=== PATIENT | female | born 1955 | race Caucasian/White ===

== ENCOUNTER → 2019-09-16 13:51 | Outpatient (BNVA) | payer MEDICARE, MEDICAID, SELFPAY | PROVIDERS: Family Provider Family Medicine; PCP Family Medicine; Visit Provider Specialist | DX: G35 Multiple sclerosis (principal); Z97.8 Presence of other specified devices | CPT/HCPCS: 62370; 99213; J0475 ==

== ENCOUNTER 2019-11-09 16:59 | Outpatient (CLI) | payer MEDICARE, MEDICAID, SELFPAY ==
[2019-11-09 17:18] LABS: Urine Color Yellow (Yellow)
[2019-11-09 17:19] LABS: Add Urine Microscopic? YES; Bilirubin Urine Neg (NEGATIVE); Blood Urine 3+ (Negative); Glucose Urine UA Norm (Normal); Ketones Urine Negative (Negative); Leukocyte Esterase Urine 2+ (Negative); Nitrate Urine Positive (Negative); Protein Urine 1+ (Negative); Specific Gravity, Urine 1.015 (1.005-1.030); Urobilinogen Urine Norm (Negative); pH Urine 5 (5-7)
[2019-11-09 18:16] LABS: WBC Urine TOO NUMEROUS TO CNT /hpf (0-5)
[2019-11-09 18:17] LABS: Add Urine Culture? Yes; Bacteria Urine 2+; Mucus Urine TRACE; Squamous Epithelial Cell Urine 0-4 (0-5)
== END 2019-11-09 17:00 | disposition home or self-care (01) ==
LOC: LAB 17:01
PROVIDERS: PCP Family Medicine; Visit Provider Internal Medicine
DX: E11.9 Type 2 diabetes mellitus without complications (principal)
CPT/HCPCS: 81001; 87086

== ENCOUNTER 2019-11-12 08:40 | Outpatient (CLI) | payer MEDICARE, MEDICAID, SELFPAY ==
--- NOTE | 2019-11-12 09:00 | CT_ITS ---
WS: [id number] CT LUMBAR SPINE, noncontrast. HISTORY: Baclofen pump needs replaced. TECHNIQUE: Contiguous 2.5 mm axial imaging are performed. Sagittal and coronal reformats are submitte d and reviewed. All CT scans at [facility] use at least one of these dose optimization te chniques: automated exposure control; mA and/or kV adjustment per patient size (includes targeted exa ms where dose is matched to clinical indication); or iterative reconstruction. IV contrast: None DLP: 2738.1 mGy.cm COMPARISON: 02/03/2018 Severe LEFT convex curvature of the lumbar spine. Asymmetric disc space narrowing along the RIGHT con vex curvature with large osteophytes. Bones are diffusely osteopenic. Severe degenerative disc diseas e and osteophytosis throughout the lumbar spine. Most significant degenerative disc disease is at L4- 5. Large circumferential osteophytes. No acute fractures are seen. Baclofen pump catheter enters the lumbar canal at L2-3 level. Tip of the catheter extends above the T 11 area and is not included on this examination. L1-2: Annular disc bulging. Mild central and foraminal stenosis. L2-3: Osteophytic ridging with annular disc bulging. Mild central and subarticular recess stenosis. L3-4: Diffuse annular disc bulging with osteophytic ridging and facet arthropathy. Mild central and s ubarticular recess stenosis. L4-5: Diffuse annular disc bulging with marked facet and ligamentum flavum arthritis. Severe central and subarticular recess stenosis. L5-S1: Small osteophytes encroach into the LEFT subarticular recess. Mild bilateral foraminal stenosi s predominantly due to osteophyte disease. Extensive atherosclerosis within the aorta with no aneurysm. CT/CT lumbar spine wo con* [id number] IMPRESSION: 1. Marked LEFT convex curvature the lumbar spine with osteopenia and advanced degenerative changes in the lumbar spine. 2. Severe central and subarticular recess stenosis at L4-5 with only minimal c hange since 02/03/2018. 3. Mild central and subarticular recess stenosis at L2-3 and L3-4. 4. Mild bilateral foraminal stenosis at L5-S1 and L1-2.
== END 2019-11-12 08:41 | disposition home or self-care (01) ==
LOC: RAD 08:45
PROVIDERS: PCP Family Medicine; Visit Provider Licensed Practical Nurse
DX: Z97.8 Presence of other specified devices (principal); M48.061 Spinal stenosis, lumbar region without neurogenic claudication
CPT/HCPCS: 72131

== ENCOUNTER 2020-02-17 23:45 | Inpatient (IN) | payer MEDICARE, MEDICAID, SELFPAY ==
--- NOTE | 2020-02-17 23:51 | XRR_ITS ---
PROCEDURE INFORMATION: Exam: XR Chest, 1 View Exam date and time: 02/18/2020 12:29 AM Age: 65 years old Clinical indication: Patient HX: C/O fever, confusion, redness left leg TECHNIQUE: Imaging protocol: XR of the chest Views: 1 view. COMPARISON: CR Chest 1 [place] [id number] 02/10/2019 11:24 PM FINDINGS: Lungs: Unremarkable. No consolidation. Pleural space: Unremarkable. No pleural effusion. No pneumothorax. Heart/Mediastinum: Unremarkable. No cardiomegaly. Bones/joints: Unremarkable. XR/XR chest 1V portable [id number] IMPRESSION: No acute findings. Air-filled stomach
--- NOTE | 2020-02-17 23:52 | ECG_ITS ---
[facility] Test Date: 2020-02-18 Pat Name: Jared Garcia Department: Room: Gender: Female Bods Developer: : 1955 Requested By: Jay Ferreira Order Number: [id number] Travis MD: Yajaira Luis M.D. Measurements Intervals [place] Rate: 121 P: 55 AR: 169 QRS: 29 QRSD: 87 T: 41 QT: 322 QTc: 459 Interpretive Statements SINUS TACHYCARDIA LOW QRS VOLTAGE [QRS DEFLECTION < 0.5/1.0 mV IN LIMB/CHEST LEADS] POSSIBLE INFERIOR MYOCARDIAL INFARCTION , PROBABLY OLD [30 ms Q WAVE IN II/aVF] ANTEROSEPTAL MYOCARDIAL INFARCTION , PROBABLY OLD [40+ ms Q WAVE IN V1-V4] Compared to ECG 02/11/2019 04:20:35 Myocardial infarct finding now present Sinus rhythm no longer present Electronically Signed On 02-18-2020 18:50:05 CDT by Yajaira Luis M.D. [id number] f
[2020-02-17 23:56] VITALS: BP 107/56; PULSE 126; RESP 24; TEMP 38.3; O2SAT 92; BMI 70.4
[2020-02-18] VITALS (16 sets, daily range): BP systolic 90–156; BP diastolic 52–82; PULSE 65–119; RESP 16–26; TEMP 37–38.2; O2SAT 94–99
--- NOTE | 2020-02-18 00:19 | W.ED.AMS ---
HPI - Altered Mental Status General: Chief Complaint: Altered Mental Status Stated Complaint: SEPSIS Time Seen by Provider: 02/17/20 23:48 Source: EMS Mode of arrival: EMS Limitations: altered mental status History of Present Illness: HPI narrative: 65-year-old female who is here from the intermediate[facility] group home found her to be febrile tonight with a temperature of 102 does have a temperature of 101 here. Patient has been confused. She is able to tell me her name that is it at this time. Does have redness to her left leg that is quite warm to touch. She denies headache. She denies any neck pain. She has had no known cough. Patient's blood pressure per ems was normal Review of Systems General: Reports: ROS unobtainable due to mental status Const: Reports: fever(s) [facility] ED PFSH: Medical History (Updated 02/18/20 @ 03:45 by Jay Ferreira MD) Anemia Chronic back pain Chronic constipation Depression End of battery life of intrathecal infusion pump GERD (gastroesophageal reflux disease) Hyperlipidemia Hypertension Hypothyroidism Incontinence Multiple sclerosis Obstructive sleep apnea Surgical History Presence of intrathecal baclofen pump 05/19/2013 Dr. Abner Flanagan: Replacement of [employer] subcutaneous programmable pump with connection to intrathecal catheter for administration of intrathecal baclofen therapy. Family History Other CAD (coronary artery disease) Cancer Diabetes Denies family history of Hypertension Stroke Social History Smoking and tobacco status: never smoked Alcohol intake: never Lives independently: No Housing: Detention History of recent travel: No Physical Exam Const: COMMON NORMALS: negative for patient oriented x3 EXAM LIMITATIONS: altered mental status GENERAL APPEARANCE: ill appearing ORIENTATION/CONSCIOUSNESS: Yes oriented to person; not oriented to place and not oriented to time HENMT: COMMON NORMALS: normocephalic and atraumatic HEAD & SCALP: normocephalic and atraumatic Eye: COMMON NORMALS: Equal, round and reactive pupils present and EOMs intact bilaterally PUPIL: Yes Equal, round and reactive pupils present Neck/C-Spine: COMMON NORMALS: full ROM and supple Chest: COMMONS NORMALS: normal inspection of the chest and normal palpation of entire chest wall Resp: COMMON NORMALS: normal respiratory effort, No retractions, No use of accessory muscles and clear to auscultation bilaterally AUSCULTATION: clear to auscultation bilaterally Cardio: COMMON NORMALS: regular rate, regular rhythm and No murmurs present (Cardio) RATE: regular rate RHYTHM: regular rhythm GI: COMMON NORMALS: Normal to inspection, nondistended, normoactive bowel sounds present, Soft to palpation, non-tender and no masses PALPATION: Yes Soft to palpation Extremity: COMMON NORMALS: full ROM NARRATIVE EXTREMITY EXAM: Erythema and warmth to the left leg Neuro: COMMON NORMALS: moves all extremities and no focal motor deficits; negative for patient oriented x3 SENSORIUM/ORIENTATION: Yes oriented to person, No oriented to place and No oriented to time Psych: COMMON NORMALS: negative for mental status grossly normal Skin: COMMON NORMALS: no rashes or lesions noted and no wounds GENERAL SKIN EXAM: no rashes or lesions noted Course Vital Signs: Vital signs: Vital Signs Temperature 100.3 F H 02/18/20 02:59 Pulse Rate 65 02/18/20 02:57 Respiratory Rate 24 H 02/18/20 02:00 Blood Pressure 106/55 02/18/20 02:57 Pulse Oximetry 95 02/18/20 02:59 MDM - Altered Mental Status MDM Narrative: Medical decision making narrative: Patient presents with fever along with sepsis. Patient is able to mental status likely due to her fever and infection. Patient has UTI along with cellulitis to her left leg. Patient started on IV antibiotics I spoke to Dr. Higginbotham who is seen patient in the ER and will admit. Patient's blood pressures here have been stable. Lab Data: Labs: Lab Results 02/18/20 02/18/20 02/18/20 Range/Units 00:32 00:32 00:32 WBC 11.4 H (4.0-10.0) 10^3/ uL RBC 4.07 L (4.1-5.3) 10^6/u L Hgb 11.1 L (11.5-15.3) g/dL Hct 36.3 L (37.0-47.0) % MCV 89.2 (81-99) fL MCH 27.3 L (28.0-34.0) pg MCHC 30.6 (30.0-36.0) g/dL RDW 15.7 H (12.1-15.1) % Plt Count 279 (130-400) 10^3/c mm MPV 10.0 (7.4-10.4) fL Neut % (Auto) 88.8 % Lymph % (Auto) 7.3 % Preston % (Auto) 3.3 % Eos % (Auto) 0.0 % Baso % (Auto) 0.2 % Neut # (Auto) 10.10 H (1.8-7.7) 10^3/u L Lymph # (Auto) 0.8 (0.8-4.8) 10^3/u L Preston # (Auto) 0.4 (0.2-0.9) 10^3/u L Eos # (Auto) 0.0 (0.0-0.8) 10^3/u L Baso # (Auto) 0.0 (0.0-0.1) 10^3/u L Nucleated RBC % (a uto) 0 % Nucleated RBCs # 0.0 /100WBC PT 15.10 H (12.1-14.9) SECO NDS INR 1.15 (0.8-1.2) Sodium 131 L (136-145) mmol/L Potassium 5.1 (3.5-5.1) mmol/L Chloride 95 L (98-107) mmol/L Carbon Dioxide 19 L (22-29) mmol/L Anion Gap 22.1 H (5-19) BUN 30 H (8-23) mg/dL Creatinine 1.1 H (0.5-0.9) mg/dL GFR Calculation 50.2 L (90-130) mL/min Glucose 359 H (65-115) mg/dL Calculated Osmolal ity 284 L (285-295) mOsm/k g Lactate (0.5-2.2) mmol/L Calcium 8.5 (8.5-10.5) mg/dL Total Bilirubin 0.5 (0.15-1.2) mg/dL AST 38 H (0-32) U/L ALT 20 (0-33) U/L Alkaline Phosphata se 67 (35-105) IU/L C-Reactive Protein 194.4 H (0.0-4.9) mg/L NT-Pro-B Natriuret Pep 533 H (0-125) pg/mL Total Protein 7.9 (6.6-8.7) g/dL Albumin 3.2 L (3.5-5.2) g/dL Globulin 4.7 H (1.3-4.6) g/dL TSH 2.87 (0.27-4.20) uIU/ mL Urine Color (Yellow) Urine Appearance (CLEAR) Urine pH (5-7) Ur Specific Gravit y (1.005-1.030) Urine Protein (Negative) Urine Glucose (UA) (Normal) Urine Ketones (Negative) Urine Blood (Negative) Urine Nitrate (Negative) Urine Bilirubin (NEGATIVE) Urine Urobilinogen (Negative) mg/dL Ur Leukocyte Susan ase (Negative) Urine RBC (0-2) /hpf Urine WBC (0-5) /hpf Ur Squamous Epith Cells (0-5) Amorphous Sediment Urine Bacteria (NONE) SARS-CoV-2 Ag (Rap id) (Negative) 02/18/20 02/18/20 02/18/20 Range/Units 00:32 01:06 01:53 WBC (4.0-10.0) 10^3/ uL RBC (4.1-5.3) 10^6/u L Hgb (11.5-15.3) g/dL Hct (37.0-47.0) % MCV (81-99) fL MCH (28.0-34.0) pg MCHC (30.0-36.0) g/dL RDW (12.1-15.1) % Plt Count (130-400) 10^3/c mm MPV (7.4-10.4) fL Neut % (Auto) % Lymph % (Auto) % Preston % (Auto) % Eos % (Auto) % Baso % (Auto) % Neut # (Auto) (1.8-7.7) 10^3/u L Lymph # (Auto) (0.8-4.8) 10^3/u L Preston # (Auto) (0.2-0.9) 10^3/u L Eos # (Auto) (0.0-0.8) 10^3/u L Baso # (Auto) (0.0-0.1) 10^3/u L Nucleated RBC % (a uto) % Nucleated RBCs # /100WBC PT (12.1-14.9) SECO NDS INR (0.8-1.2) Sodium (136-145) mmol/L Potassium (3.5-5.1) mmol/L Chloride (98-107) mmol/L Carbon Dioxide (22-29) mmol/L Anion Gap (5-19) BUN (8-23) mg/dL Creatinine (0.5-0.9) mg/dL GFR Calculation (90-130) mL/min Glucose (65-115) mg/dL Calculated Osmolal ity (285-295) mOsm/k g Lactate 3.6 H (0.5-2.2) mmol/L Calcium (8.5-10.5) mg/dL Total Bilirubin (0.15-1.2) mg/dL AST (0-32) U/L ALT (0-33) U/L Alkaline Phosphata se (35-105) IU/L C-Reactive Protein (0.0-4.9) mg/L NT-Pro-B Natriuret Pep (0-125) pg/mL Total Protein (6.6-8.7) g/dL Albumin (3.5-5.2) g/dL Globulin (1.3-4.6) g/dL TSH (0.27-4.20) uIU/ mL Urine Color Yellow (Yellow) Urine Appearance Cloudy (CLEAR) Urine pH 5 (5-7) Ur Specific Gravit y 1.020 (1.005-1.030) Urine Protein 2+ H (Negative) Urine Glucose (UA) Norm (Normal) Urine Ketones Negative (Negative) Urine Blood 3+ H (Negative) Urine Nitrate Negative (Negative) Urine Bilirubin Neg (NEGATIVE) Urine Urobilinogen 1 H (Negative) mg/dL Ur Leukocyte Susan ase 2+ H (Negative) Urine RBC 0-4 H (0-2) /hpf Urine WBC 80-100 H (0-5) /hpf Ur Squamous Epith Cells 0-4 H (0-5) Amorphous Sediment Not Reportable Urine Bacteria 2+ H (NONE) SARS-CoV-2 Ag (Rap id) Negative (Negative) Imaging Data^: CXR: Attestation: I personally reviewed and interpreted this imaging study as follows: My impression: no acute abnormality EKG Data^: EKG 1: Attestation: I personally reviewed and interpreted this EKG as follows: EKG interpretation date: 02/18/20 EKG interpretation time: 00:06 Interpretation: sinus tach hr [address] or t wave abnormalities qrs 87 qtc 394 Critical Care Time Critical Care Time: Critical Care Time: Yes Total Critical Care Time: 35 Attestation: This case had a high probability of a clinically significant, sudden, or life threatening deterioration of this patient's condition which required my full and direct attention, intervention and personal management. Discharge Plan Discharge Patient Disposition: Admitted As Inpatient Clinical Impression: Altered mental status Qualifiers: Altered mental status type: unspecified Qualified Code(s): R41.82 - Altered mental status, unspecified Sepsis Qualifiers: Sepsis type: sepsis due to unspecified organism Sepsis acute organ dysfunction status: without acute organ dysfunction Qualified Code(s): A41.9 - Sepsis, unspecified organism UTI (urinary tract infection) Qualifiers: Urinary tract infection type: acute cystitis Hematuria presence: without hematuria Qualified Code(s): N30.00 - Acute cystitis without hematuria Cellulitis Qualifiers: Site of cellulitis: extremity Site of cellulitis of extremity: lower extremity Laterality: left Qualified Code(s): L03.116 - Cellulitis of left lower limb Condition: Stable Referrals: Russ Rosa Jr, MD [Primary Care Provider] - Coding Level of Care Code ED Track Watchman for Chg Fwd Exam Comprehensive
[2020-02-18] MEDS: piperacillin-tazobactam 3.375 GM in sodium chloride 0.9% (plus) 50 ML IV ×3 (00:39→17:23)
[2020-02-18] MEDS: acetaminophen 325 mg Tablet 650 MG PO ×2 (00:41→08:36)
[2020-02-18] MEDS: sodium chloride 0.9% 1,000 ML 999 ML IV ×2 (01:04→01:21)
[2020-02-18] MEDS: vancomycin 1,000 MG in sodium chloride 0.9% 250 ML 250 MG IV (01:11)
--- NOTE | 2020-02-18 01:16 | PC.NURSE ---
Used EMS fluids for 1 liter bolus.
[2020-02-18 01:21] LABS: Basophils % 0.2 %; Hematocrit 36.3 % (37.0-47.0); Hemoglobin 11.1 g/dL (11.5-15.3); Lymphocytes # 0.8 10^3/uL (0.8-4.8); Lymphocytes % 7.3 %; Mean Corpuscular HGB Conc 30.6 g/dL (30.0-36.0); Mean Corpuscular Hemoglobin 27.3 pg (28.0-34.0); Mean Corpuscular Volume 89.2 fL (81-99); Monocytes # 0.4 10^3/uL (0.2-0.9); Monocytes % 3.3 %; Neutrophils % 88.8 %; Nucleated Red Blood Cells % 0 %; Platelet Count 279 10^3/cmm (130-400); Red Blood Count 4.07 10^6/uL (4.1-5.3); Red Cell Distribution Width 15.7 % (12.1-15.1); White Blood Count 11.4 10^3/uL (4.0-10.0)
[2020-02-18 01:28] LABS: Lactate (Lactic Acid level) 3.6 mmol/L (0.5-2.2)
[2020-02-18 01:33] LABS: INR 1.15 (0.8-1.2)
[2020-02-18 01:35] LABS: Alanine Aminotransferase 20 U/L (0-33); Albumin Level 3.2 g/dL (3.5-5.2); Alkaline Phosphatase 67 IU/L (35-105); Anion Gap 22.1 (5-19); Aspartate Amino Transferase 38 U/L (0-32); Blood Urea Nitrogen 30 mg/dL (8-23); C Reactive Protein 194.4 mg/L (0.0-4.9); Calcium 8.5 mg/dL (8.5-10.5); Carbon Dioxide 19 mmol/L (22-29); Chloride 95 mmol/L (98-107); Globulin 4.7 g/dL (1.3-4.6); Glomerular Filtration Rate 50.2 mL/min (90-130); Glucose 359 mg/dL (65-115); NT Pro B Type Natriuretic Pept 533 pg/mL (0-125); Osmolality Calculated 284 mOsm/kg (285-295); Potassium 5.1 mmol/L (3.5-5.1); Sodium 131 mmol/L (136-145); Thyroid Stimulating Hormone 2.87 uIU/mL (0.27-4.20); Total Bilirubin 0.5 mg/dL (0.15-1.2); Total Protein 7.9 g/dL (6.6-8.7)
[2020-02-18 01:38] LABS: Add Urine Microscopic? YES; Bacteria Urine 2+; Bilirubin Urine Neg (NEGATIVE); Blood Urine 3+ (Negative); Glucose Urine UA Norm (Normal); Ketones Urine Negative (Negative); Leukocyte Esterase Urine 2+ (Negative); Nitrate Urine Negative (Negative); Protein Urine 2+ (Negative); RBC Urine 0-4 /hpf (0-2); Squamous Epithelial Cell Urine 0-4 (0-5); Urine Appearance Cloudy (CLEAR); Urine Color Yellow (Yellow); Urobilinogen Urine 1 mg/dL (Negative); WBC Urine 80-100 /hpf (0-5); pH Urine 5 (5-7)
[2020-02-18 01:39] LABS: Add Urine Culture? No
[2020-02-18 02:32] LABS: SARS Covid-2 Antigen Negative (Negative)
--- NOTE | 2020-02-18 02:47 | USCV_ITS ---
Jared Garcia Age: 65 Gender: F : 1955 Exam Date: 02/18/2020 03:29 Ordering Phys: Jay Ferreira MD Technologist: Dinh Lema [place] [facility] [place]: LT LEG SWELLING AND REDNESS HISTORY: Lower extremity edema. Erythema. PROCEDURES: Venous duplex imaging was performed in only the left lower extremity. The following venous structures were evaluated: common femoral vein, profunda vein, proximal portion of the greater saphenous vein, superficial femoral vein, and the popliteal vein. FINDINGS: Normal 2-D Doppler and augmentation and compressibility throughout the lower extremity venous structures. Additional imaging through the proximal calf veins also reveals no thrombus. Limited evaluation of the greater saphenous vein is patent with no thrombus. CONCLUSIONS No DVT left lower extremity. Dr. Rhianna Solomon DO (Electronically Signed) Final Date: 18 February 2020 08:37 S
--- NOTE | 2020-02-18 03:04 | PC.NURSE ---
hospitalist in room
--- NOTE | 2020-02-18 03:09 | P.HP_ITS ---
Providers/Chief Complaint Primary Care Provider: Russ Rsoa Jr, MD Chief Complaint: SEPSIS History of Present Illness Jared Garcia is a 65 year old female that presents from [facility] with history of fever, decreased responsiveness. Patient is confused currently and cannot give an adequate history although she can answer a few simple questions. Nursing reports she is just been ill today. She has not had an indwelling cath for at least the last several months. She noted she was lethargic today with fever and diminished oxygen saturations. They were worried she was septic so she was sent to the ER. Patient denies any discomfort currently. While in the emergency department, she was found to have an erythematous left lower extremity and concern of UTI. A catheter was placed in the ER. She specifically denies any chest pain. Review of Systems General: Reports: 10 or more systems reviewed and unremarkable except in HPI and below (Patient unable to participate enough to give review of systems seco ndary to encephalopathy.) Medications/Allergies Home Medications Medication Instructions Recorded Confirmed Last Taken Type acetaminophen 325 mg capsule 325 mg PO QID PRN 09/16/19 11/25/19 Unknown History aripiprazole 2 mg tablet 2 mg PO DAILY 09/16/19 11/25/19 Unknown History bisacodyl 10 mg rectal suppository 10 mg OK DAILY PRN 09/16/19 11/25/19 Unknown History citalopram 40 mg tablet 20 mg PO DAILY 09/16/19 11/25/19 Unknown History clopidogrel 75 mg tablet 75 mg PO DAILY 09/16/19 11/25/19 Unknown History cyclobenzaprine 10 mg tablet 10 mg PO TID PRN 09/16/19 11/25/19 Unknown History docusate sodium 100 mg capsule 100 mg PO DAILY 09/16/19 11/25/19 Unknown History furosemide 40 mg tablet 40 mg PO DAILY 09/16/19 11/25/19 Unknown History hydrocodone 5 mg-acetaminophen 325 1 tab PO BID PRN 09/16/19 11/25/19 Unknown History mg tablet interferon beta-1b 0.3 mg See Rx Instructions SUBCUT .COMPLEX 09/16/19 11/25/19 Unknown History subcutaneous kit levothyroxine 175 mcg capsule 175 mcg PO DAILY 09/16/19 11/25/19 Unknown History lisinopril 5 mg tablet 5 mg PO DAILY 09/16/19 11/25/19 Unknown History loratadine 10 mg tablet 10 mg PO DAILY 09/16/19 11/25/19 Unknown History lorazepam 0.5 mg tablet 0.25 mg PO BID PRN tab 09/16/19 11/25/19 Unknown History magnesium hydroxide 400 mg/5 mL 5 ml PO DAILY PRN 09/16/19 11/25/19 Unknown History oral suspension menthol 4 % topical gel 1 applic TOPICAL BID PRN ml 09/16/19 11/25/19 Unknown History nystatin 100,000 unit/gram topical 1 applic TOPICAL BID PRN 09/16/19 11/25/19 Unknown History cream ondansetron HCl 4 mg tablet 4 mg PO Q8H PRN 09/16/19 11/25/19 Unknown History pantoprazole 40 mg tablet,delayed 40 mg PO DAILY 09/16/19 11/25/19 Unknown History release quetiapine 25 mg tablet 25 mg PO DAILY 09/16/19 11/25/19 Unknown History saliva stimulant comb. no.3 1 applic MUCOUS MEM Q2H PRN 09/16/19 11/25/19 Unknown History simvastatin 5 mg tablet 5 mg PO DAILY 09/16/19 11/25/19 Unknown History sodium phosphates 19 gram-7 118 ml OK DAILY PRN 09/16/19 11/25/19 Unknown History gram/118 mL enema Allergies Allergy/AdvReac Type Severity Reaction Status Date / Time aspirin AdvReac unknown Verified 11/25/19 15:23 PFSH Acute PFSH: Medical History (Updated 02/18/20 @ 03:19 by Antoine Higginbotham MD) Anemia Chronic back pain Chronic constipation Depression End of battery life of intrathecal infusion pump GERD (gastroesophageal reflux disease) Hyperlipidemia Hypertension Hypothyroidism Incontinence Multiple sclerosis Obstructive sleep apnea Surgical History Presence of intrathecal baclofen pump 05/19/2013 Dr. Abner Flanagan: Replacement of [employer] subcutaneous programmable pump with connection to intrathecal catheter for administration of intratheca l baclofen therapy. Family History Other CAD (coronary artery disease) Cancer Diabetes Denies family history of Hypertension Stroke Social History Smoking and tobacco status: never smoked Alcohol intake: never Lives independently: No Housing: [facility] History of recent travel: No Vitals/I&O/Wt Last Vital Signs Temp 100.3 F H 02/18/20 02:59 Pulse 65 02/18/20 02:57 Resp 24 H 02/18/20 02:00 BP 106/55 02/18/20 02:57 Pulse Ox 95 02/18/20 02:59 02/17/20 02/17/20 02/18/20 14:59 22:59 06:59 Intake Total 2300 / 2300 Balance 2300 / 2300 Weight last 48 hrs Weight 204.117 kg Physical Exam Narrative: EXAM NARRATIVE: General exam is a confused white female, in no apparent distress HEENT: Pupils equally round. Oropharynx dry Neck is supple, obese. No obvious mass Cardiovascular regular rate and rhythm, no murmur Lungs clear no wheezing or crackles Abdomen is soft obese nontender positive bowel sounds demonstrates Flores Extremities no cyanosis clubbing. Bilateral edema left greater than right, around 1+. Erythema noted on the left lower extremity, most prominent foot and calf area. Cap refill brisk Skin see findings above Neuro: Paresis secondary to MS unchanged from my previous exams at the nursing facility. Note that she is a nonambulator, Niharika lift Urinary Catheter Management^: Flores: Cath Placed During This Visit: yes Reason for Continuing Indwelling Catheter: Assist Healing of Perineal & Sacral Wounds- Incontinent Patients Urinary Catheter Date of Insertion: 02/18/20 Urinary Catheter Time of Insertion: 01:08 Data : 02/18/20 00:32 02/18/20 00:32 Micro: Microbiology 02/18/20 00:35 Blood Culture - Preliminary Blood SPECIMEN COLLECTED 02/18/20 00:32 Blood Culture - Preliminary Blood SPECIMEN COLLECTED Other data: Rapid COVID negative. Urinalysis with 80-100 whites, 0-4 reds TSH normal CRP significantly elevated AST 38, rest of LFTs normal Chest x-ray left hemidiaphragm elevation, no infiltrate by my read EKG demonstrates sinus tachycardia, normal axis, poor R wave progression A&P Assessment and plan (1) Sepsis: IV vancomycin, Zosyn Hydration Status: Acute (2) UTI (urinary tract infection): IV antibiotics as above Status: Acute (3) Cellulitis: Appears to have cellulitis left lower extremity. Check venous duplex to make sure this does not represent DVT Status: Acute (4) Hyperglycemia: Check hemoglobin A1c Sliding scale insulin Urine ketones negative Anion gap likely elevated secondary to sepsis Status: Acute (5) Acute kidney injury: Hydration Recheck BMP daily Hold lisinopril, renal toxic medications Status: Acute Additional A&P Information Acute metabolic encephalopathy close follow-up with mental function. She recognized me, and appears to be improving. I do not believe she requires a CT head currently. No evidence on clinical exam or history to suggest meningitis. Hold sedating medications. MS Chronic incontinence secondary to neurogenic bladde GERD. Continue home medicines Chronic constipation Chronic back pain with history of intrathecal pain pump. No evidence currently of infection of this device Hypertension. Hold meds currently secondary to lower blood pressures Obstructive sleep apnea, continue CPAP Hypothyroidism, continue meds Hyperlipidemia Multiple other medical problems as outlined in her past medical history Allow natural per nursing facility paperwork Lovenox for DVT prophylaxis Reviewed med list. Unsure why she is on Plavix chronically at this time Attestations Medical Necessity Statement*: Will need greater than 2 midnight stay secondary to sepsis requiring IV antibiotics Time Spent in Patient Care: Greater than 35 minutes Coding Level of Care Code Acute Home Service Advisor for Chg Fwd Diagnoses Sepsis A41.9 UTI (urinary tract infection) N39.0 Cellulitis L03.90 Hyperglycemia R73.9 Acute kidney injury N17.9
--- NOTE | 2020-02-18 04:19 | PC.NURSE ---
Patient has circular skin breakdown on posterior upper part of left leg approximately 3inches around.
[2020-02-18] MEDS: sodium chloride 0.9% 1,000 ML 100 ML IV ×3 (05:10→20:19)
[2020-02-18] MEDS: enoxaparin 40 mg/0.4 mL Syringe SUBCUT (05:10)
[2020-02-18 06:19] LABS: Estmated Average Glucose 240
[2020-02-18 07:00] LABS: Glucose Point of Care 424 mg/dL (70-110)
[2020-02-18] MEDS: levothyroxine 150 mcg Tablet PO (08:36)
[2020-02-18] MEDS: atorvastatin 40 mg Tablet 20 MG PO (08:37)
[2020-02-18] MEDS: docusate sodium 100 mg Capsule PO (08:37)
[2020-02-18] MEDS: levothyroxine 25 mcg Tablet PO (08:38)
[2020-02-18] MEDS: clopidogrel 75 mg Tablet PO (08:38)
[2020-02-18] MEDS: citalopram 20 mg Tablet PO (08:38)
[2020-02-18] MEDS: pantoprazole DR 40 mg Tablet PO (08:38)
[2020-02-18 11:06] LABS: Glucose Point of Care 361 mg/dL (70-110)
--- NOTE | 2020-02-18 16:35 | P.PN_ITS ---
Subjective Subjective: Interval history: Patient sleeping at time of exam today. She was somewhat lethargic but would wake up to answer questions, she would answer questions and fall back asleep. She denied any pain at time of exam, no chest pain or shortness of breath, denied any abdominal pain. Discussing with patient about wound care and she stated that she follows with the wound care clinic but then quickly drifted back to sleep. Vitals/I&O/Wt Last Vital Signs Temp 99.5 F 02/18/20 12:00 Pulse 96 02/18/20 12:00 Resp 16 02/18/20 12:00 BP 156/82 02/18/20 12:00 Pulse Ox 94 02/18/20 12:00 02/18/20 02/18/20 02/18/20 06:59 14:59 22:59 Intake Total 2300 / 2300 Balance 2300 / 2300 Weight last 48 hrs Weight 204.117 kg Physical Exam Const: OTHER: Oriented to person and place, lethargic and sleepy HENMT: COMMON NORMALS: normocephalic and atraumatic HEAD & SCALP: normocephalic and atraumatic Eye: COMMON NORMALS: Equal, round and reactive pupils present PUPIL: Yes Equal, round and reactive pupils present Neck/C-Spine: COMMON NORMALS: supple GENERAL: Yes normal visual inspection Resp: COMMON NORMALS: normal respiratory effort and clear to auscultation bilaterally EFFORT & INSPECTION: Yes able to speak in complete sentences AUSCULTATION: clear to auscultation bilaterally, no rhonchi and no wheezes Cardio: COMMON NORMALS: regular rate, regular rhythm and No murmurs present (Cardio) RATE: regular rate RHYTHM: regular rhythm GI: OTHER: Morbidly obese, no appreciable masses, normal bowel sounds, no appreciable tenderness to palpation Extremity: NARRATIVE EXTREMITY EXAM: Chronic edema in the lower extremities bilaterally with left lower extremity erythema Neuro: OTHER: Patient is lethargic, will answer questions appropriately when she is able to stay awake long enough, however quickly drifts back to sleep. Psych: OTHER: Lethargic, sleepy Skin: NARRATIVE SKIN EXAM: Patient has erythema in the left lower extremity. Has flaking on the anterior frederick on the right. Patient has sacral and perineal wounds with sloughing of skin and erythema and skin breakdown Urinary Catheter Management^: Flores: Cath Placed During This Visit: yes Reason for Continuing Indwelling Catheter: Other Urinary Catheter Date of Insertion: 02/18/20 Urinary Catheter Time of Insertion: 01:08 Data : 02/18/20 00:32 02/18/20 00:32 Micro: Microbiology 02/18/20 00:35 Blood Culture - Preliminary Blood SPECIMEN COLLECTED 02/18/20 00:32 Blood Culture - Preliminary Blood SPECIMEN COLLECTED A&P Assessment and plan (1) Sepsis: Secondary to acute cystitis and lower extremity cellulitis Continue on broad-spectrum antibiotics with vancomycin and Zosyn Status: Acute Qualifiers: Sepsis acute organ dysfunction status: without acute organ dysfunction Sepsis type: sepsis due to unspecified organism Qualified Code(s): A41.9 - Sepsis, unspecified organism (2) UTI (urinary tract infection): With chronic indwelling Flores catheter Continue on broad-spectrum antibiotics until further culture and sensitivities return Status: Acute Qualifiers: Hematuria presence: without hematuria Urinary tract infection type: acute cystitis Qualified Code(s): N30.00 - Acute cystitis without hematuria (3) Cellulitis: Venous duplex of the left lower extremity is negative for DVT Continue on broad-spectrum antibiotics due to left lower extremity cellulitis Status: Acute Qualifiers: Laterality: left Site of cellulitis: extremity Site of cellulitis of extremity: lower extremity Qualified Code(s): L03.116 - Cellulitis of left lo wer limb (4) Hyperglycemia: Hemoglobin A1c of 10 Start on Lantus 10 units daily Continue on sliding scale insulin Continue close monitoring of blood glucose Status: Acute (5) Acute kidney injury: Continue with IV fluids Recheck BMP in the morning Hold lisinopril, renal toxic medications Status: Acute Additional A&P Information Acute metabolic encephalopathy close follow-up with mental function.: Patient answers questions appropriately but just lethargic and sleepy, secondary to sepsis from cystitis. Continue with close monitoring of neurologic status. Multiple sclerosis Chronic incontinence secondary to neurogenic bladder: Continue with Flores catheter placement GERD. Continue PPI Chronic constipation Chronic back pain with history of intrathecal pain pump. No evidence currently of infection of this device Hypertension: Holding antihypertensives at this time due to soft blood pressures on admission, blood pressures continue to improve Obstructive sleep apnea, continue CPAP Hypothyroidism, continue home levothyroxine 175 mcg daily Hyperlipidemia CODE STATUS: Allow natural per nursing facility paperwork Lovenox for DVT prophylaxis Attestations Medical Necessity Statement*: Patient requires continued hospitalization due to acute encephalopathy secondary to sepsis with acute cystitis Coding Level of Care Code Acute Manager Of Internal Audit for Chg Fwd Diagnoses Sepsis A41.9 Sepsis acute organ dysfunction status: without acute organ dysfunction Sepsis type: sepsis due to unspecified organism UTI (urinary tract infection) N30.00 Hematuria presence: without hematuria Urinary tract infection type: acute cystitis Cellulitis L03.116 Laterality: left Site of cellulitis: extremity Site of cellulitis of extremity: lower extremity Hyperglycemia R73.9 Acute kidney injury N17.9
[2020-02-18 17:00] LABS: Glucose Point of Care 253 mg/dL (70-110)
[2020-02-18] MEDS: nystatin cream 30 gm 1 APPLIC TOPICAL (17:28)
[2020-02-18] MEDS: gabapentin 300 mg Capsule PO (21:02)
[2020-02-18] MEDS: insulin glargine 100 units/1 mL 10 UNIT SUBCUT (21:03)
[2020-02-18 21:06] LABS: Glucose Point of Care 195 mg/dL (70-110)
[2020-02-19] VITALS (7 sets, daily range): BP systolic 108–136; BP diastolic 55–73; PULSE 73–114; RESP 16–22; TEMP 37–38.9; O2SAT 91–97
[2020-02-19] MEDS: piperacillin-tazobactam 3.375 GM in sodium chloride 0.9% (plus) 50 ML IV ×3 (01:37→18:13)
[2020-02-19] MEDS: enoxaparin 40 mg/0.4 mL Syringe SUBCUT (05:40)
[2020-02-19] MEDS: acetaminophen 325 mg Tablet 650 MG PO (06:00)
--- NOTE | 2020-02-19 06:03 | PC.NURSE ---
SHIFT SUMMARY Confused but pleasant. Does not like to be repositioned. Has large amt of red/purple discoloring to sacrum/buttocks. Open areas of shearing abrasions/excoriation present. Had couple of BM's at beginning of shift. Fever to 102 this am and was given po Tylenol. Had positive preliminary blood cultures called to floor during this shift and was reported to Dr. Rouse on IV Vanc and Zosyn for antibiotic coverage. IV fluids infusing without difficulty. Good urine output from Flores
[2020-02-19 06:52] LABS: Glucose Point of Care 164 mg/dL (70-110)
[2020-02-19 08:53] LABS: Basophils % 0.3 %; Eosinophils # 0.1 10^3/uL (0.0-0.8); Hematocrit 30.3 % (37.0-47.0); Lymphocytes # 1.2 10^3/uL (0.8-4.8); Lymphocytes % 9.9 %; Mean Corpuscular HGB Conc 29.7 g/dL (30.0-36.0); Mean Corpuscular Hemoglobin 26.6 pg (28.0-34.0); Mean Corpuscular Volume 89.6 fL (81-99); Mean Platelet Volume 10.1 fL (7.4-10.4); Monocytes # 0.7 10^3/uL (0.2-0.9); Monocytes % 6.1 %; Neutrophils # 9.69 10^3/uL (1.8-7.7); Neutrophils % 82.4 %; Nucleated Red Blood Cells % 0 %; Platelet Count 235 10^3/cmm (130-400); Red Blood Count 3.38 10^6/uL (4.1-5.3); Red Cell Distribution Width 15.9 % (12.1-15.1); White Blood Count 11.8 10^3/uL (4.0-10.0)
[2020-02-19 09:02] LABS: Alanine Aminotransferase 21 U/L (0-33); Albumin Level 2.5 g/dL (3.5-5.2); Alkaline Phosphatase 69 IU/L (35-105); Anion Gap 13.4 (5-19); Aspartate Amino Transferase 57 U/L (0-32); Blood Urea Nitrogen 24 mg/dL (8-23); Carbon Dioxide 22 mmol/L (22-29); Chloride 102 mmol/L (98-107); Globulin 4.2 g/dL (1.3-4.6); Glomerular Filtration Rate 50.2 mL/min (90-130); Glucose 199 mg/dL (65-115); Osmolality Calculated 278 mOsm/kg (285-295); Potassium 4.4 mmol/L (3.5-5.1); Sodium 133 mmol/L (136-145); Total Bilirubin 0.3 mg/dL (0.15-1.2); Total Protein 6.7 g/dL (6.6-8.7)
[2020-02-19] MEDS: sodium chloride 0.9% 1,000 ML 50 ML IV (09:31)
[2020-02-19] MEDS: citalopram 20 mg Tablet PO (09:32)
[2020-02-19] MEDS: levothyroxine 150 mcg Tablet PO (09:32)
[2020-02-19] MEDS: gabapentin 300 mg Capsule PO ×3 (09:32→22:28)
[2020-02-19] MEDS: pantoprazole DR 40 mg Tablet PO (09:32)
[2020-02-19] MEDS: clopidogrel 75 mg Tablet PO (09:32)
[2020-02-19] MEDS: levothyroxine 25 mcg Tablet PO (09:33)
[2020-02-19] MEDS: atorvastatin 40 mg Tablet 20 MG PO (09:33)
[2020-02-19] MEDS: docusate sodium 100 mg Capsule PO (09:33)
[2020-02-19] MEDS: nystatin cream 30 gm 1 APPLIC TOPICAL ×2 (09:35→18:14)
--- NOTE | 2020-02-19 10:13 | P.PN_ITS ---
Subjective Subjective: Interval history: Patient awake in bed at time of exam. Much more alert today. She did not recall our discussion yesterday. She denies any chest pain, no abdominal pain. Reports that she is feeling thirsty this morning. Patient reports that she is typically Niharika lift dependent at the [facility], does not ambulate, reports that sometimes they will get her up to the chair with the Niharika lift Vitals/I&O/Wt Last Vital Signs Temp 99.4 F 02/19/20 07:33 Pulse 111 H 02/19/20 07:33 Resp 20 H 02/19/20 07:33 BP 108/55 02/19/20 07:33 Pulse Ox 91 02/19/20 07:33 02/18/20 02/19/20 02/19/20 22:59 06:59 14:59 Intake Total 1581.667 / 2131.667 1716.667 / 3848.334 300 / 300 Output Total 900 / 900 Balance 1581.667 / 2131.667 816.667 / 2948.334 300 / 300 Weight last 48 hrs Weight 204.117 kg Physical Exam Const: OTHER: Oriented to person and place, much more alert today HENMT: COMMON NORMALS: normocephalic and atraumatic HEAD & SCALP: normocephalic and atraumatic Eye: COMMON NORMALS: Equal, round and reactive pupils present PUPIL: Yes Equal, round and reactive pupils present Neck/C-Spine: COMMON NORMALS: supple GENERAL: Yes normal visual inspection Resp: COMMON NORMALS: normal respiratory effort and clear to auscultation bilaterally EFFORT & INSPECTION: Yes able to speak in complete sentences AUSCULTATION: clear to auscultation bilaterally, no rhonchi and no wheezes Cardio: COMMON NORMALS: regular rate, regular rhythm and No murmurs present (Cardio) RATE: regular rate RHYTHM: regular rhythm GI: OTHER: Morbidly obese, no appreciable masses, normal bowel sounds, no appreciable tenderness to palpation Extremity: NARRATIVE EXTREMITY EXAM: Chronic edema in the lower extremities bilaterally with left lower extremity erythema Neuro: OTHER: Alert and oriented to person place and time, not as lethargic today and answers questions appropriately. Psych: OTHER: Calm, cooperative Skin: NARRATIVE SKIN EXAM: Patient has erythema in the left lower extremity. Has flaking on the anterior frederick on the right. Patient has sacral and perineal wounds with sloughing of skin and erythema and skin breakdown Urinary Catheter Management^: Flores: Cath Placed During This Visit: yes Reason for Continuing Indwelling Catheter: Chronic Indwelling Urinary Catheter on Admission Urinary Catheter Date of Insertion: 02/18/20 Urinary Catheter Time of Insertion: 01:08 Data : 02/19/20 08:32 02/19/20 08:32 Micro: Microbiology 02/18/20 01:06 Urine Culture - Preliminary Urine Catheterized Gram Negative Rods 02/18/20 00:32 Blood Culture - Preliminary Blood Gram positive cocci 02/18/20 22:10 Blood Culture - Preliminary Blood SPECIMEN COLLECTED 02/18/20 22:05 Blood Culture - Preliminary Blood SPECIMEN COLLECTED 02/18/20 00:35 Blood Culture - Preliminary Blood Gram positive cocci A&P Assessment and plan (1) Sepsis: Secondary to acute cystitis and lower extremity cellulitis Continue on broad-spectrum antibiotics with vancomycin and Zosyn Status: Acute Qualifiers: Sepsis acute organ dysfunction status: without acute organ dysfunction Sepsis type: sepsis due to unspecified organism Qualified Code(s): A41.9 - Sepsis, unspecified organism (2) UTI (urinary tract infection): With chronic indwelling Flores catheter, ordered Flores catheter change Continue on broad-spectrum antibiotics until further culture and sensitivities return Status: Acute Qualifiers: Hematuria presence: without hematuria Urinary tract infection type: a cute cystitis Qualified Code(s): N30.00 - Acute cystitis without hematuria (3) Cellulitis: Venous duplex of the left lower extremity is negative for DVT Continue on broad-spectrum antibiotics due to left lower extremity cellulitis Status: Acute Qualifiers: Laterality: left Site of cellulitis: extremity Site of cellulitis of extremity: lower extremity Qualified Code(s): L03.116 - Cellulitis of left lower limb (4) Hyperglycemia: Hemoglobin A1c of 10 Started Lantus at 10 units daily, will increase to 15 Continue on sliding scale insulin Continue close monitoring of blood glucose Status: Acute (5) Acute kidney injury: Discontinue IV fluids Recheck BMP in the morning Hold lisinopril, renal toxic medications Status: Acute Additional A&P Information Bacteremia: Gram-positive cocci in 2 out of 4 blood cultures, urine culture showing gram-negative rods. We will continue on broad-spectrum antibiotic coverage until further culture and sensitivities return. Echocardiogram ordered for further evaluation Acute metabolic encephalopathy close follow-up with mental function.: Much improved today, more alert and cooperative, participating in conversation Multiple sclerosis Chronic incontinence secondary to neurogenic bladder: Continue with Flores catheter placement GERD. Continue PPI Chronic constipation Chronic back pain with history of intrathecal pain pump. No evidence currently of infection of this device Hypertension: Holding antihypertensives at this time due to soft blood pressures on admission, blood pressures continue to improve Obstructive sleep apnea, continue CPAP Hypothyroidism, continue home levothyroxine 175 mcg daily Hyperlipidemia CODE STATUS: Allow natural per nursing facility paperwork Lovenox for DVT prophylaxis Diet: Carbohydrate consistent Attestations Medical Necessity Statement*: Patient requires further hospitalization due to bacteremia, sepsis secondary to cystitis and cellulitis Coding Level of Care Code Acute Hemodialysis Charge Nurse for Chg Fwd Diagnoses Sepsis A41.9 Sepsis acute organ dysfunction status: without acute organ dysfunction Sepsis type: sepsis due to unspecified organism UTI (urinary tract infection) N30.00 Hematuria presence: without hematuria Urinary tract infection type: acute cystitis Cellulitis L03.116 Laterality: left Site of cellulitis: extremity Site of cellulitis of extremity: lower extremity Hyperglycemia R73.9 Acute kidney injury N17.9
[2020-02-19 11:01] LABS: Glucose Point of Care 182 mg/dL (70-110)
[2020-02-19] MEDS: linezolid premix 600 MG/300 ML PREMIX 300 MG IV (16:34)
[2020-02-19] MEDS: diphenhydrAMINE 50 mg Capsule PO (16:34)
[2020-02-19 16:59] LABS: Glucose Point of Care 125 mg/dL (70-110)
[2020-02-19 20:33] LABS: Glucose Point of Care 164 mg/dL (70-110)
[2020-02-19] MEDS: insulin glargine 100 units/1 mL 15 UNIT SUBCUT (22:27)
[2020-02-20] VITALS (8 sets, daily range): BP systolic 93–148; BP diastolic 52–90; PULSE 85–99; RESP 18–22; TEMP 37.7–38.9; O2SAT 93–98
[2020-02-20] MEDS: piperacillin-tazobactam 3.375 GM in sodium chloride 0.9% (plus) 50 ML IV ×2 (01:10→08:51)
[2020-02-20] MEDS: enoxaparin 40 mg/0.4 mL Syringe SUBCUT (04:45)
[2020-02-20] MEDS: linezolid premix 600 MG/300 ML PREMIX 300 MG IV ×2 (04:45→18:21)
[2020-02-20 06:21] LABS: Basophils % 0.3 %; Eosinophils # 0.1 10^3/uL (0.0-0.8); Eosinophils % 0.5 %; Hematocrit 32.5 % (37.0-47.0); Hemoglobin 9.3 g/dL (11.5-15.3); Lymphocytes # 1.1 10^3/uL (0.8-4.8); Mean Corpuscular HGB Conc 28.6 g/dL (30.0-36.0); Mean Corpuscular Hemoglobin 26.6 pg (28.0-34.0); Mean Corpuscular Volume 93.1 fL (81-99); Mean Platelet Volume 10.3 fL (7.4-10.4); Monocytes # 0.8 10^3/uL (0.2-0.9); Monocytes % 5.3 %; Neutrophils # 13.15 10^3/uL (1.8-7.7); Neutrophils % 86.2 %; Nucleated Red Blood Cells % 0 %; Platelet Count 275 10^3/cmm (130-400); Red Blood Count 3.49 10^6/uL (4.1-5.3); Red Cell Distribution Width 16.3 % (12.1-15.1); White Blood Count 15.3 10^3/uL (4.0-10.0)
[2020-02-20 06:39] LABS: Alanine Aminotransferase 30 U/L (0-33); Albumin Level 2.6 g/dL (3.5-5.2); Alkaline Phosphatase 70 IU/L (35-105); Anion Gap 16.5 (5-19); Aspartate Amino Transferase 65 U/L (0-32); Blood Urea Nitrogen 27 mg/dL (8-23); Calcium 7.7 mg/dL (8.5-10.5); Carbon Dioxide 20 mmol/L (22-29); Chloride 98 mmol/L (98-107); Globulin 4.5 g/dL (1.3-4.6); Glomerular Filtration Rate 45.4 mL/min (90-130); Glucose 227 mg/dL (65-115); Osmolality Calculated 274 mOsm/kg (285-295); Potassium 4.5 mmol/L (3.5-5.1); Sodium 130 mmol/L (136-145); Total Bilirubin 0.6 mg/dL (0.15-1.2); Total Protein 7.1 g/dL (6.6-8.7)
[2020-02-20 07:53] LABS: Glucose Point of Care 181 mg/dL (70-110)
[2020-02-20] MEDS: polyethylene glycol 3350 Pkt 17 gm PO (08:47)
[2020-02-20] MEDS: clopidogrel 75 mg Tablet PO (08:48)
[2020-02-20] MEDS: levothyroxine 25 mcg Tablet PO (08:48)
[2020-02-20] MEDS: docusate sodium 100 mg Capsule PO (08:48)
[2020-02-20] MEDS: pantoprazole DR 40 mg Tablet PO (08:48)
[2020-02-20] MEDS: levothyroxine 150 mcg Tablet PO (08:48)
[2020-02-20] MEDS: gabapentin 300 mg Capsule PO ×3 (08:48→23:15)
[2020-02-20] MEDS: atorvastatin 40 mg Tablet 20 MG PO (08:49)
[2020-02-20] MEDS: nystatin cream 30 gm 1 APPLIC TOPICAL ×2 (08:52→18:37)
--- NOTE | 2020-02-20 09:54 | CT_ITS ---
WS: [id number] CT ABDOMEN AND PELVIS NONCONTRAST HISTORY: fever, bacteremia TECHNIQUE: Imaging performed through the abdomen and pelvis. Coronal and sagittal reformats are submi tted. All CT scans at [facility] use at least one of these dose optimization techniques: automated exposure control; mA and/or kV adjustment per patient size (includes targeted exams where d ose is matched to clinical indication); or iterative reconstruction. DLP: 2300.41 mGy.cm COMPARISON: 09/01/2015 Lower thorax: Lung bases are clear. Heart size is normal. Liver: Moderate hepatomegaly with diffuse hepatic steatosis. No mass identified. Gallbladder: Gallbladder is isodense to the liver which is probably due to the fatty infiltration of the liver. No adjacent inflammation. Pancreas: Normal size and attenuation. Normal pancreatic duct. No pancreatitis or mass. Spleen: Normal. Adrenal glands: Normal. No mass. Right kidney: Normal size kidney with no mass or hydronephrosis. Left kidney: No obstruction. Normal size kidney. Aorta: Moderate atherosclerosis aorta with no aneurysm. No free air is identified. There are small shoddy mesenteric and retroperitoneal lymph nodes. No enla rged lymph nodes. GI tract: No obstruction. The appendix is normal. No significant diverticular disease. Abdominal wall: Soft tissue stranding and a few foci of air from subcutaneous injections. Pelvis: Flores catheter is now present in the urinary bladder. Bladder is nondistended. No free fluid or adenopathy in the pelvis. There are a few small inguinal lymph nodes which are similar to the prio r study. There is severe fatty loss and muscle replacement along the spine and pelvis. Ovoid cyst in the LEFT adnexa measures 6.6 x 3.5 cm and is probably ovarian related. Osseous structures: Bilateral femoral head osteonecrosis. Osteopenia. Moderate LEFT convex curvature the lumbar spine. Dorsal column stimulator lead wires noted over the lumbar region. CT/CT abdomen pelvis wo con [id number] IMPRESSION: 1. No acute abdominal or pelvic abnormalities. 2. No renal obstruction. 3. Moderate hepatomegaly and hepatic steatosis. 4. No inflammatory changes associated with the gallbladder or colon. 5. LEFT ovarian cyst, 6.6 x 3.5 cm. For further evaluation. Nonurgent pelvic u ltrasound could be performed if clinically thought necessary.
[2020-02-20 11:44] LABS: Glucose Point of Care 210 mg/dL (70-110)
--- NOTE | 2020-02-20 13:18 | USCV_ITS ---
Jared Garcia Age: 65 Gender: F : 1955 Exam Date: 02/20/2020 14:16 Ordering Phys: Rossana Xavier DO Technologist: Dinh Lema [place] [facility] [place]: LT LEG EXTREAME SWELLING Risk Factors: None Previous Vascular Surgery: None RIGHT LEFT BP: 150.0 / 78.00 BP: / 0 Waveform Velocity (cm/s) Velocity (cm/s) Waveform Iliac Prox 241.5 Monophasic Iliac Mid 246.6 Monophasic Iliac Distal 173.[address] INSPECTOR 165.8 Monophasic SFA Prox 150.1 Monophasic SFA Mid 164.2 Monophasic SFA Dist 109.5 Monophasic POP 90.7 Monophasic BEAN VINER 154.8 Monophasic DPA 53.2 Monophasic MERCY 1.0 FINDINGS Monophasic waveforms of the left lower extremity Elevated velocity in the iliac arteries Normal resting MERCY on the left CONCLUSIONS 1. Normal resting MERCY with abnormal arterial Doppler waveforms may suggest hemodynamically significant stenosis at the aortoiliac levels. Consider CTA/peripheral angiogram, to better evaluate the aortoiliac artery No similar previous studies are available for combine Dr Sohail Key MD [facility] (Electronically Signed) Final Date: 22 February 2020 18:31 S
--- NOTE | 2020-02-20 13:20 | USCV_ITS ---
Jared Garcia Age: 65 Gender: F : 1955 Exam Date: 02/20/2020 13:38 Ordering Phys: Rossana Xavier DO Technologist: Dinh Lema [place] [facility] [place]: BACTEREMIA BP: 148 / 86 HR: 141 Rhythm: Sinus Technical Quality: Poor because of body habitus MEASUREMENTS (Male / Female) Normal Values 2D ECHO LV Ejection Fraction MOD 2C 52.2 % LV Ejection Fraction 2C AL 52.2 % DOPPLER AV Peak Velocity 145.0 cm/s LVOT Peak Velocity 116.0 cm/s MV Area PHT 5.0 cm squared MV E' Velocity 63.0 cm/s TR Peak Velocity 137.0 cm/s TR Peak Gradient 7.6 mmHg TV Peak E Velocity 111.0 cm/s FINDINGS Left Ventricle Normal left ventricular size and systolic function with no diagnostic regional wall motion abnormalities. Left ventricular ejection fraction is estimated at 60 %. Right Ventricle Right ventricle not well visualized. Normal right ventricular size and systolic function. Right Atrium Right atrium not well visualized. Normal right atrial size. Left Atrium Left atrium not well visualized. Normal left atrial size. Mitral Valve Structurally normal mitral valve. Aortic Valve Aortic valve not well visualized. No aortic valve stenosis. Tricuspid Valve Tricuspid valve not well visualized. Pulmonic Valve Pulmonic valve not well visualized. Pericardium No pericardial effusion. Aorta Normal size aortic root. CONCLUSIONS 1. This is a technically difficult study. Ultrasound enhancing agent (Optison) was used. 2. Normal left ventricular size and systolic function with no diagnostic regional wall motion abnormalities. Left ventricular ejection fraction is estimated at 60 %. 3. Normal right ventricular size and systolic function. 4. Valves were not assessed well. Recommend NITZA if clinically indicated. Risa Perez MD (Electronically Signed) Final Date: 20 February 2020 19:43 S
--- NOTE | 2020-02-20 14:03 | PM.PN ---
Subjective Subjective: Interval history: Patient awake in bed at time of exam this morning. RN at bedside. Patient denies any chest pain or shortness of breath, denied any abdominal pain. Patient continues to have redness and swelling in the left lower extremity, she denied any leg pain Vitals/I&O/Wt Last Vital Signs Temp 101.0 F H 02/20/20 12:00 Pulse 92 02/20/20 12:00 Resp 18 02/20/20 12:00 BP 148/77 02/20/20 12:00 Pulse Ox 98 02/20/20 12:00 02/19/20 02/20/20 02/20/20 22:59 06:59 14:59 Intake Total 350 / 1200 1350 / 2550 Output Total 400 / 600 Balance 350 / 1000 950 / 1950 Physical Exam Const: OTHER: Oriented to person and place HENMT: COMMON NORMALS: normocephalic and atraumatic HEAD & SCALP: normocephalic and atraumatic Eye: COMMON NORMALS: Equal, round and reactive pupils present PUPIL: Yes Equal, round and reactive pupils present Neck/C-Spine: COMMON NORMALS: supple GENERAL: Yes normal visual inspection Resp: COMMON NORMALS: normal respiratory effort and clear to auscultation bilaterally EFFORT & INSPECTION: Yes able to speak in complete sentences AUSCULTATION: clear to auscultation bilaterally, no rhonchi and no wheezes Cardio: COMMON NORMALS: regular rate, regular rhythm and No murmurs present (Cardio) RATE: regular rate RHYTHM: regular rhythm GI: OTHER: Morbidly obese, no appreciable masses, normal bowel sounds, no appreciable tenderness to palpation, does have erythema to the umbilicus across her pannus Extremity: NARRATIVE EXTREMITY EXAM: Increasing left lower extremity edema and erythema Neuro: OTHER: Alert and oriented to person and place, remains more alert than on admission Psych: OTHER: Calm, cooperative Skin: NARRATIVE SKIN EXAM: Patient has erythema in the left lower extremity. Has flaking on the anterior frederick on the right with blisters forming on the left knee. Patient has sacral and perineal wounds with sloughing of skin and erythema and skin breakdown Urinary Catheter Management^: Flores: Cath Placed During This Visit: yes Reason for Continuing Indwelling Catheter: Assist Healing of Perineal & Sacral Wounds- Incontinent Patients Urinary Catheter Date of Insertion: 02/18/20 Urinary Catheter Time of Insertion: 01:08 Data : 02/20/20 05:48 02/20/20 05:48 Micro: Microbiology 02/18/20 01:06 Urine Culture - Final Urine Catheterized Escherichia coli 02/18/20 22:10 Blood Culture - Preliminary Blood NEGATIVE TO DATE 02/18/20 22:05 Blood Culture - Preliminary Blood NEGATIVE TO DATE 02/18/20 00:35 Blood Culture - Preliminary Blood Gram positive cocci 02/18/20 00:32 Blood Culture - Preliminary Blood Gram positive cocci A&P Assessment and plan (1) Sepsis: Patient has been on broad-spectrum antibiotics Secondary to acute cystitis and cellulitis Due to continued fevers with broad-spectrum antibiotics ordered CT scan of the abdomen and pelvis today We will order further imaging as indicated Patient is currently on Linezolid, Zosyn was de-escalated to Rocephin due to urine culture showing E. coli Status: Acute Qualifiers: Sepsis acute organ dysfunction status: without acute organ dysfunction Sepsis type: sepsis due to unspecified organism Qualified Code(s): A41.9 - Sepsis, unspecified organism (2) UTI (urinary tract infection): With chronic indwelling Flores catheter, Flores catheter changed during that admission Secondary to E. coli, discontinue Zosyn and start Rocephin Status: Acute Qualifiers: Hematuria presence: without hematuria Urinary tract infection type: acute cystitis Qualified Code(s): N30.00 - Acute cystitis without hematuria (3) Cellulitis: Venous duplex of the left lower extremity is negative for DVT Will obtain arterial studies of the left lower extremity Continue on Linezolid Lymphedema wraps ordered Status: Acute Qualifiers: Laterality: left Site of cellulitis: extremity Site of cellulitis of extremity: lower extremity Qualified Code(s): L03.116 - Cellulitis of left lower limb (4) Hyperglycemia: Hemoglobin A1c of 10 Started Lantus at 20 units daily Continue on sliding scale insulin Continue close monitoring of blood glucose Status: Acute (5) Acute kidney injury: IV fluids discontinued Patient appears to be fluid overloaded today, will give IV Lasix every 24 hours and continue to monitor strict intake and output as well as daily weights Continue to hold nephrotoxic agents Status: Acute Additional A&P Information Bacteremia: Gram-positive cocci in 2 out of 4 blood cultures, urine culture showing gram-negative rods. We will continue on broad-spectrum antibiotic coverage until further culture and sensitivities return. Echocardiogram ordered for further evaluation Hyponatremia: Patient appears to be fluid overloaded, IV Lasix ordered we will continue to monitor response to diuresis Anemia: No evidence of any acute blood loss, further iron studies ordered and pending Acute metabolic encephalopathy close follow-up with mental function.: Continues to improve, participating in conversation. Restart Abilify 2 mg daily Multiple sclerosis: Niharika lift dependent Chronic incontinence secondary to neurogenic bladder: Continue with Flores catheter placement GERD. Continue PPI Chronic constipation Chronic back pain with history of intrathecal pain pump. No evidence currently of infection of this device Hypertension: Holding antihypertensives at this time due to soft blood pressures on admission, blood pressures continue to improve Obstructive sleep apnea, continue CPAP Hypothyroidism, continue home levothyroxine 175 mcg daily Hyperlipidemia CODE STATUS: Allow natural Lovenox for DVT prophylaxis Diet: Carbohydrate consistent Attestations Medical Necessity Statement*: Patient requires hospitalization due to bacteremia, hyponatremia, acute kidney injury, cellulitis and cystitis Coding Level of Care Code Acute Transaction Advisory Services Manager for [facility] Diagnoses Sepsis A41.9 Sepsis acute organ dysfunction status: without acute organ dysfunction Sepsis type: sepsis due to unspecified organism UTI (urinary tract infection) N30.00 Hematuria presence: without hematuria Urinary tract infection type: acute cystitis Cellulitis L03.116 Laterality: left Site of cellulitis: extremity Site of cellulitis of extremity: lower extremity Hyperglycemia R73.9 Acute kidney injury N17.9
--- NOTE | 2020-02-20 14:05 | XR_ITS ---
WS: [id number] Left knee, 2 views, 02/20/2020 Clinical Data: erythema, swelling Comparison: None. Findings: No fractures or dislocations are seen. Medial and lateral joint spaces are narrow. The patella is int act. There is soft tissue swelling about the knee. There is periarticular demineralization. There are calcifications in the proximal tibia which could be secondary to fat embolus, liver disease and many other conditions. XR/XR knee LT 1-2V [id number] Impression: 1. Soft tissue swelling and periarticular demineralization. 2. Proximal tibial calcifications in the medullary bone which may be secondary to a variety of chronic conditions. 3. Joint space narrowing of the medial and lateral compartments.
[2020-02-20] MEDS: perflutren protein-a microsphr 0.22 mg/mL SDV 3 mL IV (14:41)
[2020-02-20] MEDS: FUROsemide 10 mg/mL SDV 4mL 40 MG IVP (14:45)
[2020-02-20] MEDS: cefTRIAXone 1,000 MG in sodium chloride 0.9% (plus) 50 ML 100 MG IV (14:46)
[2020-02-20 14:49] LABS: Iron 16 ug/dL (37-145); Percent Saturation 11.3 % (20-50); Total Iron Binding Capacity 141 mcg/dl; Unsaturated Iron Binding 125 ug/dL (112-347)
[2020-02-20 17:24] LABS: Glucose Point of Care 166 mg/dL (70-110)
[2020-02-20] MEDS: acetaminophen 325 mg Tablet 650 MG PO (18:19)
[2020-02-20 22:52] LABS: Glucose Point of Care 162 mg/dL (70-110)
[2020-02-20] MEDS: insulin glargine 100 units/1 mL 20 UNIT SUBCUT (23:15)
[2020-02-21] VITALS (8 sets, daily range): BP systolic 103–161; BP diastolic 59–84; PULSE 75–94; RESP 16–22; TEMP 36.4–37.9; O2SAT 91–99
[2020-02-21] MEDS: enoxaparin 40 mg/0.4 mL Syringe SUBCUT (05:14)
[2020-02-21 05:57] LABS: Alanine Aminotransferase 27 U/L (0-33); Albumin Level 2.8 g/dL (3.5-5.2); Alkaline Phosphatase 89 IU/L (35-105); Ammonia 22 umol/L (11-51); Anion Gap 16.2 (5-19); Aspartate Amino Transferase 46 U/L (0-32); Blood Urea Nitrogen 32 mg/dL (8-23); Calcium 8.1 mg/dL (8.5-10.5); Carbon Dioxide 20 mmol/L (22-29); Chloride 100 mmol/L (98-107); Globulin 4.7 g/dL (1.3-4.6); Glomerular Filtration Rate 35.1 mL/min (90-130); Glucose 139 mg/dL (65-115); Osmolality Calculated 273 mOsm/kg (285-295); Potassium 4.2 mmol/L (3.5-5.1); Sodium 132 mmol/L (136-145); Total Bilirubin 0.7 mg/dL (0.15-1.2); Total Protein 7.5 g/dL (6.6-8.7)
[2020-02-21 06:03] LABS: Basophils # 0.1 10^3/uL (0.0-0.1); Basophils % 0.3 %; Eosinophils # 0.1 10^3/uL (0.0-0.8); Eosinophils % 0.2 %; Hematocrit 30.7 % (37.0-47.0); Hemoglobin 9.3 g/dL (11.5-15.3); Lymphocytes # 1.3 10^3/uL (0.8-4.8); Lymphocytes % 5.1 %; Mean Corpuscular HGB Conc 30.3 g/dL (30.0-36.0); Mean Corpuscular Hemoglobin 26.6 pg (28.0-34.0); Mean Platelet Volume 9.8 fL (7.4-10.4); Monocytes # 1.4 10^3/uL (0.2-0.9); Monocytes % 5.3 %; Neutrophils # 22.53 10^3/uL (1.8-7.7); Neutrophils % 88.1 %; Nucleated Red Blood Cells % 0 %; Platelet Count 370 10^3/cmm (130-400); Red Blood Count 3.49 10^6/uL (4.1-5.3); Red Cell Distribution Width 16.2 % (12.1-15.1); White Blood Count 25.6 10^3/uL (4.0-10.0)
[2020-02-21] MEDS: linezolid premix 600 MG/300 ML PREMIX 300 MG IV (06:22)
[2020-02-21 07:18] LABS: Glucose Point of Care 123 mg/dL (70-110)
[2020-02-21] MEDS: gabapentin 300 mg Capsule PO ×3 (08:13→22:01)
[2020-02-21] MEDS: atorvastatin 40 mg Tablet 20 MG PO (08:13)
[2020-02-21] MEDS: levothyroxine 150 mcg Tablet PO (08:13)
[2020-02-21] MEDS: clopidogrel 75 mg Tablet PO (08:13)
[2020-02-21] MEDS: pantoprazole DR 40 mg Tablet PO (08:13)
[2020-02-21] MEDS: ARIPiprazole 2 mg Tablet PO (08:13)
[2020-02-21] MEDS: levothyroxine 25 mcg Tablet PO (08:13)
[2020-02-21] MEDS: nystatin cream 30 gm 1 APPLIC TOPICAL ×2 (08:18→17:57)
--- NOTE | 2020-02-21 09:09 | CTR_ITS ---
PROCEDURE INFORMATION: Exam: CT Pelvis Without Contrast; Skeletal Exam date and time: 02/21/2020 1:55 PM Age: 65 years old Clinical indication: Pelvic pain; Patient HX: Gluteal sores; Additional info: R/O collection in gluteal region TECHNIQUE: Imaging protocol: Computed tomography images of the pelvis without contrast. Exam focused on the skeletal structures. Radiation optimization: All CT scans at this facility use at least one of these dose optimization techniques: automated exposure control; mA and/or kV adjustment per patient size (includes targeted exams where dose is matched to clinical indication); or iterative reconstruction. COMPARISON: CT abdomen pelvis wo con [id number] 02/20/2020 10:55 AM RADIATION DOSE METRICS: Total DLP (mGy-cm): 990.09 FINDINGS: Tubes, catheters and devices: A balloon bladder catheter is present. Bladder: The bladder is decompressed. Reproductive: Uterus and right ovary are unremarkable. There is an unchanged 6.7 by 4.7 cm left adnexal cystic lesion that may be an incidental left ovarian cyst or left ovarian cystic mass. Lymph nodes: Multiple subcentimeter lymph nodes are noted in the groin bilaterally. Bones/joints: Osteopenia and moderate to severe degenerative changes are noted in the spine and pelvis. 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 There is ankylosis of the pubic symphysis. No acute fracture or bony destruction of osteomyelitis. Soft tissues: There is induration of the subcutaneous fat of the lower abdominal wall and adjacent to the pelvis bilaterally left slightly greater than right. This may reflect anasarca type changes, cellulitis or contusion. No fluid collection or abscess. CT/CT pelvis con [id number] IMPRESSION: 1. There is induration of the subcutaneous fat of the lower abdominal wall and adjacent to the pelvis bilaterally left slightly greater than right. This may reflect anasarca type changes, cellulitis or contusion. No fluid collection or abscess. 2. There is a 6.7 by 4.7 cm left adnexal cystic lesion that may be an incidental left ovarian cyst or left ovarian cystic mass. This measurement is unchanged compared to the prior CT scan. Non urgent pelvic ultrasound could be performed if clinically necessary. 3. No acute bony abnormality. Radiation Dose CTDIVOL = (mGy): DLP = 990.09 (mGy-cm)
--- NOTE | 2020-02-21 09:09 | CTR_ITS ---
PROCEDURE INFORMATION: Exam: CT Chest Without Contrast Exam date and time: 02/21/2020 1:55 PM Age: 65 years old Clinical indication: Patient HX: Fever - ? pneumonia; Additional info: R/O pna TECHNIQUE: Imaging protocol: Computed tomography of the chest without contrast. Radiation optimization: All CT scans at this facility use at least one of these dose optimization techniques: automated exposure control; mA and/or kV adjustment per patient size (includes targeted exams where dose is matched to clinical indication); or iterative reconstruction. COMPARISON: CR XR chest 1V portable [id number] 02/17/2020 11:53 PM RADIATION DOSE METRICS: Total DLP (mGy-cm): 903.1 FINDINGS: Lungs: There is mild ground-glass opacity in the lungs compatible with motion artifact, edema or mild pneumonitis. These opacities are greatest in the perihilar upper lobes and are symmetric. There is no dense lobar consolidation. Pleural space: Unremarkable. No pneumothorax. No pleural effusion. Heart: The heart is enlarged. Mediastinal space: A small hiatal hernia is present. Aorta: Unremarkable. No aortic aneurysm. Lymph nodes: Unremarkable. No enlarged lymph nodes. Liver: There is a diffuse decrease in hepatic parenchymal density, consistent with fatty infiltration. Bones/joints: Unremarkable. No acute fracture. Soft tissues: Unremarkable. Other findings: The exam is limited by motion artifact. CT/CT chest [facility] [id number] IMPRESSION: There is mild ground-glass opacity in the lungs compatible with motion artifact, edema or mild pneumonitis. The predominant upper lobe and perihilar location of these opacities could suggest possible early airspace pulmonary edema. No lobar consolidation. Radiation Dose CTDIVOL = (mGy): DLP = 903.1 (mGy-cm)
--- NOTE | 2020-02-21 09:09 | CTR_ITS ---
PROCEDURE INFORMATION: Exam: CT Left Lower Extremity Without Contrast; Lower Leg Exam date and time: 02/21/2020 1:55 PM Age: 65 years old Clinical indication: Swelling, leg or foot; Patient HX: Lle swelling and redness; Additional info: Cellulitis, R/O collection, bony involvement TECHNIQUE: Imaging protocol: CT of the Left lower extremity without contrast was performed. Exam focused on the lower leg. Radiation optimization: All CT scans at this facility use at least one of these dose optimization techniques: automated exposure control; mA and/or kV adjustment per patient size (includes targeted exams where dose is matched to clinical indication); or iterative reconstruction. COMPARISON: CR XR knee LT 1-2V [id number] 02/20/2020 2:43 PM RADIATION DOSE METRICS: Total DLP (mGy-cm): 988.98 FINDINGS: Bones/joints: There is a small knee joint effusion. Multiple bone infarcts are identified in the proximal and distal tibia, distal femur, calcaneus, talus and distal fibula. There are moderate degenerative changes in the knee. No bony destruction or osteomyelitis. No acute fracture. Soft tissues: There is edema and thickening of the skin with edema of the subcutaneous fat of the leg compatible with cellulitis, lymphedema or venous stasis. No intramuscular fluid collection. There is no gas in the soft tissues or muscles. CT/CT lower leg LT wo con* [id number] IMPRESSION: 1. No bony destruction or osteomyelitis. 2. Diffuse edema of the skin and subcutaneous fat compatible with cellulitis, lymphedema or venous stasis. No fluid collection or abscess. Radiation Dose CTDIVOL = (mGy): DLP = 988.98 (mGy-cm)
--- NOTE | 2020-02-21 09:09 | CTR_ITS ---
PROCEDURE INFORMATION: Exam: CT Lumbar Spine Without Contrast Exam date and time: 02/21/2020 1:55 PM Age: 65 years old Clinical indication: Low back pain; Prior surgery; Surgery date: 6+ months; Surgery type: Pain pump; Patient HX: Chronic lbp; Additional info: R/O discitis TECHNIQUE: Imaging protocol: Computed tomography images of the lumbar spine without contrast. Radiation optimization: All CT scans at this facility use at least one of these dose optimization techniques: automated exposure control; mA and/or kV adjustment per patient size (includes targeted exams where dose is matched to clinical indication); or iterative reconstruction. COMPARISON: CT lumbar spine wo con* [id number] 11/12/2019 9:16 AM RADIATION DOSE METRICS: Total DLP (mGy-cm): 2191.59 FINDINGS: Tubes, catheters and devices: Neurostimulator/pain pump wire is noted. Vertebrae: There is diffuse osteopenia. There is unchanged levoscoliosis. There is no acute fracture or subluxation. No new bony destruction, discitis or osteomyelitis is identified compared to the old exam. Discs/Spinal canal/Neural foramina: There is unchanged moderate narrowing of the spinal canal and foramina due to bony proliferative changes at L3-L4 and L5-S1. There is severe circumferential stenosis of the spinal canal at L4-L5 due to marked bony proliferative changes. Soft tissues: No paraspinal soft tissue fluid collection or edema. CT/CT lumbar spine wo con* [id number] IMPRESSION: Unchanged exam with osteopenia, scoliosis and severe degenerative changes. No new bony destruction, discitis or osteomyelitis. Unchanged narrowing of the central canal and foramina. Radiation Dose CTDIVOL = (mGy): DLP = 2191.59 (mGy-cm)
--- NOTE | 2020-02-21 09:14 | PM.PN ---
Subjective Subjective: Interval history: No acute events overnight. Patient is lying comfortably in bed. Patient is complaining of pain in her left shoulder. Denies of any nausea, vomiting, headache, dizziness, palpitations. Nurses at the bedside. Patient has extensive cellulitis on the left leg going all the way from her to to upper thigh also involving bilateral pannus. Patient has extensive decubitus ulcer without any opening or blisters. Labs and vitals noted. T-max last 24 hours and 102 Fahrenheit Vitals/I&O/Wt Last Vital Signs Temp 99.9 F H 02/21/20 08:00 Pulse 88 02/21/20 08:00 Resp 20 H 02/21/20 08:00 BP 125/70 02/21/20 08:00 Pulse Ox 97 02/21/20 08:00 02/20/20 02/21/20 02/21/20 22:59 06:59 14:59 Intake Total 350 / 470 300 / 300 Output Total 300 / 300 Balance 350 / 470 -300 / 170 300 / 300 Physical Exam Const: OTHER: Oriented to person and place HENMT: COMMON NORMALS: normocephalic and atraumatic HEAD & SCALP: normocephalic and atraumatic Eye: COMMON NORMALS: Equal, round and reactive pupils present PUPIL: Yes Equal, round and reactive pupils present Neck/C-Spine: COMMON NORMALS: supple GENERAL: Yes normal visual inspection Resp: COMMON NORMALS: normal respiratory effort and clear to auscultation bilaterally EFFORT & INSPECTION: Yes able to speak in complete sentences AUSCULTATION: clear to auscultation bilaterally, no rhonchi and no wheezes Cardio: COMMON NORMALS: regular rate, regular rhythm and No murmurs present (Cardio) RATE: regular rate RHYTHM: regular rhythm GI: OTHER: Morbidly obese, no appreciable masses, normal bowel sounds, no appreciable tenderness to palpation, does have erythema to the umbilicus across her pannus Extremity: NARRATIVE EXTREMITY EXAM: Increasing left lower extremity edema and erythema Neuro: OTHER: Alert and oriented to person and place, remains more alert than on admission Psych: OTHER: Calm, cooperative Skin: NARRATIVE SKIN EXAM: Patient has erythema in the left lower extremity. Has flaking on the anterior frederick on the right with blisters forming on the left knee. Patient has sacral and perineal wounds with sloughing of skin and erythema and skin breakdown Urinary Catheter Management^: Flores: Cath Placed During This Visit: yes Reason for Continuing Indwelling Catheter: Assist healing open wound Urinary Catheter Date of Insertion: 02/18/20 Urinary Catheter Time of Insertion: 01:08 Data : 02/21/20 05:23 02/21/20 05:23 Micro: Microbiology 02/18/20 00:35 Blood Culture - Preliminary Blood Streptococcus Group C 02/18/20 00:32 Blood Culture - Preliminary Blood Streptococcus Group C 02/18/20 01:06 Urine Culture - Final Urine Catheterized Escherichia coli A&P Assessment and plan (1) Bacterial infection due to Streptococcus: Status: Acute (2) Sepsis: Status: Acute Qualifiers: Sepsis acute organ dysfunction status: without acute organ dysfunction Sepsis type: sepsis due to unspecified organism Qualified Code(s): A41.9 - Sepsis, unspecified organism (3) UTI (urinary tract infection): Status: Acute Qualifiers: Hematuria presence: without hematuria Urinary tract infection type: acute cystitis Qualified Code(s): N30.00 - Acute cystitis without hematuria (4) Cellulitis: Status: Acute Qualifiers: Laterality: left Site of cellulitis: extremity Site of cellulitis of extremity: lower extremity Qualified Code(s): L03.116 - Cellulitis of left lower limb (5) Acute kidney injury: Status: Acute (6) Presence of intrathecal baclofen pump: Status: Chronic (7) Depression: Status: Acute (8) Hypothyroidism: Status: Acute (9) Multiple sclerosis: Status: Chronic (10) Diabetes mellitus: Status: Acute Additional A&P Information Sepsis: Most likely because of cellulitis. Blood cultures from day of admission growing Streptococcus. Urine cultures growing E. coli. Patient was de-escalate antibiotics to ceftriaxone redness alert yesterday and patient has had high-grade fever and white count is trending up today. Repeat blood cultures, lactate. We will have to do further imaging to rule out any collection. Most likely in sacral area versus necrotizing fasciitis of the left lower leg. CT abdomen pelvis done yesterday appreciated. No obstructive uropathy. Echocardiogram results appreciated. COVID-19 negative in early in the admission. We will get CT pelvis to rule out any collection. CT chest to rule out any infiltrate given the way patient is positioned during eating cannot rule out any aspiration as well though patient is saturating well on room air. We will also get CT left lower extremity to rule out any collection. We will consult surgery. Check C. difficile. Check tick panel though unlikely as patient is coming from an assisted living.. Hydrofera Blue dressing for the decubitus ulcer. Frequent repositioning. Lymphedema wraps. If white count and fever continue we will have to consult ID for further recommendations. Keep mean artery pressure was 65 mmHg. Acute kidney injury: Creatinine worsened today. Patient received IV Lasix yesterday and IV fluids were stopped. Baseline creatinine 1.1. 1.5 today. No IV diuresis for now. Start patient on gentle IV hydration with normal saline at 75 cc/h. Hyponatremia: 132 today. Will continue to monitor. HTN: Goal BP less than 140/90 mmhg. For now continue with holding antihypertensive treatment. Continue to monitor blood pressures. Anemia: Iron panel appreciated. Hb stable. Start on oral iron supplementation. Acute metabolic encephalopathy close follow-up with mental function.: Continues to improve, participating in conversation. Restart Abilify 2 mg daily, celexa 20 mg po. Multiple sclerosis: Niharika lift dependent. Chronic incontinence secondary to neurogenic bladder: Continue with Flores catheter placement GERD. Continue PPI Chronic constipation Chronic back pain with history of intrathecal pain pump. No evidence currently of infection of this device Obstructive sleep apnea, continue CPAP Hypothyroidism, continue home levothyroxine 175 mcg daily Hyperlipidemia CODE STATUS: Allow natural Lovenox for DVT prophylaxis Diet: Carbohydrate consistent Attestations Medical Necessity Statement*: Sepsis, strep bacteremia, cellulitis Time Spent in Patient Care: Greater than 35 minutes (>than 50% of time spent in counselling and/or direct pt care on unit). 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
--- NOTE | 2020-02-21 10:01 | PC.NURSE ---
Pt in bed this morning. Alert and oriented to person and place. Dr assessed patient and discussed changing her dressing to her coccyx to hydrafera blue and tegaderm. Patient repositioned with pillows placed and given call light. Will continue to monitor.
[2020-02-21] MEDS: piperacillin-tazobactam 3.375 GM in sodium chloride 0.9% (plus) 50 ML IV ×2 (10:21→17:58)
[2020-02-21] MEDS: sodium chloride 0.9% 1,000 ML 75 ML IV (10:22)
[2020-02-21 11:13] LABS: Glucose Point of Care 141 mg/dL (70-110)
--- NOTE | 2020-02-21 11:14 | DCPLANNER ---
Pg 2 of IM updated and reviewed with pt. No questions however agrees that she isn't being d/c'd today so wouldn't need it right now. Copy provided.
--- NOTE | 2020-02-21 14:28 | PM.CONSULT ---
Providers/Reason For Consult Consulting Physican/Specialty*: Nikos Paula MD Reason for Consult*: Sacral decubitus ulcer Attending Physician: Nikos Paula MD Primary Care Provider: Russ Rosa Jr, MD History of Present Illness History of Present Illness Jared Garcia is a 65 year old female, morbidly obese with a BMI of 70 with multiple sclerosis who is bedbound and was recently admitted to the hospital with fevers and unresponsiveness. Patient was being treated for sepsis with broad-spectrum IV antibiotics as the working diagnosis was cystitis and cellulitis. Patient also has a sacral decubitus ulcer. No significant purulent drainage from the decubitus ulcer. Patient has a lymphedema wrap on the left lower extremity with a significant cellulitis with multiple areas of skin breakdown that I could not see today due to the wrap. Review of Systems General: Reports: 10 or more systems reviewed and unremarkable except in HPI and below Meds/Allergies Home Medications and Allergies Home Medications Medication Instructions Recorded Confirmed Last Taken Type acetaminophen 325 mg capsule 650 mg PO Q4H PRN 09/16/19 02/18/20 Unknown History aripiprazole 2 mg tablet 2 mg PO DAILY 09/16/19 02/18/20 Unknown History bisacodyl 10 mg rectal suppository 10 mg VT DAILY PRN 09/16/19 02/18/20 Unknown History citalopram 40 mg tablet 20 mg PO BEDTIME 09/16/19 02/18/20 Unknown History clopidogrel 75 mg tablet 75 mg PO DAILY 09/16/19 02/18/20 Unknown History cyclobenzaprine 10 mg tablet 10 mg PO BID 09/16/19 02/18/20 Unknown History docusate sodium 100 mg capsule 100 mg PO DAILY PRN 09/16/19 02/18/20 Unknown History furosemide 40 mg tablet 40 mg PO DAILY 09/16/19 02/18/20 Unknown History hydrocodone 5 mg-acetaminophen 325 1 tab PO BID 09/16/19 02/18/20 Unknown History mg tablet levothyroxine 175 mcg capsule 175 mcg PO DAILY 09/16/19 02/18/20 Unknown History lisinopril 5 mg tablet 5 mg PO DAILY 09/16/19 02/18/20 Unknown History loratadine 10 mg tablet 10 mg PO DAILY 09/16/19 02/18/20 Unknown History lorazepam 0.5 mg tablet 0.25 mg PO BID tab 09/16/19 02/18/20 Unknown History menthol 4 % topical gel 1 applic TOPICAL BID PRN ml 09/16/19 02/18/20 Unknown History nystatin 100,000 unit/gram topical 1 applic TOPICAL BID 09/16/19 02/18/20 Unknown History cream ondansetron HCl 4 mg tablet 4 mg PO Q6H PRN 09/16/19 02/18/20 Unknown History pantoprazole 40 mg tablet,delayed 40 mg PO DAILY 09/16/19 02/18/20 Unknown History release quetiapine 25 mg tablet 25 mg PO BEDTIME 09/16/19 02/18/20 Unknown History simvastatin 5 mg tablet 5 mg PO BEDTIME 09/16/19 02/18/20 Unknown History sodium phosphates 19 gram-7 118 ml VT DAILY PRN 09/16/19 02/18/20 Unknown History gram/118 mL enema cyclobenzaprine 10 mg PO TID PRN 02/18/20 02/18/20 Unknown History gabapentin 300 mg PO TID 02/18/20 02/18/20 Unknown History magnesium hydroxide [Milk of 30 ml PO DAILY PRN 02/18/20 02/18/20 Unknown History Magnesia] peg [id number] [Dry 1 drp OPHTHALMIC (EYE) BID 02/18/20 02/18/20 Unknown History Eye Relief] polyethylene glycol 3350 17 g PO EVERY OTHER DAY 02/18/20 02/18/20 Unknown History saliva stimulant comb. no.3 1 applic MUCOUS MEMBRANE PRN PRN 02/18/20 02/18/20 Unknown History [Biotene Moisturizing Mouth] zinc oxide 1 applic TOPICAL QID PRN 02/18/20 02/18/20 Unknown History Allergies Allergy/AdvReac Type Severity Reaction Status Date / Time aspirin AdvReac unknown Verified 11/25/19 15:23 Current Medications Current Medications Generic Name Dose Route Start Last Admin Trade Name Freq PRN Reason Stop Dose Admin Acetaminophen 650 mg 02/18/20 04:50 02/20/20 18:19 Tylenol PO 650 mg Q6H PRN Administration Mild/Mod Pain Or Temp >/= 101 Aripiprazole 2 mg 02/21/20 09:00 02/21/20 08:13 Abilify PO 2 mg DAILY CECE Administration Atorvastatin Calcium 20 mg 02/18/20 09:00 02/21/20 08:13 Lipitor PO 20 mg DAILY CECE Administration Citalopram Hydrobromide 20 mg 02/18/20 09:00 02/19/20 09:32 Celexa PO 20 mg DAILY CECE Administration Clopidogrel Bisulfate 75 mg 02/18/20 09:00 02/21/20 08:13 Plavix PO 75 mg DAILY CECE Administration Enoxaparin Sodium 40 mg 02/18/20 05:30 02/21/20 05:14 Lovenox SUBCUT 40 mg Q24H CECE Administration Gabapentin 300 mg 02/18/20 21:00 02/21/20 14:01 Neurontin PO 300 mg TID CECE Administration Piperacillin Sod/Tazobactam 50 mls @ 12.5 mls/hr 02/21/20 10:00 02/21/20 10:21 Sod 3.375 gm/ Sodium Chloride IV 12.5 mls/hr Q8H CECE Administration Protocol Sodium Chloride 1,000 mls @ 75 mls/hr 02/21/20 09:15 02/21/20 10:22 Sodium Chloride 0.9% IV 75 mls/hr .[id number] CECE Administration Insulin Aspart 0 unit 02/18/20 08:00 02/21/20 13:15 Novolog SUBCUT Not Given WM&BEDTIME CECE Protocol Insulin Glargine 20 unit 02/20/20 21:00 02/20/20 23:15 Lantus SUBCUT 20 unit BEDTIME CECE Administration Levothyroxine Sodium 150 mcg 02/19/20 09:00 02/21/20 08:13 Synthroid PO 150 mcg DAILY CECE Administration Levothyroxine Sodium 25 mcg 02/19/20 09:00 02/21/20 08:13 Synthroid PO 25 mcg DAILY CECE Administration Nystatin 1 applic 02/18/20 18:00 02/21/20 08:18 Nystatin Cream TOPICAL 1 applic BID CECE Administration Pantoprazole Sodium 40 mg 02/18/20 09:00 02/21/20 08:13 Protonix PO 40 mg DAILY CECE Administration Polyethylene Glycol 17 gm 02/20/20 09:00 02/20/20 08:47 Miralax PO 17 gm EVERY OTHER DAY CECE Administration PFSH Acute PFSH: Medical History Anemia Chronic back pain Chronic constipation Depression End of battery life of intrathecal infusion pump GERD (gastroesophageal reflux disease) Hyperlipidemia Hypertension Hypothyroidism Incontinence Multiple sclerosis Obstructive sleep apnea Surgical History Presence of intrathecal baclofen pump 05/19/2013 Dr. Abner Flanagan: Replacement of [employer] subcutaneous programmable pump with connection to intrathecal catheter for administration of intrathecal baclofen therapy. Family History Other CAD (coronary artery disease) Cancer Diabetes Denies family history of Hypertension Stroke Social History Smoking and tobacco status: never smoked Alcohol intake: never Lives independently: No Housing: [facility] History of recent travel: No Vitals/I&O/Wt Last Vital Signs Temp 99.1 F 02/21/20 12:00 Pulse 91 02/21/20 12:00 Resp 20 H 02/21/20 12:00 BP 118/76 02/21/20 12:00 Pulse Ox 91 02/21/20 12:00 02/20/20 02/21/20 02/21/20 22:59 06:59 14:59 Intake Total 350 / 470 520 / 520 Output Total 300 / 300 Balance 350 / 170 -300 / 170 520 / 520 Physical Exam Narrative: EXAM NARRATIVE: HEENT: Normocephalic Eye: Sclera /conjunctiva normal Respiratory and chest: Bilateral clear breath sounds on auscultation Cardiovascular: Normal S1 and S2 heart sounds Abdomen: Soft to palpation Neurological: Oriented to place person and time Skin: Intact, lymphedema wrap left lower extremity, could not examine the wounds on that leg. Over the sacrum there 3 or 4 small islands of skin breakdown, no significant cellulitis or purulent drainage noted Urinary Catheter Management^: Flores: Cath Placed During This Visit: yes Reason for Continuing Indwelling Catheter: Assist healing open wound Urinary Catheter Date of Insertion: 02/18/20 Urinary Catheter Time of Insertion: 01:08 Data Micro: Micro: Microbiology 02/18/20 00:35 Blood Culture - Pr eliminary Blood Streptococcus G roup C 02/18/20 00:32 Blood Culture - Pr eliminary Blood Streptococcus G roup C A&P Assessment and plan (1) Sepsis: Patient has had increasing white count for the last few days and today is up to 25.6. Patient had a CT abdomen pelvis which did not show any acute pathology. The left lower extremity is a potential source and would recommend obtaining a CT to rule out any underlying collection. Cultures have shown gram-positive cocci 2 out of 4 cultures and urine had shown gram-negative rods. Status: Acute Qualifiers: Sepsis acute organ dysfunction status: without acute organ dysfunction Sepsis type: sepsis due to unspecified organism Qualified Code(s): A41.9 - Sepsis, unspecified organism (2) Sacral decubitus ulcer: Continue with Hydrofera Blue application to the wound and apply zinc oxide to the surrounding skin. Discontinue nystatin. Instructions provided to the bedside nurse Status: Acute Coding Level of Care Code Acute [place] [employer] Digger for [facility] F[facility] Diagnoses Sepsis A41.9 Sepsis acute organ dysfunction status: without acute organ dysfunction Sepsis type: sepsis due to unspecified organism Sacral decubitus ulcer L89.159
--- NOTE | 2020-02-21 14:40 | PC.CHAP ---
Pastoral Care Encounter/Spiritual Assessment Type of Contact [] Declined industrial renderer visit [] Patient/Family/Request visit [] Outpatient visit [] Follow-up visit [] Physician referral [] Code/Alert [] Routine visit [] Staff referral [] Actively dying [xx] Patient sleeping [] Family support [] [] Out of room [] Palliative care [] [] Receiving care in room [] Pre-surgical visit [] Trauma [] Long length of stay [] ICU visit [] Other: Relational/Emotional Strength [] Patient feels connected with others/family/visitors/staff [] Distress [] Loneliness/isolation [] Abandonment Spirituality of Patient [] Person of Neli [] Attends Zoroastrianism of their Neli [] Believes in Prayer [] Reads Bible or Caodaism materials [] There are Spiritual issues to be addressed Health Therapist Interventions [] Prayer [] Active listening [] Non-anxious presence [] Spiritual/emotional support [] Crisis/trauma care [] Spiritual counseling [] Bereavement support [] Provided bereavement packet [] Provided Bible/devotional materials [] Provided toy/stuffed animal, coloring book to patient or family member [] Provided Communion [] Anointing/[place] [] Salvation [] Completed spiritual assessment [] Other: Impact on Illness or Injury [] Angry [] Fearful [] Anxious [] Often cries [] Exhaustion [] Unable to work [] Unable to attend mandaen [] Unable to walk/stand [] Unable to read [] Unable to drive [] Unable to eat/drink [] Unable to sleep [] Unable to be with family [] Patient intubated [] Other: Summary Time spent with patient
[2020-02-21 17:07] LABS: Glucose Point of Care 125 mg/dL (70-110)
[2020-02-21 21:39] LABS: Glucose Point of Care 144 mg/dL (70-110)
[2020-02-21] MEDS: insulin glargine 100 units/1 mL 20 UNIT SUBCUT (22:01)
[2020-02-22] VITALS (7 sets, daily range): BP systolic 106–130; BP diastolic 65–76; PULSE 75–86; RESP 16–20; TEMP 36.8–37; O2SAT 93–96
[2020-02-22] MEDS: sodium chloride 0.9% 1,000 ML 75 ML IV ×2 (01:19→14:11)
[2020-02-22] MEDS: piperacillin-tazobactam 3.375 GM in sodium chloride 0.9% (plus) 50 ML IV ×3 (01:21→17:22)
[2020-02-22 06:16] LABS: Basophils # 0.1 10^3/uL (0.0-0.1); Basophils % 0.3 %; Eosinophils # 0.3 10^3/uL (0.0-0.8); Eosinophils % 1.3 %; Hematocrit 27.6 % (37.0-47.0); Hemoglobin 8.2 g/dL (11.5-15.3); Lymphocytes # 1.3 10^3/uL (0.8-4.8); Lymphocytes % 6.9 %; Mean Corpuscular HGB Conc 29.7 g/dL (30.0-36.0); Mean Corpuscular Volume 90.8 fL (81-99); Mean Platelet Volume 10.2 fL (7.4-10.4); Monocytes # 1.2 10^3/uL (0.2-0.9); Monocytes % 6.1 %; Neutrophils # 15.84 10^3/uL (1.8-7.7); Neutrophils % 83.3 %; Nucleated Red Blood Cells % 0 %; Platelet Count 356 10^3/cmm (130-400); Red Blood Count 3.04 10^6/uL (4.1-5.3); Red Cell Distribution Width 16.2 % (12.1-15.1)
[2020-02-22] MEDS: enoxaparin 40 mg/0.4 mL Syringe SUBCUT (06:27)
[2020-02-22 06:46] LABS: Alanine Aminotransferase 23 U/L (0-33); Albumin Level 2.4 g/dL (3.5-5.2); Alkaline Phosphatase 99 IU/L (35-105); Anion Gap 14.8 (5-19); Aspartate Amino Transferase 61 U/L (0-32); Blood Urea Nitrogen 31 mg/dL (8-23); Calcium 8.4 mg/dL (8.5-10.5); Carbon Dioxide 23 mmol/L (22-29); Chloride 102 mmol/L (98-107); Globulin 4.4 g/dL (1.3-4.6); Glomerular Filtration Rate 30.4 mL/min (90-130); Glucose 94 mg/dL (65-115); Osmolality Calculated 279 mOsm/kg (285-295); Potassium 3.8 mmol/L (3.5-5.1); Sodium 136 mmol/L (136-145); Total Bilirubin 0.5 mg/dL (0.15-1.2); Total Protein 6.8 g/dL (6.6-8.7)
[2020-02-22 07:18] LABS: Glucose Point of Care 100 mg/dL (70-110)
[2020-02-22] MEDS: levothyroxine 25 mcg Tablet PO (09:06)
[2020-02-22] MEDS: clopidogrel 75 mg Tablet PO (09:06)
[2020-02-22] MEDS: levothyroxine 150 mcg Tablet PO (09:07)
[2020-02-22] MEDS: gabapentin 300 mg Capsule PO ×2 (09:07→14:11)
[2020-02-22] MEDS: pantoprazole DR 40 mg Tablet PO (09:08)
[2020-02-22] MEDS: ferrous gluconate 324 mg Tablet PO ×2 (09:08→17:22)
[2020-02-22] MEDS: atorvastatin 40 mg Tablet 20 MG PO (09:08)
[2020-02-22] MEDS: ARIPiprazole 2 mg Tablet PO (09:08)
[2020-02-22] MEDS: citalopram 20 mg Tablet PO (09:09)
[2020-02-22] MEDS: nystatin cream 30 gm 1 APPLIC TOPICAL ×2 (10:38→17:22)
[2020-02-22 10:57] LABS: Glucose Point of Care 96 mg/dL (70-110)
--- NOTE | 2020-02-22 11:18 | PC.CHAP ---
Pastoral Care Encounter/Spiritual Assessment Type of Contact [] Declined thread singer visit [] Patient/Family/Request visit [] Outpatient visit [] Follow-up visit [] Physician referral [] Code/Alert [] Routine visit [] Staff referral [] Actively dying [xx] Patient sleeping [] Family support [] [] Out of room [] Palliative care [] [] Receiving care in room [] Pre-surgical visit [] Trauma [] Long length of stay [] ICU visit [] Other: Relational/Emotional Strength [] Patient feels connected with others/family/visitors/staff [] Distress [] Loneliness/isolation [] Abandonment Spirituality of Patient [] Person of Neli [] Attends Evangelical of their Neli [] Believes in Prayer [] Reads Bible or Gnosticist materials [] There are Spiritual issues to be addressed Online Community Manager Interventions [] Prayer [] Active listening [] Non-anxious presence [] Spiritual/emotional support [] Crisis/trauma care [] Spiritual counseling [] Bereavement support [] Provided bereavement packet [] Provided Bible/devotional materials [] Provided toy/stuffed animal, coloring book to patient or family member [] Provided Communion [] Anointing/[place] [] Salvation [] Completed spiritual assessment [] Other: Impact on Illness or Injury [] Angry [] Fearful [] Anxious [] Often cries [] Exhaustion [] Unable to work [] Unable to attend advent [] Unable to walk/stand [] Unable to read [] Unable to drive [] Unable to eat/drink [] Unable to sleep [] Unable to be with family [] Patient intubated [] Other: Summary Time spent with patient
--- NOTE | 2020-02-22 12:03 | P.PN_ITS ---
Subjective Subjective: Interval history: No acute events overnight. Patient is lying comfortably in bed. Patient is complaining of pain in her left shoulder. Denies of any nausea, vomiting, headache, dizziness, palpitations. Nurses at the bedside. Patient has extensive cellulitis on the left leg going all the way from her to to upper thigh also involving bilateral pannus. Patient has extensive decubitus ulcer without any opening or blisters. Labs and vitals noted. T-max last 24 hours and 102 Fahrenheit Vitals/I&O/Wt Last Vital Signs Temp 98.2 F 02/22/20 07:18 Pulse 77 02/22/20 08:26 Resp 16 02/22/20 07:18 BP 112/76 02/22/20 07:18 Pulse Ox 96 02/22/20 08:26 02/21/20 02/22/20 02/22/20 22:59 06:59 14:59 Intake Total 50 / 620 1050 / 1670 240 / 240 Output Total 475 / 475 150 / 625 Balance -425 / 145 900 / 1045 240 / 240 Physical Exam Const: OTHER: Oriented to person and place HENMT: COMMON NORMALS: normocephalic and atraumatic HEAD & SCALP: normocephalic and atraumatic Eye: COMMON NORMALS: Equal, round and reactive pupils present PUPIL: Yes Equal, round and reactive pupils present Neck/C-Spine: COMMON NORMALS: supple GENERAL: Yes normal visual inspection Resp: COMMON NORMALS: normal respiratory effort and clear to auscultation bilaterally EFFORT & INSPECTION: Yes able to speak in complete sentences AUSCULTATION: clear to auscultation bilaterally, no rhonchi and no wheezes Cardio: COMMON NORMALS: regular rate, regular rhythm and No murmurs present (Cardio) RATE: regular rate RHYTHM: regular rhythm GI: OTHER: Morbidly obese, no appreciable masses, normal bowel sounds, no appreciable tenderness to palpation, does have erythema to the umbilicus across her pannus Extremity: NARRATIVE EXTREMITY EXAM: Increasing left lower extremity edema and erythema Neuro: OTHER: Alert and oriented to person and place, remains more alert than on admission Psych: OTHER: Calm, cooperative Skin: NARRATIVE SKIN EXAM: Patient has erythema in the left lower extremity. Has flaking on the anterior frederick on the right with blisters forming on the left knee. Patient has sacral and perineal wounds with sloughing of skin and erythema and skin breakdown Urinary Catheter Management^: Flores: Cath Placed During This Visit: yes Reason for Continuing Indwelling Catheter: Assist healing open wound Urinary Catheter Date of Insertion: 02/18/20 Urinary Catheter Time of Insertion: 01:08 Data : 02/22/20 05:33 02/22/20 05:33 Micro: Microbiology 02/21/20 16:05 Blood Culture - Preliminary Blood SPECIMEN COLLECTED 02/18/20 00:35 Blood Culture - Preliminary Blood Streptococcus Group C 02/18/20 00:32 Blood Culture - Preliminary Blood Streptococcus Group C 02/21/20 15:02 Blood Culture - Preliminary Blood SPECIMEN COLLECTED A&P Assessment and plan (1) Diabetes mellitus: Status: Acute (2) Sepsis: Status: Acute Qualifiers: Sepsis acute organ dysfunction status: without acute organ dysfunction Sepsis type: sepsis due to unspecified organism Qualified Code(s): A41.9 - Sepsis, unspecified organism (3) UTI (urinary tract infection): Status: Acute Qualifiers: Hematuria presence: without hematuria Urinary tract infection type: acute cystitis Qualified Code(s): N30.00 - Acute cystitis without hematuria (4) Cellulitis: Status: Acute Qualifiers: Laterality: left Site of cellulitis: extremity Site of cellulitis of extremity: lower extremity Qualified Code(s): L03.116 - Cellulitis of left lower limb (5) Acute kidney injury: Status: Acute (6) Presence of intrathecal baclofen pump: Status: Chronic (7) Depression: Status: Acute (8) Hypothyroidism: Status: Acute (9) Multiple sclerosis: Status: Chronic Additional A&P Information Sepsis: Most likely because of cellulitis. Blood cultures from day of admission growing Streptococcus. Urine cultures growing E. coli. Patient was de-escalate antibiotics to ceftriaxone February 19 and patient has had high-grade fever and white count is trending up today. CT abdomen pelvis done yesterday appreciated. No obstructive uropathy. Echocardiogram results appreciated. COVID-19 negative in early in the admission. CT results appreciated. Negative for any infiltrate in chest, any collection in the decub and in his leg. Negative for necrotizing fasciitis. Vital trending down but mildly. Patient continues to spike fever as high as 100.5 Fahrenheit last night. Wound care as per surgery. Check C. difficile. Check tick panel though unlikely as patient is coming from an assisted living. Hydrofera Blue dressing for the decubitus ulcer. Frequent repositioning. Lymphedema wraps. ID has been consulted. Appreciate recommendations. Continue with Zosyn. Patient was started on February 20. We will start patient on vancomycin as patient continues to spike fever. Patient's fever spikes are better. MRSA swab. Keep mean artery pressure was 65 mmHg. Acute kidney injury: Creatinine worsened today. Patient received IV Lasix yesterday and IV fluids were stopped. Baseline creatinine 1.1. No IV diuresis for now. Continue gentle hydration since at least 4 hours. Continue to monitor daily. Hyponatremia: 132 today. Will continue to monitor. HTN: Goal BP less than 140/90 mmhg. For now continue with holding antihypertensive treatment. Continue to monitor blood pressures. Anemia: Iron panel appreciated. Hemoglobin lower today. Most likely because of dilution as patient is on fluids last 24 hours. No active source of bleeding. Start on oral iron supplementation. Acute metabolic encephalopathy close follow-up with mental function.: Continues to improve, participating in conversation. Restart Abilify 2 mg daily, celexa 20 mg po. Multiple sclerosis: Niharika lift dependent. Chronic incontinence secondary to neurogenic bladder: Continue with Flores catheter placement GERD. Continue PPI Chronic constipation Chronic back pain with history of intrathecal pain pump. No evidence currently of infection of this device Obstructive sleep apnea, continue CPAP Hypothyroidism, continue home levothyroxine 175 mcg daily Hyperlipidemia CODE STATUS: Allow natural Lovenox for DVT prophylaxis Diet: Carbohydrate consistent Attestations Medical Necessity Statement*: Sepsis, cellulitis Time Spent in Patient Care: Greater than 35 minutes (>than 50% of time spent in counselling and/or direct pt care on unit) . Coding Level of Care Code Acute Penology Professor for [facility] Fwd Exam Detailed Diagnoses Diabetes mellitus E11.9 Sepsis A41.9 Sepsis acute organ dysfunction status: without acute organ dysfunction Sepsis type: sepsis due to unspecified organism UTI (urinary tract infection) N30.00 Hematuria presence: without hematuria Urinary tract infection type: acute cystitis Cellulitis L03.116 Laterality: left Site of cellulitis: extremity Site of cellulitis of extremity: lower extremity Acute kidney injury N17.9 Presence of intrathecal baclofen pump Z97.8 Depression F32.9 Hypothyroidism E03.9 Multiple sclerosis G35
[2020-02-22 12:22] LABS: NT Pro B Type Natriuretic Pept 1859 pg/mL (0-125)
[2020-02-22 14:07] LABS: Potassium, Radom Urine 26 mmol/L; Urine Random Sodium 31 mmol/L
[2020-02-22 15:11] LABS: Urine Random Chloride < 10 mmol/L
--- NOTE | 2020-02-22 15:43 | P.CONIM_ITS ---
Providers/Reason For Consult Consulting Physican/Specialty*: Mehnaz Yen MD/Infectious Disease Reason for Consult*: cellulitis Attending Physician: Nikos Paula MD Primary Care Provider: Russ Rosa Jr, MD History of Present Illness History of Present Illness Jared Garcia is a 65 year old female , [place] resident that presnted from [facility] on 02/17 with c/o fever and AMS. PMH notable for chronic back pain with intrathecal pain pump, hLD, HTN, hypothryoridism, MS, urinary incontinence, MARLEE. She was admitted on February 17 after being noted to be quite lethargic, febrile and hypoxia at the [facility] and sent over to the ER. Here her left lower extremity was noted to be grossly edematous warm and tender consistent with cellulitis. Cellulitic changes also extended onto her abdomen and groin. She was initially trialed started on treatment with Zosyn and vancomycin and then narrowed down to ceftriaxone and vancomycin. White blood cell count upon admission was noted to be 11.4, trending up to maximum of 25.6 on 02 20 and now trending down again to 19. Patient continued to be febrile until yesterday with T-max of 100.2. Abdomen pelvis CT including repeat pelvis CT on 02 20 showed induration of subcutaneous fat of the lower abdominal wall. No fluid collection or abscesses were identified. No subcutaneous gas was seen. Lower extremity CT showed diffuse edema of skin and subcutaneous tissue compatible with cellulitis and/or lymphedema. No fluid collections were identified. Venous Doppler negative for any DVT. Normal resting ABIs noted bilaterally. Blood culture from 02 17 showed Streptococcus group C, penicillin susceptible. It is hard to get a history from the patient, however she denies any history of trauma. There is some superficial skin breaks over the dorsum of her left foot. Candidiasis is also noted in the bilateral groin folds and under the abdominal pannus. C. difficile panel was negative on 02/20. Blood culture is clear as of night of 02/18/2020(12 hours after the first culture approximately). Urine cx with E.coli. Review of Systems General: Reports: 10 or more systems reviewed and unremarkable except in HPI and below Const: Denies: fever(s), chills or body aches Eyes: Denies: change in vision, blurry vision or photophobia ENMT: Reports: hoarseness; Denies: throat pain, enlarged tonsils, odynophagia or nasal congestion Card: Denies: chest pain, palpitations, irregular heart rhythm, edema, swelling of feet/ankles, lightheadedness, pre-syncope, dyspnea on exertion or orthopnea Resp: Denies: dyspnea, productive cough, non-productive cough, wheezing, stridor, pain on inspiration, change in phlegm color, hemoptysis or chest congestion GI: Denies: abdominal pain, nausea, vomiting, hematemesis, coffee ground emesis, dysphagia, heartburn, diarrhea, constipation, GI cramping, change in stool character, hematochezia or melena : Denies: flank pain, difficulty voiding, dysuria, urinary frequency, urin annetta urgency, urinary hesitancy or hematuria Musc: Denies: neck pain, back pain, extremity pain, joint swelling, joint warmth or deformity Neuro: Denies: headache(s), numbness in extremities, weakness in extremities, sensory changes, difficulty walking, frequent falls, dizziness, vertigo, b ehavioral changes, Slurred speech present or seizure-like activity Psych: Denies: anxiety, depression, suicidal ideation or homicidal ideation Endo: Denies: polyuria, polydipsia, tired all the time, cold intolerance or hot flashes Nikhil/Lymph: Denies: easy bruising or easy bleeding Meds/Allergies Home Medications and Allergies Home Medications Medication Instructions Recorded Confirmed Last Taken Type acetaminophen 325 mg capsule 650 mg PO Q4H PRN 09/16/19 02/18/20 Unknown History aripiprazole 2 mg tablet 2 mg PO DAILY 09/16/19 02/18/20 Unknown History bisacodyl 10 mg rectal suppository 10 mg [place] DAILY PRN 09/16/19 02/18/20 Unknown History citalopram 40 mg tablet 20 mg PO BEDTIME 09/16/19 02/18/20 Unknown History clopidogrel 75 mg tablet 75 mg PO DAILY 09/16/19 02/18/20 Unknown History cyclobenzaprine 10 mg tablet 10 mg PO BID 09/16/19 02/18/20 Unknown History docusate sodium 100 mg capsule 100 mg PO DAILY PRN 09/16/19 02/18/20 Unknown History furosemide 40 mg tablet 40 mg PO DAILY 09/16/19 02/18/20 Unknown History hydrocodone 5 mg-acetaminophen 325 1 tab PO BID 09/16/19 02/18/20 Unknown History mg tablet levothyroxine 175 mcg capsule 175 mcg PO DAILY 09/16/19 02/18/20 Unknown History lisinopril 5 mg tablet 5 mg PO DAILY 09/16/19 02/18/20 Unknown History loratadine 10 mg tablet 10 mg PO DAILY 09/16/19 02/18/20 Unknown History lorazepam 0.5 mg tablet 0.25 mg PO BID tab 09/16/19 02/18/20 Unknown History menthol 4 % topical gel 1 applic TOPICAL BID PRN ml 09/16/19 02/18/20 Unknown History nystatin 100,000 unit/gram topical 1 applic TOPICAL BID 09/16/19 02/18/20 Unknown History cream ondansetron HCl 4 mg tablet 4 mg PO Q6H PRN 09/16/19 02/18/20 Unknown History pantoprazole 40 mg tablet,delayed 40 mg PO DAILY 09/16/19 02/18/20 Unknown History release quetiapine 25 mg tablet 25 mg PO BEDTIME 09/16/19 02/18/20 Unknown History simvastatin 5 mg tablet 5 mg PO BEDTIME 09/16/19 02/18/20 Unknown History sodium phosphates 19 gram-7 118 ml [place] DAILY PRN 09/16/19 02/18/20 Unknown History gram/118 mL enema Biotene Moisturizing Mouth 1 applic MUCOUS MEMBRANE PRN PRN 02/18/20 02/18/20 Unknown History Dry Eye Relief 1 drp OPHTHALMIC (EYE) BID 02/18/20 02/18/20 Unknown History Milk of Magnesia 30 ml PO DAILY PRN 02/18/20 02/18/20 Unknown History cyclobenzaprine 10 mg PO TID PRN 02/18/20 02/18/20 Unknown History gabapentin 300 mg PO TID 02/18/20 02/18/20 Unknown History polyethylene glycol 3350 17 g PO EVERY OTHER DAY 02/18/20 02/18/20 Unknown H istory zinc oxide 1 applic TOPICAL QID PRN 02/18/20 02/18/20 Unknown History ceftriaxone 1 gm IVP DAILY 11 Days #11 each 02/24/20 Unknown Rx ferrous gluconate 324 mg PO BIDWM 30 Days #60 tab 02/24/20 Unknown Rx insulin aspart U-100 [Novolog See Rx Instructions .ROUTE 02/24/20 Unknown Rx U-100 Insulin aspart] .COMPLEX #10 ml insulin glargine [Lantus U-100 10 unit SUBCUT BEDTIME 30 Days #10 02/24/20 Unknown Rx Insulin] ml Allergies Allergy/AdvReac Type Severity Reaction Status Date / Time aspirin AdvReac unknown Verified 11/25/19 15:23 Current Medications Current Medications Generic Name Dose Route Start Last Admin Trade Name Freq PRN Reason Stop Dose Admin Acetaminophen 650 mg 02/18/20 04:50 02/20/20 18:19 Tylenol PO 650 mg Q6H PRN Administration Mild/Mod Pain Or Temp >/= 101 Aripiprazole 2 mg 02/21/20 09:00 02/22/20 09:08 Abilify PO 2 mg DAILY CECE Administration Atorvastatin Calcium 20 mg 02/18/20 09:00 02/22/20 09:08 Lipitor PO 20 mg DAILY CECE Administration Citalopram Hydrobromide 20 mg 02/18/20 09:00 02/22/20 09:09 Celexa PO 20 mg DAILY CECE Administration Clopidogrel Bisulfate 75 mg 02/18/20 09:00 02/22/20 09:06 Plavix PO 75 mg DAILY CECE Administration Enoxaparin Sodium 40 mg 02/18/20 05:30 02/22/20 06:27 Lovenox SUBCUT 40 mg Q24H CECE Administration Ferrous Gluconate 324 mg 02/22/20 08:00 02/22/20 09:08 Ferrous Gluconate PO 324 mg BIDWM CECE Administration Gabapentin 300 mg 02/18/20 21:00 02/22/20 14:11 Neurontin PO 300 mg TID CECE Administration Piperacillin Sod/Tazobactam 50 mls @ 12.5 mls/hr 02/21/20 10:00 02/22/20 13:13 Sod 3.375 gm/ Sodium Chloride IV Infused Q8H CECE Infusion Protocol Sodium Chloride 1,000 mls @ 75 mls/hr 02/21/20 09:15 02/22/20 14:11 Sodium Chloride 0.9% IV 75 mls/hr .[id number] CECE Administration Insulin Aspart 0 unit 02/18/20 08:00 02/22/20 14:11 Novolog SUBCUT Not Given WM&BEDTIME CECE Protocol Insulin Glargine 20 unit 02/20/20 21:00 02/21/20 22:01 Lantus SUBCUT 20 unit BEDTIME CECE Administration Levothyroxine Sodium 150 mcg 02/19/20 09:00 02/22/20 09:07 Synthroid PO 150 mcg DAILY CECE Administration Levothyroxine Sodium 25 mcg 02/19/20 09:00 02/22/20 09:06 Synthroid PO 25 mcg DAILY CECE Administration Nystatin 1 applic 02/18/20 18:00 02/22/20 10:38 Nystatin Cream TOPICAL 1 applic BID CECE Administration Pantoprazole Sodium 40 mg 02/18/20 09:00 02/22/20 09:08 Protonix PO 40 mg DAILY CECE Administration Polyethylene Glycol 17 gm 02/20/20 09:00 02/22/20 10:37 Miralax PO Not Given EVERY OTHER DAY CECE PFSH Acute PFSH: Medical History Anemia Chronic back pain Chronic constipation Depression End of battery life of intrathecal infusion pump GERD (gastroesophageal reflux disease) Hyperlipidemia Hypertension Hypothyroidism Incontinence Multiple sclerosis Obstructive sleep apnea Sacral decubitus ulcer Surgical History Presence of intrathecal baclofen pump 05/19/2013 Dr. Abner Flanagan: Replacement of Compiere subcutaneous programmable pump with connection to intrathecal catheter for administration of intrathecal baclofen therapy. Family History Other CAD (coronary artery disease) Cancer Diabetes Denies family history of Hypertension Stroke Social History Smoking and tobacco status: never smoked Alcohol intake: never Lives independently: No Housing: [place] History of recent travel: No Vitals/I&O/Wt Last Vital Signs Temp 98.4 F 02/22/20 15:03 Pulse 76 02/22/20 15:03 Resp 16 02/22/20 15:03 BP 130/73 02/22/20 15:03 Pulse Ox 95 02/22/20 15:03 02/22/20 02/22/20 02/22/20 06:59 14:59 22:59 Intake Total 1050 / 1670 1375 / 1375 Output Total 150 / 625 Balance 900 / 1045 1375 / 1375 Physical Exam Narrative: EXAM NARRATIVE: GEN: Awake, alert, needs reorientation to have a conversation CVS: S1S2 N RS: CTA B/L Abd: Soft, nt/nd , bs+ GRINDING 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 INSPECTOR: no focal neuro deficits EXT: extensive LLE cellulitis extending from foot to level of thigs on the left side with extension onto the abdominal wall and mons Urinary Catheter Management^: Flores: Cath Placed During This Visit: yes Reason for Continuing Indwelling Catheter: Assist healing open wound Urinary Catheter Date of Insertion: 02/18/20 Urinary Catheter Time of Insertion: 01:08 Data Micro: Micro: Microbiology 02/21/20 15:02 Blood Culture - Pr eliminary Blood NEGATIVE TO CHON E 02/21/20 16:05 Blood Culture - Pr eliminary Blood SPECIMEN COLLEC THAO 02/18/20 00:35 Blood Culture - Pr eliminary Blood Streptococcus G roup C 02/18/20 00:32 Blood Culture - Pr eliminary Blood Streptococcus G roup C A&P Assessment and plan (1) Septicemia: Status: Acute (2) Cellulitis: Status: Acute Qualifiers: Laterality: left Site of cellulitis: extremity Site of cellulitis of extremity: lower extremity Qualified Code(s): L03.116 - Cellulitis of left lower limb (3) Sepsis: Status: Acute Qualifiers: Sepsis acute organ dysfunction status: without acute organ dysfunction Sepsis type: sepsis due to unspecified organism Qualified Code(s): A41.9 - Sepsis, unspecified organism (4) UTI (urinary tract infection): Status: Acute Qualifiers: Hematuria presence: without hematuria Urinary tract infection type: acute cystitis Qualified Code(s): N30.00 - Acute cystitis without hematuria (5) Multiple sclerosis: Status: Chronic Additional A&P Information 65F with PMH and medical comorbidities as outlined above currently admitted with LLE cellulitis extending on to abdominal wall and eveidence of streptococcal septcemia # Streptococcal grp C positive blood cx/septicemia from skin source Overall per chart reveiw patient appears to be clinically improving. WBC count is trending down , fever curve appears to be improving and patient is hemodynamically stable C diff panel is negative Blood cx from 9 early am positive for grp C streptococcus, cleared soon after initiation of abx. Last negative cx on 02/17 at 10:10pm. For now continue Zosyn, can discontinue vancomycin and continue to monitor for clinical improvement Patient has chronic LE swelling which puts her at a higher risk of recurrent cellulitis with minimal injuries. NOted significant intertrigo for which she is on nystatin topically. Skin breakdown from this condition may have served as portal of entry for this organism. 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
[2020-02-22 16:46] LABS: Glucose Point of Care 122 mg/dL (70-110)
[2020-02-22] MEDS: HYDROcodone-acetaminophen 5-325 mg Tablet 1 TAB PO (17:25)
[2020-02-22 20:31] LABS: Glucose Point of Care 125 mg/dL (70-110)
[2020-02-22] MEDS: insulin glargine 100 units/1 mL 20 UNIT SUBCUT (21:24)
[2020-02-23] VITALS: BP 111/74; PULSE 89; RESP 20; TEMP 37; O2SAT 93
[2020-02-23] MEDS: piperacillin-tazobactam 3.375 GM in sodium chloride 0.9% (plus) 50 ML IV ×3 (02:27→21:47)
[2020-02-23] MEDS: sodium chloride 0.9% 1,000 ML 75 ML IV (03:54)
[2020-02-23 04:00] VITALS: BP 120/65; PULSE 72; RESP 19; TEMP 36.6; O2SAT 99
[2020-02-23] MEDS: enoxaparin 40 mg/0.4 mL Syringe SUBCUT (05:07)
[2020-02-23 06:41] LABS: Glucose Point of Care 88 mg/dL (70-110)
[2020-02-23 07:22] VITALS: BP 122/62; PULSE 74; RESP 19; TEMP 36.6; O2SAT 97
[2020-02-23] MEDS: levothyroxine 25 mcg Tablet PO (08:20)
[2020-02-23] MEDS: gabapentin 300 mg Capsule PO ×3 (08:20→21:48)
[2020-02-23] MEDS: ARIPiprazole 2 mg Tablet PO (08:20)
[2020-02-23] MEDS: ferrous gluconate 324 mg Tablet PO ×2 (08:20→17:50)
[2020-02-23] MEDS: atorvastatin 40 mg Tablet 20 MG PO (08:20)
[2020-02-23] MEDS: levothyroxine 150 mcg Tablet PO (08:20)
[2020-02-23] MEDS: pantoprazole DR 40 mg Tablet PO (08:20)
[2020-02-23] MEDS: clopidogrel 75 mg Tablet PO (08:21)
[2020-02-23] MEDS: citalopram 20 mg Tablet PO (08:21)
--- NOTE | 2020-02-23 09:26 | DCPLANNER ---
Pg 2 of IM updated and reviewed with pt, no questions, copy provided.
--- NOTE | 2020-02-23 09:31 | P.PN_ITS ---
Subjective Subjective: Interval history: Patient is awake and alert, no nausea or vomiting Vitals/I&O/Wt Last Vital Signs Temp 97.9 F 02/23/20 07:22 Pulse 74 02/23/20 07:22 Resp 19 H 02/23/20 07:22 BP 122/62 02/23/20 07:22 Pulse Ox 97 02/23/20 07:22 02/22/20 02/23/20 02/23/20 22:59 06:59 14:59 Intake Total 170 / 2545 1000 / 2545 Output Total 350 / 750 400 / 750 Balance -180 / 1795 600 / 1795 Physical Exam Narrative: EXAM NARRATIVE: Left le x 2 centimeter wound of the left heel, no surrounding erythema or necrotic tissue noted. Lymphedema/cellulitis on the left lower extremity significantly improved with lymphedema wrap Sacral wound: Dressings dry and intact Urinary Catheter Management^: Flores: Cath Placed During This Visit: yes Reason for Continuing Indwelling Catheter: Assist healing open wound Urinary Catheter Date of Insertion: 02/18/20 Urinary Catheter Time of Insertion: 01:08 Data : 02/22/20 05:33 02/22/20 05:33 Micro: Microbiology 02/21/20 16:05 Blood Culture - Preliminary Blood NEGATIVE TO DATE 02/21/20 15:02 Blood Culture - Preliminary Blood NEGATIVE TO DATE A&P Assessment and plan (1) Sepsis: 65-year-old female with sepsis, leukocytosis trending down, labs were drawn today, white count is [address] lower extremity was negative for any underlying fluid collection/osteomyel itis Continue with Hydrofera Blue and lymphedema wrap Status: Acute Qualifiers: Sepsis acute organ dysfunction status: without acute organ dysfunction Sepsis type: sepsis due to unspecified organism Qualified Code(s): A41.9 - Sepsis, unspecified organism (2) Sacral decubitus ulcer: Continue with Hydrofera Blue application to the wound and apply zinc oxide to the surrounding skin. 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
[2020-02-23] MEDS: nystatin cream 30 gm 1 APPLIC TOPICAL ×2 (10:09→17:54)
[2020-02-23 11:16] LABS: Glucose Point of Care 110 mg/dL (70-110)
[2020-02-23 11:16] LABS: Basophils % 0.3 %; Eosinophils # 0.3 10^3/uL (0.0-0.8); Eosinophils % 2.7 %; Hematocrit 28.5 % (37.0-47.0); Hemoglobin 8.3 g/dL (11.5-15.3); Lymphocytes # 1.1 10^3/uL (0.8-4.8); Lymphocytes % 9.6 %; Mean Corpuscular HGB Conc 29.1 g/dL (30.0-36.0); Mean Corpuscular Hemoglobin 26.6 pg (28.0-34.0); Mean Corpuscular Volume 91.3 fL (81-99); Mean Platelet Volume 9.6 fL (7.4-10.4); Monocytes # 0.6 10^3/uL (0.2-0.9); Monocytes % 5.3 %; Nucleated Red Blood Cells % 0 %; Platelet Count 399 10^3/cmm (130-400); Red Blood Count 3.12 10^6/uL (4.1-5.3); Red Cell Distribution Width 16.3 % (12.1-15.1); White Blood Count 11.4 10^3/uL (4.0-10.0)
[2020-02-23 11:17] VITALS: BP 128/73; PULSE 69; RESP 16; TEMP 36.6; O2SAT 98
[2020-02-23 11:44] LABS: Slide Review Slide Review Perform
[2020-02-23 11:46] LABS: Alanine Aminotransferase 32 U/L (0-33); Albumin Level 2.5 g/dL (3.5-5.2); Alkaline Phosphatase 91 IU/L (35-105); Anion Gap 13.8 (5-19); Aspartate Amino Transferase 68 U/L (0-32); Blood Urea Nitrogen 29 mg/dL (8-23); Calcium 7.8 mg/dL (8.5-10.5); Carbon Dioxide 23 mmol/L (22-29); Chloride 106 mmol/L (98-107); Globulin 3.5 g/dL (1.3-4.6); Glucose 110 mg/dL (65-115); Osmolality Calculated 286 mOsm/kg (285-295); Potassium 3.8 mmol/L (3.5-5.1); Sodium 139 mmol/L (136-145); Total Bilirubin 0.4 mg/dL (0.15-1.2)
[2020-02-23] MEDS: FUROsemide 10 mg/mL SDV 4mL 40 MG IVP (12:16)
--- NOTE | 2020-02-23 13:56 | PM.PN ---
Subjective Subjective: Interval history: Patient was examined this morning, her only complaint is that she has left leg pain, area of erythema has significantly improved, afebrile overnight, mentation is about at her baseline according to nursing staff, white blood cell count has trended down to 11.4, no fevers, no chills, no nausea, no vomiting, no chest pain, no shortness of breath Vitals/I&O/Wt Last Vital Signs Temp 97.8 F 02/23/20 11:17 Pulse 69 02/23/20 11:17 Resp 16 02/23/20 11:17 BP 128/73 02/23/20 11:17 Pulse Ox 98 02/23/20 11:17 02/22/20 02/23/20 02/23/20 22:59 06:59 14:59 Intake Total 420 / 1795 1050 / 2845 Output Total 350 / 350 400 / 750 Balance 70 / 1445 650 / 2095 Physical Exam Const: COMMON NORMALS: no acute distress and alert GENERAL APPEARANCE: cooperative ORIENTATION/CONSCIOUSNESS: Yes oriented to person and Yes oriented to place; not oriented to time HENMT: COMMON NORMALS: normocephalic HEAD & SCALP: normocephalic Neck/C-Spine: COMMON NORMALS: no JVD Resp: COMMON NORMALS: normal respiratory effort, No retractions, No use of accessory muscles and clear to auscultation bilaterally AUSCULTATION: clear to auscultation bilaterally Cardio: COMMON NORMALS: no JVD, regular rate, regular rhythm, S1 normal heart sound present and S2 normal heart sound present RATE: regular rate RHYTHM: regular rhythm HEART SOUNDS: S1 normal heart sound present and S2 normal heart sound present GI: COMMON NORMALS: Normal to inspection, nondistended, normoactive bowel sounds present, Soft to palpation, non-tender, No hepatosplenomegaly present, no masses and no bruits PALPATION: Yes Soft to palpation and Yes No hepatosplenomegaly present Extremity: NARRATIVE EXTREMITY EXAM: 1+ pitting edema Left lower extremity cellulitis area of erythema has significantly improved, receded beyond marked region Neuro: SENSORIUM/ORIENTATION: Yes alert, Yes oriented to person, Yes oriented to place and No oriented to time Psych: COMMON NORMALS: mental status grossly normal Urinary Catheter Management^: Flores: Cath Placed During This Visit: yes Reason for Continuing Indwelling Catheter: Assist healing open wound Urinary Catheter Date of Insertion: 02/18/20 Urinary Catheter Time of Insertion: 01:08 Data : 02/23/20 11:07 02/23/20 11:07 Micro: Microbiology 02/21/20 09:25 Stool Lactoferrin - Final Stool Enteric Pathogens (PCR) - Final C.difficile Toxin B Gene (PCR) - Final Occult Blood (FIT) - Final 02/18/20 00:35 Blood Culture - Final Blood Streptococcus Group C 02/18/20 00:32 Blood Culture - Final Blood Streptococcus Group C 02/21/20 16:05 Blood Culture - Preliminary Blood NEGATIVE TO DATE 02/21/20 15:02 Blood Culture - Preliminary Blood NEGATIVE TO DATE A&P Assessment and plan (1) Diabetes mellitus: Status: Acute (2) Sepsis: Patient has been on broad-spectrum antibiotics Secondary to acute cystitis and cellulitis Currently on broad-spectrum antibiotics vancomycin and Zosyn Status: Acute Qualifiers: Sepsis acute organ dysfunction status: without acute organ dysfunction Sepsis type: sepsis due to unspecified organism Qualified Code(s): A41.9 - Sepsis, unspecified organism (3) UTI (urinary tract infection): With chronic indwelling Flores catheter, Flores catheter changed during that admission Secondary to E. coli, currently on Zosyn Status: Acute Qualifiers: Hematuria presence: without hematuria Urinary tract infection type: acute cystitis Qualified Code(s): N30.00 - Acute cystitis without hematuria (4) Cellulitis: Venous duplex of the left lower extremity is negative for DVT Will obtain arterial studies of the left lower extremity Continue on Linezolid Lymphedema wraps ordered Status: Acute Qualifiers: Laterality: left Site of cellulitis: extremity Site of cellulitis of extremity: lower extremity Qualified Code(s): L03.116 - Cellulitis of left lower limb (5) Acute kidney injury: IV fluids discontinued Still a bit fluid overloaded today, give 40 mg of IV Lasix today strict intake and output as well as daily weights Continue to hold nephrotoxic agents Status: Acute (6) Presence of intrathecal baclofen pump: Status: Chronic (7) Depression: Status: Acute (8) Hypothyroidism: Status: Acute (9) Multiple sclerosis: Status: Chronic Additional A&P Information Sepsis: Multifactorial secondary to cellulitis and UTI. Blood cultures from day of admission growing Streptococcus. Urine cultures growing E. coli. Currently patient is on broad-spectrum antibiotics vancomycin, Zosyn Area of cellulitis has significantly improved and receded Remains afebrile, normotensive, white blood cell count trending down to 11.4 Repeat blood cultures -[address] abdomen pelvis done yesterday appreciated. No obstructive uropathy. Echocardiogram results pending COVID-19 negative in early in the admission. CT results Negative for any infiltrate in chest, any collection in the decub and in his leg. Negative for necrotizing fasciitis. Check C. difficile within normal limits, stool studies negative Hydrofera Blue dressing for the decubitus ulcer. Frequent repositioning. Lymphedema wraps. ID has been consulted. Appreciate recommendations. Currently on vancomycin and Zosyn. Patient was started on February 20. Keep mean artery pressure was 65 mmHg. Acute kidney injury: Creatinine 1.4 Baseline creatinine 1.1. Received 40 mg Lasix IV today due to fluid overload Continue gentle hydration since at least 4 hours. Continue to monitor daily. Hyponatremia: 139 today. Will continue to monitor. HTN: Goal BP less than 140/90 mmhg. For now continue with holding antihypertensive treatment. Continue to monitor blood pressures. Anemia: Iron panel appreciated. Hemoglobin lower today. Most likely because of dilution as patient is on fluids last 24 hours. No active source of bleeding. Start on oral iron supplementation. Acute metabolic encephalopathy close follow-up with mental function.: Continues to improve, participating in conversation. Restart Abilify 2 mg daily, celexa 20 mg po. Multiple sclerosis: Niharika lift dependent. Chronic incontinence secondary to neurogenic bladder: Continue with Flores catheter placement GERD. Continue PPI Chronic constipation Chronic back pain with history of intrathecal pain pump. No evidence currently of infection of this device Obstructive sleep apnea, continue CPAP Hypothyroidism, continue home levothyroxine 175 mcg daily Hyperlipidemia CODE STATUS: Allow natural Lovenox for DVT prophylaxis Diet: Carbohydrate consistent Attestations Medical Necessity Statement*: Patient requires hospitalization due to sepsis secondary to UTI and cellulitis Coding Level of Care Code Acute Manager Php for [facility] Fwd Exam Detailed Diagnoses Diabetes mellitus E11.9 Sepsis A41.9 Sepsis acute organ dysfunction status: without acute organ dysfunction Sepsis type: sepsis due to unspecified organism UTI (urinary tract infection) N30.00 Hematuria presence: without hematuria Urinary tract infection type: acute cystitis Cellulitis L03.116 Laterality: left Site of cellulitis: extremity Site of cellulitis of extremity: lower extremity Acute kidney injury N17.9 Presence of intrathecal baclofen pump Z97.8 Depression F32.9 Hypothyroidism E03.9 Multiple sclerosis G35
[2020-02-23 15:18] VITALS: BP 143/87; PULSE 78; RESP 16; TEMP 36.4; O2SAT 96
[2020-02-23 17:19] LABS: Glucose Point of Care 108 mg/dL (70-110)
[2020-02-23 19:45] VITALS: BP 132/70; PULSE 85; RESP 19; TEMP 36.9; O2SAT 95
[2020-02-23 21:18] LABS: Glucose Point of Care 120 mg/dL (70-110)
[2020-02-23] MEDS: insulin glargine 100 units/1 mL 20 UNIT SUBCUT (21:47)
[2020-02-24] VITALS (7 sets, daily range): BP systolic 130–160; BP diastolic 77–81; PULSE 59–81; RESP 18–19; TEMP 36.4–36.8; O2SAT 94–98
[2020-02-24 00:41] LABS: Glucose Point of Care 108 mg/dL (70-110)
[2020-02-24 02:35] LABS: Glucose Point of Care 100 mg/dL (70-110)
[2020-02-24 05:08] LABS: Basophils % 0.3 %; Eosinophils # 0.4 10^3/uL (0.0-0.8); Eosinophils % 3.8 %; Hematocrit 28.7 % (37.0-47.0); Hemoglobin 8.3 g/dL (11.5-15.3); Lymphocytes # 1.1 10^3/uL (0.8-4.8); Lymphocytes % 11.2 %; Mean Corpuscular HGB Conc 28.9 g/dL (30.0-36.0); Mean Corpuscular Hemoglobin 26.3 pg (28.0-34.0); Mean Corpuscular Volume 90.8 fL (81-99); Mean Platelet Volume 9.4 fL (7.4-10.4); Monocytes # 0.7 10^3/uL (0.2-0.9); Monocytes % 6.8 %; Neutrophils # 7.45 10^3/uL (1.8-7.7); Neutrophils % 73.6 %; Nucleated Red Blood Cells % 0 %; Platelet Count 455 10^3/cmm (130-400); Red Blood Count 3.16 10^6/uL (4.1-5.3); Red Cell Distribution Width 16.4 % (12.1-15.1); White Blood Count 10.1 10^3/uL (4.0-10.0)
[2020-02-24] MEDS: enoxaparin 40 mg/0.4 mL Syringe SUBCUT (05:10)
[2020-02-24] MEDS: piperacillin-tazobactam 3.375 GM in sodium chloride 0.9% (plus) 50 ML IV ×2 (05:10→12:46)
[2020-02-24 05:27] LABS: Alanine Aminotransferase 28 U/L (0-33); Albumin Level 2.5 g/dL (3.5-5.2); Alkaline Phosphatase 102 IU/L (35-105); Anion Gap 13.4 (5-19); Aspartate Amino Transferase 70 U/L (0-32); Blood Urea Nitrogen 22 mg/dL (8-23); Calcium 8.5 mg/dL (8.5-10.5); Carbon Dioxide 23 mmol/L (22-29); Chloride 106 mmol/L (98-107); Globulin 4.3 g/dL (1.3-4.6); Glucose 86 mg/dL (65-115); Magnesium 2.2 mg/dL (1.7-2.3); Osmolality Calculated 284 mOsm/kg (285-295); Potassium 3.4 mmol/L (3.5-5.1); Sodium 139 mmol/L (136-145); Total Bilirubin 0.4 mg/dL (0.15-1.2); Total Protein 6.8 g/dL (6.6-8.7)
[2020-02-24 06:36] LABS: Glucose Point of Care 79 mg/dL (70-110)
[2020-02-24] MEDS: pantoprazole DR 40 mg Tablet PO (08:32)
[2020-02-24] MEDS: clopidogrel 75 mg Tablet PO (08:32)
[2020-02-24] MEDS: atorvastatin 40 mg Tablet 20 MG PO (08:32)
[2020-02-24] MEDS: levothyroxine 150 mcg Tablet PO (08:32)
[2020-02-24] MEDS: gabapentin 300 mg Capsule PO ×2 (08:32→14:22)
[2020-02-24] MEDS: ARIPiprazole 2 mg Tablet PO (08:32)
[2020-02-24] MEDS: citalopram 20 mg Tablet PO (08:32)
[2020-02-24] MEDS: ferrous gluconate 324 mg Tablet PO (08:32)
[2020-02-24] MEDS: levothyroxine 25 mcg Tablet PO (08:32)
[2020-02-24] MEDS: polyethylene glycol 3350 Pkt 17 gm PO (08:32)
[2020-02-24] MEDS: nystatin cream 30 gm 1 APPLIC TOPICAL (08:33)
--- NOTE | 2020-02-24 08:42 | PC.PT ---
pt had been seen for compression wrapping to the LLE due to cellulitis, today she is no longer draining from the posterior aspect of the leg, nursing is keeping her leg elevated well. Today tubigrip was placed on the leg, she should do well with the tubigrip, nursing to contact PT if there are any changes, but at this point will discharge
[2020-02-24 09:41] LABS: Vancomycin Trough 21.4 ug/mL (10-15)
[2020-02-24 09:47] LABS: Ferritin 322 ng/mL (15-150)
[2020-02-24] MEDS: FUROsemide 10 mg/mL SDV 4mL 40 MG IVP (10:45)
[2020-02-24] MEDS: potassium chloride ER 10 mEq Tablet 40 MEQ PO (10:45)
--- NOTE | 2020-02-24 10:51 | XR_ITS ---
WS: [id number] CHEST XRAY TECHNIQUE: Portable chest. CLINICAL INFORMATION: PICC line verification. COMPARISON: None. FINDINGS: Right PICC line with tip in the distal SVC/RA Heart: Normal cardiac silhouette. Lungs: Lungs are clear. No consolidation or pleural effusion. Bones: Normal visualized bony structures. XR/XR chest 1V portable [id number] IMPRESSION: Right PICC line tip in the distal SVC/RA. No pneumothorax.
--- NOTE | 2020-02-24 10:51 | P.DS_ITS ---
Discharge Providers Date of Admission: 02/18/20 03:33 Date of Discharge: February 24, 2020 Attending Provider at Admission: Antoine Higginbotham MD Attending Provider at Discharge: Kolton Goldman MD Primary Care Provider: Russ Rosa Jr, MD Diagnoses at Discharge Discharge Diagnosis (1) Diabetes mellitus: Status: Acute (2) Sepsis: Status: Acute Qualifiers: Sepsis acute organ dysfunction status: without acute organ dysfunction Sepsis type: sepsis due to unspecified organism Qualified Code(s): A41.9 - Sepsis, unspecified organism (3) UTI (urinary tract infection): Status: Acute Qualifiers: Hematuria presence: without hematuria Urinary tract infection type: acute cystitis Qualified Code(s): N30.00 - Acute cystitis without hematuria (4) Cellulitis: Status: Acute Qualifiers: Laterality: left Site of cellulitis: extremity Site of cellulitis of extremity: lower extremity Qualified Code(s): L03.116 - Cellulitis of left lower limb (5) Acute kidney injury: Status: Acute (6) Presence of intrathecal baclofen pump: Status: Chronic Problem details: 05/19/2013 Dr. Abner Flanagan: Replacement of [employer] subcutaneous programmable pump with connection to intrathecal catheter for administration of intrathecal baclofen therapy. (7) Depression: Status: Acute (8) Hypothyroidism: Status: Acute (9) Multiple sclerosis: Status: Chronic Reason for Visit Reason for Visit: SEPSIS Hospital Course Discharge Summary: This is a 65-year-old female who is a resident of [facility], with a past medical history of chronic anemia, chronic back pain, history of intrathecal infusion pump, GERD, hyperlipidemia, hypertension, hypothyroidism, multiple sclerosis, who is bedbound, chronic Flores, Niharika lift dependent who presents to [facility] for fever, and decreased responsiveness Patient was admitted to [facility] for fevers, decreased responsiveness secondary to acute encephalopathy and sepsis secondary to left lower extremity cellulitis and UTI. Patient was placed on broad-spectrum antibiotics, patient's mentation slowly improved, CT of the abdomen and pelvis did not show any obstructive uropathy, CT of the left lower extremity did not show any evidence of underlying abscess or necrotizing fasciitis, stool studies were negative for C. difficile, COVID testing was unremarkable, CT of the chest was unremarkable for a focal pneumonia. Patient's blood cultures were positive for Streptococcus group C, urine cultures positive for E. coli, patient's antibiotic therapy was de-escalated, infectious disease was consulted. Thus likely patient had bacteremia, Streptococcus group C from cellulitis, and E. coli UTI. Patient clinically improved, area of cellulitis of left lower extremity significantly improved, her mentation improved back to baseline, she will be discharged on 11 remaining days of Rocephin, PICC line will also be placed, and should be removed after. Repeat blood cultures so far have been unremarkable. On admission patient was also found to have acute kidney injury, improved with IV hydration. Patient has a chronic indwelling Flores catheter, it should be exchanged based on care home protocol Patient also was found to have a sacral decubitus ulcer, requires repositioning, close monitoring by care home Patient has acute on chronic anemia, baseline hemoglobin between 9-10, her hemoglobin got as low as 8.3 during her admission, no overt signs of bleeding, no bloody or black stools, stool studies were negative for blood, her iron panel seems more like anemia of chronic disease. But nonetheless she was started on iron supplementation, and I will have her follow-up with general surgery for consideration of EGD and colonoscopy. Of note patient is on Plavix, which was started on her admission in January 2019 for TIA and carotid artery stenosis 16- 49%. Given patient's anemia, I will hold Plavix until she sees general surgery and hematology. Physical Exam Const: COMMON NORMALS: no acute distress and patient oriented x3 HENMT: COMMON NORMALS: normocephalic HEAD & SCALP: normocephalic Neck/C-Spine: COMMON NORMALS: no JVD Resp: COMMON NORMALS: normal respiratory effort, No retractions, No use of accessory muscles and clear to auscultation bilaterally AUSCULTATION: clear to auscultation bilaterally Cardio: COMMON NORMALS: no JVD, regular rate, regular rhythm, S1 normal heart sound present and S2 normal heart sound present RATE: regular rate RHYTHM: regular rhythm HEART SOUNDS: S1 normal heart sound present and S2 normal heart sound present GI: COMMON NORMALS: Normal to inspection, nondistended, normoactive bowel sounds present, Soft to palpation, non-tender, No hepatosplenomegaly present, no masses and no bruits PALPATION: Yes Soft to palpation and Yes No hepatosplenomegaly present Extremity: COMMON NORMALS: capillary refill normal, no clubbing, cyanosis or edema, no calf tenderness and no pedal edema Neuro: COMMON NORMALS: patient oriented x3 Psych: COMMON NORMALS: mental status grossly normal Skin: NARRATIVE SKIN EXAM: Area of cellulitis, left lower extremity, has significantly improved, receding beyond marked regions, Urinary Catheter Management^: Flores: Cath Placed During This Visit: yes Reason for Continuing Indwelling Catheter: Assist healing open wound Urinary Catheter Date of Insertion: 02/18/20 Urinary Catheter Time of Insertion: 01:08 Discharge Data Data Completed and Pending: Completed Studies During Hospitalization Category Date Time Status CT abdomen pelvis wo con [id number] Rout ine Cat Scan 02/20/20 09:[address] chest wo con 7 1250 Routine Cat Scan 02/21/20 09:[address] lower leg LT w o con* [id number] Routi ne Cat Scan 02/21/20 09:[address] lumbar spine w o con* [id number] Routi ne Cat Scan 02/21/20 09:[address] pelvis wo con [id number] Routine Cat Scan 02/21/20 09:09 Completed XR chest 1V ugo ble [id number] Urgent Exams 02/17/20 23:51 Completed XR knee LT 1-2V 7 3560 Routine Exams 02/20/20 14:05 [place] [id number] Rout ine Ultrasound 02/20/20 13:18 Completed CV echo lmt wo/w contras [id number] Rout ine Ultrasound 02/20/20 13:20 [place] [id number] Urgent Ultrasound 02/18/20 02:47 Completed US/CV paperwork R outine Ultrasound 02/20/20 Completed Pending at discharge Category Date Time Status Blood Culture Sta t Lab 02/21/20 16:05 Results Complete Blood Co unt w/Auto AM LABS Lab 02/25/20 04:00 Ordered Complete Blood Co unt w/Auto AM LABS Lab 02/26/20 04:00 Ordered Comprehensive Met abolic Panel AM LA BS Lab 02/25/20 04:00 Ordered Comprehensive Met abolic Panel AM LA BS Lab 02/26/20 04:00 Ordered Magnesium AM LABS Lab 02/25/20 04:00 Ordered Magnesium AM LABS Lab 02/26/20 04:00 Ordered Phosphorus AM LAB S Lab 02/25/20 04:00 Ordered Phosphorus AM LAB S Lab 02/26/20 04:00 Ordered Tick Panel Stat Lab 02/21/20 05:37 Received Labs from last 24 hours 02/24/20 02/24/20 02/24/20 09:00 06:33 04:45 WBC RBC Hgb Hct MCV MCH MCHC RDW Plt Count MPV Neut % (Auto) Lymph % (Auto) [place] % (Auto) Eos % (Auto) Baso % (Auto) Neut # (Auto) Lymph # (Auto) [place] # (Auto) Eos # (Auto) Baso # (Auto) Nucleated RBC % (a uto) Nucleated RBCs # Sodium Potassium Chloride Carbon Dioxide Anion Gap BUN Creatinine GFR Calculation Glucose POC Glucose 79 Calculated Osmolal ity Calcium Phosphorus Magnesium Ferritin 322 H Total Bilirubin AST ALT Alkaline Phosphata se Total Protein Albumin Globulin Vancomycin Trough 21.4 H 02/24/20 02/24/20 02/24/20 04:45 04:45 02:32 WBC 10.1 H RBC 3.16 L Hgb 8.3 L Hct 28.7 L MCV 90.8 MCH 26.3 L MCHC 28.9 L RDW 16.4 H Plt Count 455 H MPV 9.4 Neut % (Auto) 73.6 Lymph % (Auto) 11.2 [place] % (Auto) 6.8 Eos % (Auto) 3.8 Baso % (Auto) 0.3 Neut # (Auto) 7.45 Lymph # (Auto) 1.1 [place] # (Auto) 0.7 Eos # (Auto) 0.4 Baso # (Auto) 0.0 Nucleated RBC % (a uto) 0 Nucleated RBCs # 0.0 Sodium 139 Potassium 3.4 L Chloride 106 Carbon Dioxide 23 Anion Gap 13.4 BUN 22 Creatinine 1.4 H GFR Calculation 38.0 L Glucose 86 POC Glucose 100 Calculated Osmolal ity 284 L Calcium 8.5 Phosphorus 3.0 Magnesium 2.2 Ferritin Total Bilirubin 0.4 AST 70 H ALT 28 Alkaline Phosphata se 102 Total Protein 6.8 Albumin 2.5 L Globulin 4.3 Vancomycin Trough 02/24/20 02/23/20 02/23/20 00:34 21:15 16:46 WBC RBC Hgb Hct MCV MCH MCHC RDW Plt Count MPV Neut % (Auto) Lymph % (Auto) [place] % (Auto) Eos % (Auto) Baso % (Auto) Neut # (Auto) Lymph # (Auto) [place] # (Auto) Eos # (Auto) Baso # (Auto) Nucleated RBC % (a uto) Nucleated RBCs # Sodium Potassium Chloride Carbon Dioxide Anion Gap BUN Creatinine GFR Calculation Glucose POC Glucose 108 120 108 Calculated Osmolal ity Calcium Phosphorus Magnesium Ferritin Total Bilirubin AST ALT Alkaline Phosphata se Total Protein Albumin Globulin Vancomycin Trough 02/23/20 02/23/20 02/23/20 11:07 11:07 10:49 WBC 11.4 H RBC 3.12 L Hgb 8.3 L Hct 28.5 L MCV 91.3 MCH 26.6 L MCHC 29.1 L RDW 16.3 H Plt Count 399 MPV 9.6 Neut % (Auto) 77.0 Lymph % (Auto) 9.6 [place] % (Auto) 5.3 Eos % (Auto) 2.7 Baso % (Auto) 0.3 Neut # (Auto) 8.80 H Lymph # (Auto) 1.1 [place] # (Auto) 0.6 Eos # (Auto) 0.3 Baso # (Auto) 0.0 Nucleated RBC % (a uto) 0 Nucleated RBCs # 0.0 Sodium 139 Potassium 3.8 Chloride 106 Carbon Dioxide 23 Anion Gap 13.8 BUN 29 H Creatinine 1.4 H GFR Calculation 38.0 L Glucose 110 POC Glucose 110 Calculated Osmolal ity 286 Calcium 7.8 L Phosphorus Magnesium Ferritin Total Bilirubin 0.4 AST 68 H ALT 32 Alkaline Phosphata se 91 Total Protein 6.0 L Albumin 2.5 L Globulin 3.5 Vancomycin Trough Vitals: Last Vital Signs Temp 98.1 F 02/24/20 08:00 Pulse 81 02/24/20 08:00 Resp 18 02/24/20 08:00 BP 160/79 02/24/20 08:00 Pulse Ox 98 02/24/20 08:00 Discharge Plan Discharge Patient Disposition: Xfer SNF Condition: Stable Prescriptions: New Lantus U-100 Insulin 100 unit/mL Solution 10 unit SUBCUT BEDTIME 30 Days Qty: 10 RF: 0 ferrous gluconate 324 mg (37.5 mg iron) Tablet 324 mg PO BIDWM 30 Days Qty: 60 RF: 0 ceftriaxone 1 gram recon soln 1 gm IVP DAILY 11 Days Qty: 11 RF: 0 insulin aspart U-100 [Novolog U-100 Insulin aspart] 100 unit/mL Solution See Rx Instructions .ROUTE .COMPLEX Qty: 10 RF: 0 Continued aripiprazole [Abilify] 2 mg tablet 2 mg PO DAILY RF: 0 furosemide [Lasix] 40 mg tablet 40 mg PO DAILY RF: 0 acetaminophen 325 mg capsule 650 mg PO Q4H PRN (Reason: Pain, Mild) RF: 0 simvastatin 5 mg tablet 5 mg PO BEDTIME RF: 0 citalopram [Celexa] 40 mg tablet 20 mg PO BEDTIME RF: 0 quetiapine [Seroquel] 25 mg tablet 25 mg PO BEDTIME RF: 0 ondansetron HCl [Zofran] 4 mg tablet 4 mg PO Q6H PRN (Reason: Nausea And Vomiting) RF: 0 lisinopril 5 mg tablet 5 mg PO DAILY RF: 0 levothyroxine 175 mcg capsule 175 mcg PO DAILY RF: 0 docusate sodium [Colace] 100 mg capsule 100 mg PO DAILY PRN (Reason: Constipation) RF: 0 clopidogrel 75 mg tablet 75 mg PO DAILY RF: 0 cyclobenzaprine 10 mg tablet 10 mg PO BID RF: 0 pantoprazole [Protonix] 40 mg tablet,delayed release (DR/EC) 40 mg PO DAILY RF: 0 loratadine [Claritin] 10 mg tablet 10 mg PO DAILY RF: 0 lorazepam 0.5 mg tablet 0.25 mg PO BID RF: 0 bisacodyl [Dulcolax (bisacodyl)] 10 mg suppository 10 mg MO DAILY PRN (Reason: Constipation) RF: 0 Biofreeze (menthol) 4 % gel 1 applic TOPICAL BID PRN (Reason: Analgesia) RF: 0 nystatin 100,000 unit/gram cream 1 applic TOPICAL BID RF: 0 Fleet Enema 19-7 gram/118 mL enema 118 ml MO DAILY PRN (Reason: Constipation) RF: 0 hydrocodone-acetaminophen [Geismar] 5-325 mg tablet 1 tab PO BID RF: 0 cyclobenzaprine 10 mg Tablet 10 mg PO TID PRN (Reason: Muscle Spasm) RF: 0 polyethylene glycol 3350 17 gram Powder In Packet 17 g PO EVERY OTHER DAY RF: 0 Dry Eye Relief 1-0.2-0.2 % Drops 1 drp OPHTHALMIC (EYE) BID RF: 0 gabapentin 300 mg Capsule 300 mg PO TID RF: 0 Biotene Moisturizing Mouth [place],Non-Aerosol 1 applic MUCOUS MEMBRANE PRN PRN (Reason: Dry Mouth) RF: 0 Milk of Magnesia 400 mg/5 mL Suspension 30 ml PO DAILY PRN (Reason: Constipation) RF: 0 zinc oxide Ointment 1 applic TOPICAL QID PRN (Reason: Rash) RF: 0 Other Ambulatory Orders: Complete Blood Count w/Auto (Routine) Timeframe: 1 Week Location: Determined by Patient Ordered By: Kolton Goldman Complete Blood Count w/Auto (Routine) Timeframe: 3 Days Location: Determined by Patient Ordered By: Kolton Goldman Comprehensive Metabolic Panel (Routine) Timeframe: 1 Week Facility: [facility] - Location: Lab - Main Lab Ordered By: Kolton Goldman Referrals: Stephen Nicholson MD [Hospitalist] - 1 month (anemia ) Russ Rosa Jr, MD [Primary Care Provider] - Discharge Diet: Regular Discharge Activity: Resume usual activity Activity Restrictions/Additional Instructions: -Ceftriaxone 1 g every 24 hours for 11 remaining days -Repeat CBC and CMP in 3 days, then 1 week -For anemia, follow-up with Dr. 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
[2020-02-24 11:21] LABS: Glucose Point of Care 107 mg/dL (70-110)
[2020-02-24] MEDS: HYDROcodone-acetaminophen 5-325 mg Tablet 1 TAB PO (11:41)
--- NOTE | 2020-02-24 12:48 | PC.NURSE ---
THIS NURSE ATTEMPTED PICC INSERTION. ARTERIAL LINE ACCESSED. PICC LINE REMOVED, PRESSURE APPLIED. NO SIGNS OF HEMATOMA. BLEEDING CONTROLLED. PRESSURE DRESSING APPLIED. PATIENT REFUSING ANOTHER ATTEMPT TO OBTAIN ACCESS/ PRIMARY NURSE AWARE. SHE WILL NOTIFY PHYSICIAN.
[2020-02-24 12:57] LABS: Lyme AB Screen <0.90 index
--- NOTE | 2020-02-24 16:36 | PC.NURSE ---
Report called to Reina at [facility].
[2020-02-24 17:08] LABS: Glucose Point of Care 143 mg/dL (70-110)
--- NOTE | 2020-02-24 22:52 | PM.PN ---
Subjective Subjective: Interval history: cellulitis clinically improving, appears less erythematous and tense today,significantly improved warmth and erythema, margins receding. Patient is afebrile and hemodynamically stable, leukocytosis resolved. 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 Abdominal wall cellulitis resolved. Urinary Catheter Management^: Flores: Cath Placed During This Visit: yes Reason for Continuing Indwelling Catheter: Assist healing open wound Urinary Catheter Date of Insertion: 02/18/20 Urinary Catheter Time of Insertion: 01:08 Data : 02/24/20 04:45 02/24/20 04:45 Micro: Microbiology 02/21/20 09:25 Stool Lactoferrin - Final Stool Enteric Pathogens (PCR) - Final Parasite Antigen Panel - Final C.difficile Toxin B Gene (PCR) - Final Occult Blood (FIT) - Final 02/18/20 22:10 Blood Culture - Final Blood NO GROWTH AFTER 5 DAYS 02/18/20 22:05 Blood Culture - Final Blood NO GROWTH AFTER 5 DAYS A&P Assessment and plan (1) Septicemia: Status: Acute (2) Cellulitis: Status: Acute Qualifiers: Laterality: left Site of cellulitis: extremity Site of cellulitis of extremity: lower extremity Qualified Code(s): L03.116 - Cellulitis of left lower limb (3) Sepsis: Status: Acute Qualifiers: Sepsis acute organ dysfunction status: without acute organ dysfunction Sepsis type: sepsis due to unspecified organism Qualified Code(s): A41.9 - Sepsis, unspecified organism (4) UTI (urinary tract infection): Status: Acute Qualifiers: Hematuria presence: without hematuria Urinary tract infection type: acute cystitis Qualified Code(s): N30.00 - Acute cystitis without hematuria (5) Multiple sclerosis: Status: Chronic Additional A&P Information # Streptococcal grp C positive blood cx/septicemia from skin source Cellulitis significantly improving today, less warm, erythematous and tender compared to last exam. Abdominal wall cellulitis nearly resolved. LEukocytosis now normalized. Fever resolved, patient is hemodynamically stable Blood cx from 02/17 early am positive for grp C streptococcus, cleared soon after initiation of abx. Last negative cx on 02/17 at 10:10pm. Can switch patient to iv ceftriaxone 1g iv q24h at time of discharge to complete a TOTAL 2 week course from clearance of bacteremia. Prefer iv to oral route given poor po absorption of B lactams orally. Patient has chronic LE swelling which puts her at a higher risk of recurrent cellulitis with minimal injuries. NOted significant intertrigo for which she is on nystatin topically. Change nystatin to clotrimazole and assess for improvement. Skin breakdown from this condition may have served as portal of entry for this organism. 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
[2020-02-26 15:57] LABS: E. Chaffeensis AB IGG <1:64; E. Chaffeensis AB IGM <1:20
[2020-02-27 16:27] LABS: RMSF IGG DETECTED; RMSF IGM NOT DETECTED
== END 2020-02-24 17:50 | disposition skilled nursing facility (03) | DRG 871 ==
LOC: ER 02-18 03:45 → MEDSURG 02-18 04:18
PROVIDERS: Emergency Medicine; Family Medicine; Student in an Organized Health Care Education/Training Program; Admitting Provider Internal Medicine; PCP Family Medicine; Visit Provider Family Medicine
DX: A41.9 Sepsis, unspecified organism (principal); G93.41 Metabolic encephalopathy; N30.00 Acute cystitis without hematuria; L03.116 Cellulitis of left lower limb; N17.9 Acute kidney failure, unspecified; Z68.45 Body mass index [BMI] 70 or greater, adult; E87.1 Hypo-osmolality and hyponatremia; D64.9 Anemia, unspecified; G89.29 Other chronic pain; M54.9 Dorsalgia, unspecified; K59.09 Other constipation; F32.9 Major depressive disorder, single episode, unspecified; K21.9 Gastro-esophageal reflux disease without esophagitis; E78.5 Hyperlipidemia, unspecified; I10 Essential (primary) hypertension; E03.9 Hypothyroidism, unspecified; G35 Multiple sclerosis; G47.33 Obstructive sleep apnea (adult) (pediatric); E11.9 Type 2 diabetes mellitus without complications; N31.9 Neuromuscular dysfunction of bladder, unspecified; N39.498 Other specified urinary incontinence; Z86.73 Personal history of transient ischemic attack (TIA), and cerebral infarction without residual deficits; B37.2 Candidiasis of skin and nail; L89.159 Pressure ulcer of sacral region, unspecified stage; E66.01 Morbid (severe) obesity due to excess calories; B96.20 Unspecified Escherichia coli [E. coli] as the cause of diseases classified elsewhere; B95.5 Unspecified streptococcus as the cause of diseases classified elsewhere; M25.512 Pain in left shoulder; Z66 Do not resuscitate; Z97.8 Presence of other specified devices
CPT/HCPCS: 12345; 29581; 36415; 36416; 36569; 51702; 71045; 71250; 72131; 72192; 73560; 73700; 74176; 80053; 80202; 81001; 82140; 82274; 82436; 82728; 82962; 83036; 83540; 83550; 83605; 83630; 83735; 83880; 84100; 84133; 84300; 84443; 85025; 85610; 86140; 86618; 86666; 86757; 87040; 87077; 87086; 87186; 87205; 87426; 87493; 87506; 87641; 93005; 93926; 93971; 94660; 96372; 96375; 97140; 97161; 99284; C8924; J0696; J1650; J1815 ×2; J1940; J2020; J2543; J3370; J7030; J7040; J7050; Q0163; Q9956

== ENCOUNTER 2020-03-12 16:08 | Inpatient (IN) | payer MEDICARE, MEDICAID, SELFPAY ==
[2020-03-12] VITALS (11 sets, daily range): BP systolic 92–150; BP diastolic 52–69; PULSE 75–107; RESP 18–28; TEMP 37–37.6; O2SAT 93–100; BMI 57.7
--- NOTE | 2020-03-12 16:21 | PC.NURSE ---
EKG done at 1620 and shown to ER doctor
--- NOTE | 2020-03-12 16:39 | XRR_ITS ---
PROCEDURE INFORMATION: Exam: XR Chest, 1 View Exam date and time: 03/12/2020 4:58 PM Age: 65 years old Clinical indication: Patient HX: PT unable to give history, possible sepsis TECHNIQUE: Imaging protocol: XR of the chest Views: 1 view. Other technique: The patient is rotated to the right. COMPARISON: CR XR chest 1V portable [id number] 02/24/2020 12:37 PM FINDINGS: Tubes, catheters and devices: Right upper extremity PICC with the tip at the right atrium. Findings are stable. Lungs: No focal consolidation. No pulmonary edema. Pleural space: No pleural effusion. No pneumothorax. Heart/Mediastinum: Stable mild enlargement of the cardiac silhouette. Mediastinum is unremarkable for technique. Bones/joints: Unremarkable for age. XR/XR chest 1V portable [id number] IMPRESSION: 1. No acute cardiopulmonary process. 2. Right upper extremity PICC with the tip at the right atrium. Findings are stable. 3. Incidental/nonacute findings are listed in the report.
[2020-03-12 17:13] LABS: Basophils # 0.1 10^3/uL (0.0-0.1); Basophils % 0.6 %; Eosinophils # 0.4 10^3/uL (0.0-0.8); Eosinophils % 3.7 %; Hematocrit 32.8 % (37.0-47.0); Hemoglobin 9.6 g/dL (11.5-15.3); Lymphocytes # 1.8 10^3/uL (0.8-4.8); Lymphocytes % 18.5 %; Mean Corpuscular HGB Conc 29.3 g/dL (30.0-36.0); Mean Corpuscular Hemoglobin 26.7 pg (28.0-34.0); Mean Corpuscular Volume 91.4 fL (81-99); Mean Platelet Volume 9.5 fL (7.4-10.4); Monocytes # 0.8 10^3/uL (0.2-0.9); Neutrophils # 6.55 10^3/uL (1.8-7.7); Nucleated Red Blood Cells % 0 %; Platelet Count 361 10^3/cmm (130-400); Red Blood Count 3.59 10^6/uL (4.1-5.3); Red Cell Distribution Width 17.9 % (12.1-15.1); White Blood Count 9.5 10^3/uL (4.0-10.0)
[2020-03-12 17:33] LABS: Lactate (Lactic Acid level) 1.2 mmol/L (0.5-2.2)
[2020-03-12 17:35] LABS: Add Urine Microscopic? YES; Bilirubin Urine Neg (Negative); Blood Urine 2+ (Negative); Glucose Urine UA Norm (Normal); Ketones Urine Negative (Negative); Leukocyte Esterase Urine 2+ (Negative); Nitrate Urine Positive (Negative); Protein Urine Neg (Negative); Urine Appearance Cloudy (CLEAR); Urine Color Yellow (Yellow); Urobilinogen Urine Norm (Negative); pH Urine 6 (5-7)
[2020-03-12 17:43] LABS: Procalcitonin 0.14 ng/mL (0-0.5)
[2020-03-12 17:54] LABS: Alanine Aminotransferase 14 U/L (0-33); Albumin Level 2.8 g/dL (3.5-5.2); Alkaline Phosphatase 68 IU/L (35-105); Anion Gap 13.6 (5-19); Aspartate Amino Transferase 28 U/L (0-32); Blood Urea Nitrogen 14 mg/dL (8-23); Calcium 8.8 mg/dL (8.5-10.5); Carbon Dioxide 26 mmol/L (22-29); Chloride 99 mmol/L (98-107); Globulin 4.7 g/dL (1.3-4.6); Glomerular Filtration Rate 50.2 mL/min (90-130); Glucose 125 mg/dL (65-115); Osmolality Calculated 280 mOsm/kg (285-295); Potassium 4.6 mmol/L (3.5-5.1); Sodium 134 mmol/L (136-145); Total Bilirubin 0.4 mg/dL (0.15-1.2); Total Protein 7.5 g/dL (6.6-8.7)
[2020-03-12 17:58] LABS: Add Urine Culture? Yes; Bacteria Urine 4+ /hpf; RBC Urine 15-25 /hpf (0-2); Squamous Epithelial Cell Urine 0-4 /hpf (0-5); WBC Urine TOO NUMEROUS TO CNT /hpf (0-5)
--- NOTE | 2020-03-12 18:17 | PC.NURSE ---
COVID swab collected at this time and taken to lab. Pt taling to staff but remains confused.
[2020-03-12] MEDS: cefTRIAXone 1,000 MG in sodium chloride 0.9% (plus) 50 ML 100 MG IV (18:39)
[2020-03-12 18:41] LABS: SARS Covid-2 Antigen Negative (Negative)
--- NOTE | 2020-03-12 19:42 | PM.HP ---
Providers/Chief Complaint Primary Care Provider: Russ Rosa Jr, MD Chief Complaint: POSSIBLE SEPSIS History of Present Illness Jared Garcia is a 65 year old female carries history of multiple sclerosis, intrathecal baclofen pump, sacral decubitus ulcer, chronic indwelling catheter, senior care resident, who was recently discharged from the hospital after management of left leg cellulitis(blood culture grew Streptococcus group C, E. coli UTI was discharged on 11 days of ceftriaxone, PICC line was placed), Plavix was discontinued secondary to hemoglobin 8.3, she was taking Plavix for TIA(02/03 carotid artery stenosis 16 to 50%) came in today for worsening lethargy and fatigue. Patient is verbally redirectable able to answer simple questions, she is oriented to herself, I called [facility] senior care who is endorsing that she had a fever of 101, she was tachycardic heart rate 109 and was lethargic. Flores catheter was placed on last admission, before that she was not requiring catheterization, she is bedbound. At baseline she is able to carry out a decent conversation, normally she has a jolly mood, sometimes struggle with her words. Patient is denying chest pain, shortness of breath but endorsing burning on voiding urine, she is able to tell me her name, not able to tell me her date of and name of the hospital, diagnostics in the ER revealed normal hemodynamics, abnormal UA, she has stage I to stage II decubitus ulcer extending from sacral area to mid of her thighs with skin maceration No active signs of sepsis, normal hemoglobin, creatinine at baseline, COVID antigen negative She has been given ceftriaxone and normal saline in the ER Review of Systems Const: Reports: fever(s), body aches and fatigue Eyes: Denies: change in vision ENMT: Denies: throat pain Card: Reports: swelling of feet/ankles; Denies: chest pain Resp: Denies: dyspnea GI: Denies: abdominal pain : Reports: dysuria and urinary frequency; Denies: flank pain Musc: Reports: neck pain (Chronic neck pain) Skin/Breast: Reports: skin pain, skin tenderness, changing lesions, lesions, jaundice and striae Neuro: Reports: weakness in extremities; Denies: headache(s) Psych: Reports: difficulty concentrating Endo: Denies: polyuria Nikhil/Lymph: Denies: easy bruising All/Imm: Denies: urticaria Medications/Allergies Home Medications Medication Instructions Recorded Confirmed Last Taken Type acetaminophen 325 mg capsule 650 mg PO Q4H PRN 09/16/19 03/12/20 02/17/20 History aripiprazole 2 mg tablet 2 mg PO DAILY 09/16/19 03/12/20 03/12/20 History bisacodyl 10 mg rectal suppository 10 mg MA DAILY PRN 09/16/19 03/12/20 Unknown History citalopram 40 mg tablet 20 mg PO BEDTIME 09/16/19 03/12/20 03/11/20 History clopidogrel 75 mg tablet 75 mg PO DAILY 09/16/19 03/12/20 03/04/20 History cyclobenzaprine 10 mg tablet 10 mg PO BID 09/16/19 03/12/20 03/12/20 History docusate sodium 100 mg capsule 100 mg PO DAILY PRN 09/16/19 03/12/20 Unknown History furosemide 40 mg tablet 40 mg PO DAILY 09/16/19 03/12/20 03/12/20 History levothyroxine 175 mcg capsule 175 mcg PO DAILY 09/16/19 03/12/20 03/12/20 History lisinopril 5 mg tablet 5 mg PO DAILY 09/16/19 03/12/20 03/12/20 History loratadine 10 mg tablet 10 mg PO DAILY 09/16/19 03/12/20 03/12/20 History lorazepam 0.5 mg tablet 0.25 mg PO BID tab 09/16/19 03/12/20 03/12/20 History ondansetron HCl 4 mg tablet 4 mg PO Q6H PRN 09/16/19 03/12/20 Unknown History pantoprazole 40 mg tablet,delayed 40 mg PO DAILY 09/16/19 03/12/20 03/12/20 History release quetiapine 25 mg tablet 25 mg PO BEDTIME 09/16/19 03/12/20 03/11/20 History simvastatin 5 mg tablet 5 mg PO BEDTIME 09/16/19 03/12/20 03/11/20 History Biotene Moisturizing Mouth 1 applic MUCOUS MEMBRANE PRN PRN 02/18/20 03/12/20 02/29/20 History Dry Eye Relief 1 drp OPHTHALMIC (EYE) BID 02/18/20 03/12/2020 History gabapentin 300 mg PO TID 02/18/20 03/12/20 03/12/20 History magnesium hydroxide [Milk of 30 ml PO DAILY PRN 02/18/20 03/12/20 Unknown History Magnesia] polyethylene glycol 3350 [Miralax] 17 g PO EVERY OTHER DAY 02/18/20 03/12/20 03/11/20 History ferrous gluconate 324 mg PO BIDWM 30 Days #60 tab 02/24/20 03/12/20 03/12/20 Rx insulin aspart U-100 [Novolog See Rx Instructions .ROUTE 02/24/20 03/12/20 Unknown Rx U-100 Insulin aspart] .COMPLEX #10 ml insulin glargine [Lantus U-100 10 unit SUBCUT BEDTIME 30 Days #10 02/24/20 03/12/20 03/11/20 Rx Insulin] ml Allergies Allergy/AdvReac Type Severity Reaction Status Date / Time aspirin AdvReac unknown Verified 11/25/19 15:23 PFSH Acute PFSH: Medical History Anemia Chronic back pain Chronic constipation Depression End of battery life of intrathecal infusion pump GERD (gastroesophageal reflux disease) Hyperlipidemia Hypertension Hypothyroidism Incontinence Multiple sclerosis Obstructive sleep apnea Sacral decubitus ulcer Surgical History Presence of intrathecal baclofen pump 05/19/2013 Dr. Abner Flanagan: Replacement of [employer] subcutaneous programmable pump with connection to intrathecal catheter for administration of intrathecal baclofen therapy. Family History Other CAD (coronary artery disease) Cancer Diabetes Denies family history of Hypertension Stroke Social History Smoking and tobacco status: never smoked Alcohol intake: never Lives independently: No Housing: [facility] History of recent travel: No Vitals/I&O/Wt Last Vital Signs Temp 99.6 F 03/12/20 16:10 Pulse 98 03/12/20 19:08 Resp 18 03/12/20 19:08 BP 111/60 03/12/20 19:08 Pulse Ox 93 03/12/20 16:10 Weight last 48 hrs Weight 172.365 kg Physical Exam Narrative: EXAM NARRATIVE: Morbidly obese female She is verbally redirectable, able to answer simple questions She is oriented to herself I do not appreciate any facial asymmetry She has edema of her left arm, weakness as compared to right arm strength 3/5 No gangrene or ulcer Extremely dry skin of lower extremities, nonpurulent cellulitis, venous stasis dermatitis, lymphedema Stage II decubitus ulcer extending from sacral area to mid upper thighs with skin maceration Anasarca appearance, distended abdomen, bowel sounds present, soft, Hard to appreciate her heart sounds Bilateral breath sounds without adventitious rhonchi or crackles PICC line in right arm Strength of lower extremities 1/5, heel pressure ulcers, sloughing of skin, dry scales, no active purulent drainage Data : 03/12/20 16:53 03/12/20 16:53 A&P Assessment and plan (1) Sacral decubitus ulcer: Status: Acute (2) Diabetes mellitus: Status: Acute (3) Hypothyroidism: Status: Acute (4) Cellulitis: Status: Acute Qualifiers: Laterality: left Site of cellulitis: extremity Site of cellulitis of extremity: lower extremity Qualified Code(s): L03.116 - Cellulitis of left lower limb (5) Multiple sclerosis: Status: Chronic (6) UTI (urinary tract infection): Status: Acute Additional A&P Information Recurrent UTI I would change her Flores catheter and get another UA However patient is endorsing dysuria No active signs of sepsis, she is afebrile, normal leukocyte count, previous blood culture grew group C Streptococcus, urine culture positive for E. coli, pansensitive, her septicemia improved after antibiotics, repeat blood cultures were negative Abnormal UA reviewed Creatinine at baseline She has recently finished ceftriaxone regimen, she still has right arm PICC line No active encephalopathy Sacral decubitus ulcer Mild purulent area around buttocks, extensive skin maceration extending from sacral area to mid thighs I do believe she is at risk of worsening of her decubitus ulcer, she needs extensive nursing care and possibly diverting colostomy in the future if needed For mild purulent drainage around buttocks area I would use vancomycin and Zosyn Hypothyroidism: I would continue levothyroxine 175 mcg, recent TSH 2.8 Venous stasis dermatitis/lymphedema of lower extremities No active purulent drainage, Hyperemia of lower extremities seems to be resolving Previously arterial Doppler did not reveal any arterial insufficiency, normal resting [facility] No active signs of gangrene or ulcer Has pressure heel ulcer, need extensive offloading and nursing care Diabetes: Consistent carb diet along with moderate sliding scale DNR/DNI as per records from the facility Heparin DVT prophylaxis Consistent carbohydrate diet Attestations Medical Necessity Statement*: Considering chronic comorbid conditions and active UTI I am anticipating she might be discharged in less than 48 hours, antibiotics IV started because of mild purulence noticed around buttocks area, no active sepsis or encephalopathy Time Spent in Patient Care: (>than 50% of time spent in counselling and/or direct pt care on unit). 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
--- NOTE | 2020-03-12 22:23 | W.ED.FEVER ---
HPI - Fever General: Chief Complaint: Fever Stated Complaint: POSSIBLE SEPSIS Time Seen by Provider: 03/12/20 16:20 Source: patient Mode of arrival: EMS Limitations: altered mental status History of Present Illness: HPI Narrative: The patient is a 65 year old female who is a resident at an assisted living facility and was recently admitted for sepsis secondary to cellulitis and just completed a course of antibiotics. Earlier today the staff noticed that she was lethargic and altered and this did not improve so she was sent to be evaluated. The patient is unable to give a history due to her mental status MD elicited complaint: fever and malaise Onset (ago): hour(s) Context: recent antibiotic use Exacerbating factors: nothing Relieving factors: nothing Associated symptoms: Reports confusion Review of Systems General: Reports: ROS unobtainable due to mental status Neuro: Reports: confusion [facility] ED PFSH: Medical History (Reviewed 03/12/20 @ 22:34 by Jennifer Blanca MD, [facility] [place]) Anemia Chronic back pain Chronic constipation Depression End of battery life of intrathecal infusion pump GERD (gastroesophageal reflux disease) Hyperlipidemia Hypertension Hypertension Hypothyroidism Incontinence Multiple sclerosis Obstructive sleep apnea Sacral decubitus ulcer Surgical History (Reviewed 03/12/20 @ 22:34 by Jennifer Blanca MD, [facility] [place]) Presence of intrathecal baclofen pump 05/19/2013 Dr. Abner Flanagan: Replacement of [employer] subcutaneous programmable pump with connection to intrathecal catheter for administration of intrathecal baclofen therapy. Family History (Reviewed 03/12/20 @ 22:34 by Jennifer Blanca MD, [facility] [place]) Other CAD (coronary artery disease) Cancer Diabetes Denies family history of Hypertension Stroke Social History (Reviewed 03/12/20 @ 22:35 by Jennifer Blanca MD, [facility] [place]) Smoking and tobacco status: never smoked Alcohol intake: never Lives independently: No Housing: [facility] History of recent travel: No Physical Exam Const: COMMON NORMALS: no acute distress, average body habitus, no limitations, healthy appearing and well nourished HENMT: COMMON NORMALS: normocephalic, atraumatic and moist oral mucous membranes HEAD & SCALP: normocephalic and atraumatic Eye: COMMON NORMALS: Equal, round and reactive pupils present, EOMs intact bilaterally, conjunctivae normal and no scleral icterus CONJUNCTIVA: Yes conjunctivae normal PUPIL: Yes Equal, round and reactive pupils present Neck/C-Spine: COMMON NORMALS: no meningeal signs and no JVD Resp: COMMON NORMALS: normal respiratory effort, No retractions, No use of accessory muscles, clear to auscultation bilaterally and percussion normal AUSCULTATION: clear to auscultation bilaterally PERCUSSION: percussion normal Cardio: COMMON NORMALS: no JVD, regular rate, regular rhythm, S1 normal heart sound present, S2 normal heart sound present, No gallops present (Cardio), No clicks present (Cardio), No murmurs present (Cardio), No rub (Cardio) and Peripheral pulses 2+ throughout RATE: regular rate RHYTHM: regular rhythm HEART SOUNDS: S1 normal heart sound present and S2 normal heart sound present PERIPHERAL PULSES: Peripheral pulses 2+ throughout GI: COMMON NORMALS: Normal to inspection, nondistended, normoactive bowel sounds present, Soft to palpation, non-tender, No hepatosplenomegaly present, no masses and no bruits PALPATION: Yes Soft to palpation and Yes No hepatosplenomegaly present Extremity: COMMON NORMALS: normal to inspection, full ROM, capillary refill normal, no calf tenderness and no pedal edema Neuro: SENSORIUM/ORIENTATION: Yes Orientation impaired MENINGEAL SIGNS: Yes no meningeal signs Skin: COMMON NORMALS: no rashes or lesions noted, no wounds, turgor normal, no jaundice, no petechiae and no mottling GENERAL SKIN EXAM: no rashes or lesions noted and turgor normal Course ED course: Patient was altered during her ED stay. Evaluation was consistent with UTI causing metabolic encephalopathy. She is not septic, but she will benefit from hospital admission and further evaluation Consultations: Consultation #1: Dr. Almaraz, hospitalist. He kindly accepted the patient to his service. Time: 19:20 Vital Signs: Vital signs: Vital Signs Temperature 99.6 F 03/12/20 16:10 Pulse Rate 91 03/12/20 22:15 Respiratory Rate 18 03/12/20 22:15 Blood Pressure 150/61 03/12/20 22:15 Pulse Oximetry 98 03/12/20 22:15 MDM - Fever MDM Narrative: Medical decision making narrative: 65 year old female with metabolic encephalopathy secondary to a UTI. She is admitted for further evaluation and management. Medical Records: Attestation: I reviewed the patient's medical records. Lab Data: Attestation: I reviewed the patient's lab results. Labs: Lab Results 03/12/20 03/12/20 03/12/20 Range/Units 16:53 16:53 16:53 WBC 9.5 (4.0-10.0) 10^3/ uL RBC 3.59 L (4.1-5.3) 10^6/u L Hgb 9.6 L (11.5-15.3) g/dL Hct 32.8 L (37.0-47.0) % MCV 91.4 (81-99) fL MCH 26.7 L (28.0-34.0) pg MCHC 29.3 L (30.0-36.0) g/dL RDW 17.9 H (12.1-15.1) % Plt Count 361 (130-400) 10^3/c mm MPV 9.5 (7.4-10.4) fL Neut % (Auto) 69.0 % Lymph % (Auto) 18.5 % Armstrong % (Auto) 8.0 % Eos % (Auto) 3.7 % Baso % (Auto) 0.6 % Neut # (Auto) 6.55 (1.8-7.7) 10^3/u L Lymph # (Auto) 1.8 (0.8-4.8) 10^3/u L Armstrong # (Auto) 0.8 (0.2-0.9) 10^3/u L Eos # (Auto) 0.4 (0.0-0.8) 10^3/u L Baso # (Auto) 0.1 (0.0-0.1) 10^3/u L Nucleated RBC % (a uto) 0 % Nucleated RBCs # 0.0 /100WBC Sodium 134 L (136-145) mmol/L Potassium 4.6 (3.5-5.1) mmol/L Chloride 99 (98-107) mmol/L Carbon Dioxide 26 (22-29) mmol/L Anion Gap 13.6 (5-19) BUN 14 (8-23) mg/dL Creatinine 1.1 H (0.5-0.9) mg/dL GFR Calculation 50.2 L (90-130) mL/min Glucose 125 H (65-115) mg/dL Calculated Osmolal ity 280 L (285-295) mOsm/k g Lactate 1.2 (0.5-2.2) mmol/L Calcium 8.8 (8.5-10.5) mg/dL Total Bilirubin 0.4 (0.15-1.2) mg/dL AST 28 (0-32) U/L ALT 14 (0-33) U/L Alkaline Phosphata se 68 (35-105) IU/L Total Protein 7.5 (6.6-8.7) g/dL Albumin 2.8 L (3.5-5.2) g/dL Globulin 4.7 H (1.3-4.6) g/dL Procalcitonin 0.14 (0-0.5) ng/mL Urine Color (Yellow) Urine Appearance (CLEAR) Urine pH (5-7) Ur Specific Gravit y (1.005-1.030) Urine Protein (Negative) Urine Glucose (UA) (Normal) Urine Ketones (Negative) Urine Blood (Negative) Urine Nitrate (Negative) Urine Bilirubin (Negative) Urine Urobilinogen (Negative) mg/dL Ur Leukocyte Susan ase (Negative) Urine RBC (0-2) /hpf Urine WBC (0-5) /hpf Ur Squamous Epith Cells (0-5) /hpf Amorphous Sediment Urine Bacteria (NONE) /hpf Urine Yeast /hpf SARS-CoV-2 Ag (Rap id) (Negative) 03/12/20 03/12/20 Range/Units 17:05 18:13 WBC (4.0-10.0) 10^3/ uL RBC (4.1-5.3) 10^6/u L Hgb (11.5-15.3) g/dL Hct (37.0-47.0) % MCV (81-99) fL MCH (28.0-34.0) pg MCHC (30.0-36.0) g/dL RDW (12.1-15.1) % Plt Count (130-400) 10^3/c mm MPV (7.4-10.4) fL Neut % (Auto) % Lymph % (Auto) % Armstrong % (Auto) % Eos % (Auto) % Baso % (Auto) % Neut # (Auto) (1.8-7.7) 10^3/u L Lymph # (Auto) (0.8-4.8) 10^3/u L Armstrong # (Auto) (0.2-0.9) 10^3/u L Eos # (Auto) (0.0-0.8) 10^3/u L Baso # (Auto) (0.0-0.1) 10^3/u L Nucleated RBC % (a uto) % Nucleated RBCs # /100WBC Sodium (136-145) mmol/L Potassium (3.5-5.1) mmol/L Chloride (98-107) mmol/L Carbon Dioxide (22-29) mmol/L Anion Gap (5-19) BUN (8-23) mg/dL Creatinine (0.5-0.9) mg/dL GFR Calculation (90-130) mL/min Glucose (65-115) mg/dL Calculated Osmolal ity (285-295) mOsm/k g Lactate (0.5-2.2) mmol/L Calcium (8.5-10.5) mg/dL Total Bilirubin (0.15-1.2) mg/dL AST (0-32) U/L ALT (0-33) U/L Alkaline Phosphata se (35-105) IU/L Total Protein (6.6-8.7) g/dL Albumin (3.5-5.2) g/dL Globulin (1.3-4.6) g/dL Procalcitonin (0-0.5) ng/mL Urine Color Yellow (Yellow) Urine Appearance Cloudy (CLEAR) Urine pH 6 (5-7) Ur Specific Gravit y 1.010 (1.005-1.030) Urine Protein Neg (Negative) Urine Glucose (UA) Norm (Normal) Urine Ketones Negative (Negative) Urine Blood 2+ H (Negative) Urine Nitrate Positive H (Negative) Urine Bilirubin Neg (Negative) Urine Urobilinogen Norm (Negative) mg/dL Ur Leukocyte Susan ase 2+ H (Negative) Urine RBC 15-25 H (0-2) /hpf Urine WBC Too numerous to c nt H (0-5) /hpf Ur Squamous Epith Cells 0-4 H (0-5) /hpf Amorphous Sediment Not Reportable Urine Bacteria 4+ H (NONE) /hpf Urine Yeast 3+ H /hpf SARS-CoV-2 Ag (Rap id) Negative (Negative) Imaging Data^: CXR: Radiologist's impression: [address] [address] XRay Report Signed Patient: Jared Garcia #: [id number] : 7Acct#:[id number] Age/Sex: 65 / FADM Date: 03/12/20 Loc: ERRoom/Bed: Attending Dr: Ordering Provider/Ordering MD: Jennifer Blanca MD, [facility] [place] Date of Service: 03/12/20 Procedure(s): XR chest 1V portable [id number] Accession Number(s): [id number] Report Number: [id number] PROCEDURE INFORMATION: Exam: XR Chest, 1 View Exam date and time: 03/12/2020 4:58 PM Age: 65 years old Clinical indication: Patient HX: PT unable to give history, possible sepsis TECHNIQUE: Imaging protocol: XR of the chest Views: 1 view. Other technique: The patient is rotated to the right. COMPARISON: CR XR chest 1V portable [id number] 02/24/2020 12:37 PM FINDINGS: Tubes, catheters and devices: Right upper extremity PICC with the tip at the right atrium. Findings are stable. Lungs: No focal consolidation. No pulmonary edema. Pleural space: No pleural effusion. No pneumothorax. Heart/Mediastinum: Stable mild enlargement of the cardiac silhouette. Mediastinum is unremarkable for technique. Bones/joints: Unremarkable for age. XR/XR chest 1V portable [id number] IMPRESSION: 1. No acute cardiopulmonary process. 2. Right upper extremity PICC with the tip at the right atrium. Findings are stable. 3. Incidental/nonacute findings are listed in the report. Dictated By:Mirta Williamson MD Signed By:Mirta Williamson MDSigned Date/Time:03/12/201714 DD/ 13 EKG Data^: EKG 1: Attestation: I personally reviewed and interpreted this EKG as follows: EKG interpretation date: 03/12/20 EKG interpretation time: 16:13 Prior EKG tracings: available for review Interpretation: sinus rhythm with second degree heart block heart rate 95 beats per minute no stemi Discharge Plan Discharge Patient Disposition: Admitted As Inpatient Admit Provider: Yajaira Almaraz Clinical Impression: Acute metabolic encephalopathy, Acute UTI Condition: Stable Coding Level of Care Code ED 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
--- NOTE | 2020-03-12 23:54 | PC.PHAR ---
Pharmacokinetic dosing service Date: 03/12/20 Time: 2354 Objective: Patient: Jared Garcia Floor: 262-1 Age: 65 yo Serum creatinine: 1.1 mg/dL Height: 68.0 Inches Weight (kg): 172.365 Diagnosis: Relevant medical/social history: Cultures and sensitivities: Other labs: Assessment: IBW (kg): 63.90 Dosing wt(kg): 107.3 Estimated Creatinine clearance (ml/min): 52.8 CRCL method: Cockcroft and Gault using ibw(default). Drug selected: Vancomycin Loading dose (mg): 0 Vd (liters): 96.6 (factor used: 0.9 L/kg) Tab (hr-1): 0.048 Half life (hrs): 14.44 Recommended dose: 2500 mg Interval: 24 hrs Infusion time (hrs): 1.5 Predicted peak (mcg/mL): 36.5 Predicted trough (mcg/mL): 12.40 Adjusted body weight was selected for vancomycin dosing. To switch back, select the total body weight option above. Renal function is stable [ ] /unstable [ ] Recommendations: Give Vancomycin 2500 mg q 24 hrs with an expected Cpeak of 36.5 mcg/ml and an expected Ctrough of 12.40 mcg/ml Renal dosing of other antibiotics (review renal dosing of other medications and list guidelines here): Thank you for the consult, will continue to follow. Signature: Anamaria Mahoney [facility]
[2020-03-13] VITALS (7 sets, daily range): BP systolic 112–154; BP diastolic 68–83; PULSE 63–96; RESP 16–19; TEMP 36.4–37; O2SAT 94–98
[2020-03-13] MEDS: piperacillin-tazobactam 3.375 GM in sodium chloride 0.9% (plus) 50 ML IV ×3 (01:06→16:45)
[2020-03-13] MEDS: gabapentin 300 mg Capsule PO ×4 (01:07→21:14)
[2020-03-13] MEDS: insulin glargine 100 units/1 mL 10 UNIT SUBCUT ×2 (01:08→21:14)
[2020-03-13] MEDS: quetiapine 25 mg Tablet PO ×2 (01:08→21:14)
[2020-03-13] MEDS: heparin 5,000 unit/mL INJ 1 mL 5000 UNIT SUBCUT ×3 (01:09→16:44)
[2020-03-13] MEDS: sodium chloride 0.9% 1,000 ML 75 ML IV ×2 (01:09→16:47)
[2020-03-13 01:51] LABS: Glucose Point of Care 139 mg/dL (70-110)
[2020-03-13 05:19] LABS: Basophils % 0.5 %; Eosinophils # 0.4 10^3/uL (0.0-0.8); Eosinophils % 7.1 %; Hematocrit 30.9 % (37.0-47.0); Lymphocytes # 1.2 10^3/uL (0.8-4.8); Lymphocytes % 21.4 %; Mean Corpuscular HGB Conc 29.1 g/dL (30.0-36.0); Mean Corpuscular Hemoglobin 27.2 pg (28.0-34.0); Mean Corpuscular Volume 93.4 fL (81-99); Mean Platelet Volume 9.6 fL (7.4-10.4); Monocytes # 0.6 10^3/uL (0.2-0.9); Monocytes % 9.6 %; Neutrophils # 3.51 10^3/uL (1.8-7.7); Neutrophils % 61.1 %; Nucleated Red Blood Cells % 0 %; Platelet Count 213 10^3/cmm (130-400); Red Blood Count 3.31 10^6/uL (4.1-5.3); Red Cell Distribution Width 18.3 % (12.1-15.1); White Blood Count 5.8 10^3/uL (4.0-10.0)
[2020-03-13 07:07] LABS: Anion Gap 15.1 (5-19); Blood Urea Nitrogen 18 mg/dL (8-23); Calcium 8.9 mg/dL (8.5-10.5); Carbon Dioxide 26 mmol/L (22-29); Chloride 101 mmol/L (98-107); Glomerular Filtration Rate 41.4 mL/min (90-130); Glucose 140 mg/dL (65-115); Osmolality Calculated 290 mOsm/kg (285-295); Potassium 4.1 mmol/L (3.5-5.1); Sodium 138 mmol/L (136-145)
[2020-03-13 07:17] LABS: Glucose Point of Care 134 mg/dL (70-110)
[2020-03-13] MEDS: pantoprazole DR 40 mg Tablet PO (08:33)
[2020-03-13] MEDS: cyclobenzaprine 10 mg Tablet PO ×2 (08:33→17:51)
[2020-03-13] MEDS: levothyroxine 25 mcg Tablet PO (08:33)
[2020-03-13] MEDS: levothyroxine 150 mcg Tablet PO (08:33)
[2020-03-13] MEDS: ARIPiprazole 2 mg Tablet PO (08:33)
--- NOTE | 2020-03-13 09:15 | P.PN_ITS ---
Subjective Subjective: Interval history: Lethargy appears to be better. During my visit she appears alert, although it takes her a while to come up with answers. He does not remember the year. He takes her bath, but she is in the hospital. She denies any pain. She is able to confirm that she has chronic weakness on the left side and chronic tremor due to MS. By the end of the visit she asks for the TV remote. Vitals/I&O/Wt Last Vital Signs Temp 97.9 F 03/13/20 07:55 Pulse 92 03/13/20 07:55 Resp 17 03/13/20 07:55 BP 154/80 03/13/20 07:55 Pulse Ox 98 03/13/20 07:55 03/12/20 03/13/20 03/13/20 22:59 06:59 14:59 Intake Total 150 / 150 Output Total 475 / 475 Balance -325 / -325 Weight last 48 hrs Weight 172.365 kg Physical Exam Const: COMMON NORMALS: no acute distress; negative for patient oriented x3 NUTRITIONAL APPEARANCE: obese morbidly obese ORIENTATION/CONSCIOUSNESS: Yes awake HENMT: COMMON NORMALS: oropharynx normal Neck/C-Spine: COMMON NORMALS: no JVD Resp: COMMON NORMALS: normal respiratory effort and clear to auscultation bilaterally AUSCULTATION: clear to auscultation bilaterally Cardio: COMMON NORMALS: no JVD, regular rhythm, S1 normal heart sound present, S2 normal heart sound present and No murmurs present (Cardio) RHYTHM: regular rhythm HEART SOUNDS: S1 normal heart sound present and S2 normal heart sound present GI: COMMON NORMALS: Normal to inspection, nondistended, normoactive bowel sounds present, Soft to palpation and non-tender PALPATION: Yes Soft to pal pation OTHER: large : OTHER: Flores catheter. Extremity: COMMON NORMALS: no joint enlargement OTHER: Bilateral chronic venous stasis dermatitis. Nonpitting edema. Neuro: COMMON NORMALS: negative for patient oriented x3 OTHER: Chronic weakness of left upper extremity. Chronic tremor, especially with intention which she attributes to MS. She is somewhat difficult time to participate with neurological examination due to some residual confusion. Does not appear to have any facial droop. Does not appear to have sensory asymmetry or neglect. Visual gould full to confrontation. FNF with some difficulty and able to perform only on the right side due to chronic left side weakness. Data : 03/13/20 05:03 03/13/20 06:23 Micro: Microbiology 03/12/20 16:53 Blood Culture - Preliminary Blood SPECIMEN COLLECTED 03/12/20 16:53 Blood Culture - Preliminary Blood SPECIMEN COLLECTED A&P Assessment and plan (1) Acute encephalopathy: Appears to be due to infection with urinary tract infection, cellulitis. This appears to be better, she is awake, appears more alert. Conversant and interactive. Sluggish in her responses. Not oriented x3. Appears to be improving. Continue treatment of underlying infections. Status: Acute (2) UTI (urinary tract infection): I see there was ordered to replace Flores catheter. We will try to confirm that this was done. Follow-up urine culture. Continue Zosyn. No active signs of sepsis. Previous blood culture grew group C Streptococcus, urine culture positive for E. coli, pansensitive, her septicemia improved after antibiotics, repeat blood cultures were negative. Status: Acute (3) Cellulitis: Continue Zosyn, vancomycin. Maintain Flores catheter in place for now. Frequent repositioning. Status: Acute Qualifiers: Laterality: left Site of cellulitis: extremity Site of cellulitis of extremity: lower extremity Qualified Code(s): L03.116 - Cellulitis of left lower limb (4) Sacral decubitus ulcer: Continue antibiotics. Maintain Flores catheter in place for now. Frequent repositioning. Mild purulent area around buttocks, extensive skin maceration extending from sacral area to mid thighs She is at risk of worsening of her decubitus ulcer, she needs extensive nursing care and possibly diverting colostomy in the future if needed For mild purulent drainage around buttocks Status: Acute (5) Diabetes mellitus: Continue diet, sliding scale insulin Status: Acute (6) Hypothyroidism: Continue levothyroxine. Status: Acute (7) Multiple sclerosis: Status: Chronic Additional A&P Information Recent streptococcal bacteremia: Follow blood culture drawn this admission. PICC line has been maintained in place, not sure why. Remove, send tip for culture. Baclofen pump Venous stasis dermatitis/lymphedema of lower extremities No active purulent drainage, Hyperemia of lower extremities seems to be resolving Previously arterial Doppler did not reveal any arterial insufficiency, normal resting MER[facility] No active signs of gangrene or ulcer Has pressure heel ulcer, need extensive offloading and nursing care Attestations Medical Necessity Statement*: Continue admission for assessment of management of UTI, cellulitis, with acute encephalopathy. Coding Level of Care Code Acute Dealership General Manager for [facility] Fwd Diagnoses Acute encephalopathy G93.40 UTI (urinary tract infection) N39.0 Cellulitis L03.116 Laterality: left Site of cellulitis: extremity Site of cellulitis of extremity: lower extremity Sacral decubitus ulcer L89.159 Diabetes mellitus E11.9 Hypothyroidism E03.9 Multiple sclerosis G35
[2020-03-13 10:55] LABS: Glucose Point of Care 134 mg/dL (70-110)
--- NOTE | 2020-03-13 13:49 | PC.CHAP ---
Pastoral Care Encounter/Spiritual Assessment Type of Contact [] Declined abrasive coating machine operator visit [] Patient/Family/Request visit [] Outpatient visit [] Follow-up visit [] Physician referral [] Code/Alert [x] Routine visit [] Staff referral [] Actively dying [] Patient sleeping [] Family support [] [] Out of room [] Palliative care [] [] Receiving care in room [] Pre-surgical visit [] Trauma [] Long length of stay [] ICU visit [] Other: Relational/Emotional Strength [] Patient feels connected with others/family/visitors/staff [] Distress [] Loneliness/isolation [] Abandonment Spirituality of Patient [] Person of Neli [] Attends Nondenominational of their Neli [] Believes in Prayer [] Reads Bible or Presybeterian materials [] There are Spiritual issues to be addressed Fur Joiner Interventions [x] Prayer [] Active listening [] Non-anxious presence [] Spiritual/emotional support [] Crisis/trauma care [] Spiritual counseling [] Bereavement support [] Provided bereavement packet [] Provided Bible/devotional materials [] Provided toy/stuffed animal, coloring book to patient or family member [] Provided Communion [] Anointing/[place] [] Salvation [] Completed spiritual assessment [] Other: Impact on Illness or Injury [] Angry [] Fearful [] Anxious [] Often cries [] Exhaustion [] Unable to work [] Unable to attend voodoo [] Unable to walk/stand [] Unable to read [] Unable to drive [] Unable to eat/drink [] Unable to sleep [] Unable to be with family [] Patient intubated [] Other: Summary Time spent with patient
[2020-03-13 16:50] LABS: Glucose Point of Care 113 mg/dL (70-110)
--- NOTE | 2020-03-13 17:30 | PC.NURSE ---
Patient's Flores Catheter changed at this time. 500mls of old urine dumped out of old Flores catheter. Urine sample sent from new Flores Catheter.
[2020-03-13 18:14] LABS: Urine Appearance SL Hazy (CLEAR); Urine Color Yellow (Yellow); pH Urine 7 (5-7)
[2020-03-13 18:15] LABS: Add Urine Microscopic? YES; Bilirubin Urine Neg (Negative); Blood Urine 3+ (Negative); Glucose Urine UA Norm (Normal); Ketones Urine Negative (Negative); Leukocyte Esterase Urine 1+ (Negative); Nitrate Urine Negative (Negative); Protein Urine 1+ (Negative); Urobilinogen Urine Norm (Negative)
[2020-03-13 18:17] LABS: Bacteria Urine 3+ /hpf; Mucus Urine 1+ /hpf; RBC Urine 50-80 /hpf (0-2); Squamous Epithelial Cell Urine 0-4 /hpf (0-5)
[2020-03-13 18:18] LABS: Add Urine Culture? Yes; Hyaline Casts Urine 0-4 /lpf; Other Sediment, Urine BUD YEAST W/HYPHAE
[2020-03-13 21:07] LABS: Glucose Point of Care 145 mg/dL (70-110)
[2020-03-13] MEDS: citalopram 20 mg Tablet PO (21:14)
[2020-03-14] MEDS: heparin 5,000 unit/mL INJ 1 mL 5000 UNIT SUBCUT ×4 (00:11→21:55)
[2020-03-14] MEDS: piperacillin-tazobactam 3.375 GM in sodium chloride 0.9% (plus) 50 ML IV ×3 (02:53→17:24)
[2020-03-14 04:00] VITALS: BP 131/78; PULSE 89; RESP 18; TEMP 36.8; O2SAT 93
[2020-03-14 05:31] LABS: Basophils # 0.1 10^3/uL (0.0-0.1); Basophils % 0.8 %; Eosinophils # 1.3 10^3/uL (0.0-0.8); Eosinophils % 20.2 %; Hematocrit 33.2 % (37.0-47.0); Hemoglobin 9.1 g/dL (11.5-15.3); Lymphocytes # 1.3 10^3/uL (0.8-4.8); Lymphocytes % 20.1 %; Mean Corpuscular HGB Conc 27.4 g/dL (30.0-36.0); Mean Corpuscular Hemoglobin 26.8 pg (28.0-34.0); Mean Corpuscular Volume 97.9 fL (81-99); Mean Platelet Volume 9.5 fL (7.4-10.4); Monocytes # 0.6 10^3/uL (0.2-0.9); Monocytes % 8.7 %; Neutrophils # 3.24 10^3/uL (1.8-7.7); Neutrophils % 49.6 %; Nucleated Red Blood Cells % 0 %; Platelet Count 304 10^3/cmm (130-400); Red Blood Count 3.39 10^6/uL (4.1-5.3); Red Cell Distribution Width 18.1 % (12.1-15.1); White Blood Count 6.5 10^3/uL (4.0-10.0)
[2020-03-14 05:53] LABS: Alanine Aminotransferase 15 U/L (0-33); Albumin Level 2.9 g/dL (3.5-5.2); Alkaline Phosphatase 64 IU/L (35-105); Anion Gap 14.1 (5-19); Aspartate Amino Transferase 28 U/L (0-32); Blood Urea Nitrogen 15 mg/dL (8-23); Calcium 8.7 mg/dL (8.5-10.5); Carbon Dioxide 24 mmol/L (22-29); Chloride 104 mmol/L (98-107); Globulin 4.5 g/dL (1.3-4.6); Glomerular Filtration Rate 50.2 mL/min (90-130); Glucose 117 mg/dL (65-115); Osmolality Calculated 288 mOsm/kg (285-295); Potassium 4.1 mmol/L (3.5-5.1); Sodium 138 mmol/L (136-145); Total Bilirubin 0.3 mg/dL (0.15-1.2); Total Protein 7.4 g/dL (6.6-8.7)
[2020-03-14 06:59] VITALS: BP 135/79; PULSE 73; RESP 16; TEMP 36.6; O2SAT 97
[2020-03-14 06:59] LABS: Glucose Point of Care 112 mg/dL (70-110)
--- NOTE | 2020-03-14 08:37 | CTR_ITS ---
PROCEDURE INFORMATION: Exam: CT Abdomen And Pelvis Without Contrast Exam date and time: 03/14/2020 8:52 AM Age: 65 years old Clinical indication: Abnormal findings; Abnormal lab test; Other: Ua; Prior surgery; Surgery date: 6+ months; Surgery type: Pain pump; Patient HX: Hematuria TECHNIQUE: Imaging protocol: Computed tomography of the abdomen and pelvis without contrast. Radiation optimization: All CT scans at this facility use at least one of these dose optimization techniques: automated exposure control; mA and/or kV adjustment per patient size (includes targeted exams where dose is matched to clinical indication); or iterative reconstruction. COMPARISON: CT pelvis wo con [id number] 02/21/2020 3:27 PM RADIATION DOSE METRICS: Total DLP (mGy-cm): 2010.8 FINDINGS: Liver: Normal. No mass. Gallbladder and bile ducts: Normal. No calcified stones. No ductal dilation. Pancreas: Normal. No ductal dilation. Spleen: Normal. No splenomegaly. Adrenals: Normal. No mass. Kidneys and ureters: Normal. No hydronephrosis. Stomach and bowel: Colonic diverticula are present although there are no CT findings to suggest diverticulitis. No bowel obstruction or wall thickening. Appendix: The appendix is visualized and appears normal. Intraperitoneal space: Unremarkable. No free air. No significant fluid collection. Vasculature: Unremarkable. No abdominal aortic aneurysm. Lymph nodes: Unremarkable. No enlarged lymph nodes. Urinary bladder: There is a Flores catheter in a decompressed bladder. Reproductive: There is a 5.9 x 4.2 cm left ovarian cyst. Bones/joints: Unremarkable. No acute fracture. Soft tissues: Unremarkable. CT/CT kidney stone [id number] IMPRESSION: There are no acute concerning abnormalities. Radiation Dose CTDIVOL = (mGy): DLP = 2010.8 (mGy-cm)
[2020-03-14] MEDS: levothyroxine 150 mcg Tablet PO (09:43)
[2020-03-14] MEDS: gabapentin 300 mg Capsule PO ×3 (09:43→21:54)
[2020-03-14] MEDS: levothyroxine 25 mcg Tablet PO (09:43)
[2020-03-14] MEDS: polyethylene glycol 3350 Pkt 17 gm PO (09:43)
[2020-03-14] MEDS: ARIPiprazole 2 mg Tablet PO (09:43)
[2020-03-14] MEDS: cyclobenzaprine 10 mg Tablet PO ×2 (09:43→17:24)
[2020-03-14] MEDS: pantoprazole DR 40 mg Tablet PO (09:43)
--- NOTE | 2020-03-14 10:17 | PM.PN ---
Subjective Subjective: Interval history: She says she is feeling better. She says she is feeling like her usual self. Appears to perhaps be still mildly confused. Takes her little bit of time to try to remember where she is and what year it is. She does state her full name today with ease. Yesterday she cannot tell me her last name. She is otherwise in good spirits today. Denies any pain discomfort. Vitals/I&O/Wt Last Vital Signs Temp 97.8 F 03/14/20 06:59 Pulse 73 03/14/20 06:59 Resp 16 03/14/20 06:59 BP 135/79 03/14/20 06:59 Pulse Ox 97 03/14/20 06:59 03/13/20 03/14/20 03/14/20 22:59 06:59 14:59 Intake Total 370 / 1540 50 / 1590 100 / 100 Output Total 500 / 500 300 / 800 Balance -130 / 1040 -250 / 790 100 / 100 Weight last 48 hrs Weight 172.365 kg Physical Exam Const: COMMON NORMALS: no acute distress and patient oriented x3 NUTRITIONAL APPEARANCE: obese morbidly obese ORIENTATION/CONSCIOUSNESS: Yes awake HENMT: COMMON NORMALS: oropharynx normal Neck/C-Spine: COMMON NORMALS: no JVD Resp: COMMON NORMALS: normal respiratory effort and clear to auscultation bilaterally AUSCULTATION: clear to auscultation bilaterally Cardio: COMMON NORMALS: no JVD, regular rhythm, S1 normal heart sound present, S2 normal heart sound present and No murmurs present (Cardio) RHYTHM: regular rhythm HEART SOUNDS: S1 normal heart sound present and S2 normal heart sound present GI: COMMON NORMALS: Normal to inspection, nondistended, normoactive bowel sounds present, Soft to palpation and non-tender PALPATION: Yes Soft to palpation OTHER: large : OTHER: Flores catheter. Extremity: COMMON NORMALS: no joint enlargement OTHER: Bilateral chronic venous stasis dermatitis. Nonpitting edema. Neuro: COMMON NORMALS: patient oriented x3 OTHER: Chronic weakness of left upper extremity. Chronic tremor, especially with intention which she attributes to MS. She is somewhat difficult time to participate with neurological examination due to some residual confusion. Does not appear to have any facial droop. Does not appear to have sensory asymmetry or neglect. Visual gould full to confrontation. FNF with some difficulty and able to perform only on the right side due to chronic left side weakness. Skin: NARRATIVE SKIN EXAM: Large area of erythema over the buttocks and proximal thighs, and into the groin with areas of maceration. Areas of edema, minimal superficial sloughing. Redness appears to be less in intensity today. Data : 03/14/20 05:12 03/14/20 05:12 Micro: Microbiology 03/12/20 17:05 Urine Culture - Preliminary Urine,Clean Catch Gram Negative Rods 03/12/20 16:53 Blood Culture - Preliminary Blood NEGATIVE TO DATE 03/12/20 16:53 Blood Culture - Preliminary Blood NEGATIVE TO DATE A&P Assessment and plan (1) Acute encephalopathy: This appears to be improving. Mentation is still a bit sluggish, but she is able to tell me she is in [facility], and takes a while to remember, but does tell the year is 2019. Today she is able to tell me her full name. Appears to be due to infection with urinary tract infection, cellulitis. This appears to be better, she is awake, appears more alert. Conversant and interactive. Sluggish in her responses. Not oriented x3. Appears to be improving. Continue treatment of underlying infections. Status: Acute (2) UTI (urinary tract infection): Gram-negative rods. Flores catheter was replaced yesterday, UA repeated, with noted microscopic hematuria. We will additionally assess with CT abdomen pelvis renal stone protocol. Follow-up urine culture. Continue Zosyn for complicated urinary tract infection with acute encephalopathy. No active signs of sepsis. Previous blood culture grew group C Streptococcus, urine culture positive for E. coli, pansensitive, her septicemia improved after antibiotics, repeat blood cultures were negative. Status: Acute (3) Cellulitis: Continue Zosyn, vancomycin. Maintain Flores catheter in place for now. Large area of cellulitis over sacrum, buttocks and proximal thighs going into the groin as well bilaterally. Keep dry. Dry dressing. Moisture barrier. Frequent repositioning. Status: Acute Qualifiers: Laterality: left Site of cellulitis: extremity Site of cellulitis of extremity: lower extremity Qualified Code(s): L03.116 - Cellulitis of left lower limb (4) Sacral decubitus ulcer: Continue antibiotics. Maintain Flores catheter in place for now. Frequent repositioning. Mild purulent area around buttocks, extensive skin maceration extending from sacral area to mid thighs She is at risk of worsening of her decubitus ulcer, she needs extensive nursing care and possibly diverting colostomy in the future if needed For mild purulent drainage around buttocks Status: Acute (5) Diabetes mellitus: Continue diet, sliding scale insulin Status: Acute (6) Hypothyroidism: Continue levothyroxine. Status: Acute (7) Multiple sclerosis: Status: Chronic Additional A&P Information Recent streptococcal bacteremia: PICC line has been maintained in place at presentation, not sure why. Removed, sent tip for culture. Follow blood culture and PICC tip culture. Baclofen pump Venous stasis dermatitis/lymphedema of lower extremities No active purulent drainage, Hyperemia of lower extremities seems to be resolving Previously arterial Doppler did not reveal any arterial insufficiency, normal resting [facility] No active signs of gangrene or ulcer Has pressure heel ulcer, need extensive offloading and nursing care Attestations Medical Necessity Statement*: Continue assessment of management of complicated urinary tract infection with acute encephalopathy, cellulitis of sacrum, buttocks and proximal thighs. Coding Level of Care Code Acute Floor Runner for [facility] Fwd Diagnoses Acute encephalopathy G93.40 UTI (urinary tract infection) N39.0 Cellulitis L03.116 Laterality: left Site of cellulitis: extremity Site of cellulitis of extremity: lower extremity Sacral decubitus ulcer L89.159 Diabetes mellitus E11.9 Hypothyroidism E03.9 Multiple sclerosis G35
[2020-03-14 10:37] LABS: Glucose Point of Care 110 mg/dL (70-110)
[2020-03-14 11:04] VITALS: BP 136/88; PULSE 88; RESP 17; TEMP 36.6; O2SAT 95
[2020-03-14] MEDS: sodium chloride 0.9% 1,000 ML 75 ML IV (15:27)
[2020-03-14 15:41] VITALS: BP 138/64; PULSE 68; RESP 22; TEMP 36.7; O2SAT 95
[2020-03-14 17:19] LABS: Glucose Point of Care 102 mg/dL (70-110)
--- NOTE | 2020-03-14 18:46 | CTR_ITS ---
PROCEDURE INFORMATION: Exam: CT Head Without Contrast Exam date and time: 03/14/2020 8:46 PM Age: 65 years old Clinical indication: Altered mental status/memory loss; Confusion or disorientation; Patient HX: New onset AMS TECHNIQUE: Imaging protocol: Computed tomography of the head without contrast. Radiation optimization: All CT scans at this facility use at least one of these dose optimization techniques: automated exposure control; mA and/or kV adjustment per patient size (includes targeted exams where dose is matched to clinical indication); or iterative reconstruction. COMPARISON: CT head wo con* [id number] 02/11/2019 4:24 PM RADIATION DOSE METRICS: Total DLP (mGy-cm): 899.93 FINDINGS: Brain: Moderate white matter disease and volume loss are identified. There is no acute infarct or edema. No hemorrhage. Cerebral ventricles: No ventriculomegaly. Bones/joints: Unremarkable. No acute fracture. Paranasal sinuses: Visualized sinuses are unremarkable. No fluid levels. Mastoid air cells: Visualized mastoid air cells are well aerated. Soft tissues: Unremarkable. CT/CT head wo con* [id number] IMPRESSION: There are no acute concerning abnormalities. Radiation Dose CTDIVOL = (mGy): DLP = 899.93 (mGy-cm)
[2020-03-14 20:00] VITALS: BP 131/77; PULSE 95; RESP 17; TEMP 36.8; O2SAT 96
[2020-03-14 20:36] LABS: Glucose Point of Care 109 mg/dL (70-110)
[2020-03-14] MEDS: citalopram 20 mg Tablet PO (21:54)
[2020-03-14] MEDS: quetiapine 25 mg Tablet PO (21:55)
[2020-03-15] VITALS: BP 133/82; PULSE 91; RESP 18; TEMP 36.8; O2SAT 93
[2020-03-15 00:16] LABS: Vancomycin Trough 32.6 ug/mL (10-15)
[2020-03-15] MEDS: piperacillin-tazobactam 3.375 GM in sodium chloride 0.9% (plus) 50 ML IV ×3 (02:24→18:03)
[2020-03-15] MEDS: sodium chloride 0.9% 1,000 ML 75 ML IV (02:25)
[2020-03-15 04:00] VITALS: BP 136/84; PULSE 62; RESP 18; TEMP 36.7; O2SAT 93
[2020-03-15 06:11] LABS: Glucose Point of Care 92 mg/dL (70-110)
[2020-03-15] MEDS: heparin 5,000 unit/mL INJ 1 mL 5000 UNIT SUBCUT ×3 (06:17→21:54)
[2020-03-15 07:21] LABS: Basophils % 0.6 %; Eosinophils # 1.5 10^3/uL (0.0-0.8); Eosinophils % 22.3 %; Hematocrit 33.9 % (37.0-47.0); Hemoglobin 9.7 g/dL (11.5-15.3); Lymphocytes # 1.3 10^3/uL (0.8-4.8); Lymphocytes % 20.2 %; Mean Corpuscular HGB Conc 28.6 g/dL (30.0-36.0); Mean Corpuscular Volume 94.4 fL (81-99); Mean Platelet Volume 10.1 fL (7.4-10.4); Monocytes # 0.5 10^3/uL (0.2-0.9); Monocytes % 8.2 %; Neutrophils # 3.17 10^3/uL (1.8-7.7); Neutrophils % 48.4 %; Nucleated Red Blood Cells % 0 %; Platelet Count 272 10^3/cmm (130-400); Red Blood Count 3.59 10^6/uL (4.1-5.3); Red Cell Distribution Width 18.3 % (12.1-15.1); White Blood Count 6.6 10^3/uL (4.0-10.0)
[2020-03-15 07:22] LABS: Alanine Aminotransferase 14 U/L (0-33); Albumin Level 2.8 g/dL (3.5-5.2); Alkaline Phosphatase 58 IU/L (35-105); Aspartate Amino Transferase 27 U/L (0-32); Blood Urea Nitrogen 12 mg/dL (8-23); Carbon Dioxide 22 mmol/L (22-29); Chloride 108 mmol/L (98-107); Globulin 3.7 g/dL (1.3-4.6); Glucose 95 mg/dL (65-115); Osmolality Calculated 292 mOsm/kg (285-295); Sodium 141 mmol/L (136-145); Total Bilirubin 0.2 mg/dL (0.15-1.2); Total Protein 6.5 g/dL (6.6-8.7)
[2020-03-15 07:25] LABS: Anion Gap 14.8 (5-19); Potassium 3.8 mmol/L (3.5-5.1)
[2020-03-15 08:00] VITALS: BP 151/75; PULSE 85; RESP 18; TEMP 36.6; O2SAT 99
[2020-03-15] MEDS: levothyroxine 25 mcg Tablet PO (09:00)
[2020-03-15] MEDS: cyclobenzaprine 10 mg Tablet PO ×2 (09:00→18:06)
[2020-03-15] MEDS: gabapentin 300 mg Capsule PO ×3 (09:00→21:44)
[2020-03-15] MEDS: pantoprazole DR 40 mg Tablet PO (09:00)
[2020-03-15] MEDS: ARIPiprazole 2 mg Tablet PO (09:00)
[2020-03-15] MEDS: levothyroxine 150 mcg Tablet PO (09:00)
--- NOTE | 2020-03-15 10:31 | PC.CHAP ---
Pastoral Care Encounter/Spiritual Assessment Type of Contact [] Declined control chemist visit [] Patient/Family/Request visit [] Outpatient visit [] Follow-up visit [] Physician referral [] Code/Alert [x] Routine visit [] Staff referral [] Actively dying [] Patient sleeping [] Family support [] [] Out of room [] Palliative care [] [] Receiving care in room [] Pre-surgical visit [] Trauma [] Long length of stay [] ICU visit [] Other: Relational/Emotional Strength [] Patient feels connected with others/family/visitors/staff [x] Distress [] Loneliness/isolation [] Abandonment Spirituality of Patient [] Person of Neli [] Attends Oriental Orthodox of their Neli [x] Believes in Prayer [] Reads Bible or Tenriism materials [x] There are Spiritual issues to be addressed Plumber'S Helper Interventions [x] Prayer [x] Active listening [x] Non-anxious presence [x] Spiritual/emotional support [] Crisis/trauma care [x] Spiritual counseling [] Bereavement support [] Provided bereavement packet [] Provided Bible/devotional materials [] Provided toy/stuffed animal, coloring book to patient or family member [] Provided Communion [] Anointing/[place] [] Salvation [x] Completed spiritual assessment [] Other: Impact on Illness or Injury [] Angry [x] Fearful [x] Anxious [x] Often cries [] Exhaustion [] Unable to work [] Unable to attend faith [] Unable to walk/stand [] Unable to read [] Unable to drive [] Unable to eat/drink [] Unable to sleep [x] Unable to be with family [] Patient intubated [] Other: Summary Patient was very emotional at the time of the control chemist visit. When asked if she would like prayer she stated that she was afraid. She stated that she lives alone and that causes her fear. She asked for prayer for gettiing by and started to weep again. Plumber'S Helper visited with her for a few minutes to comfort her and then prayed with her. Patient visited by Plumber'S Helper Jorge Choi. Time spent with patient 12 minutes.
[2020-03-15 10:44] LABS: Glucose Point of Care 109 mg/dL (70-110)
--- NOTE | 2020-03-15 10:51 | PM.PN ---
Subjective Subjective: Interval history: No acute events overnight. Hospital course appreciated. Examination patient lying comfortably in bed. She recognizes me from last admission. She seems to be back to her baseline. Denies of any nausea, vomiting, headache. 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 Has had a comfortable night. Vitals/I&O/Wt Last Vital Signs Temp 97.9 F 03/15/20 08:00 Pulse 85 03/15/20 08:00 Resp 18 03/15/20 08:00 BP 151/75 03/15/20 08:00 Pulse Ox 99 03/15/20 08:00 03/14/20 03/15/20 03/15/20 22:59 06:59 14:59 Intake Total 150 / 420 872.5 / 1292.5 Output Total 500 / 500 200 / 700 Balance -350 / -80 672.5 / 592.5 Physical Exam Const: COMMON NORMALS: no acute distress and patient oriented x3 NUTRITIONAL APPEARANCE: obese morbidly obese ORIENTATION/CONSCIOUSNESS: Yes awake HENMT: COMMON NORMALS: oropharynx normal Neck/C-Spine: COMMON NORMALS: no JVD Resp: COMMON NORMALS: normal respiratory effort and clear to auscultation bilaterally AUSCULTATION: clear to auscultation bilaterally Cardio: COMMON NORMALS: no JVD, regular rhythm, S1 normal heart sound present, S2 normal heart sound present and No murmurs present (Cardio) RHYTHM: regular rhythm HEART SOUNDS: S1 normal heart sound present and S2 normal heart sound present GI: COMMON NORMALS: Normal to inspection, nondistended, normoactive bowel sounds present, Soft to palpation and non-tender PALPATION: Yes Soft to palpation OTHER: large : OTHER: Flores catheter. Extremity: COMMON NORMALS: no joint enlargement OTHER: Bilateral chronic venous stasis dermatitis. Nonpitting edema. Neuro: COMMON NORMALS: patient oriented x3 OTHER: Chronic weakness of left upper extremity. Chronic tremor, especially with intention which she attributes to MS. She is somewhat difficult time to participate with neurological examination due to some residual confusion. Does not appear to have any facial droop. Does not appear to have sensory asymmetry or neglect. Visual gould full to confrontation. FNF with some difficulty and able to perform only on the right side due to chronic left side weakness. Skin: NARRATIVE SKIN EXAM: Large area of erythema over the buttocks and proximal thighs, and into the groin with areas of maceration. Areas of edema, minimal superficial sloughing. Redness appears to be less in intensity today. Data : 03/15/20 06:17 03/15/20 06:17 Micro: Microbiology 03/12/20 17:05 Urine Culture - Preliminary Urine,Clean Catch Gram Negative Rods 03/13/20 17:58 Urine Culture - Preliminary Urine Catheterized A&P Assessment and plan (1) Acute encephalopathy: Most likely secondary to UTI and cellulitis. Back to baseline now. Status: Acute (2) UTI (urinary tract infection): Gram-negative rods. Flores catheter was replaced during the admission. CT abdomen results appreciated. Negative for any obstructive pathology., Continue Zosyn for now. No active signs of sepsis. Previous blood culture grew group C Streptococcus, urine culture positive for E. coli, pansensitive, her septicemia improved after antibiotics, repeat blood cultures were negative. Status: Acute (3) Cellulitis: Continue Zosyn. MRSA negative stop vancomycin. Continue Flores catheter for now. Large area of cellulitis over sacrum, buttocks and proximal thighs going into the groin as well bilaterally. Keep dry. Dry dressing. Moisture barrier. Frequent repositioning. Status: Acute Qualifiers: Laterality: left Site of cellulitis: extremity Site of cellulitis of extremity: lower extremity Qualified Code(s): L03.116 - Cellulitis of left lower limb (4) Sacral decubitus ulcer: Continue antibiotics. Maintain Flores catheter in place for now. Frequent repositioning. Mild purulent area around buttocks, extensive skin maceration extending from sacral area to mid thighs She is at risk of worsening of her decubitus ulcer, she needs extensive nursing care and possibly diverting colostomy in the future if needed For mild purulent drainage around buttocks Status: Acute (5) Diabetes mellitus: Continue diet, sliding scale insulin. For now patient does not require any pre-meal insulin since admission. Continue with glargine 10 units at bedtime. Status: Acute (6) Hypothyroidism: Continue levothyroxine. Status: Acute (7) Multiple sclerosis: Status: Chronic Additional A&P Information Recent streptococcal bacteremia: PICC line has been maintained in place at presentation, not sure why. Removed, sent tip for culture. Follow blood culture and PICC tip culture. Baclofen pump Venous stasis dermatitis/lymphedema of lower extremities No active purulent drainage, Hyperemia of lower extremities seems to be resolving Previously arterial Doppler did not reveal any arterial insufficiency, normal resting [facility] No active signs of gangrene or ulcer Has pressure heel ulcer, need extensive offloading and nursing care Allow natural . Heparin for DVT prophylaxis Discharge planning: Most likely discharge tomorrow after following up urine culture for 24 more hours. [facility] 2 more weeks along with Flores catheter with advised to follow-up with wound care as an outpatient. Attestations Medical Necessity Statement*: Metabolic encephalopathy, UTI, sacral decubitus ulcer, cellulitis Time Spent in Patient Care: Greater than 35 minutes (>than 50% of time spent in counselling and/or direct pt care on unit). Coding Level of Care Code Acute Fx Artist for [facility] Fw Diagnoses Acute encephalopathy G93.40 UTI (urinary tract infection) N39.0 Cellulitis L03.116 Laterality: left Site of cellulitis: extremity Site of cellulitis of extremity: lower extremity Sacral decubitus ulcer L89.159 Diabetes mellitus E11.9 Hypothyroidism E03.9 Multiple sclerosis G35
[2020-03-15 12:00] VITALS: BP 130/60; PULSE 80; RESP 22; TEMP 36.6; O2SAT 99
[2020-03-15 15:24] VITALS: BP 128/64; PULSE 64; RESP 18; TEMP 36.7; O2SAT 93
[2020-03-15 16:45] LABS: Glucose Point of Care 101 mg/dL (70-110)
[2020-03-15] MEDS: nystatin 100,000 unit/mL UDC 5 mL 100000 UNIT PO ×2 (18:06→21:44)
[2020-03-15] MEDS: nystatin cream 30 gm 1 APPLIC TOPICAL (18:09)
[2020-03-15 20:00] VITALS: BP 146/82; PULSE 87; RESP 18; TEMP 36.8; O2SAT 95
[2020-03-15 21:28] LABS: Glucose Point of Care 91 mg/dL (70-110)
[2020-03-15] MEDS: citalopram 20 mg Tablet PO (21:44)
[2020-03-15] MEDS: quetiapine 25 mg Tablet PO (21:44)
[2020-03-15] MEDS: atorvastatin 40 mg Tablet 20 MG PO (21:44)
[2020-03-15] MEDS: acetaminophen 325 mg Tablet 650 MG PO (21:49)
--- NOTE | 2020-03-15 22:03 | PC.NURSE ---
Held evening dose of lantus due to blood sugar of 91.
[2020-03-16 01:55] LABS: Glucose Point of Care 102 mg/dL (70-110)
[2020-03-16] MEDS: piperacillin-tazobactam 3.375 GM in sodium chloride 0.9% (plus) 50 ML IV (01:56)
[2020-03-16 03:14] LABS: Glucose Point of Care 96 mg/dL (70-110)
[2020-03-16 03:20] VITALS: BP 148/62; PULSE 74; RESP 20; TEMP 36.5; O2SAT 96
[2020-03-16] MEDS: heparin 5,000 unit/mL INJ 1 mL 5000 UNIT SUBCUT (05:53)
[2020-03-16 06:03] LABS: Basophils # 0.1 10^3/uL (0.0-0.1); Basophils % 0.9 %; Eosinophils # 1.2 10^3/uL (0.0-0.8); Eosinophils % 22.5 %; Hematocrit 30.2 % (37.0-47.0); Hemoglobin 8.3 g/dL (11.5-15.3); Lymphocytes # 1.4 10^3/uL (0.8-4.8); Lymphocytes % 25.6 %; Mean Corpuscular HGB Conc 27.5 g/dL (30.0-36.0); Mean Corpuscular Volume 98.4 fL (81-99); Mean Platelet Volume 9.5 fL (7.4-10.4); Monocytes # 0.5 10^3/uL (0.2-0.9); Monocytes % 8.8 %; Neutrophils # 2.28 10^3/uL (1.8-7.7); Nucleated Red Blood Cells % 0 %; Platelet Count 321 10^3/cmm (130-400); Red Blood Count 3.07 10^6/uL (4.1-5.3); Red Cell Distribution Width 18.4 % (12.1-15.1); White Blood Count 5.4 10^3/uL (4.0-10.0)
[2020-03-16 06:31] LABS: Alanine Aminotransferase 15 U/L (0-33); Albumin Level 2.7 g/dL (3.5-5.2); Alkaline Phosphatase 60 IU/L (35-105); Blood Urea Nitrogen 11 mg/dL (8-23); Calcium 8.8 mg/dL (8.5-10.5); Carbon Dioxide 23 mmol/L (22-29); Chloride 105 mmol/L (98-107); Globulin 4.4 g/dL (1.3-4.6); Glucose 97 mg/dL (65-115); Osmolality Calculated 285 mOsm/kg (285-295); Sodium 138 mmol/L (136-145); Total Bilirubin 0.3 mg/dL (0.15-1.2); Total Protein 7.1 g/dL (6.6-8.7)
[2020-03-16 06:33] LABS: Anion Gap 13.9 (5-19); Aspartate Amino Transferase 30 U/L (0-32); Potassium 3.9 mmol/L (3.5-5.1)
[2020-03-16 06:39] LABS: Glucose Point of Care 95 mg/dL (70-110)
[2020-03-16 07:28] VITALS: BP 138/78; PULSE 87; RESP 16; TEMP 37.1; O2SAT 96
[2020-03-16] MEDS: FUROsemide 40 mg Tablet PO (08:56)
[2020-03-16] MEDS: levothyroxine 25 mcg Tablet PO (08:56)
[2020-03-16] MEDS: pantoprazole DR 40 mg Tablet PO (08:56)
[2020-03-16] MEDS: levothyroxine 150 mcg Tablet PO (08:56)
[2020-03-16] MEDS: cyclobenzaprine 10 mg Tablet PO (08:56)
[2020-03-16] MEDS: nystatin 100,000 unit/mL UDC 5 mL 100000 UNIT PO (08:56)
[2020-03-16] MEDS: gabapentin 300 mg Capsule PO (08:56)
--- NOTE | 2020-03-16 08:56 | P.DS_ITS ---
Discharge Providers Date of Admission: 03/13/20 14:35 Date of Discharge: March 16, 2020 Attending Provider at Admission: Yajaira Almaraz MD Attending Provider at Discharge: Nikos Paula MD Primary Care Provider: Russ Rosa Jr, MD Diagnoses at Discharge Discharge Diagnosis (1) Acute encephalopathy: Status: Acute (2) UTI (urinary tract infection): Status: Acute (3) Cellulitis: Status: Acute Qualifiers: Laterality: left Site of cellulitis: extremity Site of cellulitis of extremity: lower extremity Qualified Code(s): L03.116 - Cellulitis of left lower limb (4) Sacral decubitus ulcer: Status: Acute (5) Diabetes mellitus: Status: Acute (6) Hypothyroidism: Status: Acute (7) Multiple sclerosis: Status: Chronic Reason for Visit Reason for Visit: POSSIBLE SEPSIS Hospital Course Discharge Summary: Jared Garcia is a 65 year old female carries history of multiple sclerosis, intrathecal baclofen pump, sacral decubitus ulcer, chronic indwelling catheter, retirement resident, who was recently discharged from the hospital after management of left leg cellulitis(blood culture grew Streptococcus group C, E. coli UTI was discharged on 11 days of ceftriaxone, PICC line was placed), Plavix was discontinued secondary to hemoglobin 8.3, she was taking Plavix for TIA(02/03 carotid artery stenosis 16 to 50%) came in today for worsening lethargy and fatigue. Patient is verbally redirectable able to answer simple questions, she is oriented to herself, [facility] is [facility]ing that she had a fever of 101, she was tachycardic heart rate 109 and was lethargic. Flores catheter was placed on last admission, before that she was not requiring catheterization, she is bedbound. At baseline she is able to carry out a decent conversation, normally she has a jolly mood, sometimes struggle with her words. On admission she had no active signs of sepsis, had normal hemoglobin creatinine was at baseline COVID antigen was done which was negative. Patient was admitted to the hospital for possible acute metabolic encephalopathy. At time of admission because of acute metabolic encephalopathy was thought to be secondary to cellulitis and she was started on broad-spectrum antibiotics. I nfectious work-up was done, urine catheter was changed, PICC line was removed. Her blood cultures remain negative. Repeat urine culture from new catheter of taken has remained negative. During hospitalization patient was found to have borderline blood glucose levels on home antidiabetic regimen. It is quite possible that patient symptoms are because of low blood sugars. Her antidiabetic medications have been adjusted. Patient also has a large area of cellulitis bilaterally on her lower limbs along with sacrum and buttocks and proximal thigh as well as groin which unfortunately because of her bedbound status and baseline multiple sclerosis is difficult to take care of and she is at a high risk of recurrent worsening of the cellulitis/decubitus ulcer. Because patient has had multiple UTIs Flores catheter has been discontinued and she is to take levofloxacin for 5 more days to finish the course of antibiotics. She is advised to follow-up with infectious disease as an outpatient for possible chronic suppression for her cellulitis and decubitus ulcer. She is been discharged in hemodynamically stable condition with advised to follow-up with her primary care provider and ID clinic in next 1 week. Physical Exam Const: COMMON NORMALS: no acute distress and patient oriented x3 NUTRITIONAL APPEARANCE: obese morbidly obese ORIENTATION/CONSCIOUSNESS: Yes awake HENMT: COMMON NORMALS: oropharynx normal Neck/C-Spine: COMMON NORMALS: no JVD Resp: COMMON NORMALS: normal respiratory effort and clear to auscultation bilaterally AUSCULTATION: clear to auscultation bilaterally Cardio: COMMON NORMALS: no JVD, regular rhythm, S1 normal heart sound present, S2 normal heart sound present and No murmurs present (Cardio) RHYTHM: regular rhythm HEART SOUNDS: S1 normal heart sound present and S2 normal heart sound present GI: COMMON NORMALS: Normal to inspection, nondistended, normoactive bowel sounds present, Soft to palpation and non-tender PALPATION: Yes Soft to palpation OTHER: large : OTHER: Flores catheter. Extremity: COMMON NORMALS: no joint enlargement OTHER: Bilateral chronic venous stasis dermatitis. Nonpitting edema. Neuro: COMMON NORMALS: patient oriented x3 OTHER: Chronic weakness of left upper extremity. Chronic tremor, especially with intention which she attributes to MS. She is somewhat difficult time to participate with neurological examination due to some residual confusion. Does not appear to have any facial droop. Does not appear to have sensory asymmetry or neglect. Visual gould full to confrontation. FNF with some difficulty and able to perform only on the right side due to chronic left side weakness. Skin: NARRATIVE SKIN EXAM: Large area of erythema over the buttocks and proximal thighs, and into the groin with areas of maceration. Areas of edema, minimal superficial sloughing. Redness appears to be less in intensity today. Discharge Data Data Completed and Pending: Completed Studies During Hospitalization Category Date Time Status CT head wo con* 7 0450 Routine Cat Scan 03/14/20 18:[address] kidney stone 7 4176 Routine Cat Scan 03/14/20 08:37 Completed XR chest 1V ugo ble 20372 Urgent Exams 03/12/20 16:39 Completed Pending at discharge Category Date Time Status Blood Culture Sta t Lab 03/12/20 16:53 Results Catheter Tip Cult ure Routine Lab 03/13/20 13:10 Results Urine Culture Sta t Lab 03/12/20 17:05 Results Urine Culture Sta t Lab 03/13/20 17:58 Results Labs from last 24 hours 03/16/20 03/16/20 03/16/20 06:29 05:50 05:50 WBC 5.4 RBC 3.07 L Hgb 8.3 L Hct 30.2 L MCV 98.4 MCH 27.0 L MCHC 27.5 L RDW 18.4 H Plt Count 321 MPV 9.5 Neut % (Auto) 42.0 Lymph % (Auto) 25.6 [place] % (Auto) 8.8 Eos % (Auto) 22.5 Baso % (Auto) 0.9 Neut # (Auto) 2.28 Lymph # (Auto) 1.4 [place] # (Auto) 0.5 Eos # (Auto) 1.2 H Baso # (Auto) 0.1 Nucleated RBC % (a uto) 0 Nucleated RBCs # 0.0 Sodium 138 Potassium 3.9 Chloride 105 Carbon Dioxide 23 Anion Gap 13.9 BUN 11 Creatinine 1.0 H GFR Calculation 56.0 L Glucose 97 POC Glucose 95 Calculated Osmolal ity 285 Calcium 8.8 Total Bilirubin 0.3 AST 30 ALT 15 Alkaline Phosphata se 60 Total Protein 7.1 Albumin 2.7 L Globulin 4.4 03/16/20 03/15/20 03/15/20 01:50 21:24 19:49 WBC RBC Hgb Hct MCV MCH MCHC RDW Plt Count MPV Neut % (Auto) Lymph % (Auto) [place] % (Auto) Eos % (Auto) Baso % (Auto) Neut # (Auto) Lymph # (Auto) [place] # (Auto) Eos # (Auto) Baso # (Auto) Nucleated RBC % (a uto) Nucleated RBCs # Sodium Potassium Chloride Carbon Dioxide Anion Gap BUN Creatinine GFR Calculation Glucose POC Glucose 102 91 96 Calculated Osmolal ity Calcium Total Bilirubin AST ALT Alkaline Phosphata se Total Protein Albumin Globulin 03/15/20 03/15/20 16:36 10:41 WBC RBC Hgb Hct MCV MCH MCHC RDW Plt Count MPV Neut % (Auto) Lymph % (Auto) [place] % (Auto) Eos % (Auto) Baso % (Auto) Neut # (Auto) Lymph # (Auto) [place] # (Auto) Eos # (Auto) Baso # (Auto) Nucleated RBC % (a uto) Nucleated RBCs # Sodium Potassium Chloride Carbon Dioxide Anion Gap BUN Creatinine GFR Calculation Glucose POC Glucose 101 109 Calculated Osmolal ity Calcium Total Bilirubin AST ALT Alkaline Phosphata se Total Protein Albumin Globulin Vitals: Last Vital Signs Temp 98.7 F 03/16/20 07:28 Pulse 87 03/16/20 07:28 Resp 16 03/16/20 07:28 BP 138/78 03/16/20 07:28 Pulse Ox 96 03/16/20 07:28 Discharge Plan Discharge Patient Disposition: er [facility] Condition: Stable Prescriptions: New levofloxacin 500 mg tablet 500 mg PO DAILY 5 Days RF: 0 Continued aripiprazole [Abilify] 2 mg tablet 2 mg PO DAILY RF: 0 furosemide [Lasix] 40 mg tablet 40 mg PO DAILY RF: 0 acetaminophen 325 mg capsule 650 mg PO Q4H PRN (Reason: Pain, Mild) RF: 0 simvastatin 5 mg tablet 5 mg PO BEDTIME RF: 0 citalopram [Celexa] 40 mg tablet 20 mg PO BEDTIME RF: 0 quetiapine [Seroquel] 25 mg tablet 25 mg PO BEDTIME RF: 0 ondansetron HCl [Zofran] 4 mg tablet 4 mg PO Q6H PRN (Reason: Nausea And Vomiting) RF: 0 lisinopril 5 mg tablet 5 mg PO DAILY RF: 0 levothyroxine 175 mcg capsule 175 mcg PO DAILY RF: 0 docusate sodium [Colace] 100 mg capsule 100 mg PO DAILY PRN (Reason: Constipation) RF: 0 clopidogrel 75 mg tablet 75 mg PO DAILY RF: 0 Hold Instructions: Resume on 03/23/20. Until she is seen by general surgery and/or Dr. Nicholson cyclobenzaprine 10 mg tablet 10 mg PO BID RF: 0 pantoprazole [Protonix] 40 mg tablet,delayed release (DR/EC) 40 mg PO DAILY RF: 0 loratadine [Claritin] 10 mg tablet 10 mg PO DAILY RF: 0 lorazepam 0.5 mg tablet 0.25 mg PO BID RF: 0 bisacodyl [Dulcolax (bisacodyl)] 10 mg suppository 10 mg ID DAILY PRN (Reason: Constipation) RF: 0 polyethylene glycol 3350 [Miralax] 17 gram Powder In Packet 17 g PO EVERY OTHER DAY RF: 0 Dry Eye Relief 1-0.2-0.2 % Drops 1 drp OPHTHALMIC (EYE) BID RF: 0 gabapentin 300 mg Capsule 300 mg PO TID RF: 0 Biotene Moisturizing Mouth [place],Non-Aerosol 1 applic MUCOUS MEMBRANE PRN PRN (Reason: Dry Mouth) RF: 0 magnesium hydroxide [Milk of Magnesia] 400 mg/5 mL Suspension 30 ml PO DAILY PRN (Reason: Constipation) RF: 0 ferrous gluconate 324 mg (37.5 mg iron) Tablet 324 mg PO BIDWM 30 Days Qty: 60 RF: 0 Changed insulin aspart U-100 [Novolog U-100 Insulin aspart] 100 unit/mL Solution See Rx Instructions .ROUTE .COMPLEX Qty: 10 RF: 0 Lantus U-100 Insulin 100 unit/mL Solution 5 unit SUBCUT BEDTIME 30 Days Qty: 10 RF: 0 Discharge Orders: Discharge Order (Routine); Ordered 03/16/20 Ordered By: Nikos Paula Referrals: Natanael Sellers MD [Physician] - 2 weeks (Neurogenic bladder) eMhnaz Yen MD [Hospitalist] - 7-10 days (ID clinic, chronic suppression for cellulitis/decubitus ulcer) Russ Rosa Jr, MD [Primary Care Provider] - 7-10 days [facility], [Staff Physician] - 4-7 days Discharge Diet: Usual diet and Diabetic Discharge Activity: Resume usual activity Activity Restrictions/Additional Instructions: Dose of Lantus has been decreased to 5 units at bedtime. Levofloxacin to be taken for 5 more days to finish course. Dry dressing with moisture barrier for decubitus ulcer. Please follow-up with wound care clinic in the next 1 week. Please follow-up with Dr. Sellers next 2 weeks for neurogenic bladder. Please follow-up at ID clinic for chronic suppression medication for chronic cellulitis and decubitus ulcer. Discharge Attestations Time Spent in Discharge Care*: greater than 30 min Specific Discharge Activities: Specific discharge activities: educating patient, discussing with pcp/other providers, discussing with telephonic case manager/social workers/dc planners, documenting/other paperwork and evaluating patient/reviewing data Status at Discharge: Cognitive status at discharge: mildly impaired cognition , Behavioral status at discharge: cooperative , Functional status at discha rge: bed bound Overall status at discharge: patient is back to baseline Quality Metrics Clinical Quality Measures During this hospital stay, did patient experience: None Coding Level of Care Code Acute Vinyl Cutter for Chg Fwd Diagnoses Acute encephalopathy G93.40 UTI (urinary tract infection) N39.0 Cellulitis L03.116 Laterality: left Site of cellulitis: extremity Site of cellulitis of extremity: lower extremity Sacral decubitus ulcer L89.159 Diabetes mellitus E11.9 Hypothyroidism E03.9 Multiple sclerosis G35
--- NOTE | 2020-03-16 09:00 | PC.SOCIAL ---
IMM Page 2 of IMM given to patient. Initialed, dated, and timed and placed in chart.
[2020-03-16] MEDS: ARIPiprazole 2 mg Tablet PO (09:03)
[2020-03-16] MEDS: polyethylene glycol 3350 Pkt 17 gm PO (09:04)
[2020-03-16] MEDS: nystatin cream 30 gm 1 APPLIC TOPICAL (09:15)
[2020-03-16 09:35] VITALS: BP 138/78; PULSE 87; RESP 16; TEMP 37.1; O2SAT 96
[2020-03-16 10:57] LABS: Glucose Point of Care 96 mg/dL (70-110)
[2020-03-16 11:21] VITALS: BP 142/82; PULSE 89; RESP 18; TEMP 37.1; O2SAT 96
== END 2020-03-16 12:26 | disposition skilled nursing facility (03) | DRG 602 ==
LOC: ER 17:37 → MEDSURG 22:43
PROVIDERS: Family Medicine; Internal Medicine; Admitting Provider Internal Medicine; PCP Family Medicine; Visit Provider Student in an Organized Health Care Education/Training Program
DX: L03.317 Cellulitis of buttock (principal); G93.41 Metabolic encephalopathy; T83.518A Infection and inflammatory reaction due to other urinary catheter, initial encounter; L03.116 Cellulitis of left lower limb; G35 Multiple sclerosis; Z96.89 Presence of other specified functional implants; L89.621 Pressure ulcer of left heel, stage 1; L89.152 Pressure ulcer of sacral region, stage 2; Z96.0 Presence of urogenital implants; D64.9 Anemia, unspecified; G89.29 Other chronic pain; M54.9 Dorsalgia, unspecified; K59.09 Other constipation; F32.9 Major depressive disorder, single episode, unspecified; K21.9 Gastro-esophageal reflux disease without esophagitis; E78.5 Hyperlipidemia, unspecified; I10 Essential (primary) hypertension; E03.9 Hypothyroidism, unspecified; G47.33 Obstructive sleep apnea (adult) (pediatric); Y73.1 Therapeutic (nonsurgical) and rehabilitative gastroenterology and urology devices associated with adverse incidents; Z87.440 Personal history of urinary (tract) infections; Z66 Do not resuscitate; Z79.02 Long term (current) use of antithrombotics/antiplatelets; R31.29 Other microscopic hematuria; I87.2 Venous insufficiency (chronic) (peripheral)
CPT/HCPCS: 12345; 36415; 36416; 70450; 71045; 74176; 80048; 80053; 80202; 81001; 82962; 83605; 84145; 85025; 87040; 87070; 87075; 87077; 87086; 87186; 87205; 87426; 96372; 99283; G0378; J0696; J1644; J1815; J2543; J3370; J7030; J7040

== ENCOUNTER 2020-03-24 13:41 | Outpatient (CLI) | payer MEDICARE, MEDICAID, SELFPAY | END 2020-03-24 13:42 | disposition home or self-care (01) | LOC: WOUND 13:42 | PROVIDERS: PCP Family Medicine; Visit Provider Thoracic Surgery (Cardiothoracic Vascular Surgery) | DX: L89.152 Pressure ulcer of sacral region, stage 2 (principal) | CPT/HCPCS: 11042; G0463 ==

== ENCOUNTER 2020-03-31 12:52 | Outpatient (CLI) | payer MEDICARE, MEDICAID, SELFPAY | END 2020-03-31 12:53 | disposition home or self-care (01) | LOC: WOUND 12:53 | PROVIDERS: PCP Family Medicine; Visit Provider Nurse Practitioner Family | DX: L89.152 Pressure ulcer of sacral region, stage 2 (principal); L89.892 Pressure ulcer of other site, stage 2 | CPT/HCPCS: 11042 ==

== ENCOUNTER 2020-04-02 14:35 | Emergency (ER) | payer MEDICARE, MEDICAID, SELFPAY ==
[2020-04-02 14:47] VITALS: BP 100/73; PULSE 83; RESP 18; TEMP 36.7; O2SAT 96; BMI 49.9
[2020-04-02 15:00] VITALS: BP 118/66; PULSE 81; RESP 18; O2SAT 97
--- NOTE | 2020-04-02 15:09 | W.ED.GENADLT ---
HPI - General Adult General: Chief complaint: General Medical Stated complaint: BACLOFEN PUMP NOT WORKING Time Seen by Provider: 04/02/20 14:42 History of Present Illness: HPI narrative: 65-year-old female who came into the emergency room via EMS. She is says her baclofen pump has been beeping and is not working well. She does not have any particular back pain or worsening of her problems at this time. Reviewing her old notes in his note from November of this year seeing Dr. Romain Flanagan that she need to have her baclofen pump battery exchange but I do not see an procedure note that it actually got done. She was later hospitalized for the cystitis there is no other procedure notes and there she has seen Dr. Hoyos in the past. Onset (ago): hour(s) Location: back Radiation: non-radiation Severity: moderate Quality: aching Pain Consistency: intermittent Relieving factors: none Exacerbating factors: none Associated symptoms: Deny chest pain, confusion, cough, diaphoresis, decreased appetite, dyspnea, fevers/chills, headache(s), malaise, nausea, rash, palpitations, seizures, short of breath, syncope, vomiting or weakness Review of Systems Const: Denies: malaise or diaphoresis ENMT: Denies: throat pain, ear or mastoid pain, nasal discharge or nasal congestion Card: Denies: chest pain, palpitations or syncope Resp: Denies: dyspnea GI: Denies: nausea or vomiting : Denies: flank pain, difficulty voiding, dysuria, urinary frequency or urinary urgency Skin/Breast: Denies: rash Neuro: Denies: headache(s) or confusion PFSH ED PFSH: Medical History Anemia Chronic back pain Chronic constipation Depression End of battery life of intrathecal infusion pump GERD (gastroesophageal reflux disease) Hyperlipidemia Hypertension Hypertension Hypothyroidism Incontinence Multiple sclerosis Obstructive sleep apnea Sacral decubitus ulcer Surgical History Presence of intrathecal baclofen pump 05/19/2013 Dr. Abner Flanagan: Replacement of [employer] subcutaneous programmable pump with connection to intrathecal catheter for administration of intrathecal baclofen therapy. Family History Other CAD (coronary artery disease) Cancer Diabetes Denies family history of Hypertension Stroke Social History Smoking and tobacco status: never smoked Alcohol intake: never Lives independently: No Housing: Half-Way History of recent travel: No Physical Exam Const: COMMON NORMALS: average body habitus, patient oriented x3 and alert GENERAL APPEARANCE: cooperative, comfortable, well kempt and well developed NUTRITIONAL APPEARANCE: obese ORIENTATION/CONSCIOUSNESS: Yes awake, Yes oriented to person and Yes oriented to place HENMT: COMMON NORMALS: normocephalic, atraumatic and EAC's normal HEAD & SCALP: normocephalic and atraumatic EXTERNAL AUDITORY CANAL: EAC's normal Neck/C-Spine: COMMON NORMALS: no meningeal signs Resp: COMMON NORMALS: normal respiratory effort, No retractions, No use of accessory muscles and clear to auscultation bilaterally AUSCULTATION: clear to auscultation bilaterally Cardio: COMMON NORMALS: regular rate and regular rhythm RATE: regular rate RHYTHM: regular rhythm HEART SOUNDS: no murmurs GI: COMMON NORMALS: Normal to inspection, nondistended, normoactive bowel sounds present, Soft to palpation and No hepatosplenomegaly present PALPATION: Yes Soft to palpation and Yes No hepatosplenomegaly present OTHER: Pump palpable in the right lower quadrant. There is no beeping at this time. : COMMON NORMALS: Yes no CVA tenderness BLADDER/KIDNEY EXAM: Yes no CVA tenderness Back/Pelvis: COMMON NORMALS: no CVA tenderness LUMBAR SPINE/LOWER BACK: Yes normal to inspection Extremity: COMMON NORMALS: no clubbing, cyanosis or edema, no calf tenderness and no pedal edema Neuro: COMMON NORMALS: patient oriented x3 SENSORIUM/ORIENTATION: Yes alert, Yes oriented to person and Yes oriented to place MENINGEAL SIGNS: Yes no meningeal signs Psych: APPEARANCE: Yes well kempt Skin: COMMON NORMALS: no rashes or lesions noted and turgor normal GENERAL SKIN EXAM: no rashes or lesions noted and turgor normal Course Vital Signs: Vital signs: Vital Signs Temperature 98.0 F 04/02/20 14:47 Pulse Rate 90 04/02/20 16:53 Respiratory Rate 16 04/02/20 16:53 Blood Pressure 138/90 04/02/20 16:53 Pulse Oximetry 98 04/02/20 16:53 MDM - General Adult MDM Narrative: Medical decision making narrative: Discussed with Dr. Hoyos she is very familiar the patient also reviewed the chart there is a note from November about the pump being at the end of its useful life and about possible doing change in the battery. That evidently was never done. Dr. Hoyos states that the amount of being diffuse from the pump is extremely low to clinically insignificant. She recommends no changes at this time since patient is not showing any signs of any kind of withdrawal she does not recommend any oral baclofen. We will discharge the patient home and have her follow-up with neurology. Any problems or worsening issues return. Did warn her the pump may continue to beat from time to time and that can just be ignored for the moment. I did not hear any beeping from the pump when I was with the patient. Discharge Plan Discharge Patient Disposition: Home Clinical Impression: End of battery life of intrathecal infusion pump, Presence of intrathecal baclofen pump, Multiple sclerosis Condition: Stable Prescriptions: No Action aripiprazole [Abilify] 2 mg tablet 2 mg PO DAILY RF: 0 furosemide [Lasix] 40 mg tablet 40 mg PO DAILY RF: 0 acetaminophen 325 mg capsule 650 mg PO Q4H PRN (Reason: Pain, Mild) RF: 0 simvastatin 5 mg tablet 5 mg PO BEDTIME RF: 0 citalopram [Celexa] 40 mg tablet 20 mg PO BEDTIME RF: 0 quetiapine [Seroquel] 25 mg tablet 25 mg PO BEDTIME RF: 0 ondansetron HCl [Zofran] 4 mg tablet 4 mg PO Q6H PRN (Reason: Nausea And Vomiting) RF: 0 lisinopril 5 mg tablet 5 mg PO DAILY RF: 0 levothyroxine 175 mcg capsule 175 mcg PO DAILY RF: 0 docusate sodium [Colace] 100 mg capsule 100 mg PO DAILY PRN (Reason: Constipation) RF: 0 clopidogrel 75 mg tablet 75 mg PO DAILY RF: 0 Hold Instructions: Resume on 03/23/20. Until she is seen by general surgery and/or Dr. Nicholson cyclobenzaprine 10 mg tablet 10 mg PO BID RF: 0 pantoprazole [Protonix] 40 mg tablet,delayed release (DR/EC) 40 mg PO DAILY RF: 0 loratadine [Claritin] 10 mg tablet 10 mg PO DAILY RF: 0 lorazepam 0.5 mg tablet 0.25 mg PO BID RF: 0 bisacodyl [Dulcolax (bisacodyl)] 10 mg suppository 10 mg GA DAILY PRN (Reason: Constipation) RF: 0 Novolog U-100 Insulin aspart 100 unit/mL Solution See Rx Instructions .ROUTE .COMPLEX Qty: 10 RF: 0 polyethylene glycol 3350 [Miralax] 17 gram Powder In Packet 17 g PO EVERY OTHER DAY RF: 0 Dry Eye Relief 1-0.2-0.2 % Drops 1 drp OPHTHALMIC (EYE) BID RF: 0 gabapentin 300 mg Capsule 300 mg PO TID RF: 0 Biotene Moisturizing Mouth [place],Non-Aerosol 1 applic MUCOUS MEMBRANE PRN PRN (Reason: Dry Mouth) RF: 0 magnesium hydroxide [Milk of Magnesia] 400 mg/5 mL Suspension 30 ml PO DAILY PRN (Reason: Constipation) RF: 0 Discharge Orders: Discharge Order (Routine); Ordered 04/02/20 Ordered By: Leonardo Duong Referrals: Russ Rosa Jr, MD [Primary Care Provider] - Discharge Diet: Usual diet Discharge Activity: Resume usual activity Discharge Date/Time: 04/03/20 01:03 Coding Level of Care Code ED Stogy Roller for Govind [place]
[2020-04-02 15:30] VITALS: BP 130/87; PULSE 86; RESP 16; O2SAT 99
[2020-04-02 16:00] VITALS: BP 137/90; PULSE 85; RESP 16; O2SAT 97
[2020-04-02 16:53] VITALS: BP 138/90; PULSE 90; RESP 16; O2SAT 98
--- NOTE | 2020-04-05 10:53 | DCPLANNER ---
distribution manager had message to schedule a followup appointment for patient with neurology. distribution manager called certified wellness program coordinator, Nathalie Pearson, unable to speak with her at this time. distribution manager left a voicemail for certified wellness program coordinator, with patients name and information. Clinic will call patient with appointment information.
--- NOTE | 2020-05-20 10:33 | DCPLANNER ---
Addendum entered by Rosalba Cunha 09/08/20 15:50: appointment was cancelled Original Note: Patient has a follow up appointment scheduled for August at 1:00. Clinic will call patient with appointment information.
== END 2020-04-03 01:03 | disposition home or self-care (01) ==
PROVIDERS: Emergency Provider Family Medicine; PCP Family Medicine
DX: T85.695A Other mechanical complication of other nervous system device, implant or graft, initial encounter (principal); G35 Multiple sclerosis; Z79.02 Long term (current) use of antithrombotics/antiplatelets; Z79.4 Long term (current) use of insulin; E78.5 Hyperlipidemia, unspecified; I10 Essential (primary) hypertension
CPT/HCPCS: 12345; 99282

== ENCOUNTER 2020-04-12 09:43 | Outpatient (CLI) | payer MEDICARE, MEDICAID, SELFPAY ==
--- NOTE | 2020-04-12 20:41 | ONC CON_ITS ---
Dr. Nicholson New Patient Note Patient: Jared Garcia Unit #: [id number]: 1955 Dicatated By: Stephen Nicholson M.D.Date of Visit: Apr 12, 2020 Onc MED New Patient/Consult Referring Physician: Kolton Goldman Chief Complaint: Anemia. History of Present Illness: This is a 65 year-old woman with moderately severe anemia. The patient has longstanding multiple sclerosis with associated spastic quadriplegia. She has been chronically debilitated and she is bed/wheelchair bound. She has been on long-term senior care resident. She has multiple additional medical illnesses including hypertension, hyperlipidemia, type 2 diabetes, hypothyroidism, GERD, obstructive sleep apnea, degenerative arthritis, and depression. She has longstanding neurogenic bladder with chronic indwelling Spencer catheter. She has an implantable intrathecal pump. On 02/18/2020 she was admitted to the hospital with acute metabolic encephalopathy in association with Streptococcus group C sepsis in association with left lower extremity cellulitis. With that illness, she had become moderately anemic, with hemoglobin dropping to as low as 8.3 g. Her stools were reportedly FIT negative. On 03/12/2020 she was readmitted to the hospital with acute encephalitis. Blood cultures were negative.her urine culture grew Enterobacter cloacae. Her PICC line catheter grew a yeast species. She also did have sacral decubitus skin ulcerations. Her CBC had again showing moderately severe anemia with hemoglobin dropping to as low as 8.3 g on 03/16/2020. Her red cell indices were in the upper normal range. The white blood cell count at that time was 5400 and the platelet count was 321,000. Comprehensive metabolic profile is unremarkable except for decreased albumin at 2.7 g/dL. Her calculated serum globulin was in the upper normal range at 4.4 g/dL. TSH was normal. Her serum iron studies did show low transferrin saturation at 11.3%. As noted, she has been bed/wheelchair bound. She has had good appetite. She does not complain of having fever, night sweats, or hot flashes. She does have double vision. She has some shortness of breath with effort. She does not complain of cough and she has not been having chest pain. She has had acid reflux symptoms, but not currently. Bowel function apparently has been adequate, though she is a little vague about that. She has not been aware of any blood in the stool. She has indwelling Spencer catheter. She has chronic pain, mainly in the neck and shoulders and in her back. She sometimes has headache and she sometimes has dizziness. She has numbness in her legs. She has chronic swelling in the lower extremities. She is still getting care for decubitus skin ulcerations. Past Medical History: Her medical history includes anxiety, carotid stenosis, chronic venous insufficiency, degenerative arthritis, degenerative disease of the spine, depression, gastroesophageal reflux disease, hyperlipidemia, hypertension, hypothyroidism, multiple sclerosis, neurogenic bladder, obesity, obstructive sleep apnea, and type II diabetes. Past Surgical History: Her surgical/procedural history has been limited to placement of intrathecal baclofen pump. Medications: Abilify (2 mg) Tablet Oral daily, Allergy (10 mg) Tablet Oral daily, Ascorbic Acid (1000 mg) Tablet Oral b.i.d., Betaseron (0.3 mg) Subcutaneous daily, CeleXA (40 mg) Tablet Oral daily, Clopidogrel Bisulfate (75 mg) Tablet Oral daily, Cyclobenzaprine HCl (10 mg) Tablet Oral b.i.d., Dry Eye Relief Drops 1 Drop(s) Solution Ophthalmic b.i.d., EQL Iron Supplement Therapy (325 mg) Tablet Oral b.i.d., Gabapentin (300 mg) Capsule Oral t.i.d., HYDROcodone-Acetaminophen (5-325 mg) Tablet Oral b.i.d., Lasix (40 mg) Tablet Oral daily, Levemir 10 Units (of 100 Units/mL) Subcutaneous at bedtime, Levothyroxine Sodium (175 mcg) Tablet Oral daily, Lisinopril (5 mg) Tablet Oral daily, LORazepam (0.25 mg) Tablet Oral b.i.d., Methenamine Hippurate (1 g) Tablet Oral b.i.d., MiraLax (17 ) Powder Oral daily, NovoLIN R (100 Units/mL) Injection Take as Directed, Nystatin (773398 Units/g) Cream Topical b.i.d., Protonix (40 mg) Tablet, enteric coated Oral daily, SEROquel (25 mg) Tablet Oral daily, Simvastatin (5 mg) Tablet Oral daily, Triamcinolone Acetonide (0.1 %) Cream Topical b.i.d. Allergies: Aspirin Social History: Ms. Garcia is . She is a non-smoker. She does not drink alcohol. Family History: Father with heart disease at age 56. Mother at age 76, possibly due to Parkinson's disease, though the patient is unsure about that. A sister with complications of diabetes at age 56. Review Of Symptoms: Constitutional - She feels okay since being discharged from the hospital. Her energy is low. She lives in the senior care and has for over 10 years. She gets around by motorized wheelchair. Her appetite is good and her weight is stable. No fevers, night sweats, or hot flashes. ECOG score is 3, Eyes - She was having double vision, but it has improved, ENMT - No hearing loss or tinnitus. No sinus congestion/drainage. No mouth sores. No sore throat or difficulty swallowing, Hematologic/Lymphatic - No abnormal bruising or bleeding, Respiratory - She gets short of breath with effort. No cough. No pleuritic pain or hemoptysis, Cardiovascular - No angina pain. No palpitations, Gastrointestinal - No nausea or vomiting. Her acid reflux is adequately managed. No diarrhea or constipation. No blood in the stool or black stools, Genitourinary (F) - She is a spencer catheter in place, Musculoskeletal - She has pain in her back, neck, and shoulders, Integumentary - She has decubitus skin ulcerations and she recently had treatment for cellulitis, Neurologic - No headache or dizziness. She has numbness in her legs, Psychiatric - She has chronic depression. No insomnia. Vital Signs: Performed on Apr 12, 2020 10:30: 9, 98 %, 83 /min, 18 /min, 110/65 mm(hg), and 98.0 F (LOW). Physical Examination: Constitutional - She appears generally weak, Eyes - Sclerae nonicteric. Conjunctivae clear, ENMT - No lesions noted in the oral cavity, Hematologic/Lymphatic - No cervical, clavicular, or axillary adenopathy, Respiratory - Lungs show slightly coarse breath sounds bilaterally, Cardiovascular - Heart rhythm is regular. There is a I/ systolic murmur. There is no gallop or rub noted, Abdomen - Distended. Liver and spleen are not enlarged. There is no abdominal mass or ascites noted and there is no inguinal adenopathy, Extremities - There is 3+ lower extremity edema, Neurologic - She has impaired speech and she has weakness in the lower extremities. Impression: 1. Patient with moderately severe anemia. This may be due to iron deficiency, and there also may be a component of chronic disease anemia. Other potential causes do need to be considered including B12 deficiency, myeloma, and/or myelodysplastic syndrome. 2. She has had 2 recent hospital admissions for metabolic encephalopathy and associated with sepsis/infection. 3. She has longstanding multiple sclerosis with chronic debility. 4. She has associated neurogenic bladder with chronic indwelling Spencer catheter. Her other medical illnesses include: 5. Hypertension. 6. Hyperlipidemia. 7. Type 2 diabetes. 8. Hypothyroidism. 9. GERD. 10. Chronic venous insufficiency. 11. Obstructive sleep apnea. 12. Degenerative arthritis. 13. She has a history of carotid stenosis. 14. She has indwelling intrathecal baclofen pump. 15. She has chronic depression. Plan: She will have additional laboratory studies today to include CBC, comprehensive metabolic profile, reticulocyte count, LDH, haptoglobin level, serum iron studies and ferritin, B12 and folate levels, sed rate, serum protein electrophoresis and serum free light chain assay. She will have further evaluation as indicated. Signed By: Stephen Nicholson M.D. <<Signature on File>>
== END 2020-04-12 09:44 | disposition home or self-care (01) ==
LOC: ONCMED 09:47
PROVIDERS: PCP Family Medicine; Visit Provider Internal Medicine Medical Oncology
DX: D64.9 Anemia, unspecified (principal); G35 Multiple sclerosis; N31.9 Neuromuscular dysfunction of bladder, unspecified; I10 Essential (primary) hypertension; E78.5 Hyperlipidemia, unspecified; E11.9 Type 2 diabetes mellitus without complications; E03.9 Hypothyroidism, unspecified; K21.9 Gastro-esophageal reflux disease without esophagitis; I87.2 Venous insufficiency (chronic) (peripheral); G47.33 Obstructive sleep apnea (adult) (pediatric); M19.90 Unspecified osteoarthritis, unspecified site; Z96.0 Presence of urogenital implants; Z97.8 Presence of other specified devices; F32.9 Major depressive disorder, single episode, unspecified; Z79.4 Long term (current) use of insulin; Z79.02 Long term (current) use of antithrombotics/antiplatelets
CPT/HCPCS: 99205

== ENCOUNTER 2020-04-15 07:10 | Outpatient (CLI) | payer MEDICARE, MEDICAID, SELFPAY ==
[2020-04-15 08:12] LABS: Basophils % 0.5 %; Eosinophils # 0.9 10^3/uL (0.0-0.8); Eosinophils % 11.6 %; Hematocrit 29.8 % (37.0-47.0); Hemoglobin 8.8 g/dL (11.5-15.3); Lymphocytes # 1.5 10^3/uL (0.8-4.8); Lymphocytes % 18.7 %; Mean Corpuscular HGB Conc 29.5 g/dL (30.0-36.0); Mean Corpuscular Volume 91.4 fL (81-99); Mean Platelet Volume 9.7 fL (7.4-10.4); Monocytes # 0.8 10^3/uL (0.2-0.9); Monocytes % 10.2 %; Neutrophils # 4.68 10^3/uL (1.8-7.7); Neutrophils % 58.7 %; Nucleated Red Blood Cells % 0 %; Platelet Count 323 10^3/cmm (130-400); Red Blood Count 3.26 10^6/uL (4.1-5.3); Red Cell Distribution Width 16.6 % (12.1-15.1)
[2020-04-15 08:27] LABS: Alanine Aminotransferase 15 U/L (0-33); Albumin Level 2.7 g/dL (3.5-5.2); Alkaline Phosphatase 80 IU/L (35-105); Anion Gap 14.4 (5-19); Aspartate Amino Transferase 24 U/L (0-32); Blood Urea Nitrogen 28 mg/dL (8-23); Calcium 8.7 mg/dL (8.5-10.5); Carbon Dioxide 22 mmol/L (22-29); Chloride 103 mmol/L (98-107); Ferritin 111 ng/mL (15-150); Globulin 4.4 g/dL (1.3-4.6); Glomerular Filtration Rate 63.2 mL/min (90-130); Glucose 115 mg/dL (65-115); Iron 27 ug/dL (37-145); Lactate Dehydrogenase 199 U/L (135-214); Osmolality Calculated 284 mOsm/kg (285-295); Percent Saturation 15.4 % (20-50); Potassium 5.4 mmol/L (3.5-5.1); Sodium 134 mmol/L (136-145); Total Bilirubin 0.2 mg/dL (0.15-1.2); Total Iron Binding Capacity 175 mcg/dl; Total Protein 7.1 g/dL (6.6-8.7); Unsaturated Iron Binding 148 ug/dL (112-347)
[2020-04-15 08:47] LABS: Erythrocyte Sedimentation Rate 108 mm/hr (0-15)
[2020-04-15 10:34] LABS: Folate Level 7.9 ng/mL (4.8-37.3)
[2020-04-15 10:35] LABS: Vitamin B12 466 pg/mL (232-1245)
[2020-04-16 10:38] LABS: PROTEIN, TOTAL 6.5 g/dL (6.1-8.1)
[2020-04-16 13:08] LABS: ALBUMIN 2.5 g/dL (3.8-4.8); ALPHA 1 GLOBULIN 0.4 g/dL (0.2-0.3); BETA 1 GLOBULIN 0.3 g/dL (0.4-0.6); BETA 2 GLOBULIN 0.3 g/dL (0.2-0.5)
[2020-04-16 13:39] LABS: KAPPA LIGHT CHAIN, FREE, SERUM 120.8 mg/L (3.3-19.4); LAMBDA LIGHT CHAIN, FREE, SERU 93.1 mg/L (5.7-26.3)
== END 2020-04-15 07:11 | disposition home or self-care (01) ==
LOC: ONCMED 09:59
PROVIDERS: PCP Family Medicine; Visit Provider Internal Medicine Medical Oncology
DX: D64.9 Anemia, unspecified (principal)
CPT/HCPCS: 80053; 82607; 82728; 82746; 83010; 83540; 83550; 83615; 83883; 84155; 84165; 85025; 85045; 85651

== ENCOUNTER 2020-05-20 10:01 | Outpatient (CLI) | payer MEDICARE, MEDICAID, SELFPAY | END 2020-05-20 10:02 | disposition home or self-care (01) | LOC: WOUND 10:03 | PROVIDERS: PCP Family Medicine; Visit Provider Nurse Practitioner Family | DX: L89.313 Pressure ulcer of right buttock, stage 3 (principal); E11.622 Type 2 diabetes mellitus with other skin ulcer; L97.812 Non-pressure chronic ulcer of other part of right lower leg with fat layer exposed | CPT/HCPCS: 11042; G0463 ==

== ENCOUNTER 2020-05-27 10:50 | Outpatient (CLI) | payer MEDICARE, MEDICAID, SELFPAY | END 2020-05-27 10:51 | disposition home or self-care (01) | LOC: WOUND 10:50 | PROVIDERS: PCP Family Medicine; Visit Provider Nurse Practitioner Family | DX: L89.314 Pressure ulcer of right buttock, stage 4 (principal); E11.622 Type 2 diabetes mellitus with other skin ulcer; L97.812 Non-pressure chronic ulcer of other part of right lower leg with fat layer exposed | CPT/HCPCS: 11042 ==

== ENCOUNTER 2020-06-25 14:42 | Outpatient (CLI) | payer MEDICARE, MEDICAID, SELFPAY | END 2020-06-25 14:43 | disposition home or self-care (01) | LOC: WOUND 14:43 | PROVIDERS: PCP Family Medicine; Visit Provider Surgery | DX: I96 Gangrene, not elsewhere classified (principal); L89.313 Pressure ulcer of right buttock, stage 3; L89.893 Pressure ulcer of other site, stage 3; L89.892 Pressure ulcer of other site, stage 2 | CPT/HCPCS: 11042; 11043; 87070; 87077; 87176; 87186; 87205 ==

== ENCOUNTER 2020-06-29 06:25 | Day surgery (SDC) | payer MEDICARE, MEDICAID, SELFPAY ==
--- NOTE | 2020-06-28 10:50 | PC.NURSE ---
06/28/20 Spoke with Selma at [facility] and she let me know that the patient was positive for covid on 04/29/20. So, patient will not need covid test
[2020-06-28 14:29] VITALS: BMI 43.4
[2020-06-29 07:05] VITALS: BP 122/70; PULSE 100; RESP 18; TEMP 36.8; O2SAT 99
[2020-06-29] MEDS: sodium chloride 0.9% 1,000 ML 30 ML IV (07:07)
[2020-06-29 07:24] LABS: Glucose Point of Care 120 mg/dL (70-110)
--- NOTE | 2020-06-29 07:27 | P.ANESASSM_ITS ---
Pre-Anesthetic Assessment Pre-Anesthetic Assessment: Height/Weight: Height 1.65 m Weight 118.388 kg Temp Pulse Resp BP Pulse Ox 98.3 F 100 18 122/70 99 06/29/20 07:05 06/29/20 07:05 06/29/20 07:05 06/29/20 07:05 06/29/20 07:05 Preop Diagnosis: Right gluteal and leg Pressure injury ulcers Proposed Procedure: Operation Date: 06/29/20 08:05 Proposed Procedures p Debridement of right gluteal wound & leg wound L89.314 L97.212 [id number](Right) - Carroll Montes MD Was Beta Jorge taken within 24 hours: N/A Social: Social History: No alcohol and No tobacco Exam: Pre-Anes Outpt Exam: alert, oriented x 3, clear to auscultation bilaterally and regular rate & rhythm Airway: Submandibular: WNL Cervical ROM: WNL MP: 2 Dentition: False Pulmonary: Pulmonary: Sleep apnea CV/HEM: CV/HEM: Anemia : Comments: Chronic UTI Hepatic: Hepatic: None reported GI: GI: None reported Metabolic: Metabolic: DM and Thyroid Musc/skel: Musc/skel: Weakness Neuropsych: Neuropsych: Depression Comments: MS--wheelchair bound Anesthetic Plan: ASA status: 4 Anesthesia: General Risk of > 500 ml blood loss (7ml/kg in children): No Meds/Allergies Current Medications: Current Medications Generic Name Dose Route Start Last Admin Trade Name Freq PRN Reason Stop Dose Admin Sodium Chloride 1,000 mls @ 30 ml s/hr 06/29/20 06:45 06/29/20 07:07 Sodium Chloride 0.9% IV 06/30/20 06:44 30 mls/hr .Q24H CECE Administration PFSH Anesthesia PFSH: Medical History (Updated 04/20/20 @ 14:18 by Mehnaz Yen MD) Anemia Chronic back pain Chronic constipation Depression End of battery life of intrathecal infusion pump GERD (gastroesophageal reflux disease) Hyperlipidemia Hypertension Hypertension Hypothyroidism Incontinence Multiple sclerosis Obstructive sleep apnea Recurrent UTI Sacral decubitus ulcer Urinary incontinence Surgical History Presence of intrathecal baclofen pump 05/19/2013 Dr. Abner Flanagan: Replacement of [employer] subcutaneous programmable pump with connection to intrathecal catheter for administration of intrathecal baclofen therapy. Family History Other CAD (coronary artery disease) Cancer Diabetes Denies family history of Hypertension Stroke Social History Smoking and tobacco status: never smoked Alcohol intake: never Lives independently: No Housing: Intermediate History of recent travel: No Data Anesthesia Other Labs: Laboratory Results - last 48 hr 06/29/20 07:20 POC Glucose 120 H Cardiac Studies: Echocardiogram 02/20/20
--- NOTE | 2020-06-29 08:16 | W.PM.OPSUD ---
Surgery/Procedure H&P Update DATE OF PROCEDURE: June 29, 2020 DATE H&P PERFORMED: 06/25/20 H&P UPDATE INFORMATION: I have reviewed H&P completed within last 30 days, I have examined patient prior to procedure and No changes to prior documentation PREOP DIAGNOSIS: Right gluteal and leg Pressure injury ulcers PRIMARY INDICATION FOR PROCEDURE: The same PLANNED PROCEDURE: Operation Date: 06/29/20 08:05 Proposed Procedures p Debridement of right gluteal wound & leg wound L89.314 L97.212 [id number](Right) - Carroll Montes MD
[2020-06-29] MEDS: lidocaine 2% INJ 20 mL INJECTION (09:02)
--- NOTE | 2020-06-29 09:16 | PM.OP ---
Operative Report Date of procedure: June 29, 2020 Pre-op Diagnosis: Right gluteal and leg Pressure injury ulcers Post-op diagnosis: same Post-op Findings: Right gluteal pressure injury ulcer predebridement measurements 2.5 x 2.8 x 7.4 cm Post debridement measurements 2.5 x 3 x [address] to the periosteal layer Tunneling appreciated towards the cephalad part of the ulcer Right leg pressure injury ulcer predebridement measurements 2.5 x 3 x 2 cm Post debridement measurement 2.5 x 3 x 2.5 cm to the musculofascial layer and undermining cephalad about 9 cm There were already 2 existing packing pieces of gauze in the right gluteal pressure injury ulcer Procedure Done: Sharp debridement of right gluteal and right leg pressure injury ulcers Implants: Packing using Kerlix impregnated lidocaine 2% Specimens removed/disposition: 1.Tissues for cultures and sensitivities from right gluteal ulcer 2.Tissues for cultures and sensitivities from right leg ulcer Surgeon: Carroll Montes [employer]ushing Machine Operator: Merle Clark Circulating nurse Sonia Anesthesia: MAC (Linda Mccarthy) Estimated blood loss (mL): 15 Complications: No immediate complication Condition: stable Disposition: same day Brief History: This is a pleasant 65 years old female patient with history of multiple sclerosis lives at assisted living and presented to the wound care center for pressure injury ulcers located on the right gluteal area and the right leg,patient was evaluated by Ms. Bonilla nurse practitioner and she referred for me for surgical consultation and she has been concerned about the complexity of her ulcers. I was able to evaluate the patient last Sunday at the wound care center and I did some debridement yet because of the complexity and the depth of the wounds I did marriage counselor the patient and her son to proceed with further debridement in the OR under more controlled environment. Informed consent per chart Procedure: After identifying the patient holding area, the right lower extremity was marked before the procedure by myself, patient was then taken to the operative suite, was placed in supine position then patient was placed in a left lateral position were all pressure points were padded and appropriate straps were applied to secure the patient in her position, IV antibiotics were given per protocol,IV propofol was infused by the anesthesia provider, packing was removed by me in the OR and there were 2 pieces of gauze in the right gluteal ulcer for packing and 1 piece at the right leg ulcer. Prep and drape of the right lower extremity was done under the usual sterile technique. Time-out was done verifying the patient's name/date of /planned procedure and destination after the procedure, all were in agreement. Started by excising the unhealthy necrotic indurated tissues of the right gluteal pressure injury ulcer. Tissues were obtained for cultures and sensitivities, sharp debridement was done all the way to the periosteal layer and noticed that the ulcer has a tunneling cephalad. Copious and thorough irrigation was obtained using Pulsavac 3 L followed by appropriate hemostasis and packing using Kerlix impregnated and lidocaine 2%. Right gluteal pressure injury ulcer predebridement measurements 2.5 x 2.8 x 7.4 cm Post debridement measurements 2.5 x 3 x 9 cm(tunneling) all the way to the periosteal layer The Tunneling appreciated towards the cephalad part of the ulcer Attention now was deviated towards the right leg pressure injury ulcer and tunneling was appreciated cephalad also and sharp debridement was done all the way to the musculofascial layer, also tissues were sent for cultures and sensitivities. Copious and thorough irrigation was done using Pulsavac followed by appropriate hemostasis and packing using Kerlix impregnated lidocaine 2%. Right leg pressure injury ulcer predebridement measurements 2.5 x 3 x 2 cm Post debridement measurement 2.5 x 3 x 2.5 cm to the musculofascial layer and undermining cephalad about 9 cm. ABD's were applied on both sides Patient tolerated the procedure well, count of instruments, needles and sponges were completed at the end of the procedure.Patient was then taken to the recovery area in stable condition. I was present for the whole entire procedure
[2020-06-29 09:35] VITALS: BP 100/88; PULSE 85; RESP 18; TEMP 36.7; O2SAT 97
[2020-06-29 10:08] VITALS: BP 100/78; PULSE 88; RESP 18; O2SAT 100
--- NOTE | 2020-06-29 10:26 | ANE.PACU2 ---
Inpatient post-anesthesia follow up: Airway intact: Yes Vital signs: Temperature 98.0 F Pulse Rate 88 Respiratory Rate 18 Blood Pressure 100/78 Pulse Oximetry 100 Oxygen Delivery Me thod Room Air Oxygen Flow Rate Fraction of Inspir ed Oxygen Hydration adequate: Yes Nausea and vomiting: No Pain level: 1 Mental status: Baseline
== END 2020-06-29 12:10 | disposition home or self-care (01) ==
PROVIDERS: PCP Family Medicine; Visit Provider Surgery
PROC: (CPT 11043; principal; 2020-06-29 08:05)
DX: L89.319 Pressure ulcer of right buttock, unspecified stage (principal); L89.899 Pressure ulcer of other site, unspecified stage; G47.30 Sleep apnea, unspecified; E11.622 Type 2 diabetes mellitus with other skin ulcer; F32.9 Major depressive disorder, single episode, unspecified; Z99.3 Dependence on wheelchair; I10 Essential (primary) hypertension; E03.9 Hypothyroidism, unspecified; E78.5 Hyperlipidemia, unspecified; K21.9 Gastro-esophageal reflux disease without esophagitis; G47.33 Obstructive sleep apnea (adult) (pediatric)
CPT/HCPCS: 11043; 11044; 11047; 12345; 36416; 82962; 87070; 87077; 87176; 87186; 87205; 96365; J0131; J0690; J2704; J3010; J7030

== ENCOUNTER 2020-07-02 14:42 | Outpatient (RCR) | payer MEDICARE, MEDICAID, SELFPAY | END 2020-07-18 23:59 | disposition home or self-care (01) | LOC: WOUND 14:42 | PROVIDERS: PCP Family Medicine; Visit Provider Surgery | DX: L89.314 Pressure ulcer of right buttock, stage 4 (principal); L89.894 Pressure ulcer of other site, stage 4; L89.890 Pressure ulcer of other site, unstageable | CPT/HCPCS: 11043 ==

== ENCOUNTER 2020-07-09 14:00 | Outpatient (CLI) | payer MEDICARE, MEDICAID, SELFPAY | END 2020-07-09 14:01 | disposition home or self-care (01) | LOC: WOUND 14:04 | PROVIDERS: PCP Family Medicine; Visit Provider Surgery | DX: L89.314 Pressure ulcer of right buttock, stage 4 (principal); L89.894 Pressure ulcer of other site, stage 4; L89.893 Pressure ulcer of other site, stage 3; I96 Gangrene, not elsewhere classified | CPT/HCPCS: 11043 ==

== ENCOUNTER 2020-07-23 08:26 | Outpatient (CLI) | payer MEDICARE, MEDICAID, SELFPAY | END 2020-07-23 08:27 | disposition home or self-care (01) | LOC: WOUND 08:27 | PROVIDERS: PCP Family Medicine; Visit Provider Surgery | DX: I96 Gangrene, not elsewhere classified (principal); L89.314 Pressure ulcer of right buttock, stage 4; L89.894 Pressure ulcer of other site, stage 4; L89.893 Pressure ulcer of other site, stage 3 | CPT/HCPCS: 11043 ==

== ENCOUNTER 2020-07-30 09:15 | Outpatient (CLI) | payer MEDICARE, MEDICAID, SELFPAY | END 2020-07-30 09:16 | disposition home or self-care (01) | LOC: WOUND 09:16 | PROVIDERS: PCP Family Medicine; Visit Provider Surgery | DX: I96 Gangrene, not elsewhere classified (principal); L89.314 Pressure ulcer of right buttock, stage 4; L89.894 Pressure ulcer of other site, stage 4 | CPT/HCPCS: 11043; 11046 ==

== ENCOUNTER 2020-08-01 17:52 | Inpatient (IN) | payer MEDICARE, MEDICAID, SELFPAY ==
[2020-08-01 17:57] VITALS: BP 107/48; RESP 18; TEMP 37.1; BMI 49.9
--- NOTE | 2020-08-01 18:28 | XRR_ITS ---
PROCEDURE INFORMATION: Exam: XR Chest, 1 View Exam date and time: 08/01/2020 6:30 PM Age: 65 years old Clinical indication: Other: AMS TECHNIQUE: Imaging protocol: XR of the chest Views: 1 view. COMPARISON: CR XR chest 1V portable [id number] 03/12/2020 4:44 PM FINDINGS: Lungs: Mildly underinflated. No focal consolidation. Pleural spaces: Unremarkable. No pleural effusion. No pneumothorax. Heart/Mediastinum: Apparent widening of the mediastinum is likely artifactual. The cardiac shadow is near the upper limit of normal for size. Bones/joints: No acute abnormality. XR/XR chest 1V portable [id number] IMPRESSION: No acute findings.
[2020-08-01 19:02] LABS: Basophils # 0.1 10^3/uL (0.0-0.1); Basophils % 0.3 %; Eosinophils # 0.1 10^3/uL (0.0-0.8); Eosinophils % 0.4 %; Hemoglobin 9.3 g/dL (11.5-15.3); Lymphocytes # 0.6 10^3/uL (0.8-4.8); Lymphocytes % 2.9 %; Mean Corpuscular Hemoglobin 26.5 pg (28.0-34.0); Mean Corpuscular Volume 88.3 fL (81-99); Mean Platelet Volume 8.9 fL (7.4-10.4); Monocytes # 0.9 10^3/uL (0.2-0.9); Monocytes % 4.2 %; Neutrophils # 19.98 10^3/uL (1.8-7.7); Neutrophils % 91.6 %; Nucleated Red Blood Cells % 0 %; Platelet Count 631 10^3/cmm (130-400); Red Blood Count 3.51 10^6/uL (4.1-5.3); Red Cell Distribution Width 18.5 % (12.1-15.1); White Blood Count 21.8 10^3/uL (4.0-10.0)
[2020-08-01 19:07] LABS: Add Urine Microscopic? YES; Bilirubin Urine Neg (Negative); Blood Urine 3+ (Negative); Glucose Urine UA Norm (Normal); Ketones Urine Negative (Negative); Leukocyte Esterase Urine 2+ (Negative); Nitrate Urine Positive (Negative); Protein Urine Neg (Negative); Specific Gravity, Urine 1.015 (1.005-1.030); Urine Color Yellow (Yellow); Urobilinogen Urine Norm (Negative); pH Urine 5 (5-7)
[2020-08-01 19:13] LABS: Alanine Aminotransferase 12 U/L (0-33); Albumin Level 2.9 g/dL (3.5-5.2); Alkaline Phosphatase 106 IU/L (35-105); Anion Gap 14.3 (5-19); Aspartate Amino Transferase 17 U/L (0-32); Blood Urea Nitrogen 53 mg/dL (8-23); C Reactive Protein 93.8 mg/L (0.0-4.9); Calcium 9.1 mg/dL (8.5-10.5); Carbon Dioxide 25 mmol/L (22-29); Chloride 100 mmol/L (98-107); Globulin 4.7 g/dL (1.3-4.6); Glucose 95 mg/dL (65-115); Lactate (Lactic Acid level) 2.1 mmol/L (0.5-2.2); Osmolality Calculated 292 mOsm/kg (285-295); Potassium 5.3 mmol/L (3.5-5.1); Sodium 134 mmol/L (136-145); Total Bilirubin 0.4 mg/dL (0.15-1.2); Total Protein 7.6 g/dL (6.6-8.7)
[2020-08-01 19:14] LABS: Bacteria Urine 2+ /hpf; RBC Urine 25-40 /hpf (0-2); Squamous Epithelial Cell Urine 0-4 /hpf (0-5); WBC Urine TOO NUMEROUS TO CNT /hpf (0-5)
[2020-08-01 19:15] LABS: Add Urine Culture? Yes
[2020-08-01 19:30] LABS: Influenza A by IFA Negative (Negative); Influenza B by IFA Negative (Negative); SARS Covid-2 Antigen Negative (Negative)
[2020-08-01 19:42] VITALS: BP 132/92; PULSE 74; RESP 17; O2SAT 99
[2020-08-01] MEDS: cefTRIAXone 1,000 MG in sodium chloride 0.9% (plus) 50 ML 100 MG IV (19:47)
[2020-08-01 20:37] VITALS: BP 106/57; PULSE 114; RESP 18; O2SAT 99
[2020-08-01 20:38] VITALS: O2SAT 99
[2020-08-01 22:00] VITALS: BP 163/72; PULSE 109; RESP 18; TEMP 37.9; O2SAT 96
--- NOTE | 2020-08-01 23:20 | PM.HP ---
Providers/Chief Complaint Admitting Physician: Crystal Jimenez MD Primary Care Provider: Russ Rosa Jr, MD Chief Complaint: AMS History of Present Illness Jared Garcia is a 65 year old female who resides in a detention. At baseline she has some difficulty getting her words out but does communicate. She was found to be altered. Usually when she is as she is now, she has an infection somewhere per staff. I am not able to obtain any history from her. History is obtained from review of facility and hospital records. Has a history of multiple sclerosis with spastic quadriplegia and is bed/wheelchair bound. According to a note sent with patient, she did not eat breakfast or lunch today. She would not follow commands and her speech was difficult to understand at times. She was spitting out meds, would not open mouth and was shaking. She has been on antibiotics in the form of cefadroxil 500 twice daily. Work up in emergency room consistent with sepsis. Antibiotics were given and she is being admitted for further care. Review of Systems General: Reports: ROS unobtainable due to medical condition and ROS unobtainable due to mental status Medications/Allergies Home Medications Medication Instructions Recorded Confirmed Last Taken Type acetaminophen 325 mg capsule 650 mg PO Q4H PRN 09/16/19 06/29/20 06/27/20 History aripiprazole 2 mg tablet 2 mg PO DAILY 09/16/19 06/29/20 06/28/20 History cyclobenzaprine 10 mg tablet 10 mg PO BID 09/16/19 06/29/20 06/28/20 History furosemide 40 mg tablet 40 mg PO DAILY 09/16/19 06/29/20 06/28/20 History levothyroxine 175 mcg capsule 175 mcg PO DAILY 09/16/19 06/29/20 06/29/20 05:00 History lisinopril 5 mg tablet 5 mg PO DAILY 09/16/19 06/29/20 06/29/20 05:00 History loratadine 10 mg tablet 10 mg PO DAILY 09/16/19 06/29/20 06/28/20 History lorazepam 0.5 mg tablet 0.25 mg PO BID tab 09/16/19 06/29/20 06/28/20 History Biotene Moisturizing Mouth 1 applic MUCOUS MEMBRANE PRN PRN 02/18/20 06/29/20 02/29/20 History Dry Eye Relief 1 drp OPHTHALMIC (EYE) BID 02/18/20 06/29/20 06/28/20 History gabapentin 300 mg PO TID 02/18/20 06/29/20 06/28/20 History polyethylene glycol 3350 [Miralax] 17 g PO EVERY OTHER DAY 02/18/20 06/29/20 06/28/20 History insulin aspart U-100 [Novolog See Rx Instructions .ROUTE 03/16/20 06/29/20 06/28/20 Rx U-100 Insulin aspart] .COMPLEX #10 ml ferrous gluconate 324 mg (37.5 mg 324 mg PO BID tab 04/06/20 06/29/20 06/28/20 History iron) tablet insulin detemir U-100 100 unit/mL 100 unit SUBCUT DAILY 04/06/20 06/29/20 06/28/20 History subcutaneous solution [place] 1 cap PO DAILY 06/28/20 06/29/20 06/28/20 History amoxicillin-pot clavulanate 1 tab PO BID 06/28/20 06/29/20 06/28/20 History [Augmentin] methenamine hippurate 1 mg PO DAILY 06/28/20 06/29/20 06/28/20 History hydrocodone-acetaminophen [[place]] 1 tab PO Q6H PRN #28 tab 06/29/20 Unknown Rx Allergies Allergy/AdvReac Type Severity Reaction Status Date / Time aspirin AdvReac unknown Verified 04/20/20 13:05 PFSH Acute PFSH: Medical History (Updated 08/02/20 @ 03:27 by Crystal Jimenez MD) Anemia Arthritis Chronic back pain Chronic constipation Depression Diabetes mellitus type II, on Levemir End of battery life of intrathecal infusion pump notated in records by Dr Flanagan 11/2019, was never replaced, and baclofen oral never started, located in right abdomen, feeds into L2-L3 GERD (gastroesophageal reflux disease) Hyperlipidemia Hypertension Hypothyroidism Morbid obesity with BMI of 45.0-49.9, adult Multiple sclerosis spastic paraplegia, bed/wheelchair bound, neurogenic bladder Obstructive sleep apnea Pressure ulcer of left leg, stage 3 Pressure ulcer of right buttock, stage 4 Pressure ulcer of right leg, stage 4 Recurrent UTI Sacral decubitus ulcer Urinary incontinence Venous insufficiency Surgical History (Updated 08/02/20 @ 02:54 by Crystal Jimenez MD) Presence of intrathecal baclofen pump Placed 05/19/[address] Abner Flanagan: Replacement of [employer] subcutaneous programmable pump for intrathecal baclofen. Right abdomen, to L2-L3. No longer functional as of 03/2020 per records. S/P debridement multiple for various pressure injuries Family History Other CAD (coronary artery disease) Cancer Diabetes Denies family history of Hypertension Stroke Social History Smoking and tobacco status: never smoked Alcohol intake: never Lives independently: No Housing: [facility] History of recent travel: No Vitals/I&O/Wt Last Vital Signs Temp 100.3 F H 08/01/20 22:00 Pulse 109 H 08/01/20 22:00 Resp 18 08/01/20 22:00 BP 163/72 08/01/20 22:00 Pulse Ox 96 08/01/20 22:00 08/01/20 08/01/20 08/02/20 14:59 22:59 06:59 Intake Total 50 / 50 Balance 50 / 50 Weight last 48 hrs Weight 136.078 kg Physical Exam Const: OTHER: Lethargic but will awaken, confused, will respond to touch saying ow and try to pull away HENMT: OTHER: Face is flushed but otherwise normocephalic, mucous membranes are very dry, unable to visualize posterior oropharynx. Eye: OTHER: It is difficult to get her eyelids open but pupils are reactive and appear grossly equal though I am unable to get them both open at the same time Neck/C-Spine: OTHER: Large, she is a bit spastic at the moment but I can move her neck around some Resp: OTHER: Clear to auscultation without any rales or wheezes noted Cardio: OTHER: Tachycardic while febrile but regular, distant heart sounds GI: OTHER: Abdomen soft, obese, hypoactive bowel sounds, no consistently reproducible tenderness : OTHER: Spencer catheter is in place, please see skin exam for further details Extremity: OTHER: Patient has wounds as noted below in the skin section to both lower extremities. Both are equally warm with areas of erythema. Unable to fully extend joints, expect that this is chronic fractures, however she is quite spastic currently limiting ability to fully evaluate. Similar for upper extremities though I was able to straighten the right wrist briefly. Neuro: OTHER: Face appears grossly symmetric, she does have some spasticity noted of the extremities, not sure that she can fully extend her lower extremities but degree of current spasticity limits determining otherwise. Skin: OTHER: Approximately quarter size diameter packed wound on the right lateral lower extremity about a third of the way from the ankle to the knee. Packing was placed today according to dressing and was not removed. External dressing, which was removed, with some serous appearing drainage that is not particularly odorous Approximately 4-1/2 cm diameter packed wound to the left lower extremity posteriorly midway between the ankle and the knee. Packing placed today with an aqua blue coloration noted streaked throughout the white gauze. External dressing, which was removed, with some serous drainage, thin rim of bright red blood and the aqua blue, not particularly odorous. Has erythema noted to both lower extremities at the feet and calf areas, excluding the ankle fold. Skin is dry and warm to touch. No streaks up into the groin noted. Extensive bright red erythema with loss of superficial skin underneath the pannus down into both groins. The more distal suprapubic area is free of erythema. Erythema again noted to the labia below the urethra extending through to perineum. There is packing to what is known to be a stage 4 pressure ulcer at right gluteal fold. Starting at perineal area, skin becomes more purple/red up onto both buttocks in a diaper pattern. There is loss of superficial skin with some serous drainage. A few areas with bright red blood. No blistering currently noted. Areas with darker purple streaks particularly more proximally and centrally in sacral area, no crepitus, not malodorous,soft, no purulence seen, both purple and red areas are blancheable. Area with line of demarcation. No red streaks noted to extend beyond demarcation. No clearly palpable edges at demarcation line. See picture for details Erythema with cracking of the skin underneath both breasts left more so than right. Data : 08/02/20 05:27 08/02/20 05:27 Other Labs: Laboratory Last Values WBC 21.8 10^3/uL (4.0-10.0) H 08/01/20 18:46 RBC 3.51 10^6/uL (4.1-5.3) L 08/01/20 18:46 Hgb 9.3 g/dL (11.5-15.3) L 08/01/20 18:46 Hct 31.0 % (37.0-47.0) L 08/01/20 18:46 MCV 88.3 fL (81-99) 08/01/20 18:46 MCH 26.5 pg (28.0-34.0) L 08/01/20 18:46 MCHC 30.0 g/dL (30.0-36.0) 08/01/20 18:46 RDW 18.5 % (12.1-15.1) H 08/01/20 18:46 Plt Count 631 10^3/cmm (130-400) H 08/01/20 18:46 MPV 8.9 fL (7.4-10.4) 08/01/20 18:46 Neut % (Auto) 91.6 % 08/01/20 18:46 Lymph % (Auto) 2.9 % 08/01/20 18:46 [place] % (Auto) 4.2 % 08/01/20 18:46 Eos % (Auto) 0.4 % 08/01/20 18:46 Baso % (Auto) 0.3 % 08/01/20 18:46 Neut # (Auto) 19.98 10^3/uL (1.8-7.7) H 08/01/20 18:46 Lymph # (Auto) 0.6 10^3/uL (0.8-4.8) L 08/01/20 18:46 [place] # (Auto) 0.9 10^3/uL (0.2-0.9) 08/01/20 18:46 Eos # (Auto) 0.1 10^3/uL (0.0-0.8) 08/01/20 18:46 Baso # (Auto) 0.1 10^3/uL (0.0-0.1) 08/01/20 18:46 Nucleated RBC % (auto) 0 % 08/01/20 18:46 Nucleated RBCs # 0.0 /100WBC 08/01/20 18:46 Sodium 134 mmol/L (136-145) L 08/01/20 18:46 Potassium 5.3 mmol/L (3.5-5.1) H 08/01/20 18:46 Chloride 100 mmol/L (98-107) 08/01/20 18:46 Carbon Dioxide 25 mmol/L (22-29) 08/01/20 18:46 Anion Gap 14.3 (5-19) 08/01/20 18:46 BUN 53 mg/dL (8-23) H 08/01/20 18:46 Creatinine 1.0 mg/dL (0.5-0.9) H 08/01/20 18:46 GFR Calculation 56.0 mL/min (90-130) L 08/01/20 18:46 Glucose 95 mg/dL (65-115) 08/01/20 18:46 Calculated Osmolality 292 mOsm/kg (285-295) 08/01/20 18:46 Lactate 2.1 mmol/L (0.5-2.2) 08/01/20 18:46 Calcium 9.1 mg/dL (8.5-10.5) 08/01/20 18:46 Total Bilirubin 0.4 mg/dL (0.15-1.2) 08/01/20 18:46 AST 17 U/L (0-32) 08/01/20 18:46 ALT 12 U/L (0-33) 08/01/20 18:46 Alkaline Phosphatase 106 IU/L (35-105) H 08/01/20 18:46 C-Reactive Protein 93.8 mg/L (0.0-4.9) H 08/01/20 18:46 Total Protein 7.6 g/dL (6.6-8.7) 08/01/20 18:46 Albumin 2.9 g/dL (3.5-5.2) L 08/01/20 18:46 Globulin 4.7 g/dL (1.3-4.6) H 08/01/20 18:46 Urine Color Yellow (Yellow) 08/01/20 18:40 Urine Appearance Sl cloudy (CLEAR) A 08/01/20 18:40 Urine pH 5 (5-7) 08/01/20 18:40 Ur Specific [place] 1.015 (1.005-1.030) 08/01/20 18:40 Urine Protein Neg (Negative) 08/01/20 18:40 Urine Glucose (UA) Norm (Normal) 08/01/20 18:40 Urine Ketones Negative (Negative) 08/01/20 18:40 Urine Blood 3+ (Negative) H 08/01/20 18:40 Urine Nitrate Positive (Negative) H 08/01/20 18:40 Urine Bilirubin Neg (Negative) 08/01/20 18:40 Urine Urobilinogen Norm mg/dL (Negative) 08/01/20 18:40 Ur Leukocyte Esterase 2+ (Negative) H 08/01/20 18:40 Urine RBC 25-40 /hpf (0-2) H 08/01/20 18:40 Urine WBC Too numerous to cnt /hpf (0-5) H 08/01/20 18:40 Ur Squamous Epith Cells 0-4 /hpf (0-5) H 08/01/20 18:40 Amorphous Sediment Not Reportable 08/01/20 18:40 Urine Bacteria 2+ /hpf (NONE) H 08/01/20 18:40 Urine Yeast Trace /hpf 08/01/20 18:40 Influenza Type A Ag Negative (Negative) 08/01/20 18:55 Influenza Type B Ag Negative (Negative) 08/01/20 18:55 SARS-CoV-2 Ag (Rapid) Negative (Negative) 08/01/20 18:55 Micro: Microbiology 08/01/20 18:46 Blood Culture - Preliminary Blood SPECIMEN COLLECTED 08/01/20 18:46 Blood Culture - Preliminary Blood SPECIMEN COLLECTED CXR: Radiologist's impression: FINDINGS: Lungs: Mildly underinflated. No focal consolidation. Pleural spaces: Unremarkable. No pleural effusion. No pneumothorax. Heart/Mediastinum: Apparent widening of the mediastinum is likely artifactual. The cardiac shadow is near the upper limit of normal for size. Bones/joints: No acute abnormality. XR/XR chest 1V portable 00510 IMPRESSION: No acute findings. A&P Assessment and plan (1) Toxic metabolic encephalopathy: From either urinary or skin source at this point in time Status: Acute (2) Sepsis: As evidenced by encephalopathy, fever, leukocytosis, tachycardia, dehydration with mild acute kidney injury, organism and specific site of origin currently unknown. Status: Acute Qualifiers: Sepsis acute organ dysfunction status: with acute organ dysfunction Sepsis type: sepsis due to unspecified organism Severe sepsis acute organ dysfunction type: encephalopathy Severe sepsis shock status: without septic shock Qualified Code(s): A41.9 - Sepsis, unspecified organism; R65.20 - Severe sepsis without septic shock; G93.40 - Encephalopathy, unspecified (3) Cellulitis: Of multiple sites including underneath both breasts, below the pannus and into the groins, as well as to both lower extremities distally but the most concerning area is buttocks extending to the perineum and labia. Status: Acute Qualifiers: Laterality: left Site of cellulitis: extremity Site of cellulitis of extremity: lower extremity Qualified Code(s): L03.116 - Cellulitis of left lower limb (4) Indwelling Spencer catheter present: Spencer catheter had been stopped last fall due to issues with recurrent urinary tract infections. At least through June it was still not in place. I am certain it was resumed due to the noted skin changes. 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, these have been followed in wound care clinic and include a stage IV to the right gluteal fold, stage IV to right lateral calf and stage III to left posterior calf Status: Acute (7) Diabetes mellitus: Currently with normal blood sugars on usual regimen in the setting of decreased oral intake Status: Chronic Qualifiers: Diabetes mellitus complication detail: with other skin ulcer Diabetes mellitus complication status: with skin complications Diabetes mellitus nursing home insulin use: with nursing home use Diabetes mellitus type: type 2 Qualified Code(s): E11.622 - Type 2 diabetes mellitus with other skin ulcer; Z79.4 - director of patient safety (current) use of 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 With the information I have available for review, it does not appear that it has been replaced. She follows normally with Dr. Hoyos. Status: Chronic (9) Moderate protein-calorie malnutrition: Status: Acute (10) Morbid obesity with BMI of 45.0-49.9, adult: Status: Chronic (11) Anemia: With iron deficiency and chronic inflammation, hemoglobin currently at baseline though expect drop with hydration, does have associated thrombocytosis. May have a component of acute or chronic blood loose with extent of skin damage. Status: Chronic Qualifiers: Anemia type: iron deficiency Iron deficiency anemia type: unspecified iron deficiency Qualified Code(s): D50.9 - Iron deficiency anemia, unspecified Additional A&P Information Inpatient admission Originally received Rocephin for UTI in the emergency room. After seeing the extensive wound and skin changes and review of cultures, I am going to broaden antibiotics to vancomycin, imipenem and Diflucan. She has had an Enterobacter species that was resistant to cephalosporins previously. Will discuss with surgeon in the morning to assist with wound care management IV fluids Keep off of buttocks as much as able, reviewed with nursing Need to see if can get specialty mattress both here and at facility Will maintan spencer catheter, plan to replace current tubing when a bit less ill appearing Dietary consultation to halp maximize nutrition Sliding scale insulin for now, long acting held as not taking po Check A1c As needed ativan and morphine for comfort currently Home medications not yet addressed as no able to presently take oral intake COVID testing has been sent in event she needs surgical intervention Follow up blood and urine cultures Recheck Lactic acid and CRP in am Check current iron levels, replace if indicated while here Lovenox for DVT prophylaxis, monitoring for significant blood loss from wounds Pepcid for GI prophylaxis Supportive care otherwise To be allowed natural per nursing facility records Attestations Medical Necessity Statement*: Anticipate a hospital stay greater than 2 midnights patient with above issues. Wounds and current clinical condition necessitate inpatient management with IV antibiotics, IV fluids and wound management. Coding Level of Care Code Acute Elastic Att[employer] [facility] Fwd Diagnoses Toxic metabolic encephalopathy G92 Sepsis A41.9; R65.20; G93.40 Sepsis acute organ dysfunction status: with acute organ dysfunction Sepsis type: sepsis due to unspecified organism Severe sepsis acute organ dysfunction type: encephalopathy Severe sepsis shock status: without septic shock Cellulitis L03.116 Laterality: left Site of cellulitis: extremity Site of cellulitis of extremity: lower extremity Indwelling Spencer catheter present Z97.8 UTI (urinary tract infection) T83.511A; N39.0 Encounter type: initial encounter Indwelling urinary catheter type: indwelling urethral catheter Urinary tract infection type: catheter-associated UTI 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
[2020-08-01 23:58] VITALS: BP 142/71; PULSE 107; RESP 18; TEMP 37.6; O2SAT 98
--- NOTE | 2020-08-02 00:23 | ED_ITS ---
HPI - Altered Mental Status General: Chief Complaint: Altered Mental Status Stated Complaint: AMS Time Seen by Provider: 08/01/20 17:55 Source: EMS Mode of arrival: EMS Limitations: altered mental status History of Present Illness: HPI narrative: Patient is a 65-year-old female who is a long term resident and has a history of MS who presents to the emergency department with altered mental status. The patient is unable to give me a history but a long term staff stated that she was not acting right. She has an indwelling catheter. MD complaint: altered mental status Review of Systems General: Reports: ROS unobtainable due to mental status [facility] ED PFS: Medical History (Updated 08/02/20 @ 00:35 by Jennifer Blanca MD, [facility] [place]) Anemia Chronic back pain Chronic constipation Depression End of battery life of intrathecal infusion pump GERD (gastroesophageal reflux disease) Hyperlipidemia Hypertension Hypertension Hypothyroidism Incontinence Multiple sclerosis Obstructive sleep apnea Recurrent UTI Sacral decubitus ulcer Urinary incontinence Surgical History (Reviewed 08/02/20 @ 00:25 by Jennifer Blanca MD, [facility] [place]) Presence of intrathecal baclofen pump 05/19/2013 Dr. Abner Flanagan: Replacement of Ecomsual subcutaneous programmable pump with connection to intrathecal catheter for administration of intrathecal baclofen therapy. Family History Other CAD (coronary artery disease) Cancer Diabetes Denies family history of Hypertension Stroke Social History Smoking and tobacco status: never smoked Alcohol intake: never Lives independently: No Housing: Retirement History of recent travel: No Physical Exam Const: COMMON NORMALS: no acute distress, no limitations, alert and well nourished Neck/C-Spine: COMMON NORMALS: full ROM, supple, no meningeal signs, no JVD and No carotid bruits Chest: COMMONS NORMALS: normal inspection of the chest and normal palpation of entire chest wall Resp: COMMON NORMALS: normal respiratory effort, No retractions, No use of accessory muscles, clear to auscultation bilaterally and percussion normal AUSCULTATION: clear to auscultation bilaterally PERCUSSION: percussion normal Cardio: COMMON NORMALS: no JVD, regular rate, regular rhythm, S1 normal heart sound present, S2 normal heart sound present, No gallops present (Cardio), No clicks present (Cardio), No murmurs present (Cardio), No rub (Cardio) and Peripheral pulses 2+ throughout RATE: regular rate RHYTHM: regular rhythm HEART SOUNDS: S1 normal heart sound present and S2 normal heart sound present PERIPHERAL PULSES: Peripheral pulses 2+ throughout GI: COMMON NORMALS: Normal to inspection, nondistended, normoactive bowel sounds present, Soft to palpation, non-tender, No hepatosplenomegaly present, no masses and no bruits PALPATION: Yes Soft to palpation and Yes No hepatosplenomegaly present Extremity: COMMON NORMALS: normal to inspection, full ROM, capillary refill normal, no calf tenderness and no pedal edema Neuro: SENSORIUM/ORIENTATION: Yes alert MENINGEAL SIGNS: Yes no meningeal signs Skin: COMMON NORMALS: no rashes or lesions noted, no wounds, turgor normal, no jaundice, no petechiae and no mottling GENERAL SKIN EXAM: no rashes or lesions noted and turgor normal Course Consultations: Consultation #1: Discussed the patient with Dr. Jimenez, hospitalist and she kindly accepted the patient to her service. Time: 20:15 Vital Signs: Vital signs: Vital Signs Temperature 99.6 F 08/01/20 23:58 Pulse Rate 107 H 08/01/20 23:58 Respiratory Rate 18 08/01/20 23:58 Blood Pressure 142/71 08/01/20 23:58 Pulse Oximetry 98 08/01/20 23:58 MDM - Altered Mental Status MDM Narrative: Medical decision making narrative: 65-year-old long term resident who presents to the emergency department with altered mental status. She has a fever, leukocytosis, urinary tract infection, her lactic acid is high normal. She is admitted to the hospitalist service for further evaluation and management. In the emergency department she was given a single dose of intravenous ceftriaxone and was clinically stable. Medical Records: Attestation: I reviewed the patient's medical records. Lab Data: Attestation: I reviewed the patient's lab results. Labs: Lab Results 08/01/20 08/01/20 08/01/20 Range/Units 18:40 18:46 18:46 WBC 21.8 H (4.0-10.0) 10^3/ uL RBC 3.51 L (4.1-5.3) 10^6/u L Hgb 9.3 L (11.5-15.3) g/dL Hct 31.0 L (37.0-47.0) % MCV 88.3 (81-99) fL MCH 26.5 L (28.0-34.0) pg MCHC 30.0 (30.0-36.0) g/dL RDW 18.5 H (12.1-15.1) % Plt Count 631 H (130-400) 10^3/c mm MPV 8.9 (7.4-10.4) fL Neut % (Auto) 91.6 % Lymph % (Auto) 2.9 % Miller % (Auto) 4.2 % Eos % (Auto) 0.4 % Baso % (Auto) 0.3 % Neut # (Auto) 19.98 H (1.8-7.7) 10^3/u L Lymph # (Auto) 0.6 L (0.8-4.8) 10^3/u L Miller # (Auto) 0.9 (0.2-0.9) 10^3/u L Eos # (Auto) 0.1 (0.0-0.8) 10^3/u L Baso # (Auto) 0.1 (0.0-0.1) 10^3/u L Nucleated RBC % (a uto) 0 % Nucleated RBCs # 0.0 /100WBC Sodium 134 L (136-145) mmol/L Potassium 5.3 H (3.5-5.1) mmol/L Chloride 100 (98-107) mmol/L Carbon Dioxide 25 (22-29) mmol/L Anion Gap 14.3 (5-19) BUN 53 H (8-23) mg/dL Creatinine 1.0 H (0.5-0.9) mg/dL GFR Calculation 56.0 L (90-130) mL/min Glucose 95 (65-115) mg/dL Calculated Osmolal ity 292 (285-295) mOsm/k g Lactate (0.5-2.2) mmol/L Calcium 9.1 (8.5-10.5) mg/dL Total Bilirubin 0.4 (0.15-1.2) mg/dL AST 17 (0-32) U/L ALT 12 (0-33) U/L Alkaline Phosphata se 106 H (35-105) IU/L C-Reactive Protein 93.8 H (0.0-4.9) mg/L Total Protein 7.6 (6.6-8.7) g/dL Albumin 2.9 L (3.5-5.2) g/dL Globulin 4.7 H (1.3-4.6) g/dL Urine Color Yellow (Yellow) Urine Appearance Sl cloudy A (CLEAR) Urine pH 5 (5-7) Ur Specific Gravit y 1.015 (1.005-1.030) Urine Protein Neg (Negative) Urine Glucose (UA) Norm (Normal) Urine Ketones Negative (Negative) Urine Blood 3+ H (Negative) Urine Nitrate Positive H (Negative) Urine Bilirubin Neg (Negative) Urine Urobilinogen Norm (Negative) mg/dL Ur Leukocyte Susan ase 2+ H (Negative) Urine RBC 25-40 H (0-2) /hpf Urine WBC Too numerous to c nt H (0-5) /hpf Ur Squamous Epith Cells 0-4 H (0-5) /hpf Amorphous Sediment Not Reportable Urine Bacteria 2+ H (NONE) /hpf Urine Yeast Trace /hpf Influenza Type A A g (Negative) Influenza Type B A g (Negative) SARS-CoV-2 Ag (Rap id) (Negative) 08/01/20 08/01/20 08/01/20 Range/Units 18:46 18:55 18:55 WBC (4.0-10.0) 10^3/ uL RBC (4.1-5.3) 10^6/u L Hgb (11.5-15.3) g/dL Hct (37.0-47.0) % MCV (81-99) fL MCH (28.0-34.0) pg MCHC (30.0-36.0) g/dL RDW (12.1-15.1) % Plt Count (130-400) 10^3/c mm MPV (7.4-10.4) fL Neut % (Auto) % Lymph % (Auto) % Miller % (Auto) % Eos % (Auto) % Baso % (Auto) % Neut # (Auto) (1.8-7.7) 10^3/u L Lymph # (Auto) (0.8-4.8) 10^3/u L Miller # (Auto) (0.2-0.9) 10^3/u L Eos # (Auto) (0.0-0.8) 10^3/u L Baso # (Auto) (0.0-0.1) 10^3/u L Nucleated RBC % (a uto) % Nucleated RBCs # /100WBC Sodium (136-145) mmol/L Potassium (3.5-5.1) mmol/L Chloride (98-107) mmol/L Carbon Dioxide (22-29) mmol/L Anion Gap (5-19) BUN (8-23) mg/dL Creatinine (0.5-0.9) mg/dL GFR Calculation (90-130) mL/min Glucose (65-115) mg/dL Calculated Osmolal ity (285-295) mOsm/k g Lactate 2.1 (0.5-2.2) mmol/L Calcium (8.5-10.5) mg/dL Total Bilirubin (0.15-1.2) mg/dL AST (0-32) U/L ALT (0-33) U/L Alkaline Phosphata se (35-105) IU/L C-Reactive Protein (0.0-4.9) mg/L Total Protein (6.6-8.7) g/dL Albumin (3.5-5.2) g/dL Globulin (1.3-4.6) g/dL Urine Color (Yellow) Urine Appearance (CLEAR) Urine pH (5-7) Ur Specific Gravit y (1.005-1.030) Urine Protein (Negative) Urine Glucose (UA) (Normal) Urine Ketones (Negative) Urine Blood (Negative) Urine Nitrate (Negative) Urine Bilirubin (Negative) Urine Urobilinogen (Negative) mg/dL Ur Leukocyte Susan ase (Negative) Urine RBC (0-2) /hpf Urine WBC (0-5) /hpf Ur Squamous Epith Cells (0-5) /hpf Amorphous Sediment Urine Bacteria (NONE) /hpf Urine Yeast /hpf Influenza Type A A g Negative (Negative) Influenza Type B A g Negative (Negative) SARS-CoV-2 Ag (Rap id) Negative (Negative) Imaging Data^: CXR: Attestation: I personally reviewed and interpreted this imaging study as follows: Radiologist's impression: [facility] [address] [place] [address] XRay Report Signed Patient: Jared Garcia #: [id number] : 7Acct#:[id number] Age/Sex: 65 / FADM Date: 08/01/20 [facility] Attending Dr: Ordering Provider/Ordering MD: Jennifer Blanca MD, [facility] [place] Date of Service: 08/01/20 Procedure(s): XR chest 1V portable [id number] Accession Number(s): [id number] Report Number: [id number] PROCEDURE INFORMATION: Exam: XR Chest, 1 View Exam date and time: 08/01/2020 6:30 PM Age: 65 years old Clinical indication: Other: AMS TECHNIQUE: Imaging protocol: XR of the chest Views: 1 view. COMPARISON: CR XR chest 1V portable [id number] 03/12/2020 4:44 PM FINDINGS: Lungs: Mildly underinflated. No focal consolidation. Pleural spaces: Unremarkable. No pleural effusion. No pneumothorax. Heart/Mediastinum: Apparent widening of the mediastinum is likely artifactual. The cardiac shadow is near the upper limit of normal for size. Bones/joints: No acute abnormality. XR/XR chest 1V portable [id number] IMPRESSION: No acute findings. Dictated By:Simone Arce Signed By:Lamar Arce Date/Time:08/01/201925 DD/ 24 Discharge Plan Discharge Patient Disposition: Admitted As Inpatient Admit Provider: Crystal Jimenez Clinical Impression: Altered mental status, UTI (urinary tract infection), Acute metabolic encephalopathy, Leucocytosis Condition: Stable Coding Level of Care Code ED Sex Offender Treatment Professional for Govind London
[2020-08-02] MEDS: sodium chloride 0.9% 1,000 ML 75 ML IV ×2 (00:27→17:02)
[2020-08-02] MEDS: enoxaparin 40 mg/0.4 mL Syringe SUBCUT ×2 (00:27→23:41)
[2020-08-02] MEDS: cefTRIAXone 1,000 MG in sodium chloride 0.9% (plus) 50 ML 100 MG IV (00:27)
[2020-08-02 01:03] LABS: Glucose Point of Care 97 mg/dL (70-110)
--- NOTE | 2020-08-02 02:00 | PC.NURSE ---
All wounds observed by nightshift hospitalist.
--- NOTE | 2020-08-02 03:14 | PC.PHAR ---
Pharmacokinetic dosing service Date: 08/02/20 Time: 314 Objective: Patient: Jared Garcia Floor: 277-2 Age: 65 yo Serum creatinine: 1.0 mg/dL Height: 65.0 Inches Weight (kg): 136.078 Diagnosis: Relevant medical/social history: Cultures and sensitivities: Other labs: Assessment: IBW (kg): 57.00 Dosing wt(kg): 88.6 Estimated Creatinine clearance (ml/min): 51.8 CRCL method: Cockcroft and Gault using ibw(default). Drug selected: Vancomycin Loading dose (mg): 0 Vd (liters): 79.7 (factor used: 0.9 L/kg) Tab (hr-1): 0.047 Half life (hrs): 14.75 Recommended dose: 2000 mg Interval: 24 hrs Infusion time (hrs): 1.5 Predicted peak (mcg/mL): 35.8 Predicted trough (mcg/mL): 12.43 Adjusted body weight was selected for vancomycin dosing. To switch back, select the total body weight option above. Renal function is stable [ ] /unstable [ ] Recommendations: Give Vancomycin 2000 mg q 24 hrs with an expected Cpeak of 35.8 mcg/ml and an expected Ctrough of 12.43 mcg/ml Renal dosing of other antibiotics (review renal dosing of other medications and list guidelines here): Thank you for the consult, will continue to follow. Signature: Anamaria Mahoney [facility]
[2020-08-02 04:00] VITALS: BP 84/51; PULSE 96; RESP 17; TEMP 38; O2SAT 90
[2020-08-02] MEDS: fluconazole premix 400 MG/200 ML PIGGYBACK 50 MG IV (04:25)
[2020-08-02] MEDS: LORazepam 2 mg/mL INJ 1 mL 0.25 MG IVP (05:19)
[2020-08-02 05:58] LABS: Basophils # 0.1 10^3/uL (0.0-0.1); Basophils % 0.3 %; Eosinophils % 0.1 %; Hematocrit 26.6 % (37.0-47.0); Hemoglobin 7.9 g/dL (11.5-15.3); Lymphocytes # 1.2 10^3/uL (0.8-4.8); Lymphocytes % 7.9 %; Mean Corpuscular HGB Conc 29.7 g/dL (30.0-36.0); Mean Corpuscular Hemoglobin 26.2 pg (28.0-34.0); Mean Corpuscular Volume 88.4 fL (81-99); Monocytes # 0.8 10^3/uL (0.2-0.9); Monocytes % 5.4 %; Neutrophils # 12.45 10^3/uL (1.8-7.7); Neutrophils % 85.8 %; Nucleated Red Blood Cells % 0 %; Platelet Count 449 10^3/cmm (130-400); Red Blood Count 3.01 10^6/uL (4.1-5.3); Red Cell Distribution Width 18.5 % (12.1-15.1); White Blood Count 14.5 10^3/uL (4.0-10.0)
[2020-08-02] MEDS: famotidine 20 mg/2 mL INJ IVP ×2 (06:13→16:58)
[2020-08-02 06:31] LABS: Anion Gap 13.6 (5-19); Carbon Dioxide 23 mmol/L (22-29); Chloride 110 mmol/L (98-107); Glucose 86 mg/dL (65-115); Phosphorus 3.7 mg/dL (2.5-4.5); Potassium 5.6 mmol/L (3.5-5.1); Sodium 141 mmol/L (136-145)
[2020-08-02 06:40] LABS: Iron 10 ug/dL (37-145); Percent Saturation 8.1 % (20-50); Total Iron Binding Capacity 123 mcg/dl; Unsaturated Iron Binding 113 ug/dL (112-347)
[2020-08-02 06:42] LABS: Glucose Point of Care 102 mg/dL (70-110)
[2020-08-02 06:49] LABS: Blood Urea Nitrogen 55 mg/dL (8-23); Calcium 8.2 mg/dL (8.5-10.5); Magnesium 2.8 mg/dL (1.7-2.3); Osmolality Calculated 306 mOsm/kg (285-295)
[2020-08-02 06:50] LABS: C Reactive Protein 94.2 mg/L (0.0-4.9)
[2020-08-02 07:18] LABS: Estmated Average Glucose 111; Hemoglobin A1C 5.5 % (4.0-6.0)
[2020-08-02 07:24] VITALS: BP 72/43; PULSE 84; RESP 18; TEMP 37.2; O2SAT 94
[2020-08-02 08:17] LABS: Lactic Sepsis W/Reflex 1.1 mmol/L (0.5-2.2)
--- NOTE | 2020-08-02 08:34 | PM.PN ---
Subjective Subjective: Interval history: Ms. Garcia is well-known to me from the wound care, last visit was last Sunday and sharp debridement was done to the right gluteal and right leg pressure injury ulcers as well as removal of an eschar located at the lateral aspect of the left lower extremity, my recommendation at that encounter was packing The 3 wounds by Kerlix soaked in VASH solution twice a day, apparently patient presented to the emergency department with lethargy and concern for UTI. Patient is well-known with her multiple sclerosis and chronic skin condition surrounding her pressure injury ulcers that to me looks away better than before. I was approached by Dr. Jimenez with her concerns about her skin condition and her pressure injury ulcers for potential further care and management. Vitals/I&O/Wt Last Vital Signs Temp 98.9 F 08/02/20 07:24 Pulse 84 08/02/20 07:24 Resp 18 08/02/20 07:24 BP 72/43 08/02/20 07:24 Pulse Ox 94 08/02/20 07:24 08/01/20 08/02/20 08/02/20 22:59 06:59 14:59 Intake Total 50 / 50 850 / 900 Output Total 400 / 400 Balance 50 / 50 450 / 500 Weight last 48 hrs Weight 300 lb Physical Exam Narrative: EXAM NARRATIVE: Patient is conscious alert BMI 50 Right gluteal pressure injury ulcer was found to have 3 pieces of gauze packing the [facility] they were removed bedside by me and copious irrigation of the ulcer was done and repacked with 1 piece of Kerlix soaked in saline. The skin surrounding the pressure injury ulcer was obviously macerated due to liquidy stools and patient is soaked which exacerbates the excoriation but overall her skin condition has been stable. No evidence of abscess formation that required drainage or further debridement. Further care was done for the right leg pressure injury ulcer and the wound bed looked clean and packing was done by me as well bedside. The left lower extremity pressure injury ulcer had greenish wound bed that was debrided bedside by me and patient tolerated it well and tissues were sent for cultures and sensitivities. Repacking of the wound was done using 1 piece of 4 x 4 soaked in saline. Triple antibiotic ointment was applied to the excoriated skin surrounding the right gluteal pressure injury ulcer in the presence of female nursing staff Bibiana. There is no evidence of pus from the right gluteal and right lower leg pressure injury ulcers or odor Flores catheter in place with turbid urine Urinary Catheter Management^: Flores: Cath Placed During This Visit: no Reason for Continuing Indwelling Catheter: Other Data : 08/02/20 05:27 08/02/20 05:27 Micro: Microbiology 08/01/20 18:46 Blood Culture - Preliminary Blood SPECIMEN COLLECTED 08/01/20 18:46 Blood Culture - Preliminary Blood SPECIMEN COLLECTED A&P Assessment and plan (1) Pressure ulcer of right buttock, stage 4: After history taking physical examination and reviewing the chart my recommendations : 1-nutrition optimization/nutrition consultation 2-wound care in the form of packing all pressure injury ulcers using Dakin's solution twice a day using Kerlix one-piece and followed by ABD. Highly recommend to apply zinc oxide cream on the excoriated skin surrounding the right gluteal pressure injury ulcer at least twice a day., Any skin cracks can apply triple antibiotic ointment. Keep skin dry using interdry sheets minimize moisture and further excoriation. Likely the patient would benefit from dermatology consultation as an outpatient upon discharge. 3-management of medical comorbidities hospitalist service 4-physical therapy consultation when needed 5-assurance and education 6-follow on cultures and sensitivities per Left lower extremity pressure injury ulcer 7-can start feeding the patient with aspiration precaution All questions have been answered and all concerns have been addressed to patient's satisfaction. Thank you for consulting general surgery to participate taking care Ms. Garcia Status: Chronic Attestations Medical Necessity Statement*: Ongoing inpatient hospitalization for medical and surgical care Time Spent in Patient Care: Greater than 35 minutes (>than 50% of time spent in counselling and/or direct pt care on unit). Coding Level of Care Code Acute Photographer Still for Govind London Diagnoses Pressure ulcer of right buttock, stage 4 L89.314
[2020-08-02] MEDS: neomycin-poly-bacitracin oint 28 gm 1 APPLIC TOPICAL (09:19)
[2020-08-02 10:11] VITALS: BP 118/71
[2020-08-02 11:13] LABS: Glucose Point of Care 92 mg/dL (70-110)
[2020-08-02 11:16] VITALS: BP 103/62; PULSE 87; RESP 18; TEMP 36.5; O2SAT 98
--- NOTE | 2020-08-02 11:49 | PM.PN ---
Subjective Subjective: Interval history: Patient was seen and examined today in the morning, She is having difficulty getting her words ( which is her baseline ) but was able to communicate. She has remained afebrile, her wbc count is trending down. Her other vitals and labs have been reviewed. She was seen by surgery this morning. Medications: Reviewed: Yes Vitals/I&O/Wt Last Vital Signs Temp 97.7 F 08/02/20 11:16 Pulse 87 08/02/20 11:16 Resp 18 08/02/20 11:16 BP 103/62 08/02/20 11:16 Pulse Ox 98 08/02/20 11:16 08/01/20 08/02/20 08/02/20 22:59 06:59 14:59 Intake Total 50 / 50 850 / 900 100 / 100 Output Total 400 / 400 Balance 50 / 50 450 / 500 100 / 100 Weight last 48 hrs Weight 136.078 kg Physical Exam Narrative: EXAM NARRATIVE: Alert and Awake. HENMT: COMMON NORMALS: normocephalic and atraumatic HEAD & SCALP: normocephalic and atraumatic Chest: CHEST: Yes Symmetrical chest wall rise Resp: COMMON NORMALS: No retractions and clear to auscultation bilaterally AUSCULTATION: clear to auscultation bilaterally Cardio: COMMON NORMALS: regular rate, regular rhythm, S1 normal heart sound present, S2 normal heart sound present, No gallops present (Cardio), No murmurs present (Cardio), No rub (Cardio) and Peripheral pulses 2+ throughout RATE: regular rate RHYTHM: regular rhythm HEART SOUNDS: S1 normal heart sound present and S2 normal heart sound present PERIPHERAL PULSES: Peripheral pulses 2+ throughout GI: COMMON NORMALS: Normal to inspection, nondistended, normoactive bowel sounds present, Soft to palpation, non-tender, No hepatosplenomegaly present and no masses AUSCULTATION: Yes normoactive bowel sounds PALPATION: Yes Soft to palpation and Yes No hepatosplenomegaly present RECTAL EXAM: deferred Skin: NARRATIVE SKIN EXAM: Approximately quarter size diameter packed wound on the right lateral lower extremity about a third of the way from the ankle to the knee. Packing was placed today according to dressing and was not removed. External dressing, which was removed, with some serous appearing drainage that is not particularly odorous Approximately 4-1/2 cm diameter packed wound to the left lower extremity posteriorly midway between the ankle and the knee. Packing placed today with an aqua blue coloration noted streaked throughout the white gauze. External dressing, which was removed, with some serous drainage, thin rim of bright red blood and the aqua blue, not particularly odorous. Has erythema noted to both lower extremities at the feet and calf areas, excluding the ankle fold. Skin is dry and warm to touch. No streaks up into the groin noted. Extensive bright red erythema with loss of superficial skin underneath the pannus down into both groins. The more distal suprapubic area is free of erythema. Erythema again noted to the labia below the urethra extending through to perineum. There is packing to what is known to be a stage 4 pressure ulcer at right gluteal fold. Starting at perineal area, skin becomes more purple/red up onto both buttocks in a diaper pattern. There is loss of superficial skin with some serous drainage. A few areas with bright red blood. No blistering currently noted. Areas with darker purple streaks particularly more proximally and centrally in sacral area, no crepitus, not malodorous,soft, no purulence seen, both purple and red areas are blancheable. Area with line of demarcation. No red streaks noted to extend beyond demarcation. No clearly palpable edges at demarcation line. See picture for details Erythema with cracking of the skin underneath both breasts left more so than right. Urinary Catheter Management^: Spencer: Cath Placed During This Visit: no Reason for Continuing Indwelling Catheter: Other Data : 08/02/20 05:27 08/02/20 05:27 Micro: Microbiology 08/01/20 18:46 Blood Culture - Preliminary Blood SPECIMEN COLLECTED 08/01/20 18:46 Blood Culture - Preliminary Blood SPECIMEN COLLECTED A&P Assessment and plan (1) Toxic metabolic encephalopathy: From either urinary or skin source at this point in time:Improving, Patient is moving towards baseline. Status: Acute (2) Sepsis: As evidenced by encephalopathy, fever, leukocytosis, tachycardia, dehydration with mild acute kidney injury, organism and specific site of origin currently unknown. Status: Acute Qualifiers: Sepsis acute organ dysfunction status: with acute organ dysfunction Sepsis type: sepsis due to unspecified organism Severe sepsis acute organ dysfunction type: encephalopathy Severe sepsis shock status: without septic shock Qualified Code(s): A41.9 - Sepsis, unspecified organism; R65.20 - Severe sepsis without septic shock; G93.40 - Encephalopathy, unspecified (3) Cellulitis: Of multiple sites including underneath both breasts, below the pannus and into the groins, as well as to both lower extremities distally but the most concerning area is buttocks extending to the perineum and labia. Status: Acute Qualifiers: Laterality: left Site of cellulitis: extremity Site of cellulitis of extremity: lower extremity Qualified Code(s): L03.116 - Cellulitis of left lower limb (4) Indwelling Spencer catheter present: Spencer catheter had been stopped last fall due to issues with recurrent urinary tract infections. At least through June it was still not in place. I am certain it was resumed due to the noted skin changes. 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, these have been followed in wound care clinic and include a stage IV to the right gluteal fold, stage IV to right lateral calf and stage III to left posterior calf Status: Acute (7) Diabetes mellitus: Currently with normal blood sugars on usual regimen in the setting of decreased oral intake Status: Chronic Qualifiers: Diabetes mellitus type: type 2 Diabetes mellitus [facility] use: with [facility] Diabetes mellitus complication status: with skin complications Diabetes mellitus complication detail: with other skin ulcer Qualified Code(s): E11.622 - Type 2 diabetes mellitus with other skin ulcer; 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 With the information I have available for review, it does not appear that it has been replaced. She follows normally with Dr. Hoyos. Status: Chronic (9) Moderate protein-calorie malnutrition: Status: Acute (10) Morbid obesity with BMI of 45.0-49.9, adult: Status: Chronic (11) Anemia: With iron deficiency and chronic inflammation, hemoglobin currently at baseline though expect drop with hydration, does have associated thrombocytosis. May have a component of acute or chronic blood loose with extent of skin damage. Status: Chronic Qualifiers: Anemia type: iron deficiency Iron deficiency anemia type: unspecified iron deficiency Qualified Code(s): D50.9 - Iron deficiency anemia, unspecified Additional A&P Information Inpatient admission Originally received Rocephin for UTI in the emergency room. After seeing the extensive wound and skin changes and review of cultures, I am going to broaden antibiotics to vancomycin, imipenem and Diflucan. She has had an Enterobacter species that was resistant to cephalosporins previously. Appreciate surgery :Rec Keep off of buttocks as much as able, reviewed with nursing Need to see if can get specialty mattress both here and at facility Will maintan spencer catheter, plan to replace current tubing when a bit less ill appearing Dietary consultation to halp maximize nutrition Sliding scale insulin for now, long acting held as not taking po Check A1c As needed ativan and morphine for comfort currently COVID testing has been sent in event she needs surgical intervention Follow up blood and urine cultures Lactic acid:1.1 Lovenox for DVT prophylaxis, monitoring for significant blood loss from wounds Pepcid for GI prophylaxis Supportive care otherwise To be allowed natural per nursing facility records Attestations Medical Necessity Statement*: Patient needs to be in hospital for the management of toxic metabolic encephalopathy as well as sepsis. Coding Level of Care Code Acute Flight Physician for [facility] Diagnoses Toxic metabolic encephalopathy G92 Sepsis A41.9; R65.20; G93.40 Sepsis acute organ dysfunction status: with acute organ dysfunction Sepsis type: sepsis due to unspecified organism Severe sepsis acute organ dysfunction type: encephalopathy Severe sepsis shock status: without septic shock Cellulitis L03.116 Laterality: left Site of cellulitis: extremity Site of cellulitis of extremity: lower extremity Indwelling Spencer catheter present Z97.8 UTI (urinary tract infection) T83.511A; N39.0 Encounter type: initial encounter Indwelling urinary catheter type: indwelling urethral catheter Urinary tract infection type: catheter-associated UTI 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
[2020-08-02 16:11] VITALS: BP 106/57; PULSE 94; RESP 18; TEMP 36.7; O2SAT 95
[2020-08-02 16:59] LABS: Glucose Point of Care 100 mg/dL (70-110)
[2020-08-02] MEDS: docusate sodium 100 mg Capsule PO (17:06)
[2020-08-02 20:00] VITALS: BP 114/77; PULSE 94; RESP 17; TEMP 36.6; O2SAT 94
[2020-08-02 21:16] LABS: Glucose Point of Care 98 mg/dL (70-110)
[2020-08-03] VITALS (7 sets, daily range): BP systolic 99–130; BP diastolic 63–87; PULSE 87–95; RESP 17–20; TEMP 36.1–37.1; O2SAT 90–100
[2020-08-03] MEDS: famotidine 20 mg/2 mL INJ IVP (04:21)
[2020-08-03] MEDS: fluconazole premix 200 MG/100 ML PREMIX 100 MG IV (04:21)
[2020-08-03 06:39] LABS: Glucose Point of Care 84 mg/dL (70-110)
[2020-08-03] MEDS: acetaminophen 325 mg Tablet 650 MG PO (10:10)
[2020-08-03] MEDS: sodium chloride 0.9% 1,000 ML 75 ML IV (10:11)
[2020-08-03 10:58] LABS: Glucose Point of Care 89 mg/dL (70-110)
--- NOTE | 2020-08-03 11:07 | P.PN_ITS ---
Subjective Subjective: Interval history: Patient deny any complain.She is alert and awake.She has remained afebrile. Her Vitals and labs have been reviewed. Medications: Reviewed: Yes Vitals/I&O/Wt Last Vital Signs Temp 98.7 F 08/03/20 11:00 Pulse 92 08/03/20 11:00 Resp 18 08/03/20 11:00 BP 130/87 08/03/20 11:00 Pulse Ox 100 08/03/20 11:00 08/02/20 08/03/20 08/03/20 22:59 06:59 14:59 Intake Total 440 / 1780 700 / 2480 1120 / 1120 Output Total 1000 / 1000 600 / 1600 Balance -560 / 780 100 / 880 1120 / 1120 Weight last 48 hrs Weight 136.078 kg Physical Exam 2 Narrative: EXAM NARRATIVE: Alert and Awake. HENMT: COMMON NORMALS: normocephalic and atraumatic HEAD & SCALP: normocephalic and atraumatic Chest: CHEST: Yes Symmetrical chest wall rise Resp: COMMON NORMALS: No retractions and clear to auscultation bilaterally AUSCULTATION: clear to auscultation bilaterally Cardio: COMMON NORMALS: regular rate, regular rhythm, S1 normal heart sound present, S2 normal heart sound present, No gallops present (Cardio), No murmurs present (Cardio), No rub (Cardio) and Peripheral pulses 2+ throughout RATE: regular rate RHYTHM: regular rhythm HEART SOUNDS: S1 normal heart sound present and S2 normal heart sound present PERIPHERAL PULSES: Peripheral pulses 2+ throughout GI: COMMON NORMALS: Normal to inspection, nondistended, normoactive bowel sounds present, Soft to palpation, non-tender, No hepatosplenomegaly present and no masses AUSCULTATION: Yes normoactive bowel sounds PALPATION: Yes Soft to palpation and Yes No hepatosplenomegaly present RECTAL EXAM: deferred Skin: NARRATIVE SKIN EXAM: Approximately quarter size diameter packed wound on the right lateral lower extremity about a third of the way from the ankle to the knee. Packing was placed today according to dressing and was not removed. External dressing, which was removed, with some serous appearing drainage that is not particularly odorous Approximately 4-1/2 cm diameter packed wound to the left lower extremity posteriorly midway between the ankle and the knee. Packing placed today with an aqua blue coloration noted streaked throughout the white gauze. External dressing, which was removed, with some serous drainage, thin rim of bright red blood and the aqua blue, not particularly odorous. Has erythema noted to both lower extremities at the feet and calf areas, excluding the ankle fold. Skin is dry and warm to touch. No streaks up into the groin noted. Extensive bright red erythema with loss of superficial skin underneath the pannus down into both groins. The more distal suprapubic area is free of erythema. Erythema again noted to the labia below the urethra extending through to perineum. There is packing to what is known to be a stage 4 pressure ulcer at right gluteal fold. Starting at perineal area, skin becomes more purple/red up onto both buttocks in a diaper pattern. There is loss of superficial skin with some serous drainage. A few areas with bright red blood. No blistering currently noted. Areas with darker purple streaks particularly more proximally and centrally in sacral area, no crepitus, not malodorous,soft, no purulence seen, both purple and red areas are blancheable. Area with line of demarcation. No red streaks noted to extend beyond demarcation. No clearly palpable edges at demarcation line. See picture for details Erythema with cracking of the skin underneath both breasts left more so than right. Urinary Catheter Management^: Spencer: Cath Placed During This Visit: no Reason for Continuing Indwelling Catheter: Other Data : 08/02/20 05:27 08/02/20 05:27 Micro: Microbiology 08/02/20 09:08 Wound Culture - Preliminary Leg - #1 Gram Negative Rods 08/01/20 18:40 Urine Culture - Preliminary Urine,Clean Catch Gram Negative Rods 08/01/20 18:46 Blood Culture - Preliminary Blood NEGATIVE TO DATE 08/01/20 18:46 Blood Culture - Preliminary Blood NEGATIVE TO DATE A&P Assessment and plan (1) Toxic metabolic encephalopathy: From either urinary or skin source at this point in time:Improving, Patient is moving towards baseline. Status: Acute (2) Sepsis: As evidenced by encephalopathy, fever, leukocytosis, tachycardia, dehydration with mild acute kidney injury, organism and specific site of origin currently unknown. Status: Acute Qualifiers: Sepsis acute organ dysfunction status: with acute organ dysfunction Sepsis type: sepsis due to unspecified organism Severe sepsis acute organ dysfunction type: encephalopathy Severe sepsis shock status: without septic shock Qualified Code(s): A41.9 - Sepsis, unspecified organism; R65.20 - Severe sepsis without septic shock; G93.40 - Encephalopathy, unspecified (3) Cellulitis: Of multiple sites including underneath both breasts, below the pannus and into the groins, as well as to both lower extremities distally but the most concerning area is buttocks extending to the perineum and labia. Status: Acute Qualifiers: Laterality: left Site of cellulitis: extremity Site of cellulitis of extremity: lower extremity Qualified Code(s): L03.116 - Cellulitis of left lower limb (4) Indwelling Spencer catheter present: Spencer catheter had been stopped last fall due to issues with recurrent urinary tract infections. At least through June it was still not in place. I am certain it was resumed due to the noted skin changes. 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, these have been followed in wound care clinic and include a stage IV to the right gluteal fold, stage IV to right lateral calf and stage III to left posterior calf Status: Acute (7) Diabetes mellitus: Currently with normal blood sugars on usual regimen in the setting of decreased oral intake Status: Chronic Qualifiers: Diabetes mellitus type: type 2 Diabetes mellitus care home insulin use: with care home use Diabetes mellitus complication status: with skin complications Diabetes mellitus complication detail: with other skin ulcer Qualified Code(s): E11.622 - Type 2 diabetes mellitus with other skin ulcer; 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 With the information I have available for review, it does not appear that it has been replaced. She follows normally with Dr. Hoyos. Status: Chronic (9) Moderate protein-calorie malnutrition: Status: Acute (10) Morbid obesity with BMI of 45.0-49.9, adult: Status: Chronic (11) Anemia: With iron deficiency and chronic inflammation, hemoglobin currently at baseline though expect drop with hydration, does have associated thrombocytosis. May have a component of acute or chronic blood loose with extent of skin damage. Status: Chronic Qualifiers: Anemia type: iron deficiency Iron deficiency anemia type: unspecified iron deficiency Qualified Code(s): D50.9 - Iron deficiency anemia, unspecified Additional A&P Information Inpatient admission Originally received Rocephin for UTI in the emergency room. After seeing the extensive wound and skin changes and review of cultures, I am going to broaden antibiotics to vancomycin, imipenem and Diflucan. She has had an Enterobacter species that was resistant to cephalosporins previously. Wound Culture :GNR Appreciate surgery :Rec Keep off of buttocks as much as able, reviewed with nursing Need to see if can get specialty mattress both here and at facility Will maintan spencer catheter, plan to replace current tubing when a bit less ill appearing Dietary consultation to halp maximize nutrition Sliding scale insulin for now, long acting held as not taking po Check A1c As needed ativan and morphine for comfort currently COVID testing has been sent in event she needs surgical intervention:Pending Follow up blood and urine cultures Lactic acid:1.1 Lovenox for DVT prophylaxis, monitoring for significant blood loss from wounds Pepcid for GI prophylaxis Supportive care otherwise To be allowed natural per nursing facility records Attestations Medical Necessity Statement*: Patient needs to be in hospital for the management of toxic metabolic encephalopathy as well as sepsis. Coding Level of Care Code Acute Environmental Planning Engineer for [facility] F[facility] Diagnoses Toxic metabolic encephalopathy G92 Sepsis A41.9; R65.20; G93.40 Sepsis acute organ dysfunction status: with acute organ dysfunction Sepsis type: sepsis due to unspecified organism Severe sepsis acute organ dysfunction type: encephalopathy Severe sepsis shock status: without septic shock Cellulitis L03.116 Laterality: left Site of cellulitis: extremity Site of cellulitis of extremity: lower extremity Indwelling Spencer catheter present Z97.8 UTI (urinary tract infection) T83.511A; N39.0 Encounter type: initial encounter Indwelling urinary catheter type: indwelling urethral catheter Urinary tract infection type: catheter-associated UTI 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
[2020-08-03 14:23] LABS: Glucose Point of Care 87 mg/dL (70-110)
[2020-08-03 16:42] LABS: Glucose Point of Care 77 mg/dL (70-110)
[2020-08-03] MEDS: famotidine 20 mg Tablet PO (17:15)
[2020-08-03] MEDS: docusate sodium 100 mg Capsule PO (17:15)
[2020-08-03 19:02] LABS: Glucose Point of Care 96 mg/dL (70-110)
--- NOTE | 2020-08-03 19:16 | PC.NURSE ---
AT APPROX. 1858-NOTIFIED DR. KIM JOSEPH THAT PT HAD DEVELOPED A RASH ON HER R ELBOW. GOT ORDERS TO HOLD PRIMAXIN AT THIS TIME AND CONTINUE TO MONITOR.
--- NOTE | 2020-08-03 21:09 | PC.NURSE ---
Gave PT apple juice while I was rounding and checking their vitals due to history of low blood sugar per nurse request.
[2020-08-03 21:36] LABS: Glucose Point of Care 87 mg/dL (70-110)
[2020-08-04] VITALS (8 sets, daily range): BP systolic 106–129; BP diastolic 60–94; PULSE 76–102; RESP 16–18; TEMP 36.5–37.1; O2SAT 93–99
[2020-08-04] MEDS: sodium chloride 0.9% 1,000 ML 75 ML IV ×3 (02:12→23:47)
[2020-08-04] MEDS: enoxaparin 40 mg/0.4 mL Syringe SUBCUT (02:19)
[2020-08-04] MEDS: fluconazole premix 200 MG/100 ML PREMIX 100 MG IV (03:15)
[2020-08-04 03:32] LABS: Anion Gap 13.4 (5-19); Blood Urea Nitrogen 23 mg/dL (8-23); Calcium 8.3 mg/dL (8.5-10.5); Carbon Dioxide 20 mmol/L (22-29); Chloride 113 mmol/L (98-107); Glomerular Filtration Rate 84.5 mL/min (90-130); Glucose 74 mg/dL (65-115); Osmolality Calculated 296 mOsm/kg (285-295); Potassium 4.4 mmol/L (3.5-5.1); Sodium 142 mmol/L (136-145)
[2020-08-04 03:35] LABS: Basophils # 0.1 10^3/uL (0.0-0.1); Basophils % 0.5 %; Eosinophils # 0.5 10^3/uL (0.0-0.8); Eosinophils % 5.1 %; Hematocrit 26.8 % (37.0-47.0); Hemoglobin 7.8 g/dL (11.5-15.3); Lymphocytes # 1.2 10^3/uL (0.8-4.8); Mean Corpuscular HGB Conc 29.1 g/dL (30.0-36.0); Mean Corpuscular Hemoglobin 25.9 pg (28.0-34.0); Mean Platelet Volume 8.8 fL (7.4-10.4); Monocytes # 0.7 10^3/uL (0.2-0.9); Monocytes % 7.5 %; Neutrophils % 73.4 %; Nucleated Red Blood Cells % 0 %; Platelet Count 473 10^3/cmm (130-400); Red Blood Count 3.01 10^6/uL (4.1-5.3); Red Cell Distribution Width 18.8 % (12.1-15.1); White Blood Count 9.3 10^3/uL (4.0-10.0)
[2020-08-04 03:56] LABS: Vancomycin Trough 23.8 ug/mL (10-15)
--- NOTE | 2020-08-04 04:23 | PC.PHAR ---
Vancomycin trough level on dosage of 2000mg IVPB every 24 hours is 23.8. Hold for 24 hours and resume at 1500mg IVPB every 24 hours with trough level to be obtained before fourth 1500mg dose.
[2020-08-04] MEDS: famotidine 20 mg Tablet PO ×2 (06:20→17:38)
--- NOTE | 2020-08-04 06:52 | P.PN_ITS ---
Subjective Subjective: Interval history: Overall patient appears to feel better yet it is hard to obtain subjective history from the patient. No acute events overnight Per nursing staff skin excoriation is better urine Culture Preliminary 08/03/20-734 Organism 1 Gram Negative Rods [place] Count >100,000 CFU/ml DAY 1, RESULTS TO FOLLOW Wound Culture Preliminary 08/03/20-0843 Organism 1 Gram Negative Rods Growth HEAVY DAY 1, RESULTS TO FOLLOW Medications: Reviewed: Yes Vitals/I&O/Wt Last Vital Signs Temp 98.7 F 08/04/20 04:00 Pulse 96 08/04/20 04:00 Resp 18 08/04/20 04:00 BP 129/94 08/04/20 04:00 Pulse Ox 96 08/04/20 04:00 08/03/20 08/03/20 08/04/20 14:59 22:59 06:59 Intake Total 1280 / 1280 338 / 1618 1200 / 2818 Output Total 300 / 300 300 / 600 Balance 1280 / 1280 38 / 1318 900 / 2218 Physical Exam Narrative: EXAM NARRATIVE: Patient is conscious alert BMI 50 Right gluteal pressure injury ulcer looks opening machine cleaner and packing was done bedside in the form of Kerlix wet-to-dry using normal saline. Was no available Dakin solution bedside. Periwound skin looks much better and nursing staff has been applying zinc oxide cream for local skin care. Right lower extremity pressure injury ulcer showed much improvement to the wound bed and there was some residual necrotic tissues of the exposed tendon was debrided by me sharply bedside.And repacking was done. Left lower extremity pressure injury ulcer shows improvement with some residual necrotic tissues that was sharply debrided as well by me bedside and repacking using 4 x 4 wet-to-dry using saline Secondary dressing was in the form of ABDs Wound care was done in the presence of female price analyst's including nursing staff Lee Ann and medical diagnostic radiographer Yamini Flores catheter in place continues to show turbid urine Urinary Catheter Management^: Flores: Cath Placed During This Visit: no Reason for Continuing Indwelling Catheter: Other Data : 08/04/20 02:51 08/04/20 02:51 Micro: Microbiology 08/02/20 09:08 Wound Culture - Preliminary Leg - #1 Gram Negative Rods 08/01/20 18:40 Urine Culture - Preliminary Urine,Clean Catch Gram Negative Rods A&P Assessment and plan (1) Pressure ulcer of right buttock, stage 4: From surgical standpoint of view: 1-Nutrition optimization/nutrition consultation 2-wound care in the form of packing all pressure injury ulcers using Dakin's solution quarter percent twice a day using Kerlix one-piece and followed by ABD. Continue application of zinc oxide cream on the excoriated skin surrounding the right gluteal pressure injury ulcer at least twice a day or as needed.Any skin cracks can apply triple antibiotic ointment. Keep skin dry using interdry sheets minimize moisture and further excoriation. 3-management of medical comorbidities hospitalist service 4-physical therapy consultation when needed 5-assurance and education 6-follow on cultures and sensitivities per Left lower extremity pressure injury ulcer 7-highly recommend to change Flores catheter We will plan to have the patient follow-up at the wound care center upon discharge All questions have been answered and all concerns have been addressed to patient's satisfaction. Thank you for consulting general surgery to participate taking care Ms. Garcia Status: Chronic Attestations Medical Necessity Statement*: Continue inpatient hospitalization for medical and surgical care Time Spent in Patient Care: 16 - 35 minutes (>than 50% of time spent in co unselling and/or direct pt care on unit) . Coding Level of Care Code Acute Joy Operator Helper for [facility] Diagnoses Pressure ulcer of right buttock, stage 4 L89.314
[2020-08-04 07:09] LABS: Glucose Point of Care 85 mg/dL (70-110)
--- NOTE | 2020-08-04 07:30 | PC.NURSE ---
Dressing change completed with this nurse and Dr. Beckwith, interdry dressing applied to abdominal folds.
[2020-08-04] MEDS: morphine 4 mg/mL SDV 1 mL 2 MG IVP ×2 (08:25→17:46)
--- NOTE | 2020-08-04 08:25 | PC.NURSE ---
Patient moaning in pain after dressing change completed by this nurse and Dr. Beckwith earlier in shift, PRN morphine given for pain, see MAR for further details.
[2020-08-04 11:18] LABS: Glucose Point of Care 91 mg/dL (70-110)
[2020-08-04] MEDS: sodium hypochlorite 0.25% Btl 473 mL 1 APPLIC TOPICAL (11:39)
--- NOTE | 2020-08-04 11:39 | PC.NURSE ---
completed 2nd dressing change by this nurse per doctors orders using dakins solution per Dr. Beckwith orders, see wound care for further details.
[2020-08-04] MEDS: LORazepam 2 mg/mL INJ 1 mL 0.25 MG IVP (13:41)
--- NOTE | 2020-08-04 13:41 | PC.NURSE ---
Patient moaning and anxious, fidgeting with IV tubing and coban, PRN ativan given per doctors orders see MAR for further details.
--- NOTE | 2020-08-04 13:47 | PC.NURSE ---
Spencer catheter that was present on admission was discontinued and tip was intact, per care completed, new spencer catheter placed per doctors orders, bag below bladder, draining cloudy yellow urine with sediment, stat lock in place to left leg to prevent pulling.
[2020-08-04 14:16] LABS: Coronavirus Test Green County Not Detected
[2020-08-04 17:05] LABS: Glucose Point of Care 87 mg/dL (70-110)
[2020-08-04] MEDS: docusate sodium 100 mg Capsule PO (17:38)
--- NOTE | 2020-08-04 18:02 | PC.NURSE ---
this nurse attempted to help patient eat supper, patient spitting peaches back at this nurse, able to get some PO water intake in with encouragement. noted white thick vaginal discharge on turn and reposition, adeola care completed and absorbent pads replaced.
--- NOTE | 2020-08-04 19:16 | PM.PN ---
Subjective Subjective: Interval history: Patient was seen and examined this morning. She has remained afebrile,hemodynamically stable.WBC is trending down.Overall she is improving. Her Vitals and labs have been reviewed. Medications: Reviewed: Yes Vitals/I&O/Wt Last Vital Signs Temp 98.7 F 08/04/20 16:06 Pulse 76 08/04/20 16:06 Resp 16 08/04/20 17:46 BP 119/71 08/04/20 16:06 Pulse Ox 99 08/04/20 16:06 08/04/20 08/04/20 08/04/20 06:59 14:59 22:59 Intake Total 1200 / 2818 670 / 670 Output Total 300 / 600 100 / 100 350 / 450 Balance 900 / 2218 570 / 570 -350 / 220 Physical Exam Narrative: EXAM NARRATIVE: Alert and Awake. HENMT: COMMON NORMALS: normocephalic and atraumatic HEAD & SCALP: normocephalic and atraumatic Chest: CHEST: Yes Symmetrical chest wall rise Resp: COMMON NORMALS: No retractions and clear to auscultation bilaterally AUSCULTATION: clear to auscultation bilaterally Cardio: COMMON NORMALS: regular rate, regular rhythm, S1 normal heart sound present, S2 normal heart sound present, No gallops present (Cardio), No murmurs present (Cardio), No rub (Cardio) and Peripheral pulses 2+ throughout RATE: regular rate RHYTHM: regular rhythm HEART SOUNDS: S1 normal heart sound present and S2 normal heart sound present PERIPHERAL PULSES: Peripheral pulses 2+ throughout GI: COMMON NORMALS: Normal to inspection, nondistended, normoactive bowel sounds present, Soft to palpation, non-tender, No hepatosplenomegaly present and no masses AUSCULTATION: Yes normoactive bowel sounds PALPATION: Yes Soft to palpation and Yes No hepatosplenomegaly present RECTAL EXAM: deferred Skin: NARRATIVE SKIN EXAM: Approximately quarter size diameter packed wound on the right lateral lower extremity about a third of the way from the ankle to the knee. Packing was placed today according to dressing and was not removed. External dressing, which was removed, with some serous appearing drainage that is not particularly odorous Approximately 4-1/2 cm diameter packed wound to the left lower extremity posteriorly midway between the ankle and the knee. Packing placed today with an aqua blue coloration noted streaked throughout the white gauze. External dressing, which was removed, with some serous drainage, thin rim of bright red blood and the aqua blue, not particularly odorous. Has erythema noted to both lower extremities at the feet and calf areas, excluding the ankle fold. Skin is dry and warm to touch. No streaks up into the groin noted. Extensive bright red erythema with loss of superficial skin underneath the pannus down into both groins. The more distal suprapubic area is free of erythema. Erythema again noted to the labia below the urethra extending through to perineum. There is packing to what is known to be a stage 4 pressure ulcer at right gluteal fold. Starting at perineal area, skin becomes more purple/red up onto both buttocks in a diaper pattern. There is loss of superficial skin with some serous drainage. A few areas with bright red blood. No blistering currently noted. Areas with darker purple streaks particularly more proximally and centrally in sacral area, no crepitus, not malodorous,soft, no purulence seen, both purple and red areas are blancheable. Area with line of demarcation. No red streaks noted to extend beyond demarcation. No clearly palpable edges at demarcation line. See picture for details Erythema with cracking of the skin underneath both breasts left more so than right. Urinary Catheter Management^: Spencer: Cath Placed During This Visit: yes Reason for Continuing Indwelling Catheter: Chronic Indwelling Urinary Catheter on Admission Urinary Catheter Date of Insertion: 08/04/20 Urinary Catheter Time of Insertion: 13:46 Data : 08/04/20 02:51 08/04/20 02:51 Micro: Microbiology 08/02/20 09:08 Wound Culture - Final Leg - #1 Pseudomonas aeruginosa 08/01/20 18:40 Urine Culture - Final Urine,Clean Catch Pseudomonas aeruginosa A&P Assessment and plan (1) Toxic metabolic encephalopathy: From either urinary or skin source at this point in time:Improving, Patient is at her baseline. Status: Acute (2) Sepsis: As evidenced by encephalopathy, fever, leukocytosis, tachycardia, dehydration with mild acute kidney injury, organism and specific site of origin currently unknown. Status: Acute Qualifiers: Sepsis acute organ dysfunction status: with acute organ dysfunction Sepsis type: sepsis due to unspecified organism Severe sepsis acute organ dysfunction type: encephalopathy Severe sepsis shock status: without septic shock Qualified Code(s): A41.9 - Sepsis, unspecified organism; R65.20 - Severe sepsis without septic shock; G93.40 - Encephalopathy, unspecified (3) Cellulitis: Of multiple sites including underneath both breasts, below the pannus and into the groins, as well as to both lower extremities distally but the most concerning area is buttocks extending to the perineum and labia. Status: Acute Qualifiers: Laterality: left Site of cellulitis: extremity Site of cellulitis of extremity: lower extremity Qualified Code(s): L03.116 - Cellulitis of left lower limb (4) Indwelling Spencer catheter present: Spencer catheter had been stopped last fall due to issues with recurrent urinary tract infections. At least through June it was still not in place. I am certain it was resumed due to the noted skin changes. 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, these have been followed in wound care clinic and include a stage IV to the right gluteal fold, stage IV to right lateral calf and stage III to left posterior calf Status: Acute (7) Diabetes mellitus: Currently with normal blood sugars on usual regimen in the setting of decreased oral intake Status: Chronic Qualifiers: Diabetes mellitus type: type 2 Diabetes mellitus adjunct faculty for medical terminology insulin use: with adjunct faculty for medical terminology use Diabetes mellitus complication status: with skin complications Diabetes mellitus complication detail: with other skin ulcer Qualified Code(s): E11.622 - Type 2 diabetes mellitus with other skin ulcer; Z79.4 - group home (current) use of 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 With the information I have available for review, it does not appear that it has been replaced. She follows normally with Dr. Hoyos. Status: Chronic (9) Moderate protein-calorie malnutrition: Status: Acute (10) Morbid obesity with BMI of 45.0-49.9, adult: Status: Chronic (11) Anemia: With iron deficiency and chronic inflammation, hemoglobin currently at baseline though expect drop with hydration, does have associated thrombocytosis. May have a component of acute or chronic blood loose with extent of skin damage. Status: Chronic Qualifiers: Anemia type: iron deficiency Iron deficiency anemia type: unspecified iron deficiency Qualified Code(s): D50.9 - Iron deficiency anemia, unspecified Additional A&P Information Inpatient admission Originally received Rocephin for UTI in the emergency room. After seeing the extensive wound and skin changes and review of cultures.She has had an Enterobacter species that was resistant to cephalosporins previously. she was started on vancomycin, imipenem and Diflucan. Vancomycin and Diflucan was DC on 08/04. Wound Culture :GNR: Pseudomonas .Aeruginosa : Sensitive to imipenam Urine Culture : Pseudomonas .Aeruginosa : Sensitive to imipenam Blood Culture : NTD Appreciate surgery :Rec Keep off of buttocks as much as able, reviewed with nursing spencer catheter: Changed on 08/04 Sliding scale insulin for now, long acting held as not taking po As needed ativan and morphine for comfort currently COVID testing:Negative Lactic acid:1.1 Lovenox for DVT prophylaxis, monitoring for significant blood loss from wounds Pepcid for GI prophylaxis Supportive care otherwise Code Status :AND Attestations Medical Necessity Statement*: Patient needs to be in hospital for the management of sepsis 2/2 to multiple ulcers. Coding Level of Care Code Acute Residential Care Officer for [facility] Diagnoses Toxic metabolic encephalopathy G92 Sepsis A41.9; R65.20; G93.40 Sepsis acute organ dysfunction status: with acute organ dysfunction Sepsis type: sepsis due to unspecified organism Severe sepsis acute organ dysfunction type: encephalopathy Severe sepsis shock status: without septic shock Cellulitis L03.116 Laterality: left Site of cellulitis: extremity Site of cellulitis of extremity: lower extremity Indwelling Spencer catheter present Z97.8 UTI (urinary tract infection) T83.511A; N39.0 Encounter type: initial encounter Indwelling urinary catheter type: indwelling urethral catheter Urinary tract infection type: catheter-associated UTI 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
[2020-08-04 21:00] LABS: Glucose Point of Care 81 mg/dL (70-110)
[2020-08-05] VITALS (9 sets, daily range): BP systolic 118–147; BP diastolic 68–88; PULSE 86–102; RESP 16–18; TEMP 36.6–37.1; O2SAT 91–100
[2020-08-05] MEDS: enoxaparin 40 mg/0.4 mL Syringe SUBCUT (02:42)
[2020-08-05] MEDS: morphine 4 mg/mL SDV 1 mL 2 MG IVP ×2 (02:56→15:02)
[2020-08-05] MEDS: famotidine 20 mg Tablet PO ×2 (05:43→17:11)
[2020-08-05 06:19] LABS: Basophils % 0.5 %; Eosinophils # 0.4 10^3/uL (0.0-0.8); Eosinophils % 5.2 %; Hematocrit 28.3 % (37.0-47.0); Hemoglobin 7.9 g/dL (11.5-15.3); Lymphocytes # 1.3 10^3/uL (0.8-4.8); Lymphocytes % 16.1 %; Mean Corpuscular HGB Conc 27.9 g/dL (30.0-36.0); Mean Corpuscular Hemoglobin 25.9 pg (28.0-34.0); Mean Corpuscular Volume 92.8 fL (81-99); Mean Platelet Volume 8.9 fL (7.4-10.4); Monocytes # 0.6 10^3/uL (0.2-0.9); Monocytes % 7.5 %; Neutrophils # 5.79 10^3/uL (1.8-7.7); Neutrophils % 70.2 %; Nucleated Red Blood Cells % 0 %; Platelet Count 416 10^3/cmm (130-400); Red Blood Count 3.05 10^6/uL (4.1-5.3); Red Cell Distribution Width 18.8 % (12.1-15.1); White Blood Count 8.3 10^3/uL (4.0-10.0)
[2020-08-05 06:32] LABS: Glucose Point of Care 74 mg/dL (70-110)
[2020-08-05 06:44] LABS: Anion Gap 14.4 (5-19); Blood Urea Nitrogen 19 mg/dL (8-23); Calcium 8.2 mg/dL (8.5-10.5); Carbon Dioxide 20 mmol/L (22-29); Chloride 116 mmol/L (98-107); Glomerular Filtration Rate 72.4 mL/min (90-130); Glucose 65 mg/dL (65-115); Osmolality Calculated 302 mOsm/kg (285-295); Potassium 4.4 mmol/L (3.5-5.1); Sodium 146 mmol/L (136-145)
--- NOTE | 2020-08-05 07:24 | PC.NURSE ---
Report to [place] ROMERO
--- NOTE | 2020-08-05 08:09 | PC.NURSE ---
pt refused to let me do her blood pressure
--- NOTE | 2020-08-05 09:16 | PC.NURSE ---
Assisted patient with breakfast, patient refusing to eat food spitting it all back out, able to drink orange juice, but refuses to swallow pills this morning spitting those back out as well. dressing changes completed per doctors orders, intradry sheets placed to abdominal folds and adeola folds.
[2020-08-05 11:50] LABS: Glucose Point of Care 81 mg/dL (70-110)
[2020-08-05 11:50] LABS: Glucose Point of Care 115 mg/dL (70-110)
[2020-08-05] MEDS: sodium hypochlorite 0.25% Btl 473 mL 1 APPLIC TOPICAL (12:47)
[2020-08-05] MEDS: sodium chloride 0.9% 1,000 ML 75 ML IV (13:02)
--- NOTE | 2020-08-05 13:05 | PC.NURSE ---
patient continues to refuse lunch tray attempted strawberries, patient spit back at this nurse, patient did drink orange juice.
--- NOTE | 2020-08-05 13:35 | PC.NURSE ---
Dr. Mora notified of decreased urine output thus far in shift, new orders received for 500mL bolus then increase IVF rate to 125mL/hr. see MAR for further details.
[2020-08-05 16:50] LABS: Glucose Point of Care 85 mg/dL (70-110)
[2020-08-05] MEDS: sodium chloride 0.9% 1,000 ML 125 ML IV (17:11)
[2020-08-05] MEDS: docusate sodium 100 mg Capsule PO (17:11)
--- NOTE | 2020-08-05 17:14 | PC.NURSE ---
attempted to give patient scheduled oral medication, patient refusing and will not open mouth.
--- NOTE | 2020-08-05 20:52 | PM.PN ---
Subjective Subjective: Interval history: Patient was seen and examined this morning. She was extremely somnolent, definitely not at her baseline mentation. Her p.o. intake has also been poor today. She was started on IV fluids as her urine output was on lower side. She has remained afebrile her other vitals and labs have been reviewed. Medications: Reviewed: Yes Vitals/I&O/Wt Last Vital Signs Temp 97.8 F 08/05/20 15:22 Pulse 99 08/05/20 15:22 Resp 16 08/05/20 15:22 BP 125/71 08/05/20 15:22 Pulse Ox 91 08/05/20 15:22 08/05/20 08/05/20 08/05/20 06:59 14:59 22:59 Intake Total 100 / 1970 487.5 / 2482.00 Output Total 150 / 600 250 / 250 Balance -50 / 1370 237.5 / 2232.00 Physical Exam HENMT: COMMON NORMALS: normocephalic and atraumatic HEAD & SCALP: normocephalic and atraumatic Chest: CHEST: Yes Symmetrical chest wall rise Resp: COMMON NORMALS: No retractions and clear to auscultation bilaterally AUSCULTATION: clear to auscultation bilaterally Cardio: COMMON NORMALS: regular rate, regular rhythm, S1 normal heart sound present, S2 normal heart sound present, No gallops present (Cardio), No murmurs present (Cardio), No rub (Cardio) and Peripheral pulses 2+ throughout RATE: regular rate RHYTHM: regular rhythm HEART SOUNDS: S1 normal heart sound present and S2 normal heart sound present PERIPHERAL PULSES: Peripheral pulses 2+ throughout GI: COMMON NORMALS: Normal to inspection, nondistended, normoactive bowel sounds present, Soft to palpation, non-tender, No hepatosplenomegaly present and no masses AUSCULTATION: Yes normoactive bowel sounds PALPATION: Yes Soft to palpation and Yes No hepatosplenomegaly present RECTAL EXAM: deferred Skin: NARRATIVE SKIN EXAM: Approximately quarter size diameter packed wound on the right lateral lower extremity about a third of the way from the ankle to the knee. Packing was placed today according to dressing and was not removed. External dressing, which was removed, with some serous appearing drainage that is not particularly odorous Approximately 4-1/2 cm diameter packed wound to the left lower extremity posteriorly midway between the ankle and the knee. Packing placed today with an aqua blue coloration noted streaked throughout the white gauze. External dressing, which was removed, with some serous drainage, thin rim of bright red blood and the aqua blue, not particularly odorous. Has erythema noted to both lower extremities at the feet and calf areas, excluding the ankle fold. Skin is dry and warm to touch. No streaks up into the groin noted. Extensive bright red erythema with loss of superficial skin underneath the pannus down into both groins. The more distal suprapubic area is free of erythema. Erythema again noted to the labia below the urethra extending through to perineum. There is packing to what is known to be a stage 4 pressure ulcer at right gluteal fold. Starting at perineal area, skin becomes more purple/red up onto both buttocks in a diaper pattern. There is loss of superficial skin with some serous drainage. A few areas with bright red blood. No blistering currently noted. Areas with darker purple streaks particularly more proximally and centrally in sacral area, no crepitus, not malodorous,soft, no purulence seen, both purple and red areas are blancheable. Area with line of demarcation. No red streaks noted to extend beyond demarcation. No clearly palpable edges at demarcation line. See picture for details Erythema with cracking of the skin underneath both breasts left more so than right. Urinary Catheter Management^: Spencer: Cath Placed During This Visit: yes Reason for Continuing Indwelling Catheter: Chronic Indwelling Urinary Catheter on Admission Urinary Catheter Date of Insertion: 08/04/20 Urinary Catheter Time of Insertion: 13:46 Data : 08/05/20 05:39 08/05/20 05:39 A&P Assessment and plan (1) Toxic metabolic encephalopathy: From either urinary or skin source at this point in time: Status: Acute (2) Sepsis: As evidenced by encephalopathy, fever, leukocytosis, tachycardia, dehydration with mild acute kidney injury, organism and specific site of origin currently unknown. Status: Acute Qualifiers: Sepsis acute organ dysfunction status: with acute organ dysfunction Sepsis type: sepsis due to unspecified organism Severe sepsis acute organ dysfunction type: encephalopathy Severe sepsis shock status: without septic shock Qualified Code(s): A41.9 - Sepsis, unspecified organism; R65.20 - Severe sepsis without septic shock; G93.40 - Encephalopathy, unspecified (3) Cellulitis: Of multiple sites including underneath both breasts, below the pannus and into the groins, as well as to both lower extremities distally but the most concerning area is buttocks extending to the perineum and labia. Status: Acute Qualifiers: Laterality: left Site of cellulitis: extremity Site of cellulitis of extremity: lower extremity Qualified Code(s): L03.116 - Cellulitis of left lower limb (4) Indwelling Spencer catheter present: Spencer catheter had been stopped last fall due to issues with recurrent urinary tract infections. At least through June it was still not in place. I am certain it was resumed due to the noted skin changes. 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, these have been followed in wound care clinic and include a stage IV to the right gluteal fold, stage IV to right lateral calf and stage III to left posterior calf Status: Acute (7) Diabetes mellitus: Currently with normal blood sugars on usual regimen in the setting of decreased oral intake Status: Chronic Qualifiers: Diabetes mellitus type: type 2 Diabetes mellitus fpc insulin use: with fpc use Diabetes mellitus complication status: with skin complications Diabetes mellitus complication detail: with other skin ulcer Qualified Code(s): E11.622 - Type 2 diabetes mellitus with other skin ulcer; Z79.4 - intermediate (current) use of 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 With the information I have available for review, it does not appear that it has been replaced. She follows normally with Dr. Hoyos. Status: Chronic (9) Moderate protein-calorie malnutrition: Status: Acute (10) Morbid obesity with BMI of 45.0-49.9, adult: Status: Chronic (11) Anemia: With iron deficiency and chronic inflammation, hemoglobin currently at baseline though expect drop with hydration, does have associated thrombocytosis. May have a component of acute or chronic blood loose with extent of skin damage. Status: Chronic Qualifiers: Anemia type: iron deficiency Iron deficiency anemia type: unspecified iron deficiency Qualified Code(s): D50.9 - Iron deficiency anemia, unspecified Additional A&P Information Inpatient admission Originally received Rocephin for UTI in the emergency room. After seeing the extensive wound and skin changes and review of cultures.She has had an Enterobacter species that was resistant to cephalosporins previously. she was started on vancomycin, imipenem and Diflucan. Vancomycin and Diflucan was DC on 08/04. Wound Culture :GNR: Pseudomonas .Aeruginosa : Sensitive to imipenam Urine Culture : Pseudomonas .Aeruginosa : Sensitive to imipenam Blood Culture : NTD Appreciate surgery :Rec Keep off of buttocks as much as able, reviewed with nursing spencer catheter: Changed on 08/04 Sliding scale insulin for now, long acting held as not taking po As needed ativan and morphine for comfort currently COVID testing:Negative Lactic acid:1.1 Lovenox for DVT prophylaxis, monitoring for significant blood loss from wounds Pepcid for GI prophylaxis Supportive care otherwise Code Status :AND Attestations Medical Necessity Statement*: Patient is to be in hospital for the management of sepsis 2/2 to multiple ulcers. Coding Level of Care Code Acute [facility] for [facility] Diagnoses Toxic metabolic encephalopathy G92 Sepsis A41.9; R65.20; G93.40 Sepsis acute organ dysfunction status: with acute organ dysfunction Sepsis type: sepsis due to unspecified organism Severe sepsis acute organ dysfunction type: encephalopathy Severe sepsis shock status: without septic shock Cellulitis L03.116 Laterality: left Site of cellulitis: extremity Site of cellulitis of extremity: lower extremity Indwelling Spencer catheter present Z97.8 UTI (urinary tract infection) T83.511A; N39.0 Encounter type: initial encounter Indwelling urinary catheter type: indwelling urethral catheter Urinary tract infection type: catheter-associated UTI 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
--- NOTE | 2020-08-05 21:31 | PC.NURSE ---
Patient's blood sugar was 77. Attempted to give patient night time medications. Patient spit pills back out of her mouth. Patient did however drink two cups of orange juice at this time.
[2020-08-05 21:43] LABS: Glucose Point of Care 77 mg/dL (70-110)
[2020-08-06] MEDS: sodium chloride 0.9% 1,000 ML 125 ML IV (02:09)
[2020-08-06] MEDS: enoxaparin 40 mg/0.4 mL Syringe SUBCUT ×2 (02:11→21:57)
[2020-08-06 05:19] VITALS: BP 129/74; PULSE 95; RESP 18; TEMP 36.6; O2SAT 98
[2020-08-06] MEDS: famotidine 20 mg Tablet PO ×2 (06:08→17:57)
[2020-08-06] MEDS: levothyroxine 125 mcg Tablet PO (06:08)
[2020-08-06 06:17] LABS: Basophils # 0.1 10^3/uL (0.0-0.1); Basophils % 0.7 %; Eosinophils # 0.3 10^3/uL (0.0-0.8); Eosinophils % 3.9 %; Hematocrit 26.9 % (37.0-47.0); Hemoglobin 7.5 g/dL (11.5-15.3); Lymphocytes # 1.4 10^3/uL (0.8-4.8); Lymphocytes % 16.2 %; Mean Corpuscular HGB Conc 27.9 g/dL (30.0-36.0); Mean Corpuscular Volume 93.1 fL (81-99); Mean Platelet Volume 9.1 fL (7.4-10.4); Monocytes # 0.6 10^3/uL (0.2-0.9); Monocytes % 6.6 %; Neutrophils # 6.11 10^3/uL (1.8-7.7); Neutrophils % 72.1 %; Nucleated Red Blood Cells % 0 %; Platelet Count 412 10^3/cmm (130-400); Red Blood Count 2.89 10^6/uL (4.1-5.3); Red Cell Distribution Width 18.7 % (12.1-15.1); White Blood Count 8.5 10^3/uL (4.0-10.0)
[2020-08-06 06:32] LABS: Glucose Point of Care 88 mg/dL (70-110)
[2020-08-06 06:33] LABS: Anion Gap 12.4 (5-19); Blood Urea Nitrogen 15 mg/dL (8-23); Calcium 8.4 mg/dL (8.5-10.5); Carbon Dioxide 20 mmol/L (22-29); Chloride 119 mmol/L (98-107); Glomerular Filtration Rate 84.5 mL/min (90-130); Glucose 77 mg/dL (65-115); Osmolality Calculated 304 mOsm/kg (285-295); Potassium 4.4 mmol/L (3.5-5.1); Sodium 147 mmol/L (136-145)
[2020-08-06 07:29] VITALS: BP 158/95; PULSE 97; RESP 18; TEMP 36.8; O2SAT 99
[2020-08-06] MEDS: gabapentin 300 mg Capsule PO ×3 (08:27→21:58)
[2020-08-06] MEDS: cyclobenzaprine 10 mg Tablet PO ×2 (08:27→21:59)
[2020-08-06] MEDS: levothyroxine 50 mcg Tablet PO (08:27)
[2020-08-06] MEDS: docusate sodium 100 mg Capsule PO ×2 (08:28→17:58)
[2020-08-06] MEDS: ferrous gluconate 324 mg Tablet PO ×2 (08:28→21:58)
[2020-08-06] MEDS: ascorbic acid 500 mg Tablet 1000 MG PO ×2 (08:28→21:59)
[2020-08-06] MEDS: nystatin cream 30 gm 1 APPLIC TOPICAL ×2 (08:32→22:00)
[2020-08-06] MEDS: ARIPiprazole 2 mg Tablet PO (08:36)
[2020-08-06 10:50] LABS: Glucose Point of Care 114 mg/dL (70-110)
--- NOTE | 2020-08-06 11:27 | CT_ITS ---
WS: [id number] CT HEAD NONCONTRAST HISTORY: AMS TECHNIQUE: Contiguous axial imaging performed through the brain in 2.5 mm imaging. Bone and soft tiss ue windows. Sagittal and coronal reformats reviewed. All CT scans at [facility] use at ast one of these dose optimization techniques: automated exposure control; mA and/or kV adjustment pe r patient size (includes targeted exams where dose is matched to clinical indication); or iterative r econstruction. DLP: 857.84 mGy.cm COMPARISON: 03/14/2020 No acute intracranial hemorrhage, midline shift or mass effect. Mild atrophy is symmetric bilaterally. Remote lacunar infarct in the RIGHT [facility] radiata. Additional mild chronic microvascular ischemic disease. Ventricles: Normal size with no hydrocephalus. Paranasal sinuses: As visualized are clear. Mastoid air cells: Well pneumatized. Calvarium and scalp: Skull is intact with no soft tissue edema or swelling. CT/CT head wo con* [id number] IMPRESSION: 1. No acute intracranial hemorrhage or edema. 2. Mild cerebral atrophy with chronic microvascular ischemic disease.
--- NOTE | 2020-08-06 11:35 | DCPLANNER ---
Pg 2 of IM updated and reviewed with pt and then with Nurse; Selma roblero at facility. Copy provided to pt.
[2020-08-06] MEDS: sodium hypochlorite 0.25% Btl 473 mL 1 APPLIC TOPICAL (11:39)
[2020-08-06] MEDS: dextrose 5%-sod chloride 0.45% 1,000 ML 125 ML IV ×2 (11:39→22:00)
[2020-08-06 11:43] VITALS: BP 143/76; PULSE 97; RESP 18; TEMP 37.2; O2SAT 90
--- NOTE | 2020-08-06 13:42 | P.PN_ITS ---
Subjective Subjective: Interval history: half-way was reached out today to gather information about her baseline mentation.At baseline though she has slow speech,but she is more alert and communicative.Today when I examined the patient she not very alert, no communication was established.She has remained afebrile. Her other vitals and labs have been reviewed. Medications: Reviewed: Yes Vitals/I&O/Wt Last Vital Signs Temp 99.0 F 08/06/20 11:43 Pulse 97 08/06/20 11:43 Resp 18 08/06/20 11:43 BP 143/76 08/06/20 11:43 Pulse Ox 90 08/06/20 11:43 08/05/20 08/06/20 08/06/20 22:59 06:59 14:59 Intake Total 819.5 / 2814.00 1100 / 3914.00 420 / 420 Output Total 250 / 250 350 / 600 Balance 569.5 / 2564.00 750 / 3314.00 420 / 420 Physical Exam Narrative: EXAM NARRATIVE: Awake. HENMT: COMMON NORMALS: normocephalic and atraumatic HEAD & SCALP: normocephalic and atraumatic Chest: CHEST: Yes Symmetrical chest wall rise Resp: COMMON NORMALS: No retractions and clear to auscultation bilaterally AUSCULTATION: clear to auscultation bilaterally Cardio: COMMON NORMALS: regular rate, regular rhythm, S1 normal heart sound present, S2 normal heart sound present, No gallops present (Cardio), No murmurs present (Cardio), No rub (Cardio) and Peripheral pulses 2+ throughout RATE: regular rate RHYTHM: regular rhythm HEART SOUNDS: S1 normal heart sound present and S2 normal heart sound present PERIPHERAL PULSES: Peripheral pulses 2+ throughout GI: COMMON NORMALS: Normal to inspection, nondistended, normoactive bowel sounds present, Soft to palpation, non-tender, No hepatosplenomegaly present and no masses AUSCULTATION: Yes normoactive bowel sounds PALPATION: Yes Soft to palpation and Yes No hepatosplenomegaly present RECTAL EXAM: deferred Skin: NARRATIVE SKIN EXAM: Approximately quarter size diameter packed wound on the right lateral lower extremity about a third of the way from the ankle to the knee. Packing was placed today according to dressing and was not removed. External dressing, which was removed, with some serous appearing drainage that is not particularly odorous Approximately 4-1/2 cm diameter packed wound to the left lower extremity posteriorly midway between the ankle and the knee. Packing placed today with an aqua blue coloration noted streaked throughout the white gauze. External dressing, which was removed, with some serous drainage, thin rim of bright red blood and the aqua blue, not particularly odorous. Has erythema noted to both lower extremities at the feet and calf areas, excluding the ankle fold. Skin is dry and warm to touch. No streaks up into the groin noted. Extensive bright red erythema with loss of superficial skin underneath the pannus down into both groins. The more distal suprapubic area is free of erythema. Erythema again noted to the labia below the urethra extending through to perineum. There is packing to what is known to be a stage 4 pressure ulcer at right gluteal fold. Starting at perineal area, skin becomes more purple/red up onto both buttocks in a diaper pattern. There is loss of superficial skin with some serous drainage. A few areas with bright red blood. No blistering currently noted. Areas with darker purple streaks particularly more proximally and centrally in sacral area, no crepitus, not malodorous,soft, no purulence seen, both purple and red areas are blancheable. Area with line of demarcation. No red streaks noted to extend beyond demarcation. No clearly palpable edges at demarcation line. See picture for details Erythema with cracking of the skin underneath both breasts left more so than right. Urinary Catheter Management^: Spencer: Cath Placed During This Visit: yes Reason for Continuing Indwelling Catheter: Assist Healing of Perineal & Sacral Wounds- Incontinent Patients Urinary Catheter Date of Insertion: 08/04/20 Urinary Catheter Time of Insertion: 13:46 Data : 08/06/20 05:24 08/06/20 05:24 A&P Assessment and plan (1) Toxic metabolic encephalopathy: From either urinary or skin source at this point in time: Status: Acute (2) Sepsis: As evidenced by encephalopathy, fever, leukocytosis, tachycardia, dehydration with mild acute kidney injury, organism and specific site of origin currently unknown. Status: Acute Qualifiers: Sepsis acute organ dysfunction status: with acute organ dysfunction S epsis type: sepsis due to unspecified organism Severe sepsis acute organ d ysfunction type: encephalopathy Severe sepsis shock status: without septic shock Qualified Code(s): A41.9 - Sepsis, unspecified organism; R65.20 - Severe sepsis without septic shock; G93.40 - Encephalopathy, unspecified (3) Cellulitis: Of multiple sites including underneath both breasts, below the pannus and into the groins, as well as to both lower extremities distally but the most concerning area is buttocks extending to the perineum and labia. Status: Acute Qualifiers: Laterality: left Site of cellulitis: extremity Site of cellulitis of extremity: lower extremity Qualified Code(s): L03.116 - Cellulitis of left lower limb (4) Indwelling Spencer catheter present: Spencer catheter had been stopped last fall due to issues with recurrent urinary tract infections. At least through June it was still not in place. I am certain it was resumed due to the noted skin changes. 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, these have been followed in wound care clinic and include a stage IV to the right gluteal fold, stage IV to right lateral calf and stage III to left posterior calf Status: Acute (7) Diabetes mellitus: Currently with normal blood sugars on usual regimen in the setting of decreased oral intake Status: Chronic Qualifiers: Diabetes mellitus type: type 2 Diabetes mellitus superintendent marine oil terminal insulin use: with superintendent marine oil terminal use Diabetes mellitus complication status: with skin complications Diabetes mellitus complication detail: with other skin ulcer Qualified Code(s): E11.622 - Type 2 diabetes mellitus with other skin ulcer; Z79.4 - shelter (current) use of 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 With the information I have available for review, it does not appear that it has been replaced. She follows normally with Dr. Hoyos. Status: Chronic (9) Moderate protein-calorie malnutrition: Status: Acute (10) Morbid obesity with BMI of 45.0-49.9, adult: Status: Chronic (11) Anemia: With iron deficiency and chronic inflammation, hemoglobin currently at baseline though expect drop with hydration, does have associated thrombocytosis. May have a component of acute or chronic blood loose with extent of skin damage. Status: Chronic Qualifiers: Anemia type: iron deficiency Iron deficiency anemia type: unspecified iron deficiency Qualified Code(s): D50.9 - Iron deficiency anemia, unspecified Additional A&P Information Inpatient admission Originally received Rocephin for UTI in the emergency room. After seeing the extensive wound and skin changes and review of cultures.She has had an Enterobacter species that was resistant to cephalosporins previously. she was started on vancomycin, imipenem and Diflucan. Vancomycin and Diflucan was DC on 08/04. 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 Appreciate surgery :Rec Keep off of buttocks as much as able, reviewed with nursing spencer catheter: Changed on 08/04 Sliding scale insulin for now, long acting held as not taking po As needed ativan and morphine for comfort currently COVID testing:Negative Lactic acid:1.1 Lovenox for DVT prophylaxis, monitoring for significant blood loss from wounds Pepcid for GI prophylaxis Supportive care otherwise Code Status :AND Attestations Medical Necessity Statement*: Patient needs to be in hospital for the management of encephalopathy. Coding Level of Care Code Acute Inspector Final [employer] for [facility] Diagnoses Toxic metabolic encephalopathy G92 Sepsis A41.9; R65.20; G93.40 Sepsis acute organ dysfunction status: with acute organ dysfunction Sepsis type: sepsis due to unspecified organism Severe sepsis acute organ dysfunction type: encephalopathy Severe sepsis shock status: without septic shock Cellulitis L03.116 Laterality: left Site of cellulitis: extremity Site of cellulitis of extremity: lower extremity Indwelling Spencer catheter present Z97.8 UTI (urinary tract infection) T83.511A; N39.0 Encounter type: initial encounter Indwelling urinary catheter type: indwelling urethral catheter Urinary tract infection type: catheter-associated UTI 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
[2020-08-06 15:29] VITALS: BP 130/75; PULSE 94; RESP 18; TEMP 37.3; O2SAT 98
[2020-08-06 16:52] LABS: Glucose Point of Care 134 mg/dL (70-110)
--- NOTE | 2020-08-06 16:59 | PC.NURSE ---
SHIFT SUMMARY PATIENT IS BECOMING MORE ALERT THE DAY IS GOING. SHE HAS BEEN SMILING AND STARTING TO TALK. THIS NURSE ALONG WITH CHARLIE RN STUDENT CHANGED ALL OF PATIENT'S DRESSINGS THIS AM. PATIENT INCREASING HER ORAL INTAKE. CONTINUE TO MONITOR.
--- NOTE | 2020-08-06 18:47 | PC.NURSE ---
PATIENT HAS BEEN MUCH MORE ALERT THIS EVENING. PATIENT BEGAN TALKING AND IS MAKING CONVERSATION.
[2020-08-06 20:00] VITALS: BP 136/78; PULSE 86; RESP 18; TEMP 37.3; O2SAT 98
[2020-08-06 21:22] LABS: Glucose Point of Care 125 mg/dL (70-110)
[2020-08-06] MEDS: quetiapine 25 mg Tablet PO (21:59)
[2020-08-06] MEDS: citalopram 20 mg Tablet 40 MG PO (21:59)
[2020-08-07] VITALS (7 sets, daily range): BP systolic 115–141; BP diastolic 71–82; PULSE 69–88; RESP 18–21; TEMP 36.5–37; O2SAT 94–100
[2020-08-07] MEDS: dextrose 5%-sod chloride 0.45% 1,000 ML 125 ML IV ×2 (05:24→17:09)
[2020-08-07] MEDS: famotidine 20 mg Tablet PO ×2 (05:25→17:09)
[2020-08-07] MEDS: levothyroxine 125 mcg Tablet PO (05:25)
[2020-08-07 06:50] LABS: Glucose Point of Care 131 mg/dL (70-110)
[2020-08-07 08:00] LABS: Basophils # 0.1 10^3/uL (0.0-0.1); Basophils % 0.6 %; Eosinophils # 0.9 10^3/uL (0.0-0.8); Eosinophils % 9.8 %; Hematocrit 28.3 % (37.0-47.0); Hemoglobin 7.9 g/dL (11.5-15.3); Lymphocytes # 1.6 10^3/uL (0.8-4.8); Lymphocytes % 16.7 %; Mean Corpuscular HGB Conc 27.9 g/dL (30.0-36.0); Mean Corpuscular Volume 96.6 fL (81-99); Mean Platelet Volume 9.3 fL (7.4-10.4); Monocytes # 0.7 10^3/uL (0.2-0.9); Monocytes % 7.7 %; Neutrophils # 6.03 10^3/uL (1.8-7.7); Neutrophils % 64.7 %; Nucleated Red Blood Cells % 0 %; Platelet Count 371 10^3/cmm (130-400); Red Blood Count 2.93 10^6/uL (4.1-5.3); Red Cell Distribution Width 19.1 % (12.1-15.1); White Blood Count 9.3 10^3/uL (4.0-10.0)
[2020-08-07 08:28] LABS: Alanine Aminotransferase 11 U/L (0-33); Albumin Level 2.2 g/dL (3.5-5.2); Alkaline Phosphatase 75 IU/L (35-105); Anion Gap 10.9 (5-19); Aspartate Amino Transferase 27 U/L (0-32); Blood Urea Nitrogen 12 mg/dL (8-23); Calcium 8.3 mg/dL (8.5-10.5); Carbon Dioxide 19 mmol/L (22-29); Chloride 115 mmol/L (98-107); Globulin 3.9 g/dL (1.3-4.6); Glomerular Filtration Rate 84.5 mL/min (90-130); Glucose 101 mg/dL (65-115); Osmolality Calculated 292 mOsm/kg (285-295); Potassium 3.9 mmol/L (3.5-5.1); Sodium 141 mmol/L (136-145); Total Bilirubin 0.2 mg/dL (0.15-1.2); Total Protein 6.1 g/dL (6.6-8.7)
--- NOTE | 2020-08-07 08:46 | PM.PN ---
Subjective Subjective: Interval history: Patient had altered mental status and hospitalist service sent the patient for CT scan of the head that showed 1. No acute intracranial hemorrhage or edema. 2. Mild cerebral atrophy with chronic microvascular ischemic disease. Medications: Reviewed: Yes Vitals/I&O/Wt Last Vital Signs Temp 97.9 F 08/07/20 07:26 Pulse 76 08/07/20 07:26 Resp 18 08/07/20 07:26 BP 130/77 08/07/20 07:26 Pulse Ox 100 08/07/20 07:26 08/06/20 08/07/20 08/07/20 22:59 06:59 14:59 Intake Total 1225 / 1745 1375 / 3120 Output Total 325 / 325 140 / 465 Balance 900 / 1420 1235 / 2655 Physical Exam Narrative: EXAM NARRATIVE: Patient is conscious yet confused BMI 50 Right gluteal pressure injury ulcer looks clean and packing was done bedside in the form of Kerlix wet-to-dry using Dakin solution bedside. Periwound skin looks stable and nursing staff has been applying zinc oxide cream for local skin care. Right lower extremity pressure injury ulcer continues to improve without evidence of necrotic tissues, repacking was done bedside Left lower extremity pressure injury ulcer continues to show improvement with some less residual necrotic tissues that was sharply debrided as well by me bedside and repacking using 4 x 4 wet-to-dry using Dakin's to the Secondary dressing was in the form of ABDs Wound care was done in the presence of female satellite dish installer's including nursing staff Polly and clinical specialist medical device Ashley Flores catheter in place continues to show concentrated urine Urinary Catheter Management^: Flores: Cath Placed During This Visit: yes Reason for Continuing Indwelling Catheter: Assist Healing of Perineal & Sacral Wounds- Incontinent Patients Urinary Catheter Date of Insertion: 08/04/20 Urinary Catheter Time of Insertion: 13:46 Data : 08/07/20 07:38 08/07/20 07:38 Micro: Microbiology 08/01/20 18:46 Blood Culture - Final Blood NO GROWTH AFTER 5 DAYS 08/01/20 18:46 Blood Culture - Final Blood NO GROWTH AFTER 5 DAYS A&P Assessment and plan (1) Pressure ulcer of right buttock, stage 4: From surgical standpoint of view: 1-Nutrition optimization/nutrition consultation 2-wound care in the form of packing all pressure injury ulcers using Dakin's solution quarter percent twice a day using Kerlix one-piece and followed by ABD. Continue application of zinc oxide cream on the excoriated skin surrounding the right gluteal pressure injury ulcer at least twice a day or as needed.Any skin cracks can apply triple antibiotic ointment. Keep skin dry using interdry sheets minimize moisture and further excoriation. 3-management of medical comorbidities per hospitalist service 4-physical therapy consultation when needed 5-assurance and education 6-antimicrobial therapy per hospitalist service We will plan to have the patient follow-up at the wound care center upon discharge All questions have been answered and all concerns have been addressed to patient's satisfaction. Thank you for consulting general surgery to participate taking care Ms. Garcia Status: Chronic Attestations Medical Necessity Statement*: Continue inpatient hospitalization for medical and wound care Time Spent in Patient Care: 16 - 35 minutes (>than 50% of time spent in counselling and/or direct pt care on unit). Coding Level of Care Code Acute Security Services Specialist for [facility] [place] Diagnoses Pressure ulcer of right buttock, stage 4 L89.314
[2020-08-07] MEDS: gabapentin 300 mg Capsule PO ×3 (09:02→20:56)
[2020-08-07] MEDS: ascorbic acid 500 mg Tablet 1000 MG PO ×2 (09:02→20:56)
[2020-08-07] MEDS: docusate sodium 100 mg Capsule PO ×2 (09:02→17:09)
[2020-08-07] MEDS: ferrous gluconate 324 mg Tablet PO ×2 (09:02→20:56)
[2020-08-07] MEDS: ARIPiprazole 2 mg Tablet PO (09:03)
[2020-08-07] MEDS: cyclobenzaprine 10 mg Tablet PO ×2 (09:03→20:56)
[2020-08-07] MEDS: levothyroxine 50 mcg Tablet PO (09:03)
[2020-08-07] MEDS: nystatin cream 30 gm 1 APPLIC TOPICAL ×2 (09:04→20:57)
[2020-08-07] MEDS: sodium hypochlorite 0.25% Btl 473 mL 1 APPLIC TOPICAL (09:06)
[2020-08-07 10:58] LABS: Glucose Point of Care 96 mg/dL (70-110)
--- NOTE | 2020-08-07 11:57 | PC.CHAP ---
Pastoral Care Encounter/Spiritual Assessment Type of Contact [] Declined auto accessories installer visit [] Patient/Family/Request visit [] Outpatient visit [] Follow-up visit [] Physician referral [] Code/Alert [XX] Routine visit [] Staff referral [] Actively dying [] Patient sleeping [] Family support [] [] Out of room [] Palliative care [] [] Receiving care in room [] Pre-surgical visit [] Trauma [] Long length of stay [] ICU visit [] Other: Relational/Emotional Strength [] Patient feels connected with others/family/visitors/staff [] Distress [] Loneliness/isolation [] Abandonment Spirituality of Patient [] Person of Neli [] Attends Cheondoism of their Neli [] Believes in Prayer [] Reads Bible or Shinto materials [] There are Spiritual issues to be addressed Clothing Manager Interventions [] Prayer [] Active listening [] Non-anxious presence [] Spiritual/emotional support [] Crisis/trauma care [] Spiritual counseling [] Bereavement support [] Provided bereavement packet [] Provided Bible/devotional materials [] Provided toy/stuffed animal, coloring book to patient or family member [] Provided Communion [] Anointing/[place] [] Salvation [] Completed spiritual assessment [] Other: Impact on Illness or Injury [] Angry [] Fearful [] Anxious [] Often cries [] Exhaustion [] Unable to work [] Unable to attend evangelical [] Unable to walk/stand [] Unable to read [] Unable to drive [] Unable to eat/drink [] Unable to sleep [] Unable to be with family [] Patient intubated [] Other: Summary: Pt appreciated the visit but was not able to communicate. Offered prayer and she readily accepted. Offered Daily Bread, too, which she accepted. Time spent with patient: 15 mins
[2020-08-07 16:59] LABS: Glucose Point of Care 101 mg/dL (70-110)
[2020-08-07] MEDS: citalopram 20 mg Tablet 40 MG PO (20:55)
[2020-08-07] MEDS: quetiapine 25 mg Tablet PO (20:56)
[2020-08-07 20:57] LABS: Glucose Point of Care 191 mg/dL (70-110)
--- NOTE | 2020-08-07 22:25 | PM.PN ---
Subjective Subjective: Interval history: Patient was seen and examined this morning.No acute events overnight,gradually progressing to baseline mentation. Her other vitals and labs have been reviewed. Medications: Reviewed: Yes Vitals/I&O/Wt Last Vital Signs Temp 98.6 F 08/07/20 20:00 Pulse 88 08/07/20 20:00 Resp 18 08/07/20 20:00 BP 115/73 08/07/20 20:00 Pulse Ox 94 08/07/20 20:00 08/07/20 08/07/20 08/07/20 06:59 14:59 22:59 Intake Total 1375 / 3120 673.75 / 673.75 260 / 933.75 Output Total 140 / 465 Balance 1235 / 2655 673.75 / 673.75 260 / 933.75 Physical Exam Narrative: EXAM NARRATIVE: Awake. HENMT: COMMON NORMALS: normocephalic and atraumatic HEAD & SCALP: normocephalic and atraumatic Chest: CHEST: Yes Symmetrical chest wall rise Resp: COMMON NORMALS: No retractions and clear to auscultation bilaterally AUSCULTATION: clear to auscultation bilaterally Cardio: COMMON NORMALS: regular rate, regular rhythm, S1 normal heart sound present, S2 normal heart sound present, No gallops present (Cardio), No murmurs present (Cardio), No rub (Cardio) and Peripheral pulses 2+ throughout RATE: regular rate RHYTHM: regular rhythm HEART SOUNDS: S1 normal heart sound present and S2 normal heart sound present PERIPHERAL PULSES: Peripheral pulses 2+ throughout GI: COMMON NORMALS: Normal to inspection, nondistended, normoactive bowel sounds present, Soft to palpation, non-tender, No hepatosplenomegaly present and no masses AUSCULTATION: Yes normoactive bowel sounds PALPATION: Yes Soft to palpation and Yes No hepatosplenomegaly present RECTAL EXAM: deferred Skin: NARRATIVE SKIN EXAM: Approximately quarter size diameter packed wound on the right lateral lower extremity about a third of the way from the ankle to the knee. Packing was placed today according to dressing and was not removed. External dressing, which was removed, with some serous appearing drainage that is not particularly odorous Approximately 4-1/2 cm diameter packed wound to the left lower extremity posteriorly midway between the ankle and the knee. Packing placed today with an aqua blue coloration noted streaked throughout the white gauze. External dressing, which was removed, with some serous drainage, thin rim of bright red blood and the aqua blue, not particularly odorous. Has erythema noted to both lower extremities at the feet and calf areas, excluding the ankle fold. Skin is dry and warm to touch. No streaks up into the groin noted. Extensive bright red erythema with loss of superficial skin underneath the pannus down into both groins. The more distal suprapubic area is free of erythema. Erythema again noted to the labia below the urethra extending through to perineum. There is packing to what is known to be a stage 4 pressure ulcer at right gluteal fold. Starting at perineal area, skin becomes more purple/red up onto both buttocks in a diaper pattern. There is loss of superficial skin with some serous drainage. A few areas with bright red blood. No blistering currently noted. Areas with darker purple streaks particularly more proximally and centrally in sacral area, no crepitus, not malodorous,soft, no purulence seen, both purple and red areas are blancheable. Area with line of demarcation. No red streaks noted to extend beyond demarcation. No clearly palpable edges at demarcation line. See picture for details Erythema with cracking of the skin underneath both breasts left more so than right. Urinary Catheter Management^: Spencer: Cath Placed During This Visit: yes Reason for Continuing Indwelling Catheter: Assist Healing of Perineal & Sacral Wounds- Incontinent Patients Urinary Catheter Date of Insertion: 08/04/20 Urinary Catheter Time of Insertion: 13:46 Data : 08/07/20 07:38 08/07/20 07:38 Micro: Microbiology 08/01/20 18:46 Blood Culture - Final Blood NO GROWTH AFTER 5 DAYS 08/01/20 18:46 Blood Culture - Final Blood NO GROWTH AFTER 5 DAYS A&P Assessment and plan (1) Toxic metabolic encephalopathy: From either urinary or skin source at this point in time: Status: Acute (2) Sepsis: As evidenced by encephalopathy, fever, leukocytosis, tachycardia, dehydration with mild acute kidney injury, organism and specific site of origin currently unknown. Status: Acute Qualifiers: Sepsis acute organ dysfunction status: with acute organ dysfunction Sepsis type: sepsis due to unspecified organism Severe sepsis acute organ dysfunction type: encephalopathy Severe sepsis shock status: without septic shock Qualified Code(s): A41.9 - Sepsis, unspecified organism; R65.20 - Severe sepsis without septic shock; G93.40 - Encephalopathy, unspecified (3) Cellulitis: Of multiple sites including underneath both breasts, below the pannus and into the groins, as well as to both lower extremities distally but the most concerning area is buttocks extending to the perineum and labia. Status: Acute Qualifiers: Laterality: left Site of cellulitis: extremity Site of cellulitis of extremity: lower extremity Qualified Code(s): L03.116 - Cellulitis of left lower limb (4) Indwelling Spencer catheter present: Spencer catheter had been stopped last fall due to issues with recurrent urinary tract infections. At least through June it was still not in place. I am certain it was resumed due to the noted skin changes. 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, these have been followed in wound care clinic and include a stage IV to the right gluteal fold, stage IV to right lateral calf and stage III to left posterior calf Status: Acute (7) Diabetes mellitus: Currently with normal blood sugars on usual regimen in the setting of decreased oral intake Status: Chronic Qualifiers: Diabetes mellitus type: type 2 Diabetes mellitus long line teamster insulin use: with residential use Diabetes mellitus complication status: with skin complications Diabetes mellitus complication detail: with other skin ulcer Qualified Code(s): E11.622 - Type 2 diabetes mellitus with other skin ulcer; Z79.4 - termite treater helper (current) use of 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 With the information I have available for review, it does not appear that it has been replaced. She follows normally with Dr. Hoyos. Status: Chronic (9) Moderate protein-calorie malnutrition: Status: Acute (10) Morbid obesity with BMI of 45.0-49.9, adult: Status: Chronic (11) Anemia: With iron deficiency and chronic inflammation, hemoglobin currently at baseline though expect drop with hydration, does have associated thrombocytosis. May have a component of acute or chronic blood loose with extent of skin damage. Status: Chronic Qualifiers: Anemia type: iron deficiency Iron deficiency anemia type: unspecified iron deficiency Qualified Code(s): D50.9 - Iron deficiency anemia, unspecified Additional A&P Information Inpatient admission Originally received Rocephin for UTI in the emergency room. After seeing the extensive wound and skin changes and review of cultures.She has had an Enterobacter species that was resistant to cephalosporins previously. she was started on vancomycin, imipenem and Diflucan. Vancomycin and Diflucan was DC on 08/04. 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 Appreciate surgery :Rec Keep off of buttocks as much as able, reviewed with nursing spencer catheter: Changed on 08/04 Sliding scale insulin for now, long acting held as not taking po As needed ativan and morphine for comfort currently COVID testing:Negative Lactic acid:1.1 Lovenox for DVT prophylaxis, monitoring for significant blood loss from wounds Pepcid for GI prophylaxis Supportive care otherwise Code Status :AND Attestations Medical Necessity Statement*: Patient needs to be in hospital for the management of encephalopathy. Coding Level of Care Code Acute Turbine Technician for [facility] Fwd Diagnoses Toxic metabolic encephalopathy G92 Sepsis A41.9; R65.20; G93.40 Sepsis acute organ dysfunction status: with acute organ dysfunction Sepsis type: sepsis due to unspecified organism Severe sepsis acute organ dysfunction type: encephalopathy Severe sepsis shock status: without septic shock Cellulitis L03.116 Laterality: left Site of cellulitis: extremity Site of cellulitis of extremity: lower extremity Indwelling Spencer catheter present Z97.8 UTI (urinary tract infection) T83.511A; N39.0 Encounter type: initial encounter Indwelling urinary catheter type: indwelling urethral catheter Urinary tract infection type: catheter-associated UTI 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
[2020-08-07] MEDS: enoxaparin 40 mg/0.4 mL Syringe SUBCUT (23:06)
[2020-08-08] VITALS: BP 132/77; PULSE 69; RESP 18; TEMP 36.8; O2SAT 96
[2020-08-08] MEDS: dextrose 5%-sod chloride 0.45% 1,000 ML 125 ML IV ×2 (02:54→08:42)
[2020-08-08 04:00] VITALS: BP 125/76; PULSE 75; RESP 18; TEMP 36.6; O2SAT 99
[2020-08-08 04:56] LABS: Basophils # 0.1 10^3/uL (0.0-0.1); Basophils % 0.6 %; Eosinophils # 1.2 10^3/uL (0.0-0.8); Eosinophils % 15.1 %; Hematocrit 26.9 % (37.0-47.0); Hemoglobin 7.5 g/dL (11.5-15.3); Lymphocytes # 1.4 10^3/uL (0.8-4.8); Lymphocytes % 17.8 %; Mean Corpuscular HGB Conc 27.9 g/dL (30.0-36.0); Mean Corpuscular Hemoglobin 26.9 pg (28.0-34.0); Mean Corpuscular Volume 96.4 fL (81-99); Mean Platelet Volume 9.5 fL (7.4-10.4); Monocytes # 0.7 10^3/uL (0.2-0.9); Monocytes % 8.3 %; Neutrophils # 4.59 10^3/uL (1.8-7.7); Neutrophils % 57.7 %; Nucleated Red Blood Cells % 0 %; Platelet Count 319 10^3/cmm (130-400); Red Blood Count 2.79 10^6/uL (4.1-5.3)
[2020-08-08 05:12] LABS: Alanine Aminotransferase 9 U/L (0-33); Albumin Level 1.9 g/dL (3.5-5.2); Alkaline Phosphatase 63 IU/L (35-105); Aspartate Amino Transferase 20 U/L (0-32); Blood Urea Nitrogen 10 mg/dL (8-23); Calcium 7.6 mg/dL (8.5-10.5); Carbon Dioxide 17 mmol/L (22-29); Chloride 115 mmol/L (98-107); Creatinine Clr Calc Pharmacy 134.2804; Globulin 3.4 g/dL (1.3-4.6); Glucose 84 mg/dL (65-115); Osmolality Calculated 288 mOsm/kg (285-295); Sodium 140 mmol/L (136-145); Total Bilirubin 0.2 mg/dL (0.15-1.2); Total Protein 5.3 g/dL (6.6-8.7)
[2020-08-08 05:22] LABS: Anion Gap 11.7 (5-19); Potassium 3.7 mmol/L (3.5-5.1)
[2020-08-08 06:40] LABS: Glucose Point of Care 104 mg/dL (70-110)
[2020-08-08 07:44] VITALS: BP 126/71; PULSE 79; RESP 18; TEMP 36.3; O2SAT 98
[2020-08-08] MEDS: ascorbic acid 500 mg Tablet 1000 MG PO (08:40)
[2020-08-08] MEDS: levothyroxine 50 mcg Tablet PO (08:41)
[2020-08-08] MEDS: cyclobenzaprine 10 mg Tablet PO (08:41)
[2020-08-08] MEDS: gabapentin 300 mg Capsule PO ×2 (08:41→13:37)
[2020-08-08] MEDS: docusate sodium 100 mg Capsule PO (08:41)
[2020-08-08] MEDS: ARIPiprazole 2 mg Tablet PO (08:41)
[2020-08-08] MEDS: ferrous gluconate 324 mg Tablet PO (08:41)
--- NOTE | 2020-08-08 10:39 | DCPLANNER ---
Pg 2 of IM updated with pt. She is back to her baseline today, laughing, joking and talking. Copy provided to her.
[2020-08-08 11:03] LABS: Glucose Point of Care 113 mg/dL (70-110)
[2020-08-08] MEDS: nystatin cream 30 gm 1 APPLIC TOPICAL (11:33)
[2020-08-08] MEDS: sodium hypochlorite 0.25% Btl 473 mL 1 APPLIC TOPICAL (11:34)
--- NOTE | 2020-08-08 11:34 | PC.NURSE ---
no barcode on dakins solution. manually documented administration.
--- NOTE | 2020-08-08 11:35 | P.DS_ITS ---
Discharge Providers Date of Admission: 08/01/20 20:17 Date of Discharge: August 08, 2020 Attending Provider at Admission: Crystal Jimenez MD Attending Provider at Discharge: Tod Mora MD Primary Care Provider: Russ Rosa Jr, MD Diagnoses at Discharge Discharge Diagnosis (1) Toxic metabolic encephalopathy: Status: Resolved (2) Sepsis: Status: Resolved Qualifiers: Sepsis acute organ dysfunction status: with acute organ dysfunction Sepsis type: sepsis due to unspecified organism Severe sepsis acute organ dysfunction type: encephalopathy Severe sepsis shock status: without septic shock Qualified Code(s): A41.9 - Sepsis, unspecified organism; R65.20 - Severe sepsis without septic shock; G93.40 - Encephalopathy, unspecified (3) Indwelling Flores catheter present: Status: Acute (4) Diabetes mellitus: Status: Chronic Permanent problem details: type II, on Levemir Qualifiers: Diabetes mellitus complication detail: with other skin ulcer Diabetes mellitus complication status: with skin complications Diabetes mellitus halfway insulin use: with halfway use Diabetes mellitus type: type 2 Qualified Code(s): E11.622 - Type 2 diabetes mellitus with other skin ulcer; Z79.4 - [facility] (current) use of insulin (5) Multiple sclerosis: Status: Chronic Permanent problem details: spastic paraplegia, bed/wheelchair bound, neurogenic bladder (6) Morbid obesity with BMI of 45.0-49.9, adult: Status: Chronic (7) Anemia: Status: Chronic Qualifiers: Anemia type: iron deficiency Iron deficiency anemia type: unspecified iron deficiency Qualified Code(s): D50.9 - Iron deficiency anemia, unspecified Reason for Visit Reason for Visit: [facility] Hospital Course Hospital Course 65 year old female who resides in a [facility] resident with past medical history of Anemia, Chronic back pain, Chronic constipation, Depression,Diabetes mellitus, Hypertension , Hypothyroidism Morbid obesity with BMI of 45.0-49.9,Multiple sclerosis spastic paraplegia, bed/wheelchair bound, neurogenic bladder, Obstructive sleep apnea, Pressure ulcer of left leg, stage 3 , Pressure ulcer of right buttock, stage 4 , Pressure ulcer of right leg, stage 4 Recurrent UTI, Sacral decubitus ulcer, Urinary incontinence, Venous insufficiency was admitted for the management of toxic Toxic metabolic encephalopathy: Secondary to multiple ulcers Pressure ulcer of right buttock, stage 4:right leg pressure injury ulcers as well as possible UTI. As well as sepsis secondary to ulcers. Post admission blood cultures and urine cultures wound cultures were sent, she was started on vancomycin and imipenem. Vancomycin was later discontinued, was continued on IV imipenem as the wound culture as well as urine culture grew Pseudomonas, susceptible to imipenem, blood culture was negative . CT head without contrast done during hospital stay: Showed no intracranial pathology. Her chronic indwelling Flores catheter was changed.Dr. Montes was involved in a wound care. she was also managed for all other comorbid conditions. At the time of discharge she was at her baseline mentation.She was discharged to [facility], she will continue to follow wound care as an outpatient. Physical Exam Narrative: EXAM NARRATIVE: Awake. HENMT: COMMON NORMALS: normocephalic and atraumatic HEAD & SCALP: normocephalic and atraumatic Chest: CHEST: Yes Symmetrical chest wall rise Resp: COMMON NORMALS: No retractions and clear to auscultation bilaterally AUSCULTATION: clear to auscultation bilaterally Cardio: COMMON NORMALS: regular rate, regular rhythm, S1 normal heart sound present, S2 normal heart sound present, No gallops present (Cardio), No murmurs present (Cardio), No rub (Cardio) and Peripheral pulses 2+ throughout RATE: regular rate RHYTHM: regular rhythm HEART SOUNDS: S1 normal heart sound present and S2 normal heart sound present PERIPHERAL PULSES: Peripheral pul ses 2+ throughout GI: COMMON NORMALS: Normal to inspection, nondistended, normoactive bowel sounds present, Soft to palpation, non-tender, No hepatosplenomegaly present and no masses AUSCULTATION: Yes normoactive bowel sounds PALPATION: Yes Soft to palpation and Yes No hepatosplenomegaly present RECTAL EXAM: deferred Skin: NARRATIVE SKIN EXAM: Right gluteal pressure injury ulcer looks clean and packing was done bedside in the form of Kerlix wet-to-dry using Dakin solution bedside by Periwound skin looks stable and nursing staff has been applying zinc oxide cream for local skin care. Right lower extremity pressure injury ulcer continues to improve without evidence of necrotic tissues, repacking was done bedside Left lower extremity pressure injury ulcer continues to show improvement with some less residual necrotic tissues that was sharply debrided as well by me bedside and repacking using 4 x 4 wet-to-dry using Dakin's to the Urinary Catheter Management^: Flores: Cath Placed During This Visit: yes Reason for Continuing Indwelling Catheter: Assist Healing of Perineal & Sacral Wounds- Incontinent Patients Urinary Catheter Date of Insertion: 08/04/20 Urinary Catheter Time of Insertion: 13:46 Discharge Data Data Completed and Pending: Completed Studies During Hospitalization Category Date Time Status CT head wo con* 7 0450 Routine Cat Scan 08/06/20 11:27 Completed XR chest 1V ugo ble [id number] Urgent Exams 08/01/20 18:28 Completed Pending at discharge Category Date Time Status Complete Blood Co unt w/Auto AM LABS Lab 08/09/20 04:00 Ordered Comprehensive Met abolic Panel AM LA BS Lab 08/09/20 04:00 Ordered Labs from last 24 hours 08/08/20 08/08/20 08/08/20 10:55 06:35 04:39 WBC RBC Hgb Hct MCV MCH MCHC RDW Plt Count MPV Neut % (Auto) Lymph % (Auto) [place] % (Auto) Eos % (Auto) Baso % (Auto) Neut # (Auto) Lymph # (Auto) [place] # (Auto) Eos # (Auto) Baso # (Auto) Nucleated RBC % (a uto) Nucleated RBCs # Sodium 140 Potassium 3.7 Chloride 115 H Carbon Dioxide 17 L Anion Gap 11.7 BUN 10 Creatinine 0.6 GFR Calculation 101.0 Glucose 84 POC Glucose 113 H 104 Calculated Osmolal ity 288 Calcium 7.6 L Total Bilirubin 0.2 AST 20 ALT 9 Alkaline Phosphata se 63 Total Protein 5.3 L Albumin 1.9 L Globulin 3.4 08/08/20 08/07/20 08/07/20 04:39 20:52 16:55 WBC 8.0 RBC 2.79 L Hgb 7.5 L Hct 26.9 L MCV 96.4 MCH 26.9 L MCHC 27.9 L RDW 19.0 H Plt Count 319 MPV 9.5 Neut % (Auto) 57.7 Lymph % (Auto) 17.8 [place] % (Auto) 8.3 Eos % (Auto) 15.1 Baso % (Auto) 0.6 Neut # (Auto) 4.59 Lymph # (Auto) 1.4 [place] # (Auto) 0.7 Eos # (Auto) 1.2 H Baso # (Auto) 0.1 Nucleated RBC % (a uto) 0 Nucleated RBCs # 0.0 Sodium Potassium Chloride Carbon Dioxide Anion Gap BUN Creatinine GFR Calculation Glucose POC Glucose 191 H 101 Calculated Osmolal ity Calcium Total Bilirubin AST ALT Alkaline Phosphata se Total Protein Albumin Globulin Vitals: Last Vital Signs Temp 97.3 F L 08/08/20 07:44 Pulse 79 08/08/20 07:44 Resp 18 08/08/20 07:44 BP 126/71 08/08/20 07:44 Pulse Ox 98 08/08/20 07:44 Discharge Plan Discharge Patient Disposition: [facility] w Plan Readm Condition: Stable Prescriptions: Continued aripiprazole [Abilify] 2 mg tablet 2 mg PO DAILY@08 RF: 0 furosemide [Lasix] 40 mg tablet 40 mg PO DAILY@08 RF: 0 acetaminophen 325 mg capsule 650 mg PO Q4H PRN (Reason: Pain, Mild) RF: 0 lisinopril 5 mg tablet 5 mg PO DAILY@08 RF: 0 levothyroxine 175 mcg capsule 175 mcg PO DAILY@0600 RF: 0 cyclobenzaprine 10 mg tablet 10 mg PO BID@ RF: 0 loratadine [Claritin] 10 mg tablet 10 mg PO DAILY@799 RF: 0 lorazepam 0.5 mg tablet 0.25 mg PO BID@ RF: 0 Levemir U-100 Insulin 100 unit/mL solution 100 unit SUBCUT DAILY@1100 RF: 0 ferrous gluconate 324 mg (37.5 mg iron) tablet 324 mg PO BID@ RF: 0 insulin aspart U-100 [Novolog U-100 Insulin aspart] 100 unit/mL Solution See Rx Instructions .ROUTE .COMPLEX Qty: 10 RF: 0 methenamine hippurate 1 mg PO BID@ RF: 0 hydrocodone-acetaminophen [[place]] 5-325 mg tablet 1 tab PO Q6H PRN (Reason: pain) Qty: 28 RF: 0 Seroquel 25 mg Tablet 25 mg PO DAILY@1999 RF: 0 Vitamin C 1,000 mg Tablet 1,000 mg PO BID@ RF: 0 Celexa 40 mg Tablet 40 mg PO DAILY@1999 RF: 0 hydrocodone-acetaminophen 5-325 mg Tablet See Rx Instructions .ROUTE .COMPLEX RF: 0 hydrocodone-acetaminophen 5-325 mg Tablet 1 tab PO Q8H PRN (Reason: Pain) RF: 0 Zofran 4 mg Tablet 4 mg PO Q6H PRN (Reason: NAUSEA/VOMITING) RF: 0 clopidogrel 75 mg Tablet 75 mg PO DAILY@799 RF: 0 triamcinolone acetonide 0.1 % Cream 1 applic TOPICAL BID@ RF: 0 cefadroxil 500 mg Capsule 500 mg PO BID@ RF: 0 Milk of Magnesia 400 mg/5 mL Suspension 400 mg PO DAILY PRN (Reason: Constipation) RF: 0 morphine 20 mg/5 mL (4 mg/mL) Solution 20 mg PO Q2H PRN (Reason: Pain) RF: 0 simvastatin 5 mg Tablet 5 mg PO DAILY@1999 RF: 0 Dulcolax (bisacodyl) 10 mg Suppository 10 mg NV DAILY PRN (Reason: Constipation) RF: 0 Protonix 40 mg Tablet,Delayed Release (Dr/Ec) 40 mg PO DAILY@799 RF: 0 nystatin 100,000 unit/gram Cream 1 applic TOPICAL BID@ RF: 0 Fleet Enema 19-7 gram/118 mL Enema 118 ml NV DAILY PRN (Reason: Constipation) RF: 0 Colace 100 mg Capsule 100 mg PO DAILY PRN (Reason: Constipation) RF: 0 Miralax 17 gram/dose Powder 17 g PO Q2D RF: 0 Biofreeze (menthol) 4 % Gel See Rx Instructions .ROUTE .COMPLEX RF: 0 Pro-Stat Renal Care 15 gram- 100 kcal/30 mL Liquid In Packet 1 ea PO BID@ RF: 0 Novolin R Regular U-100 Insuln 100 unit INJECTION TID@,, RF: 0 Dry Eye Relief 1-0.2-0.2 % Drops 1 drp OPHTHALMIC (EYE) BID@ RF: 0 gabapentin 300 mg Capsule 300 mg PO TID@799,1199,1999 RF: 0 Biotene Moisturizing Mouth [place],Non-Aerosol 1 applic MUCOUS MEMBRANE PRN PRN (Reason: Dry Mouth) RF: 0 Discharge Orders: Discharge Order (Routine); Ordered 08/08/20 Ordered By: Tod Mora Referrals: [facility] [Other] Carroll Montes MD [Physician] - (Please call Sunday to schedule a follow up appointent. Return to wound care center to follow-up with Dr. Montes upon discharge) Discharge Diet: Diabetic Discharge Activity: Increase activity as tolerated and Wheelchair as instructed Discharge Attestations Time Spent in Discharge Care*: less than 30 min Specific Discharge Activities: educating and/or supporting family/caregiver, discussing with pcp/other providers, discussing with disease case manager/social workers/dc planners, documenting/other paperwork and evaluating patient/reviewing data Status at Discharge: Cognitive status at discharge: mildly impaired cognition , Behavioral status at discharge: cooperative , Functional status at discharge: wheelchair bound Overall status at discharge: patient is back to baseline Quality Metrics Clinical Quality Measures During this hospital stay, did patient experience: None Coding Level of Care Code Acute Abrasive Band Winder for Chg Fwd Diagnoses Toxic metabolic encephalopathy G92 Sepsis A41.9; R65.20; G93.40 Sepsis acute organ dysfunction status: with acute organ dysfunction Sepsis type: sepsis due to unspecified organism Severe sepsis acute organ dysfunction type: encephalopathy Severe sepsis shock status: without septic shock Indwelling Flores catheter present Z97.8 Diabetes mellitus E11.622; Z79.4 Diabetes mellitus complication detail: with other skin ulcer Diabetes mellitus complication status: with skin complications Diabetes mellitus termite helper insulin use: with halfway use Diabetes mellitus type: type 2 Multiple sclerosis G35 Morbid obesity with BMI of 45.0-49.9, adult E66.01; Z68.42 Anemia D50.9 Anemia type: iron deficiency Iron deficiency anemia type: unspecified iron deficiency
[2020-08-08 11:59] VITALS: BP 108/69; PULSE 77; RESP 17; TEMP 36.6; O2SAT 94
--- NOTE | 2020-08-08 15:30 | PC.NURSE ---
report called to Shivani at [facility]. pt left via transport services.
[2020-08-08 15:32] VITALS: BP 108/69; PULSE 77; RESP 17; TEMP 36.6; O2SAT 94
== END 2020-08-08 15:37 | disposition skilled nursing facility (03) | DRG 698 ==
LOC: ER 19:24 → MEDSURG 20:47
PROVIDERS: Admitting Provider Hospitalist; Emergency Provider Family Medicine; PCP Family Medicine; Visit Provider Internal Medicine
DX: T83.511A Infection and inflammatory reaction due to indwelling urethral catheter, initial encounter (principal); L89.314 Pressure ulcer of right buttock, stage 4; L89.893 Pressure ulcer of other site, stage 3; L89.894 Pressure ulcer of other site, stage 4; G92 Toxic encephalopathy; A41.9 Sepsis, unspecified organism; R65.20 Severe sepsis without septic shock; L03.116 Cellulitis of left lower limb; E44.0 Moderate protein-calorie malnutrition; Z68.42 Body mass index [BMI] 45.0-49.9, adult; Z66 Do not resuscitate; Y69 Unspecified misadventure during surgical and medical care; Y92.009 Unspecified place in unspecified non-institutional (private) residence as the place of occurrence of the external cause; M19.90 Unspecified osteoarthritis, unspecified site; G89.29 Other chronic pain; M54.9 Dorsalgia, unspecified; K59.09 Other constipation; F32.9 Major depressive disorder, single episode, unspecified; E03.9 Hypothyroidism, unspecified; E66.01 Morbid (severe) obesity due to excess calories; G47.33 Obstructive sleep apnea (adult) (pediatric); E78.5 Hyperlipidemia, unspecified; G35 Multiple sclerosis; I10 Essential (primary) hypertension; Z74.01 Bed confinement status; E86.0 Dehydration; N39.0 Urinary tract infection, site not specified; E11.622 Type 2 diabetes mellitus with other skin ulcer; Z79.4 Long term (current) use of insulin; Z20.822 Contact with and (suspected) exposure to COVID-19
CPT/HCPCS: 11043; 11046; 36415; 36416; 70450; 71045; 80048; 80053; 80202; 81001; 82962; 83036; 83540; 83550; 83605; 83735; 84100; 85025; 86140; 87040; 87070; 87077; 87086; 87186; 87426; 87635; 87804; 96365; 96372; 99285; J0696; J0743; J1450; J1650; J1815; J2060; J2270; J3370; J3490; J7030; J7040; J7799

== ENCOUNTER → 2020-08-19 12:50 | Outpatient (BNVA) | payer MEDICARE, MEDICAID, SELFPAY | PROVIDERS: PCP Family Medicine; Visit Provider Specialist | DX: G35 Multiple sclerosis (principal) | CPT/HCPCS: 99214 ==

== ENCOUNTER 2020-08-20 10:12 | Outpatient (CLI) | payer MEDICARE, MEDICAID, SELFPAY | END 2020-08-20 10:13 | disposition home or self-care (01) | LOC: WOUND 10:13 | PROVIDERS: PCP Family Medicine; Visit Provider Surgery | DX: I96 Gangrene, not elsewhere classified (principal); L89.314 Pressure ulcer of right buttock, stage 4; L89.894 Pressure ulcer of other site, stage 4; L97.519 Non-pressure chronic ulcer of other part of right foot with unspecified severity | CPT/HCPCS: 11043; 11044; 11046 ==

== ENCOUNTER 2020-08-27 10:32 | Outpatient (CLI) | payer MEDICARE, MEDICAID, SELFPAY | END 2020-08-27 10:33 | disposition home or self-care (01) | LOC: WOUND 10:33 | PROVIDERS: PCP Family Medicine; Visit Provider Surgery | DX: I96 Gangrene, not elsewhere classified (principal); L89.324 Pressure ulcer of left buttock, stage 4; L89.894 Pressure ulcer of other site, stage 4; L97.512 Non-pressure chronic ulcer of other part of right foot with fat layer exposed | CPT/HCPCS: 11043; 11044; 11046 ==

== ENCOUNTER 2020-09-03 12:59 | Outpatient (CLI) | payer MEDICARE, MEDICAID, SELFPAY | END 2020-09-03 13:00 | disposition home or self-care (01) | LOC: WOUND 13:05 | PROVIDERS: PCP Family Medicine; Visit Provider Nurse Practitioner Family | DX: I96 Gangrene, not elsewhere classified (principal); L89.314 Pressure ulcer of right buttock, stage 4; L89.894 Pressure ulcer of other site, stage 4; L97.512 Non-pressure chronic ulcer of other part of right foot with fat layer exposed | CPT/HCPCS: 11042; 11045 ==

== ENCOUNTER 2020-09-10 13:05 | Outpatient (CLI) | payer MEDICARE, MEDICAID, SELFPAY | END 2020-09-10 13:06 | disposition home or self-care (01) | LOC: WOUND 13:06 | PROVIDERS: PCP Family Medicine; Visit Provider Surgery | DX: I96 Gangrene, not elsewhere classified (principal); L89.314 Pressure ulcer of right buttock, stage 4; L89.894 Pressure ulcer of other site, stage 4 | CPT/HCPCS: 11043; 11044; 11046 ==

== ENCOUNTER 2020-09-17 13:19 | Outpatient (CLI) | payer MEDICARE, MEDICAID, SELFPAY | END 2020-09-17 13:20 | disposition home or self-care (01) | LOC: WOUND 13:20 | PROVIDERS: PCP Family Medicine; Visit Provider Surgery | DX: I96 Gangrene, not elsewhere classified (principal); L89.314 Pressure ulcer of right buttock, stage 4; L89.894 Pressure ulcer of other site, stage 4 | CPT/HCPCS: 11043; 11044; 11046 ==

== ENCOUNTER 2020-09-24 19:37 | Inpatient (IN) | payer MEDICARE, MEDICAID, SELFPAY ==
[2020-09-24 19:43] VITALS: BP 93/65; RESP 18; TEMP 37; O2SAT 93
--- NOTE | 2020-09-24 20:16 | XRR_ITS ---
PROCEDURE INFORMATION: Exam: XR Chest Exam date and time: 09/24/2020 8:32 PM Age: 65 years old Clinical indication: Other: UTI; Additional info: AMS TECHNIQUE: Imaging protocol: XR of the chest. Views: 1 view. COMPARISON: CR XR chest 1V portable [id number] 08/01/2020 6:40 PM FINDINGS: Lungs: Unremarkable. No consolidation. Pleural spaces: Unremarkable. No pleural effusion. No pneumothorax. Heart/Mediastinum: Unremarkable. No cardiomegaly. Vasculature: Mild atherosclerosis. Bones/joints: Severe arthritis of left shoulder. No acute thoracic fractures. XR/XR chest 1V portable [id number] IMPRESSION: 1. No acute findings. 2. No significant change from prior.
[2020-09-24 20:24] LABS: Basophils # 0.1 10^3/uL (0.0-0.1); Eosinophils # 1.4 10^3/uL (0.0-0.8); Eosinophils % 16.6 %; Hematocrit 35.2 % (37.0-47.0); Hemoglobin 10.2 g/dL (11.5-15.3); Lymphocytes # 1.3 10^3/uL (0.8-4.8); Lymphocytes % 15.9 %; Mean Corpuscular Volume 96.7 fL (81-99); Mean Platelet Volume 9.7 fL (7.4-10.4); Monocytes # 0.7 10^3/uL (0.2-0.9); Monocytes % 8.9 %; Neutrophils # 4.66 10^3/uL (1.8-7.7); Neutrophils % 57.2 %; Nucleated Red Blood Cells % 0 %; Platelet Count 375 10^3/cmm (130-400); Red Blood Count 3.64 10^6/uL (4.1-5.3); Red Cell Distribution Width 17.3 % (12.1-15.1); White Blood Count 8.1 10^3/uL (4.0-10.0)
[2020-09-24 20:45] LABS: Procalcitonin 0.25 ng/mL (0-0.5)
[2020-09-24 20:49] VITALS: BP 102/67; PULSE 91; RESP 18; O2SAT 100
[2020-09-24 20:56] LABS: Alanine Aminotransferase 17 U/L (0-33); Albumin Level 2.3 g/dL (3.5-5.2); Alkaline Phosphatase 112 IU/L (35-105); Blood Urea Nitrogen 55 mg/dL (8-23); C Reactive Protein 44.7 mg/L (0.0-4.9); Carbon Dioxide 22 mmol/L (22-29); Chloride 99 mmol/L (98-107); Globulin 4.2 g/dL (1.3-4.6); Glomerular Filtration Rate 23.8 mL/min (90-130); Glucose 72 mg/dL (65-115); Osmolality Calculated 290 mOsm/kg (285-295); Sodium 133 mmol/L (136-145); Total Bilirubin 0.3 mg/dL (0.15-1.2); Total Protein 6.5 g/dL (6.6-8.7)
[2020-09-24 20:58] LABS: Anion Gap 17.9 (5-19); Aspartate Amino Transferase 26 U/L (0-32); Potassium 5.9 mmol/L (3.5-5.1)
[2020-09-24 21:09] LABS: Lactate (Lactic Acid level) 1.3 mmol/L (0.5-2.2)
[2020-09-24] MEDS: sodium chloride 0.9% 1,000 ML 999 ML IV ×2 (21:18→23:05)
[2020-09-24 22:28] VITALS: BP 92/58; PULSE 89; RESP 17; O2SAT 100
[2020-09-24 22:43] LABS: Urine Appearance Cloudy (CLEAR); Urine Color Yellow (Yellow)
--- NOTE | 2020-09-24 22:43 | CTR_ITS ---
PROCEDURE INFORMATION: Exam: CT Abdomen And Pelvis Without Contrast Exam date and time: 09/24/2020 10:55 PM Age: 65 years old Clinical indication: Prior surgery; Surgery type: Intrathecal pump; Patient HX: Micro hematuria. ; Additional info: Juan Luis, UTI, ? pyelo TECHNIQUE: Imaging protocol: Computed tomography of the abdomen and pelvis without contrast. Radiation optimization: All CT scans at this facility use at least one of these dose optimization techniques: automated exposure control; mA and/or kV adjustment per patient size (includes targeted exams where dose is matched to clinical indication); or iterative reconstruction. COMPARISON: CT kidney stone [id number] 03/14/2020 2:54 PM RADIATION DOSE METRICS: Total DLP (mGy-cm): 911.98 FINDINGS: Liver: Liver steatosis. No focal liver mass. Gallbladder and bile ducts: Cholelithiasis. No dilation of biliary system. Pancreas: Normal. No ductal dilation. Spleen: Normal. No splenomegaly. Adrenal glands: Normal. No mass. Kidneys and ureters: Symmetric mild severity diffuse bilateral renal cortical volume loss. No hydronephrosis. No acute perinephric inflammation. No calcified renal stones. Stomach and bowel: No inflammatory wall thickening changes of the bowel loops. Moderate fecal volume. No evidence of bowel obstruction or bowel perforation. Appendix: No evidence of appendicitis. Intraperitoneal space: No intraperitoneal fluid collection. Vasculature: Diffuse atherosclerosis of abdominal aorta. No aneurysm. Lymph nodes: Unremarkable. No enlarged lymph nodes. Urinary bladder: Bladder is collapsed around a Flores catheter. Reproductive: Atrophic uterus. Normal right adnexa. Ovoid circumscribed left ovarian cystic lesion 5.6 cm x 3 5 cm. No significant change from prior. Bones/joints: Cortical bone remodeling changes are noted in the ischial tuberosity on the right adjacent the ulcer. Bones are diffusely demineralized. No fractures. Lumbar spinal alignment is unremarkable.The lumbar spine demonstrates marked discogenic and apophyseal joint degenerative changes at multiple levels. Soft tissues: Partial visualization of right posterior ischial sacral decubitus ulcer. Mild anasarca. Implantable pump in the subcutaneous fat of the right lower quadrant. Radiopaque catheter tunneled in the superficial subcutaneous fat of the right flank with catheter extending into the posterior thecal sac of the mid lumbar spine and extending into the lower thoracic spine area. Lumbar paraspinal muscles are atrophic but otherwise symmetric. CT/CT kidney stone [id number] IMPRESSION: 1. No acute pathology in the abdomen or pelvis identified. 2. No collecting system obstruction. Radiation Dose CTDIVOL = (mGy): DLP = 911.98 (mGy-cm)
[2020-09-24 22:44] LABS: Add Urine Culture? Yes; Add Urine Microscopic? YES; Bacteria Urine 1+ /hpf; Bilirubin Urine Neg (Negative); Blood Urine 3+ (Negative); Glucose Urine UA Norm (Normal); Ketones Urine 1+ (Negative); Leukocyte Esterase Urine 2+ (Negative); Nitrate Urine Negative (Negative); Protein Urine 1+ (Negative); RBC Urine 0-4 /hpf (0-2); Squamous Epithelial Cell Urine 0-4 /hpf (0-5); Urobilinogen Urine Norm (Negative); WBC Urine TOO NUMEROUS TO CNT /hpf (0-5); pH Urine 5 (5-7)
--- NOTE | 2020-09-24 22:44 | P.HP_ITS ---
Providers/Chief Complaint Primary Care Provider: Russ Rosa Jr, MD Chief Complaint: possible uti History of Present Illness Jared Gracia is a 65 year old female who carries multiple comorbid conditions such as multiple sclerosis with spastic paraplegia, stage IV buttocks ulcer, chronic indwelling catheter, venous insufficiency, morbid obesity, sleep apnea, insulin-dependent diabetes, constipation presented today with chief c omplaint of dehydration, altered mental status and low blood pressure. Patient is not a reliable historian. I called [facility] to get the report. Nurse is stating that today she has not eaten well at all and her blood pressure was soft 86/60 mmHg, at baseline she is able to communicate with the staff on basic level, today confusion was noticed and she was not able to communicate selena ropriately. No slurring of speech, her mood was very irritable, her Flores catheter was changed 2 weeks ago, she follows up with wound care clinic on a weekly basis. In the ER she was found to have UTI for which cefepime was given in the ER there is no leukocytosis she is afebrile does not meet sepsis criteria, she has mild hyperkalemia and worsening of creatinine CT abdomen pelvis was requested which did not show any obstructive uropathy, clinically it is hard to assess her volume status but suspicion is high for hypovolemia along nephrotoxic agents, please note as per recent urology note she was asked to drink less because of neurogenic bladder/continuous urinary incontinence. Review of Systems Const: Reports: body aches, fatigue and malaise; Denies: fever(s) Eyes: Denies: change in vision ENMT: Denies: throat pain Card: Denies: chest pain Resp: Denies: dyspnea GI: Reports: abdominal pain : Denies: flank pain Musc: Reports: extremity swelling, limited range of motion and muscle cramps; Denies: joint redness or joint warmth Skin/Breast: Reports: lesions Neuro: Denies: headache(s) Psych: Reports: anxiety Endo: Denies: polyuria Nikhil/Lymph: Denies: easy bruising All/Imm: Denies: urticaria Medications/Allergies Home Medications Medication Instructions Recorded Confirmed Last Taken Type acetaminophen 325 mg capsule 650 mg PO Q4H PRN 09/16/19 08/26/20 06/27/20 History aripiprazole 2 mg tablet 2 mg PO DAILY@0800 09/16/19 08/26/20 07/31/20 History cyclobenzaprine 10 mg tablet 10 mg PO BID@0800,199909/16/19 08/26/20 07/31/20 History furosemide 40 mg tablet 40 mg PO DAILY@0809/16/19 08/26/20 07/31/20 History levothyroxine 175 mcg capsule 175 mcg PO DAILY@0609/16/19 08/26/20 07/31/20 History lisinopril 5 mg tablet 5 mg PO DAILY@0809/16/19 08/26/20 07/31/20 History loratadine 10 mg tablet 10 mg PO DAILY@79909/16/19 08/26/20 07/31/20 History lorazepam 0.5 mg tablet 0.25 mg PO BID@0800,1999 tab 09/16/19 08/26/20 07/31/20 History Biotene Moisturizing Mouth 1 applic MUCOUS MEMBRANE PRN PRN 02/18/20 08/26/20 02/29/20 History Dry Eye Relief 1 drp OPHTHALMIC (EYE) 02/18/20 08/26/20 07/31/20 History BID@0800,1999 gabapentin 300 mg PO TID@0800,1200,199902/18/20 08/26/20 07/31/20 History insulin aspart U-100 [Novolog See Rx Instructions .ROUTE 03/16/20 08/26/20 07/31/20 Rx U-100 Insulin aspart] .COMPLEX #10 ml ferrous gluconate 324 mg (37.5 mg 324 mg PO BID@08,1999 tab 04/06/20 08/26/20 07/31/20 History iron) tablet methenamine hippurate 1 mg PO BID@0800,199906/28/20 08/26/20 07/31/20 History hydrocodone-acetaminophen [[place]] 1 tab PO Q6H PRN #28 tab 06/29/20 08/26/20 07/22/20 Rx Biofreeze (menthol) See Rx Instructions .ROUTE .COMPLEX 08/05/20 08/26/20 Unknown History Celexa 40 mg PO DAILY@199908/05/20 08/26/20 07/31/20 History Colace 100 mg PO DAILY PRN 08/05/20 08/26/20 Unknown History Dulcolax (bisacodyl) 10 mg DC DAILY PRN 08/05/20 08/26/20 Unknown History Fleet Enema 118 ml DC DAILY PRN 08/05/20 08/26/20 Unknown History Milk of Magnesia 400 mg PO DAILY PRN 08/05/20 08/26/20 07/31/20 History Miralax 17 g PO Q2D 08/05/20 08/26/20 07/31/20 History Pro-Stat Renal Care 1 ea PO BID@0800,199908/05/20 08/26/20 07/31/20 History Protonix 40 mg PO DAILY@0800 08/05/20 08/26/20 07/31/20 History Seroquel 25 mg PO DAILY@199908/05/20 08/26/20 07/31/20 History Vitamin C 1,000 mg PO BID@0800,199908/05/20 08/26/20 07/31/20 History Zofran 4 mg PO Q6H PRN 08/05/20 08/26/20 Unknown History cefadroxil 500 mg PO BID@0800,199908/05/20 08/26/20 07/31/20 History clopidogrel 75 mg PO DAILY@0800 08/05/20 08/26/20 07/31/20 History hydrocodone-acetaminophen See Rx Instructions .ROUTE .COMPLEX 08/05/20 08/26/20 07/30/20 History morphine 20 mg PO Q2H PRN 08/05/20 08/26/20 07/30/20 History nystatin 1 applic TOPICAL BID@0800,199908/05/20 08/26/20 07/31/20 History simvastatin 5 mg PO DAILY@199908/05/20 08/26/20 08/01/20 History triamcinolone acetonide 1 applic TOPICAL BID@0800,199908/05/20 08/26/20 07/31/20 History Novolin R Regular U-100 Insuln 100 unit INJECTION .SLIDING SCALE 08/26/20 Unknown History insulin detemir U-100 100 unit/mL 10 unit SUBCUT .AT HS ml 08/26/20 08/26/20 Unknown History subcutaneous solution interferon beta-1b 0.3 mg SUBCUT .EVERY OTHER DAY ea 08/26/20 08/26/20 Unknown History subcutaneous kit Allergies Allergy/AdvReac Type Severity Reaction Status Date / Time aspirin AdvReac unknown Verified 08/26/20 10:31 PFSH Acute PFSH: Medical History Anemia Arthritis Cellulitis Chronic back pain Chronic constipation Depression Diabetes mellitus type II, on Levemir End of battery life of intrathecal infusion pump notated in records by Dr Flanagan 11/2019, was never replaced, and baclofen oral never started, located in right abdomen, feeds into L2-L3 GERD (gastroesophageal reflux disease) Hyperlipidemia Hypertension Hypothyroidism Indwelling Flores catheter present Moderate protein-calorie malnutrition Morbid obesity with BMI of 45.0-49.9, adult Multiple sclerosis spastic paraplegia, bed/wheelchair bound, neurogenic bladder Obstructive sleep apnea Pressure ulcer of left leg, stage 3 Pressure ulcer of right buttock, stage 4 Pressure ulcer of right leg, stage 4 Recurrent UTI Sacral decubitus ulcer Sepsis 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 Abner Flanagan: Replacement of [employer]by[employer] subcutaneous programmable pump for intrathecal baclofen. Right abdomen, to L2-L3. No longer functional as of 03/2020 per records. S/P debridement multiple for various pressure injuries Family History Other CAD (coronary artery disease) Cancer Diabetes Denies family history of Hypertension Stroke Social History Smoking and tobacco status: never smoked Alcohol intake: never Lives independently: No Housing: Half-Way Marital status: Current occupational status: retired History of recent travel: No Vitals/I&O/Wt Last Vital Signs Temp 98.6 F 09/24/20 19:43 Pulse 89 09/24/20 22:28 Resp 17 09/24/20 22:28 BP 92/58 09/24/20 22:28 Pulse Ox 100 09/24/20 22:28 Physical Exam Narrative: EXAM NARRATIVE: Middle-age female, morbidly obese, very irritable and was aggressive towards hospital staff, However at the time of my evaluation she was able to cooperate and we were able to look at her sacral wound it has tunnel wound under rt gluteal fold with skin sloughing around sacral area, dressing soaked with mild bleeding, no active purulent drainage, pink granulation tissue noticed without any necrotic material Right posterior gluteal fold stage IV ulcer 2 x 2.5 x 5 cm fat muscle layer bone exposure Stage IV ulcer lower extremity left posterior lower leg 5 x 5 cm Stage IV right lateral lower leg ulcer 2 x 2 cm Neuro exam limited she is not cooperative however able to answer my questions appropriately Moving her upper extremities without any limitation Irritable mood Central obesity, distended abdomen, nontender, firm without any signs of peritonitis Paraplegic patient with swelling 2+ bilaterally no active signs of cellulitis Data : 09/24/20 19:50 09/24/20 19:50 A&P Assessment and plan (1) Pressure ulcer of right leg, stage 4: Status: Chronic (2) Pressure ulcer of left leg, stage 3: Status: Chronic (3) Chronic antibiotic suppression: Status: Acute (4) Sacral decubitus ulcer: Status: Acute (5) Recurrent UTI: Status: Chronic (6) Hypothyroidism: Status: Chronic (7) Hypotension: Status: Acute (8) Dehydration: Status: Acute Additional A&P Information Hypotension Multifactorial, dehydration, use of Lasix, opioids, antihypertensives Patient responded to fluid resuscitation she received 1 L in the ER and blood pressure systolic improved from 80 mmHg to 105mmhg Hold antihypertensives, keep her on maintenance fluid discontinue Lasix Requested CT abdomen pelvis to rule out obstructive pathology versus inflammation because of significant pyuria, will replace Flores catheter and obtain another UA, urinalysis positive for yeast as well Sacral ulcer, pressure ulcer of lower extremities she follows up with wound care clinic for chronic pressure ulcers, she has some residual necrotic tissue of left lower extremity gets wet-to-dry Dakin's solution right gluteal pressure ulcer stable wound with bone exposure was recently debrided on 09/17/2020, right lower extremity wound shows improvement status post debridement. She was recommended to get zinc oxide cream for periwound area and bilateral lower extremity pressure injury ulcers. 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
[2020-09-24] MEDS: cefepime 1,000 MG in sodium chloride 0.9% (plus) 50 ML 100 MG IV (23:05)
[2020-09-24 23:23] VITALS: BP 81/54; PULSE 86; RESP 20; O2SAT 100
[2020-09-24 23:30] VITALS: BP 88/54; PULSE 91; RESP 20; TEMP 36.6; O2SAT 100
--- NOTE | 2020-09-24 23:56 | W.ED.AMS ---
HPI - Altered Mental Status General: Chief Complaint: Altered Mental Status Stated Complaint: possible uti Time Seen by Provider: 09/24/20 19:51 Source: EMS Mode of arrival: EMS Limitations: altered mental status History of Present Illness: HPI narrative: The patient is a 65-year-old female who is a [facility] resident and has a history of ALS. She was brought to the emergency department with complaints of altered mental status. They also noticed that her blood pressure was low when he checked it this evening. Was unable to obtain much more information from EMS or the sn[facility] staff. They believe that she may have a urinary tract infection. The patient is altered and is unable to answer any of my questions. MD complaint: altered mental status Timing confirmed by: caregiver Consistency of symptoms: Constant Review of Systems General: Reports: ROS unobtainable due to mental status PFS ED PFSH: Medical History Anemia Arthritis Cellulitis Chronic back pain Chronic constipation Depression Diabetes mellitus type II, on Levemir End of battery life of intrathecal infusion pump notated in records by Dr Flanagan 11/2019, was never replaced, and baclofen oral never started, located in right abdomen, feeds into L2-L3 GERD (gastroesophageal reflux disease) Hyperlipidemia Hypertension Hypothyroidism Indwelling Flores catheter present Moderate protein-calorie malnutrition Morbid obesity with BMI of 45.0-49.9, adult Multiple sclerosis spastic paraplegia, bed/wheelchair bound, neurogenic bladder Obstructive sleep apnea Pressure ulcer of left leg, stage 3 Pressure ulcer of right buttock, stage 4 Pressure ulcer of right leg, stage 4 Recurrent UTI Sacral decubitus ulcer Sepsis 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 Abner Flanagan: Replacement of Vaughn Burton subcutaneous programmable pump for intrathecal baclofen. Right abdomen, to L2-L3. No longer functional as of 03/2020 per records. S/P debridement multiple for various pressure injuries Family History Other CAD (coronary artery disease) Cancer Diabetes Denies family history of Hypertension Stroke Social History Smoking and tobacco status: never smoked Alcohol intake: never Lives independently: No Housing: [facility] Marital status: Current occupational status: retired History of recent travel: No Physical Exam Const: COMMON NORMALS: no acute distress, average body habitus, no limitations, healthy appearing and well nourished HENMT: COMMON NORMALS: normocephalic, atraumatic and moist oral mucous membranes HEAD & SCALP: normocephalic and atraumatic Neck/C-Spine: COMMON NORMALS: no meningeal signs and no JVD Resp: COMMON NORMALS: normal respiratory effort, No retractions, No use of accessory muscles, clear to auscultation bilaterally and percussion normal AUSCULTATION: clear to auscultation bilaterally PERCUSSION: percussion normal Cardio: COMMON NORMALS: no JVD, regular rate, regular rhythm, S1 normal heart sound present, S2 normal heart sound present, No gallops present (Cardio), No clicks present (Cardio), No murmurs present (Cardio), No rub (Cardio) and Peripheral pulses 2+ throughout RATE: regular rate RHYTHM: regular rhythm HEART SOUNDS: S1 normal heart sound present and S2 normal heart sound present PERIPHERAL PULSES: Peripheral pulses 2+ throughout GI: COMMON NORMALS: Normal to inspection, nondistended, normoactive bowel sounds present, Soft to palpation, non-tender, No hepatosplenomegaly present, no masses and no bruits PALPATION: Yes Soft to palpation and Yes No hepatosplenomegaly present Extremity: COMMON NORMALS: normal to inspection, full ROM, capillary refill normal, no calf tenderness and no pedal edema Neuro: SENSORIUM/ORIENTATION: Yes somnolent MENINGEAL SIGNS: Yes no meningeal signs Skin: COMMON NORMALS: no rashes or lesions noted, no wounds, turgor normal, no jaundice, no petechiae and no mottling GENERAL SKIN EXAM: no rashes or lesions noted and turgor normal Course Consultations: Consultation #1: Discussed the patient with Dr. Almaraz, hospitalist and he kindly accepted the patient to his service. Time: 22:45 Vital Signs: Vital signs: Vital Signs Temperature 97.8 F 09/24/20 23:30 Pulse Rate 91 09/24/20 23:30 Respiratory Rate 20 H 09/24/20 23:30 Blood Pressure 88/54 09/24/20 23:30 Pulse Oximetry 100 09/24/20 23:30 MDM - Altered Mental Status MDM Narrative: Medical decision making narrative: 65-year-old [facility] resident who presented to the emergency department today with altered mental status. In the emergency department she was noted to be hypotensive but responded to fluid resuscitation. She also has a urinary tract infection and with hypotension, altered mental status and a urinary tract infection she qualifies as a septic patient. She also has acute renal failure with a creatinine of 2.1 compared to her baseline which is about 0.6. She is admitted for IV antibiotics, fluid resuscitation and further management. Medical Records: Attestation: I reviewed the patient's medical records. Lab Data: Attestation: I reviewed the patient's lab results. Labs: Lab Results 09/24/20 09/24/20 09/24/20 Range/Units 19:50 19:50 20:25 WBC 8.1 (4.0-10.0) 10^3/ uL RBC 3.64 L (4.1-5.3) 10^6/u L Hgb 10.2 L (11.5-15.3) g/dL Hct 35.2 L (37.0-47.0) % MCV 96.7 (81-99) fL MCH 28.0 (28.0-34.0) pg MCHC 29.0 L (30.0-36.0) g/dL RDW 17.3 H (12.1-15.1) % Plt Count 375 (130-400) 10^3/c mm MPV 9.7 (7.4-10.4) fL Neut % (Auto) 57.2 % Lymph % (Auto) 15.9 % [place] % (Auto) 8.9 % Eos % (Auto) 16.6 % Baso % (Auto) 1.0 % Neut # (Auto) 4.66 (1.8-7.7) 10^3/u L Lymph # (Auto) 1.3 (0.8-4.8) 10^3/u L [place] # (Auto) 0.7 (0.2-0.9) 10^3/u L Eos # (Auto) 1.4 H (0.0-0.8) 10^3/u L Baso # (Auto) 0.1 (0.0-0.1) 10^3/u L Nucleated RBC % (a uto) 0 % Nucleated RBCs # 0.0 /100WBC Sodium 133 L (136-145) mmol/L Potassium 5.9 H (3.5-5.1) mmol/L Chloride 99 (98-107) mmol/L Carbon Dioxide 22 (22-29) mmol/L Anion Gap 17.9 (5-19) BUN 55 H (8-23) mg/dL Creatinine 2.1 H (0.5-0.9) mg/dL GFR Calculation 23.8 L (90-130) mL/min Glucose 72 (65-115) mg/dL Calculated Osmolal ity 290 (285-295) mOsm/k g Lactate 1.3 (0.5-2.2) mmol/L Calcium 8.0 L (8.5-10.5) mg/dL Total Bilirubin 0.3 (0.15-1.2) mg/dL AST 26 (0-32) U/L ALT 17 (0-33) U/L Alkaline Phosphata se 112 H (35-105) IU/L C-Reactive Protein 44.7 H (0.0-4.9) mg/L Total Protein 6.5 L (6.6-8.7) g/dL Albumin 2.3 L (3.5-5.2) g/dL Globulin 4.2 (1.3-4.6) g/dL Procalcitonin 0.25 (0-0.5) ng/mL Urine Color (Yellow) Urine Appearance (CLEAR) Urine pH (5-7) Ur Specific Gravit y (1.005-1.030) Urine Protein (Negative) Urine Glucose (UA) (Normal) Urine Ketones (Negative) Urine Blood (Negative) Urine Nitrate (Negative) Urine Bilirubin (Negative) Urine Urobilinogen (Negative) mg/dL Ur Leukocyte Susan ase (Negative) Urine RBC (0-2) /hpf Urine WBC (0-5) /hpf Ur Squamous Epith Cells (0-5) /hpf Amorphous Sediment Urine Bacteria (NONE) /hpf Urine Yeast /hpf 09/24/20 Range/Units 22:26 WBC (4.0-10.0) 10^3/ uL RBC (4.1-5.3) 10^6/u L Hgb (11.5-15.3) g/dL Hct (37.0-47.0) % MCV (81-99) fL MCH (28.0-34.0) pg MCHC (30.0-36.0) g/dL RDW (12.1-15.1) % Plt Count (130-400) 10^3/c mm MPV (7.4-10.4) fL Neut % (Auto) % Lymph % (Auto) % [place] % (Auto) % Eos % (Auto) % Baso % (Auto) % Neut # (Auto) (1.8-7.7) 10^3/u L Lymph # (Auto) (0.8-4.8) 10^3/u L [place] # (Auto) (0.2-0.9) 10^3/u L Eos # (Auto) (0.0-0.8) 10^3/u L Baso # (Auto) (0.0-0.1) 10^3/u L Nucleated RBC % (a uto) % Nucleated RBCs # /100WBC Sodium (136-145) mmol/L Potassium (3.5-5.1) mmol/L Chloride (98-107) mmol/L Carbon Dioxide (22-29) mmol/L Anion Gap (5-19) BUN (8-23) mg/dL Creatinine (0.5-0.9) mg/dL GFR Calculation (90-130) mL/min Glucose (65-115) mg/dL Calculated Osmolal ity (285-295) mOsm/k g Lactate (0.5-2.2) mmol/L Calcium (8.5-10.5) mg/dL Total Bilirubin (0.15-1.2) mg/dL AST (0-32) U/L ALT (0-33) U/L Alkaline Phosphata se (35-105) IU/L C-Reactive Protein (0.0-4.9) mg/L Total Protein (6.6-8.7) g/dL Albumin (3.5-5.2) g/dL Globulin (1.3-4.6) g/dL Procalcitonin (0-0.5) ng/mL Urine Color Yellow (Yellow) Urine Appearance Cloudy (CLEAR) Urine pH 5 (5-7) Ur Specific Gravit y 1.020 (1.005-1.030) Urine Protein 1+ H (Negative) Urine Glucose (UA) Norm (Normal) Urine Ketones 1+ H (Negative) Urine Blood 3+ H (Negative) Urine Nitrate Negative (Negative) Urine Bilirubin Neg (Negative) Urine Urobilinogen Norm (Negative) mg/dL Ur Leukocyte Susan ase 2+ H (Negative) Urine RBC 0-4 H (0-2) /hpf Urine WBC Too numerous to c nt H (0-5) /hpf Ur Squamous Epith Cells 0-4 H (0-5) /hpf Amorphous Sediment Not Reportable Urine Bacteria 1+ H (NONE) /hpf Urine Yeast 1+ H /hpf Imaging Data^: CXR: Attestation: I personally reviewed and interpreted this imaging study as follows: Radiologist's impression: [place] [address] XRay Report Signed Patient: Jared Garcia #: [id number] : 1955cct#:[id number] Age/Sex: 65 / FADM Date: 09/24/20 Loc: ERRoom/Bed: Attending Dr: Ordering Provider/Ordering MD: Jennifer Blanca MD, [facility] [place] Date of Service: 09/24/20 Procedure(s): XR chest 1V portable [id number] Accession Number(s): [id number] Report Number: [id number] PROCEDURE INFORMATION: Exam: XR Chest Exam date and time: 09/24/2020 8:32 PM Age: 65 years old Clinical indication: Other: UTI; Additional info: AMS TECHNIQUE: Imaging protocol: XR of the chest. Views: 1 view. COMPARISON: CR XR chest 1V portable [id number] 08/01/2020 6:40 PM FINDINGS: Lungs: Unremarkable. No consolidation. Pleural spaces: Unremarkable. No pleural effusion. No pneumothorax. Heart/Mediastinum: Unremarkable. No cardiomegaly. Vasculature: Mild atherosclerosis. Bones/joints: Severe arthritis of left shoulder. No acute thoracic fractures. XR/XR chest 1V portable [id number] IMPRESSION: 1. No acute findings. 2. No significant change from prior. Dictated By:Angel Joel Signed By:Teresita Joel Date/Time:09/24/202103 DD/ 02 CT Abd/Pel: Attestation: I personally reviewed and interpreted this imaging study as follows: Radiologist's impression: [facility] [place] [address] CT Scan Report Signed Patient: Jared Garcia #: [id number] : 7Acct#:[id number] Age/Sex: 65 / FADM Date: 09/24/20 Loc: [facility]/Bed: 261-[address]: Yajaira Almaraz MD Ordering Provider/Ordering MD: Jennifer Blanca MD, [facility] [place] Date of Service: 09/24/20 Procedure(s): CT kidney stone [id number] Accession Number(s): [id number] Report Number: [id number] PROCEDURE INFORMATION: Exam: CT Abdomen And Pelvis Without Contrast Exam date and time: 09/24/2020 10:55 PM Age: 65 years old Clinical indication: Prior surgery; Surgery type: Intrathecal pump; Patient HX: Micro hematuria. ; Additional info: Vijay, UTI, ? pyelo TECHNIQUE: Imaging protocol: Computed tomography of the abdomen and pelvis without contrast. Radiation optimization: All CT scans at this facility use at least one of these dose optimization techniques: automated exposure control; mA and/or kV adjustment per patient size (includes targeted exams where dose is matched to clinical indication); or iterative reconstruction. COMPARISON: CT kidney stone [id number] 03/14/2020 2:54 PM RADIATION DOSE METRICS: Total DLP (mGy-cm): 911.98 FINDINGS: Liver: Liver steatosis. No focal liver mass. Gallbladder and bile ducts: Cholelithiasis. No dilation of biliary system. Pancreas: Normal. No ductal dilation. Spleen: Normal. No splenomegaly. Adrenal glands: Normal. No mass. Kidneys and ureters: Symmetric mild severity diffuse bilateral renal cortical volume loss. No hydronephrosis. No acute perinephric inflammation. No calcified renal stones. Stomach and bowel: No inflammatory wall thickening changes of the bowel loops. Moderate fecal volume. No evidence of bowel obstruction or bowel perforation. Appendix: No evidence of appendicitis. Intraperitoneal space: No intraperitoneal fluid collection. Vasculature: Diffuse atherosclerosis of abdominal aorta. No aneurysm. Lymph nodes: Unremarkable. No enlarged lymph nodes. Urinary bladder: Bladder is collapsed around a Flores catheter. Reproductive: Atrophic uterus. Normal right adnexa. Ovoid circumscribed left ovarian cystic lesion 5.6 cm x 3 5 cm. No significant change from prior. Bones/joints: Cortical bone remodeling changes are noted in the ischial tuberosity on the right adjacent the ulcer. Bones are diffusely demineralized. No fractures. Lumbar spinal alignment is unremarkable.The lumbar spine demonstrates marked discogenic and apophyseal joint degenerative changes at multiple levels. Soft tissues: Partial visualization of right posterior ischial sacral decubitus ulcer. Mild anasarca. Implantable pump in the subcutaneous fat of the right lower quadrant. Radiopaque catheter tunneled in the superficial subcutaneous fat of the right flank with catheter extending into the posterior thecal sac of the mid lumbar spine and extending into the lower thoracic spine area. Lumbar paraspinal muscles are atrophic but otherwise symmetric. CT/CT kidney stone [id number] IMPRESSION: 1. No acute pathology in the abdomen or pelvis identified. 2. No collecting system obstruction. Radiation Dose CTDIVOL = (mGy): DLP = 911.98 (mGy-cm) Dictated By:Angel Joel Signed By:Teresita Joel Date/Time:09/24/202356 DD/ 55 Critical Care Time Critical Care Time: Critical Care Time: Yes Total Critical Care Time: 60 Attestation: This case had a high probability of a clinically significant, sudden, or life threatening deterioration of this patient's condition which required my full and direct attention, intervention and personal management. Discharge Plan Discharge Patient Disposition: Admitted As Inpatient Admit Provider: Yajaira Almaraz Clinical Impression: Recurrent UTI, VIJAY (acute kidney injury) Sepsis Qualifiers: Sepsis type: sepsis due to unspecified organism Sepsis acute organ dysfunction status: with acute organ dysfunction Severe sepsis acute organ dysfunction type: acute renal failure Acute renal failure type: unspecified Severe sepsis shock status: with septic shock Qualified Code(s): A41.9 - Sepsis, unspecified organism Hypotension Qualifiers: Hypotension type: other hypotension type Qualified Code(s): I95.89 - Other hypotension Altered mental status Qualifiers: Altered mental status type: somnolence Qualified Code(s): R40.0 - Somnolence Condition: Stable Coding Level of Care Code ED Credit Director for Govind [place]
[2020-09-24] MEDS: LORazepam 2 mg/mL INJ 1 mL 1 MG IVP (23:57)
[2020-09-25] VITALS (26 sets, daily range): BP systolic 64–110; BP diastolic 42–72; PULSE 65–136; RESP 13–23; TEMP 36.1–36.9; O2SAT 90–100
[2020-09-25] MEDS: heparin 5,000 unit/mL INJ 1 mL 5000 UNIT SUBCUT ×4 (00:23→23:51)
[2020-09-25] MEDS: sodium chloride 0.9% 1,000 ML 75 ML IV ×2 (00:37→15:34)
--- NOTE | 2020-09-25 01:35 | PC.NURSE ---
This nurse unable to complete a complete physical assessment on patient at this time. Every attempt at assessment patient would have combative behaviors.
[2020-09-25 03:43] LABS: Bilirubin Urine Neg (Negative); Blood Urine 3+ (Negative); Glucose Urine UA Norm (Normal); Ketones Urine 1+ (Negative); Leukocyte Esterase Urine 2+ (Negative); Nitrate Urine Negative (Negative); Protein Urine Trace (Negative); Specific Gravity, Urine 1.025 (1.005-1.030); Urine Appearance Cloudy (CLEAR); Urine Color Yellow (Yellow); Urobilinogen Urine Norm (Negative); pH Urine 5 (5-7)
[2020-09-25 03:45] LABS: Add Urine Culture? Yes; Bacteria Urine 4+ /hpf; RBC Urine TOO NUMEROUS TO CNT /hpf (0-2); Squamous Epithelial Cell Urine 0-4 /hpf (0-5); WBC Urine TOO NUMEROUS TO CNT /hpf (0-5)
[2020-09-25] MEDS: lactated ringers 1,000 ML 999 ML IV (05:21)
[2020-09-25] MEDS: levothyroxine 175 mcg Tablet PO (06:51)
--- NOTE | 2020-09-25 10:32 | P.PN_ITS ---
Subjective Subjective: Interval history: Patient was quite confused at the time of my evaluation. Medications: Reviewed: Yes Vitals/I&O/Wt Last Vital Signs Temp 97.8 F 09/25/20 11:40 Pulse 80 09/25/20 13:11 Resp 18 09/25/20 11:40 BP 101/62 09/25/20 11:40 Pulse Ox 90 09/25/20 11:40 09/25/20 09/25/20 09/25/20 06:59 14:59 22:59 Intake Total 2890 / 2890 100 / 100 Balance 2890 / 2890 100 / 100 Weight last 48 hrs Weight 113.398 kg Physical Exam Narrative: EXAM NARRATIVE: General : confused at the time of my eval. HEENT: Grossly normal CVS: RRR Chest : nonlabored respiration Abd: Soft Nt Skin: - > Per h&P-> sacral wound it has tunnel wound under rt gluteal fold with skin sloughing around sacral area, dressing soaked with mild bleeding, no active purulent drainage, pink granulation tissue noticed without any necrotic material Right posterior gluteal fold stage IV ulcer 2 x 2.5 x 5 cm fat muscle layer bone exposure Stage IV ulcer lower extremity left posterior lower leg 5 x 5 cm Stage IV right lateral lower leg ulcer 2 x 2 cm Neuro : Paraplegic patient with swelling 2+ bilaterally no active signs of cellulitis Urinary Catheter Management^: Flores: Cath Placed During This Visit: yes Reason for Continuing Indwelling Catheter: Other Urinary Catheter Date of Insertion: 09/25/20 Urinary Catheter Time of Insertion: 02:32 Data : 09/25/20 11:00 09/25/20 11:00 A&P Assessment and plan (1) Pressure ulcer of right leg, stage 4: Status: Chronic (2) Pressure ulcer of left leg, stage 3: Status: Chronic (3) Chronic antibiotic suppression: Status: Acute (4) Sacral decubitus ulcer: Status: Acute (5) Recurrent UTI: Status: Chronic (6) Hypothyroidism: Status: Chronic (7) Hypotension: Status: Acute Qualifiers: Hypotension type: other hypotension type Qualified Code(s): I95.89 - Ot her hypotension (8) Dehydration: Status: Acute Additional A&P Information Sepsis with Hypotension due to possible infected gluteal ulcer vs LE wound vs UTI - Continue abx as ordered - Responding of IV fluid - hypotension stable - Will likely need surgical consult - Wound care as ordered - F/u on CT abd/pelvis - r/o osteo - F/u on culture Hyperkalemia - 5.9 -> 5.7 - Will treat - Kayexelate 15g po x 1 - 1-2 amp D50 with insulin - Repeat BMP in am Acute Kidney injury - Creatinine 1.7 - Flores in place - Avoid hypotension - Renal dosing - Follow up BPM in am Hypothyroidism: - Continue levothyroxine 125 mcg Hypertension: - Hold antihypertensive lisinopril, Lasix Paraplegic - PT/OT consult DNR/DNI as per prison records Cardiac diet after ST eval Patient is in bedbound state Attestations Medical Necessity Statement*: Will require further hospitalization For management of infection, decubitus ulcers, acute kidney injury and hyperkalemia Time Spent in Patient Care: Greater than 35 minutes (>than 50% of time spent in counselling and/or direct pt care on unit) . Coding Level of Care Code Acute Design Technology Professor for g Fwd Diagnoses Pressure ulcer of right leg, stage 4 L89.894 Pressure ulcer of left leg, stage 3 L89.893 Chronic antibiotic suppression Z79.2 Sacral decubitus ulcer L89.159 Recurrent UTI N39.0 Hypothyroidism E03.9 Hypotension I95.89 Hypotension type: other hypotension type Dehydration E86.0
[2020-09-25] MEDS: fluconazole 100 mg Tablet PO (10:56)
[2020-09-25] MEDS: pantoprazole DR 40 mg Tablet PO (10:56)
[2020-09-25] MEDS: ascorbic acid 500 mg Tablet 1000 MG PO ×2 (10:56→23:49)
[2020-09-25] MEDS: clopidogrel 75 mg Tablet PO (10:56)
[2020-09-25] MEDS: artificial tears Op Soln 15 mL Btl 1 DROP EYE-BOTH (10:56)
[2020-09-25] MEDS: cyclobenzaprine 10 mg Tablet PO ×2 (10:56→23:51)
[2020-09-25 11:33] LABS: Basophils % 0.5 %; Eosinophils # 0.4 10^3/uL (0.0-0.8); Eosinophils % 6.2 %; Hematocrit 33.6 % (37.0-47.0); Hemoglobin 9.6 g/dL (11.5-15.3); Lymphocytes # 0.9 10^3/uL (0.8-4.8); Lymphocytes % 14.5 %; Mean Corpuscular HGB Conc 28.6 g/dL (30.0-36.0); Mean Corpuscular Hemoglobin 27.7 pg (28.0-34.0); Mean Corpuscular Volume 97.1 fL (81-99); Mean Platelet Volume 9.4 fL (7.4-10.4); Monocytes # 0.4 10^3/uL (0.2-0.9); Monocytes % 7.3 %; Neutrophils # 4.29 10^3/uL (1.8-7.7); Neutrophils % 71.3 %; Nucleated Red Blood Cells % 0 %; Platelet Count 287 10^3/cmm (130-400); Red Blood Count 3.46 10^6/uL (4.1-5.3); Red Cell Distribution Width 17.4 % (12.1-15.1)
--- NOTE | 2020-09-25 11:42 | PC.NURSE ---
Pulled Ativan 0.5 mg, wasted in Pyxis with Azael Castañeda LPN. Went to give medication and pt was lethargic so medication was not given. Attempted to return whole tablet to [facility]-- was not able to d/t xi saying insufficient quantity. Called pharmacy and spoke to pharmacist Jesse. He suggested wasting the whole amount in the Pyxis then attempting to return the tablet. This did not work, so he asked for this nurse to send the medication down to pharmacy. Medication sent with pt label.
[2020-09-25 12:02] LABS: Blood Urea Nitrogen 56 mg/dL (8-23); Calcium 7.4 mg/dL (8.5-10.5); Carbon Dioxide 19 mmol/L (22-29); Chloride 107 mmol/L (98-107); Glomerular Filtration Rate 30.4 mL/min (90-130); Glucose 66 mg/dL (65-115); Osmolality Calculated 292 mOsm/kg (285-295); Sodium 134 mmol/L (136-145)
[2020-09-25 12:09] LABS: Anion Gap 13.7 (5-19)
[2020-09-25 12:10] LABS: Potassium 5.7 mmol/L (3.5-5.1)
--- NOTE | 2020-09-25 13:10 | PC.NURSE ---
Nurse notified of heart rate 130s. This nurse asked FILTERATION OPERATOR to reassess pulse. Recheck 72 BPM confirmed by this nurse.
--- NOTE | 2020-09-25 17:53 | PC.NURSE ---
Nurse notified of bp.
[2020-09-25 18:04] LABS: Glucose Point of Care 56 mg/dL (70-110)
[2020-09-25] MEDS: dextrose 50% syringe 50 mL IVP (18:06)
[2020-09-25] MEDS: sodium polystyrene sulfonate 15 gm/60 mL Btl PO (18:15)
[2020-09-25] MEDS: sodium chloride 0.9% 500 ML 999 ML IV (18:20)
[2020-09-25 18:47] LABS: Glucose Point of Care 52 mg/dL (70-110)
--- NOTE | 2020-09-25 19:40 | PC.NURSE ---
Transfer note Pt arrived to ICU 8 from [facility] via bed at this time. Pt is alert and confused on arrival. BP 90/57, med surg nurse reports IV access lost during bolus, called hospitalist at bedside. Central line placement being discussed. Blood glucose at this time 89.
--- NOTE | 2020-09-25 19:42 | PC.NURSE ---
Ultrasound IV started by Jennifer Ramirez RN.
[2020-09-25 21:59] LABS: Glucose Point of Care 82 mg/dL (70-110)
--- NOTE | 2020-09-25 22:17 | XRR_ITS ---
PROCEDURE INFORMATION: Exam: XR Chest Exam date and time: 09/25/2020 11:05 PM Age: 65 years old Clinical indication: Other vascular access device placement or adjustment; Central line, tunnelled; Additional info: Central line placement TECHNIQUE: Imaging protocol: XR of the chest. Views: 1 view. COMPARISON: CR XR chest 1V portable [id number] 09/24/2020 8:20 PM FINDINGS: Tubes, catheters and devices: A left-sided central line terminates at the expected location of the brachiocephalic vein confluence. Lungs: Lungs are well inflated and clear. Pleural spaces: Unremarkable. No pleural effusion. No pneumothorax. Heart/Mediastinum: The cardiac shadow is normal in size. Bones/joints: No acute abnormality. XR/XR chest 1V portable [id number] IMPRESSION: A left-sided central line terminates at the expected location of the brachiocephalic vein confluence.
[2020-09-25 22:29] LABS: Glucose Point of Care 89 mg/dL (70-110)
--- NOTE | 2020-09-25 22:32 | PC.NURSE ---
Central line BP at 2014 68/48, patient pale and cool. Dr. Almaraz to come to floor for central line due to no IV access. Attempted to notify Leonel (son), number was unavailable. Called [facility] to obtain additional contact information for consent purposes. Pt is oriented to person and birthday only, otherwise confused. Attempts made to call Grisel (son) and Isis daughter in law with no answer. Dr. Almaraz attempted femoral central line with difficulty, unable to obtain access. Dr. Goins to come to perform emergent central line.
--- NOTE | 2020-09-25 22:51 | PM.ACPR ---
Procedure/Consent Time out: Time Out Performed: Yes Consent: Additional Consent Information: Tried all 3 numbers that we got from assisted, patient has no capacity to give consent because of her Cognitive impairment, went to voicemail and most of them were not in service hence decision was made to put central line due to urgency because of low blood pressure and poor IV access ICU nurse present in the room Procedure Narrative: Left internal jugular central line placement because of poor IV access by Dr. Goins After sterile prep and dressing I used ultrasound guidance to access left femoral vein however was meeting a lot of resistance when passing guidewire, hence procedure was aborted, guidewire was retracted and its appropriate form no pieces were missing, witnessed by the ICU nurse Asked Dr. Goins for left IJ placement, after sterile prep and drape, 1% lidocaine was injected, left IJ was accessed using ultrasound guidance on first attempt, Seldinger technique to pull triple-lumen catheter, good venous return from all 3 ports witnessed, No postprocedure complications We will request chest x-ray for confirmation of central line placement Estimated blood loss 3-5 mL Acute Procedures Epistaxis Control: Time out performed: Yes
[2020-09-25] MEDS: quetiapine 25 mg Tablet PO (23:50)
[2020-09-25] MEDS: LORazepam 0.5 mg Tablet 0.25 MG PO (23:50)
--- NOTE | 2020-09-25 23:53 | PC.NURSE ---
Delay of administration of 2000 meds due to central line placement
[2020-09-26] VITALS (93 sets, daily range): BP systolic 62–137; BP diastolic 36–97; PULSE 74–136; RESP 0–32; TEMP 37; O2SAT 83–100
[2020-09-26] MEDS: artificial tears Op Soln 15 mL Btl 1 DROP EYE-BOTH ×3 (00:08→21:55)
--- NOTE | 2020-09-26 01:05 | PC.NURSE ---
Primaxin Primaxin recheduled on AUG. When patient was brought to unit large right shoulder IV infiltrate. Previous dose of primaxin was spiked and unable to be given due to no access. After access obtained, started infusion of primaxin at 2200 and retimed on AUG.
[2020-09-26 03:31] LABS: Glucose Point of Care 147 mg/dL (70-110)
[2020-09-26] MEDS: sodium chloride 0.9% 1,000 ML 75 ML IV ×2 (06:56→18:12)
[2020-09-26] MEDS: heparin 5,000 unit/mL INJ 1 mL 5000 UNIT SUBCUT ×3 (06:58→23:48)
[2020-09-26] MEDS: levothyroxine 175 mcg Tablet PO (06:58)
[2020-09-26 07:22] LABS: Glucose Point of Care 156 mg/dL (70-110)
[2020-09-26] MEDS: clopidogrel 75 mg Tablet PO (07:52)
[2020-09-26] MEDS: ascorbic acid 500 mg Tablet 1000 MG PO ×2 (07:52→21:54)
[2020-09-26] MEDS: cyclobenzaprine 10 mg Tablet PO ×2 (07:53→21:54)
[2020-09-26] MEDS: pantoprazole DR 40 mg Tablet PO (07:53)
[2020-09-26] MEDS: docusate sodium 100 mg Capsule PO (07:53)
[2020-09-26] MEDS: LORazepam 0.5 mg Tablet 0.25 MG PO ×2 (08:01→21:54)
[2020-09-26] MEDS: fluconazole 100 mg Tablet PO (08:01)
[2020-09-26] MEDS: triamcinolone 0.1% cream 15 gm 1 APPLIC TOPICAL ×2 (08:02→21:55)
--- NOTE | 2020-09-26 10:48 | PC.NURSE ---
awaken janeth for am meds ect at this time remains confused but did swallow meds and small amt of applesauce at this time
[2020-09-26 11:22] LABS: Glucose Point of Care 90 mg/dL (70-110)
[2020-09-26 17:20] LABS: Glucose Point of Care 94 mg/dL (70-110)
--- NOTE | 2020-09-26 17:39 | PM.PN ---
Subjective Subjective: Interval history: Overnight patient was transferred to ICU due to persistent hypotension, central line was placed. In aditional to IVF patient was started on levophed. This am patient appeared to be more alert however still somewhat confused. Medications: Reviewed: Yes Vitals/I&O/Wt Last Vital Signs Temp 98.6 F 09/26/20 04:00 Pulse 85 09/26/20 16:15 Resp 13 09/26/20 16:15 BP 103/49 09/26/20 16:15 Pulse Ox 96 09/26/20 16:15 09/26/20 09/26/20 09/26/20 06:59 14:59 22:59 Intake Total 895.42 / 2744.17 366.030 / 366.030 300 / 666.030 Output Total 750 / 750 250 / 250 900 / 1150 Balance 145.42 / 1994.17 116.030 / 116.030 -600 / -483.970 Weight last 48 hrs Weight 113.398 kg Physical Exam Narrative: EXAM NARRATIVE: General: alert, awake, more talkative today HEENT: unremarkable CVS; RRR CHEST : non-labored respiration Abd: soft,NT,ND Ext : Paraplegic Skin: See wound pic below. Right Lower extremity wound Sacral wound. Skin: NAILS: other Urinary Catheter Management^: Flores: Cath Placed During This Visit: yes Reason for Continuing Indwelling Catheter: Accurate Measurement of Urinary Output in Critically Ill Patients Urinary Catheter Date of Insertion: 09/25/20 Urinary Catheter Time of Insertion: 02:32 Data : 09/25/20 11:00 09/25/20 11:00 Micro: Microbiology 09/25/20 17:24 Blood Culture - Preliminary Blood NEGATIVE TO DATE 09/25/20 17:00 Blood Culture - Preliminary Blood NEGATIVE TO DATE 09/25/20 02:45 Urine Culture - Preliminary Urine Catheterized Gram Negative Rods A&P Assessment and plan (1) Pressure ulcer of right leg, stage 4: Status: Chronic (2) Pressure ulcer of left leg, stage 3: Status: Chronic (3) Chronic antibiotic suppression: Status: Acute (4) Sacral decubitus ulcer: Status: Acute (5) Recurrent UTI: Status: Chronic (6) Hypothyroidism: Status: Chronic (7) Hypotension: Status: Acute Qualifiers: Hypotension type: other hypotension type Qualified Code(s): I95.89 - Other hypotension (8) Dehydration: Status: Acute Additional A&P Information Sepsis with Hypotension due to possible infected gluteal ulcer vs LE wound vs UTI - Continue abx as ordered - Started on IV IVF ns at 75cc/hr - Also on levophed - maintain map > 65 - Will wean as tolerated - Wound care as ordered - Stage 3 right gluteal pressure ulcer / LLE pressure ulcer / RLE Deep extremity wound s/p recent debridement - Wound care -Zinc oxide cream / wet to dry dekin solution - F/u on CT abd/pelvis - showed cortical destruction adjascent to right gluteal wound - May consider LLE CT - see wound imagines in P/E - F/u on culture - May consider surgery consult Hyperkalemia - 5.9 -> 5.7 - repeat pending. - s/p tx as below - Kayexelate 15g po x 1 - 1-2 amp D50 with insulin - Repeat BMP in am - Herb gluconate 1g iv x1 - Follow up on repeat labs Acute Kidney injury - Creatinine 1.7 - F.u on repeat bmp - Flores in place - Avoid hypotension - Renal dosing - Follow up BPM in am Hypothyroidism: - Continue levothyroxine 125 mcg Hypertension: - Hold antihypertensive lisinopril, Lasix Paraplegic - PT/OT consult Additional medical problems - Peripheral vascular disease - Obstructive sleep apnea - Chronic constipation - Neurogenic bladder / Ch. Indwelling catheter - Muscle spasms S/p Intrathecal Baclofen pump - Hx of MS, functional paraplegia - Iron deficency anemia - V.D deficiency Attestations Medical Necessity Statement*: Will require further hospitalization for management of posible sepsis on iV abx, iv pressors requiring ICU level of care. Time Spent in Patient Care: Greater than 35 minutes (>than 50% of time spent in counselling and/or direct pt care on unit). 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
--- NOTE | 2020-09-26 18:07 | PC.NURSE ---
lab drawn from [facility] at this time
--- NOTE | 2020-09-26 18:36 | PC.NURSE ---
blood drawn at 1800 for receiver/laborer from [facility] was to return in 5 minutes to get stat not here at this time called lab to remind to berry picker
[2020-09-26 19:01] LABS: Anion Gap 13.1 (5-19); Blood Urea Nitrogen 38 mg/dL (8-23); Calcium 7.5 mg/dL (8.5-10.5); Carbon Dioxide 21 mmol/L (22-29); Chloride 108 mmol/L (98-107); Creatinine Clr Calc Pharmacy 65.7468; Glomerular Filtration Rate 50.2 mL/min (90-130); Glucose 99 mg/dL (65-115); Osmolality Calculated 295 mOsm/kg (285-295); Potassium 4.1 mmol/L (3.5-5.1); Sodium 138 mmol/L (136-145)
[2020-09-26] MEDS: quetiapine 25 mg Tablet PO (21:54)
[2020-09-26 22:04] LABS: Glucose Point of Care 108 mg/dL (70-110)
[2020-09-26] MEDS: hydrocortisone 100 mg/2 mL SDV IVP (22:07)
[2020-09-26] MEDS: LORazepam 2 mg/mL INJ 1 mL 0.5 MG IVP (22:53)
[2020-09-27] VITALS (97 sets, daily range): BP systolic 77–156; BP diastolic 42–115; PULSE 73–106; RESP 10–28; TEMP 36.4–37.1; O2SAT 84–100
--- NOTE | 2020-09-27 00:26 | PC.NURSE ---
Central line Note At approx 2040 nurse to round and administer medication to patient. Left IJ central line found pulled out several cm with small portion of catheter remaining inside patient, sutures still intact. Levophed and fluids stopped at that time. Dr. Almaraz was notified by phone. Dr. Almaraz placed new central line over guide wire and secured device. Bp without pressor 60/[address] Almaraz at bedside and chest xray revealed incorrect placement. Catheter was removed. Dr. Goins and Dr. Almaraz at bedside, placed right femoral vein central line. Time out completed.
[2020-09-27] MEDS: levothyroxine 175 mcg Tablet PO (05:53)
--- NOTE | 2020-09-27 06:05 | PM.ACPR ---
Procedure/Consent Time out: Time Out Performed: Yes Consent: Consent for Procedure: Emergency procedure Additional Consent Information: Indication: Indwelling central line dislodgment(left IJ) I was called by the nurse that her left internal jugular triple-lumen catheter seems dislodged it was out about 15 cm I evaluated the patient at the bedside, under ultrasound guidance tip of the catheter was detected in IJ, I placed guidewire and changed her triple-lumen catheter over the guidewire, however chest x-ray revealed that tip of the triple-lumen catheter was at left subclavian-axillary vein, hence decision was made to remove the central line I accessed her right femoral vein under ultrasound guidance, her right groin was prepped and draped under sterile environment, sterile gloves, drape, gown, hat, ultrasound probe cover Right femoral vein was accessed under ultrasound guidance, venous return was detected, Seldinger technique was used to place triple-lumen catheter, no resistance met during placement and removal of guidewire, central line was secured with sutures and sterile dressing, all 3 ports had good venous return Postprocedure: No complications Estimated blood loss 3 to 5 mL Acute Procedures Epistaxis Control: Time out performed: Yes
[2020-09-27 06:06] LABS: Basophils % 0.5 %; Eosinophils % 0.3 %; Hematocrit 30.6 % (37.0-47.0); Hemoglobin 9.1 g/dL (11.5-15.3); Lymphocytes # 0.5 10^3/uL (0.8-4.8); Lymphocytes % 13.9 %; Mean Corpuscular HGB Conc 29.7 g/dL (30.0-36.0); Mean Corpuscular Hemoglobin 27.5 pg (28.0-34.0); Mean Corpuscular Volume 92.4 fL (81-99); Mean Platelet Volume 9.7 fL (7.4-10.4); Monocytes # 0.1 10^3/uL (0.2-0.9); Monocytes % 1.8 %; Neutrophils # 3.23 10^3/uL (1.8-7.7); Neutrophils % 83.2 %; Nucleated Red Blood Cells % 0 %; Platelet Count 309 10^3/cmm (130-400); Red Blood Count 3.31 10^6/uL (4.1-5.3); Red Cell Distribution Width 17.2 % (12.1-15.1); White Blood Count 3.9 10^3/uL (4.0-10.0)
[2020-09-27 06:31] LABS: Alanine Aminotransferase 14 U/L (0-33); Albumin Level 1.9 g/dL (3.5-5.2); Alkaline Phosphatase 91 IU/L (35-105); Aspartate Amino Transferase 21 U/L (0-32); Blood Urea Nitrogen 37 mg/dL (8-23); Calcium 7.7 mg/dL (8.5-10.5); Carbon Dioxide 21 mmol/L (22-29); Chloride 112 mmol/L (98-107); Globulin 3.3 g/dL (1.3-4.6); Glomerular Filtration Rate 63.2 mL/min (90-130); Glucose 103 mg/dL (65-115); Osmolality Calculated 301 mOsm/kg (285-295); Sodium 141 mmol/L (136-145); Total Bilirubin 0.3 mg/dL (0.15-1.2); Total Protein 5.2 g/dL (6.6-8.7)
[2020-09-27] MEDS: clopidogrel 75 mg Tablet PO (07:23)
[2020-09-27] MEDS: heparin 5,000 unit/mL INJ 1 mL 5000 UNIT SUBCUT ×3 (07:23→23:37)
[2020-09-27] MEDS: LORazepam 0.5 mg Tablet 0.25 MG PO ×2 (07:23→20:58)
[2020-09-27] MEDS: artificial tears Op Soln 15 mL Btl 1 DROP EYE-BOTH ×2 (07:24→21:00)
[2020-09-27] MEDS: cyclobenzaprine 10 mg Tablet PO ×2 (07:24→20:58)
[2020-09-27] MEDS: triamcinolone 0.1% cream 15 gm 1 APPLIC TOPICAL ×2 (07:24→20:59)
[2020-09-27] MEDS: pantoprazole DR 40 mg Tablet PO (07:24)
[2020-09-27] MEDS: ascorbic acid 500 mg Tablet 1000 MG PO ×2 (07:24→20:58)
[2020-09-27 07:48] LABS: Glucose Point of Care 118 mg/dL (70-110)
--- NOTE | 2020-09-27 08:34 | PM.PN ---
Subjective Subjective: Interval history: She is really confused, unable to tell me where she is, after several attempts of asking her questions she is held down that she may be at a [place] [facility]. She makes an attempt at remembering the year, which she thinks is about 2024. She otherwise denies any pain or discomfort. States that she is hungry. Vitals/I&O/Wt Last Vital Signs Temp 98.5 F 09/27/20 04:30 Pulse 79 09/27/20 06:30 Resp 14 09/27/20 06:30 BP 121/68 09/27/20 06:30 Pulse Ox 97 09/27/20 06:30 09/26/20 09/27/20 09/27/20 22:59 06:59 14:59 Intake Total 1413.9 / 1779.930 380.573 / 2160.503 Output Total 1200 / 1450 300 / 1750 Balance 213.9 / 329.930 80.573 / 410.503 Physical Exam Const: COMMON NORMALS: no acute distress; negative for patient oriented x3 GENERAL APPEARANCE: comfortable NUTRITIONAL APPEARANCE: obese ORIENTATION/CONSCIOUSNESS: Yes awake HENMT: COMMON NORMALS: oropharynx normal Neck/C-Spine: COMMON NORMALS: no JVD Resp: COMMON NORMALS: normal respiratory effort and clear to auscultation bilaterally AUSCULTATION: clear to auscultation bilaterally Cardio: COMMON NORMALS: no JVD, regular rhythm, S1 normal heart sound present, S2 normal heart sound present and No murmurs present (Cardio) RHYTHM: regular rhythm HEART SOUNDS: S1 normal heart sound present and S2 normal heart sound present GI: COMMON NORMALS: Normal to inspection, nondistended, normoactive bowel sounds present, Soft to palpation and non-tender PALPATION: Yes Soft to palpation Extremity: COMMON NORMALS: no joint enlargement and no pedal edema Neuro: COMMON NORMALS: negative for patient oriented x3 Skin: OTHER: Pressure ulcer with breakdown of skin, as well as maceration of the buttocks, sacrum, no purulence, I do not appreciate undermining or tunneling To deep ulcerations on posterior calves, larger on the left side, 6 x 3 cm, about 1.5 cm deep, exposure some connective tissue and muscle, no purulence, no significant necrotic tissue. Smaller about 1.5 x 1.5 cm x 1.5 cm deep ulceration on posterior right calf, no purulence, did not appreciate tunneling Urinary Catheter Management^: Flores: Cath Placed During This Visit: yes Reason for Continuing Indwelling Catheter: Accurate Measurement of Urinary Output in Critically Ill Patients Urinary Catheter Date of Insertion: 09/25/20 Urinary Catheter Time of Insertion: 02:32 Data : 09/27/20 05:20 09/27/20 05:20 Micro: Microbiology 09/25/20 17:24 Blood Culture - Preliminary Blood NEGATIVE TO DATE 09/25/20 17:00 Blood Culture - Preliminary Blood NEGATIVE TO DATE 09/25/20 02:45 Urine Culture - Preliminary Urine Catheterized Gram Negative Rods A&P Assessment and plan (1) Hypotension: Weaning down on Levophed, however, still requiring pressor support. Currently down to 2 MCG. Continues on IV fluid infusion NS 75 cc/h. A chest septic shock secondary to nonobstructive complicated UTI. Lower extremity wounds present as well, however, appear to be chronic, there is not significant necrotic tissue noted. He attempts to wean off Levophed. We will give a dose of albumin. Check morning serum cortisol. Continue antibiotic treatment with Primaxin. Continue dressing changes. Status: Acute Qualifiers: Hypotension type: other hypotension type Qualified Code(s): I95.89 - Other hypotension (2) Pressure ulcer of right leg, stage 4: Status: Chronic (3) Pressure ulcer of left leg, stage 3: Status: Chronic (4) Dehydration: IV NS Status: Acute (5) Chronic antibiotic suppression: Status: Acute (6) Sacral decubitus ulcer: Status: Acute (7) Recurrent UTI: Status: Chronic (8) Hypothyroidism: Continue levothyroxine. Check TSH. Status: Chronic Additional A&P Information Hyperkalemia: Resolved. Low potassium diet. Acute Kidney injury: Resolving. Maintain blood pressures. Hypertension: - Hold antihypertensive lisinopril, Lasix Paraplegic: Frequent repositioning. - PT/OT Additional medical problems - Peripheral vascular disease - Obstructive sleep apnea - Chronic constipation - Neurogenic bladder / Ch. Indwelling catheter - Muscle spasms S/p Intrathecal Baclofen pump - Hx of MS, functional paraplegia - Iron deficency anemia Attestations Medical Necessity Statement*: Continue admission for assessment of management of septic shock, persistent hypotension, weaning off pressor support, treatment of underlying infection including complicated urinary tract infection, sacral, and lower extremity wounds in a lady who is bedbound with multiple sclerosis and neurogenic bladder. 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
[2020-09-27] MEDS: polyethylene glycol 3350 Pkt 17 gm PO (09:01)
[2020-09-27] MEDS: fluconazole 100 mg Tablet PO (09:01)
--- NOTE | 2020-09-27 09:43 | PC.NURSE ---
Dr. Carroll gave verbal orders to hold the fluids and will give verbal order to restart.
[2020-09-27 10:40] LABS: Thyroid Stimulating Hormone 1.23 uIU/mL (0.27-4.20)
--- NOTE | 2020-09-27 10:43 | PC.NURSE ---
Levophed still running with fluids left in previous bag. Will scan new bag when needed
--- NOTE | 2020-09-27 10:43 | PC.NURSE ---
Dressing change Wound was found in fold under right buttocks. Old packing was removed and area was cleaned and packed with Nu-gauze. Dressings on legs were changed and dressed with wet to dry dressings and wrapped with kerlex.
[2020-09-27 11:02] LABS: Cortisol Random 38.56 ug/dL (2.47-19.5)
[2020-09-27 12:08] LABS: Glucose Point of Care 106 mg/dL (70-110)
--- NOTE | 2020-09-27 12:33 | PC.NUTR ---
NUTRITION WEIGHT ASSESSMENT: Ht. 65 inches. Wt. 250 pounds. BMI of 41.6 kg/m2 indicates Morbid Obesity.
--- NOTE | 2020-09-27 16:11 | PC.NURSE ---
Levophed shut off at approximately 1200
[2020-09-27 17:50] LABS: Glucose Point of Care 94 mg/dL (70-110)
[2020-09-27] MEDS: quetiapine 25 mg Tablet PO (20:59)
[2020-09-27 21:09] LABS: Glucose Point of Care 88 mg/dL (70-110)
[2020-09-28] VITALS (96 sets, daily range): BP systolic 69–171; BP diastolic 42–108; PULSE 78–99; RESP 13–27; TEMP 36.7–36.8; O2SAT 93–100
[2020-09-28 04:01] LABS: Basophils % 0.7 %; Eosinophils # 0.3 10^3/uL (0.0-0.8); Eosinophils % 5.6 %; Hemoglobin 8.7 g/dL (11.5-15.3); Lymphocytes # 1.5 10^3/uL (0.8-4.8); Lymphocytes % 28.4 %; Mean Corpuscular Hemoglobin 27.9 pg (28.0-34.0); Mean Corpuscular Volume 92.9 fL (81-99); Mean Platelet Volume 9.3 fL (7.4-10.4); Monocytes # 0.5 10^3/uL (0.2-0.9); Monocytes % 9.5 %; Neutrophils # 2.98 10^3/uL (1.8-7.7); Neutrophils % 55.4 %; Nucleated Red Blood Cells % 0 %; Platelet Count 297 10^3/cmm (130-400); Red Blood Count 3.12 10^6/uL (4.1-5.3); Red Cell Distribution Width 17.5 % (12.1-15.1); White Blood Count 5.4 10^3/uL (4.0-10.0)
[2020-09-28 04:27] LABS: Alanine Aminotransferase 14 U/L (0-33); Albumin Level 2.3 g/dL (3.5-5.2); Alkaline Phosphatase 82 IU/L (35-105); Anion Gap 10.4 (5-19); Aspartate Amino Transferase 23 U/L (0-32); Blood Urea Nitrogen 32 mg/dL (8-23); Carbon Dioxide 22 mmol/L (22-29); Chloride 112 mmol/L (98-107); Globulin 3.3 g/dL (1.3-4.6); Glomerular Filtration Rate 72.4 mL/min (90-130); Glucose 72 mg/dL (65-115); Osmolality Calculated 297 mOsm/kg (285-295); Potassium 3.4 mmol/L (3.5-5.1); Sodium 141 mmol/L (136-145); Total Bilirubin 0.3 mg/dL (0.15-1.2); Total Protein 5.6 g/dL (6.6-8.7)
--- NOTE | 2020-09-28 05:18 | PC.NURSE ---
Patient has been pleasantly confused all night, has a severe wound on bottom and noe legs, Patient has a chronic spencer and has been off Levo all night and most of the day yesterday. Patients blood sugars have been WNL and she has been on room air. Patients fluids are on hold due to her high amounts of edema, per Dr Riley, Patient recieved a bath and change in her wound packing due to her having a bowel movement. Patient was awake watching the [employer] girls most of the night, she has had no fevers at this time.
[2020-09-28] MEDS: levothyroxine 175 mcg Tablet PO (05:31)
[2020-09-28] MEDS: ascorbic acid 500 mg Tablet 1000 MG PO ×2 (07:50→20:48)
[2020-09-28] MEDS: clopidogrel 75 mg Tablet PO (07:50)
[2020-09-28] MEDS: cyclobenzaprine 10 mg Tablet PO ×2 (07:50→20:48)
[2020-09-28] MEDS: pantoprazole DR 40 mg Tablet PO (07:50)
[2020-09-28] MEDS: triamcinolone 0.1% cream 15 gm 1 APPLIC TOPICAL ×2 (07:51→20:47)
[2020-09-28] MEDS: heparin 5,000 unit/mL INJ 1 mL 5000 UNIT SUBCUT ×2 (07:51→16:29)
[2020-09-28] MEDS: artificial tears Op Soln 15 mL Btl 1 DROP EYE-BOTH ×2 (07:51→20:48)
[2020-09-28 08:00] LABS: Glucose Point of Care 71 mg/dL (70-110)
[2020-09-28] MEDS: ARIPiprazole 2 mg Tablet PO (08:02)
[2020-09-28] MEDS: ciprofloxacin 400 MG/200 ML PREMIX 200 MG IV ×2 (08:02→20:47)
[2020-09-28] MEDS: fluconazole 100 mg Tablet PO (08:02)
--- NOTE | 2020-09-28 08:44 | P.PN_ITS ---
Subjective Subjective: Interval history: Oriented to person. Earlier reportedly it stated the year is 2020. To me states 2024. Not oriented to place. Denies pain or discomfort. Denies trouble breathing. When asked if she is hungry states yes. Vitals/I&O/Wt Last Vital Signs Temp 98.1 F 09/28/20 03:45 Pulse 93 09/28/20 06:00 Resp 16 09/28/20 06:00 BP 97/51 09/28/20 06:00 Pulse Ox 97 09/28/20 06:00 09/27/20 09/28/20 09/28/20 22:59 06:59 14:59 Intake Total 320 / 1313.75 300 / 1613.75 Output Total 350 / 600 Balance 320 / 1063.75 -50 / 1013.75 Physical Exam Const: COMMON NORMALS: no acute distress; negative for patient oriented x3 GENERAL APPEARANCE: comfortable N UTRITIONAL APPEARANCE: obese ORIENTATION/CONSCIOUSNESS: Yes awake HENMT: COMMON NORMALS: oropharynx normal Neck/C-Spine: COMMON NORMALS: no JVD Resp: COMMON NORMALS: normal respiratory effort and clear to auscultation bilaterally AUSCULTATION: clear to auscultation bilaterally Cardio: COMMON NORMALS: no JVD, regular rhythm, S1 normal heart sound present, S2 normal heart sound present and No murmurs present (Cardio) RHYTHM: regular rhythm HEART SOUNDS: S1 normal heart sound present and S2 normal heart sound present GI: COMMON NORMALS: Normal to inspection, nondistended, normoactive bowel sounds present, Soft to palpation and non-tender PALPATION: Yes Soft to palpation Extremity: COMMON NORMALS: no joint enlargement and no pedal edema Neuro: COMMON NORMALS: negative for patient oriented x3 Skin: OTHER: Gluteal wound with tunneling and bone exposure which I did not see when trying to examine yesterday. Noted by the nurse after she was cleaned and able to roll more completely. Per discussion with wound care physician this is a known wound. To deep ulcerations on posterior calves, larger on the left side, 6 x 3 cm, about 1.5 cm deep, exposure some connective tissue and muscle, no purulence, no significant necrotic tissue. Smaller about 1.5 x 1.5 cm x 1.5 cm deep ulceration on posterior right calf, no purulence, did not appreciate tunneling Urinary Catheter Management^: Flores: Cath Placed During This Visit: yes Reason for Continuing Indwelling Catheter: Chronic Indwelling Urinary Catheter on Admission Urinary Catheter Date of Insertion: 09/25/20 Urinary Catheter Time of Insertion: 02:32 Data : 09/28/20 03:24 09/28/20 03:24 Micro: Microbiology 09/25/20 02:45 Urine Culture - Final Urine Catheterized Pseudomonas aeruginosa 09/26/20 05:00 Wound Culture - Preliminary Leg - Left Gram Negative Rods A&P Assessment and plan (1) Altered mental status: She continues to be confused, not oriented to place, today maybe for the first time oriented to year, but not for me. Appears to be able answer some basic questions, follows some commands. Now despite improvement in blood pressure, persistently without improvement in terms of mental status. Discussed concern with her son. Some of this may be secondary to pseudomonal UTI which was not responding to Primaxin due to resistance. We switched an tibiotics. Continue to monitor blood pressure. Asking him whether he had noticed changes earlier or any suggestion of word finding difficulty or other problems, and he states that over the last several months, communicating with her by phone mostly but did notice that she was having some difficulty communicating her thoughts for some time now. Number of times was difficult to understand. We will go ahead and request CT of the head as well. Discussed with him at some point if able to may benefit from additional assessment by MRI brain. Status: Acute Qualifiers: Altered mental status type: somnolence Qualified Code(s): R40.0 - Somnolence (2) Sepsis: Suspected sepsis with complicated urinary tract infection, possible wound infection, although appears less likely. Hypotension resolving. Leukopenia improved. Mild tachycardia, but getting better. Change antibiotic to Cipro as pseudomonal UTI is resistant to Primaxin. Continue wound care. Status: Acute Qualifiers: Acute renal failure type: unspecified Sepsis acute organ dysfunction s tatus: with acute organ dysfunction Sepsis type: sepsis due to unspecified organism Severe sepsis acute organ dysfunction type: acute renal failure Severe sepsis shock status: with septic shock Qualified Code(s): A41.9 - Sepsis, unspecified organism; R65.21 - Severe sepsis with septic shock; N17.9 - Acute kidney failure, unspecified (3) Hypotension: Resolving. Appears to weaned off pressor. Blood pressure somewhat soft. Decrease IV fluid rate. Monitor. Encourage oral intake. If remains stable, may transfer out of ICU. Status: Acute Qualifiers: Hypotension type: other hypotension type Qualified Code(s): I95.89 - Other hypotension (4) Pressure ulcer of right leg, stage 4: Status: Chronic (5) Pressure ulcer of left leg, stage 3: Status: Chronic (6) Dehydration: IV NS, decrease rate, encourage oral intake Status: Acute (7) Chronic antibiotic suppression: Status: Acute (8) Sacral decubitus ulcer: With known tunneling, bone exposure Status: Acute (9) Recurrent UTI: Needs to have regular Flores catheter changes Status: Chronic (10) Hypothyroidism: Continue levothyroxine. Check TSH. Status: Chronic Additional A&P Information Rash: Faint erythema of left lower extremity, lower abdomen/pannus. Some of this may be secondary to stasis/edema. We will hold methenamine. Antibiotic changed. Monitor. Pressure ulcers: Discussed with her wound care physician. Continue wound care with packing with Dakin twice daily. Hyperkalemia: Resolved. Low potassium diet. Acute Kidney injury: Resolving. Maintain blood pressures. Hypertension: - Hold antihypertensive lisinopril, Lasix Paraplegic: Frequent repositioning. - PT/OT Additional medical problems - Peripheral vascular disease - Obstructive sleep apnea - Chronic constipation - Neurogenic bladder / Ch. Indwelling catheter - Muscle spasms S/p Intrathecal Baclofen pump - Hx of MS, functional paraplegia - Iron deficency anemia Attestations Medical Necessity Statement*: Continue admission for assessment of management of altered mental status, complicated urine tract infection, improving hypotension. Coding Level of Care Code Acute Inside Polisher for [facility] Fwd Exam Detailed Diagnoses Altered mental status R40.0 Altered mental status type: somnolence Sepsis A41.9; R65.21; N17.9 Acute renal failure type: unspecified Sepsis acute organ dysfunction status: with acute organ dysfunction Sepsis type: sepsis due to unspecified organism Severe sepsis acute organ dysfunction type: acute renal failure Severe sepsis shock status: with septic shock Hypotension I95.89 Hypotension type: other hypotension type Pressure ulcer of right leg, stage 4 L89.894 Pressure ulcer of left leg, stage 3 L89.893 Dehydration E86.0 Chronic antibiotic suppression Z79.2 Sacral decubitus ulcer L89.159 Recurrent UTI N39.0 Hypothyroidism E03.9
--- NOTE | 2020-09-28 09:15 | CT_ITS ---
WS: [id number] CT HEAD NONCONTRAST HISTORY: persistent AMS TECHNIQUE: Contiguous axial imaging performed through the brain in 2.5 mm imaging. Bone and soft tiss ue windows. Sagittal and coronal reformats reviewed. All CT scans at [facility] use at ast one of these dose optimization techniques: automated exposure control; mA and/or kV adjustment pe r patient size (includes targeted exams where dose is matched to clinical indication); or iterative r econstruction. DLP: 844.45 mGy.cm COMPARISON: 08/06/2020 No acute intracranial hemorrhage, midline shift or mass effect. Mild bilateral symmetric atrophy and chronic microvascular ischemic disease. Prior lacunar infarct in the RIGHT [facility]. No progression of ischemic changes or infarcts. Ventricles: Mildly prominent ventricles on the basis of atrophy. No inferior displacement of cerebellar tonsils. Paranasal sinuses: As visualized are clear. Mastoid air cells: Well pneumatized. Calvarium and scalp: Skull is intact with no soft tissue edema or swelling. CT/CT head wo con* [id number] IMPRESSION: 1. Stable noncontrast head CT since 08/06/2020. No acute intracranial hemorrhag e. 2. Bilateral cerebral atrophy and chronic microvascular ischemic disease. No p rogression.
--- NOTE | 2020-09-28 09:43 | PC.NURSE ---
Scheduled ativan held per verbal order. Dose to be changed to PRN
--- NOTE | 2020-09-28 11:04 | PC.NURSE ---
Patient taken to CT at 1030 and returned at 1045
[2020-09-28 11:46] LABS: Glucose Point of Care 83 mg/dL (70-110)
--- NOTE | 2020-09-28 14:17 | PC.SOCIAL ---
*IMM update Gave patient IMM update, provided her with copy of page 2 of IMM. Understood. Initialed, dated, timed and placed in chart.
[2020-09-28 18:21] LABS: Glucose Point of Care 63 mg/dL (70-110)
--- NOTE | 2020-09-28 18:46 | PC.NURSE ---
Blood sugar check was low at 63. Recheck was 72.
[2020-09-28 18:49] LABS: Glucose Point of Care 72 mg/dL (70-110)
[2020-09-28 19:57] LABS: Glucose Point of Care 80 mg/dL (70-110)
[2020-09-28] MEDS: quetiapine 25 mg Tablet PO (20:48)
[2020-09-28] MEDS: LORazepam 0.5 mg Tablet 0.25 MG PO (20:49)
[2020-09-28] MEDS: citalopram 20 mg Tablet PO (20:49)
[2020-09-29] VITALS (41 sets, daily range): BP systolic 92–152; BP diastolic 56–94; PULSE 69–102; RESP 13–21; TEMP 36.4–37.2; O2SAT 92–100
[2020-09-29] MEDS: heparin 5,000 unit/mL INJ 1 mL 5000 UNIT SUBCUT ×3 (00:38→18:33)
[2020-09-29 03:51] LABS: Basophils % 0.8 %; Eosinophils # 0.5 10^3/uL (0.0-0.8); Eosinophils % 10.9 %; Hematocrit 28.8 % (37.0-47.0); Hemoglobin 8.5 g/dL (11.5-15.3); Lymphocytes # 1.4 10^3/uL (0.8-4.8); Lymphocytes % 29.9 %; Mean Corpuscular HGB Conc 29.5 g/dL (30.0-36.0); Mean Corpuscular Hemoglobin 27.7 pg (28.0-34.0); Mean Corpuscular Volume 93.8 fL (81-99); Mean Platelet Volume 9.1 fL (7.4-10.4); Monocytes # 0.6 10^3/uL (0.2-0.9); Monocytes % 11.5 %; Neutrophils # 2.24 10^3/uL (1.8-7.7); Neutrophils % 46.7 %; Nucleated Red Blood Cells % 0 %; Platelet Count 269 10^3/cmm (130-400); Red Blood Count 3.07 10^6/uL (4.1-5.3); Red Cell Distribution Width 17.6 % (12.1-15.1); White Blood Count 4.8 10^3/uL (4.0-10.0)
[2020-09-29 04:11] LABS: Alanine Aminotransferase 14 U/L (0-33); Albumin Level 2.1 g/dL (3.5-5.2); Alkaline Phosphatase 77 IU/L (35-105); Anion Gap 9.2 (5-19); Aspartate Amino Transferase 25 U/L (0-32); Blood Urea Nitrogen 26 mg/dL (8-23); Calcium 7.9 mg/dL (8.5-10.5); Carbon Dioxide 22 mmol/L (22-29); Chloride 113 mmol/L (98-107); Globulin 3.1 g/dL (1.3-4.6); Glomerular Filtration Rate 72.4 mL/min (90-130); Glucose 56 mg/dL (65-115); Osmolality Calculated 294 mOsm/kg (285-295); Potassium 3.2 mmol/L (3.5-5.1); Sodium 141 mmol/L (136-145); Total Bilirubin 0.3 mg/dL (0.15-1.2); Total Protein 5.2 g/dL (6.6-8.7)
[2020-09-29] MEDS: levothyroxine 175 mcg Tablet PO (05:52)
[2020-09-29 06:22] LABS: Glucose Point of Care 68 mg/dL (70-110)
--- NOTE | 2020-09-29 06:49 | PC.NURSE ---
Shift Summary Patient from skilled nursing with severe wounds too bilateral legs and a tunneling wound in the coccyx. Patient receives BID wet to dry dressing changes with Dakins which is a new order placed by Dr Riley. Patient has been pleasantly confused and has had some episodes of sleep during the night. Patient receives levimir at night but on labs had a low blood sugar, gave her juice, pudding and a coke and rechecked it per protocol, sugar is improved but until appetite is better should see about holding night time dose of levimir. Overall patient has had a good night, needs to drink more and eat more due to her low albumin and urine output.
[2020-09-29 06:50] LABS: Glucose Point of Care 84 mg/dL (70-110)
[2020-09-29] MEDS: ascorbic acid 500 mg Tablet 1000 MG PO ×2 (07:51→19:59)
[2020-09-29] MEDS: cyclobenzaprine 10 mg Tablet PO ×2 (07:51→19:59)
[2020-09-29] MEDS: ARIPiprazole 2 mg Tablet PO (07:51)
[2020-09-29] MEDS: artificial tears Op Soln 15 mL Btl 1 DROP EYE-BOTH ×2 (07:52→21:14)
[2020-09-29] MEDS: pantoprazole DR 40 mg Tablet PO (07:52)
[2020-09-29] MEDS: docusate sodium 100 mg Capsule PO (07:52)
[2020-09-29] MEDS: triamcinolone 0.1% cream 15 gm 1 APPLIC TOPICAL (07:53)
[2020-09-29] MEDS: clopidogrel 75 mg Tablet PO (07:53)
[2020-09-29] MEDS: fluconazole 100 mg Tablet PO (08:09)
[2020-09-29] MEDS: lisinopril 5 mg Tablet PO (08:16)
[2020-09-29] MEDS: ciprofloxacin 400 MG/200 ML PREMIX 200 MG IV ×2 (08:46→20:06)
--- NOTE | 2020-09-29 08:55 | P.PN_ITS ---
Subjective Subjective: Interval history: She is awake, alert, keenly responsive. Tells me that she is not in any pain or discomfort. Denies any trouble breathing. Denies any chest or abdominal pain. Says that she is not hungry this morning is not sure that she is going to eat anything. They are going to try with the nursing staff in a little bit. She is unable to tell me where she currently is. She thinks about, but cannot recall what year it is. Vitals/I&O/Wt Last Vital Signs Temp 98.6 F 09/29/20 07:00 Pulse 86 09/29/20 07:45 Resp 16 09/29/20 07:45 BP 106/59 09/29/20 07:45 Pulse Ox 97 09/29/20 07:45 09/28/20 09/29/20 09/29/20 22:59 06:59 14:59 Intake Total 350 / 785.745 50 / 835.745 Output Total 200 / 225 200 / 425 Balance 150 / 560.745 -150 / 410.745 Physical Exam Const: COMMON NORMALS: no acute distress and alert; negative for patient oriented x3 GENERAL APPEARANCE: cooperative and comfortable NUTRITIONAL APPEARANCE: obese ORIENTATION/CONSCIOUSNESS: Yes awake HENMT: COMMON NORMALS: oropharynx normal Neck/C-Spine: COMMON NORMALS: no JVD Resp: COMMON NORMALS: normal respiratory effort and clear to auscultation bilaterally AUSCULTATION: clear to auscultation bilaterally Cardio: COMMON NORMALS: no JVD, regular rhythm, S1 normal heart sound present, S2 normal heart sound present and No murmurs present (Cardio) RHYTHM: regular rhythm HEART SOUNDS: S1 normal heart sound present and S2 normal heart sound present GI: COMMON NORMALS: Normal to inspection, nondistended, normoactive bowel sounds present, Soft to palpation and non-tender PALPATION: Yes Soft to palpation Extremity: COMMON NORMALS: no joint enlargement and no pedal edema Neuro: COMMON NORMALS: negative for patient oriented x3 SENSORIUM/ORIENTATION: Yes alert Skin: OTHER: Gluteal wound with deep tunneling to the bone R lower gluteus. Packing removed. No significant necrosis. No purulent discharge. To deep ulcerations on posterior calves, larger on the left side, 6 x 3 cm, about 1.5 cm deep, exposure some connective tissue and muscle, no purulence, no significant necrotic tissue. Smaller about 1.5 x 1.5 cm x 1.5 cm deep ulceration on posterior right calf, no purulence, did not appreciate tunneling Urinary Catheter Management^: Flores: Cath Placed During This Visit: yes Reason for Continuing Indwelling Catheter: Accurate Measurement of Urinary Output in Critically Ill Patients Urinary Catheter Date of Insertion: 09/25/20 Urinary Catheter Time of Insertion: 02:32 Data : 09/29/20 03:27 09/29/20 03:27 Micro: Microbiology 09/26/20 05:00 Wound Culture - Preliminary Leg - Left Pseudomonas aeruginosa#2 Pseudomonas aeruginosa Enterococcus species A&P Assessment and plan (1) Acute anemia: Hemoglobin decreased within several days from 10.2 on 09/24 down to 8.5 today. No outward bleeding. No bleeding from wounds. No noted hematuria. No roderick blood in stool. Will check Hemoccult. Will recheck hemoglobin. Discussed with her son. Some of this may be dilutional from the IV fluids, infusion she has been receiving. DC IV fluids. Encourage oral intake. Status: Acute (2) Altered mental status: Today appears to be perhaps somewhat more energetic, more responsive. Appears to start to have somewhat easier time communicating. Still not oriented , however. CT head findings with bilateral cerebral atrophy and chronic microvascular ischemic disease. Also noted prior lacunar infarct in right mcfarlane radiata. Discussed with her son. Mental status changes may be combination of delirium secondary to acute illness, sepsis, however, with somewhat more chronicity reported by her son, may also have some progression to early onset dementia. Would like her to follow-up with neurology. Continue treatment of UTI for which antibiotics were adjusted yesterday due to resistance. At some point if able to may benefit from additional assessment by MRI brain. Status: Acute Qualifiers: Altered mental status type: somnolence Qualified Code(s): R40.0 - Somnolence (3) Sepsis: Resolving. Septic shock resolved. Continue care medical floor. Suspected sepsis with complicated urinary tract infection, possible wound infection, although appears less likely. Change antibiotic to Cipro as pseudomonal UTI is resistant to Primaxin. Continue wound care for the deep wounds, and follow-up with wound care for discharge. Status: Acute Qualifiers: Acute renal failure type: unspecified Sepsis acute organ dysfunction status: with acute organ dysfunction Sepsis type: sepsis due to unspecified organism Severe sepsis acute organ dysfunction type: acute renal failure Severe sepsis shock status: with septic shock Qualified Code(s): A41.9 - Sepsis, unspecified organism; R65.21 - Severe sepsis with septic shock; N17.9 - Acute kidney failure, unspecified (4) Hypotension: Resolved. May transfer out of ICU. Status: Acute Qualifiers: Hypotension type: other hypotension type Qualified Code(s): I95.89 - Other hypotension (5) Pressure ulcer of right leg, stage 4: Status: Chronic (6) Pressure ulcer of left leg, stage 3: Status: Chronic (7) Dehydration: Received IV hydration. Discontinue fluids. 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 Normal TSH. Status: Chronic Additional A&P Information Rash: Resolved. Faint erythema of left lower extremity, lower abdomen/pannus. Some of this may be secondary to stasis/edema. We will hold methenamine. Ant ibiotic changed. Monitor. Pressure ulcers: Discussed with her wound care physician. Continue wound care with packing with Dakin twice daily. Hyperkalemia: Resolved. Low potassium diet. Acute Kidney injury: Resolving. Maintain blood pressures. Hypertension: - Hold antihypertensive lisinopril, Lasix Paraplegic: Frequent repositioning. - PT/OT Additional medical problems - Peripheral vascular disease - Obstructive sleep apnea - Chronic constipation - Neurogenic bladder / Ch. Indwelling catheter - Muscle spasms S/p Intrathecal Baclofen pump - Hx of MS, functional paraplegia - Iron deficency anemia Attestations Medical Necessity Statement*: Continue admission for assessment of management of acute anemia, resolving sepsis, complicated UTI, wound care. Coding Level of Care Code Acute [employer] [facility] Fwd Diagnoses Acute anemia D64.9 Altered mental status R40.0 Altered mental status type: somnolence Sepsis A41.9; R65.21; N17.9 Acute renal failure type: unspecified Sepsis acute organ dysfunction status: with acute organ dysfunction Sepsis type: sepsis due to unspecified organism Severe sepsis acute organ dysfunction type: acute renal failure Severe sepsis shock status: with septic shock Hypotension I95.89 Hypotension type: other hypotension type Pressure ulcer of right leg, stage 4 L89.894 Pressure ulcer of left leg, stage 3 L89.893 Dehydration E86.0 Chronic antibiotic suppression Z79.2 Sacral decubitus ulcer L89.159 Recurrent UTI N39.0 Hypothyroidism E03.9
--- NOTE | 2020-09-29 09:50 | PC.CHAP ---
Pastoral Care Encounter/Spiritual Assessment Type of Contact [] Declined block placer visit [] Patient/Family/Request visit [] Outpatient visit [] Follow-up visit [] Physician referral [] Code/Alert [x] Routine visit [] Staff referral [] Actively dying [] Patient sleeping [] Family support [] [] Out of room [] Palliative care [] [] Receiving care in room [] Pre-surgical visit [] Trauma [] Long length of stay [x] ICU visit [] Other: Relational/Emotional Strength [] Patient feels connected with others/family/visitors/staff [] Distress [] Loneliness/isolation [] Abandonment Spirituality of Patient [] Person of Neli [] Attends Jew of their Neli [] Believes in Prayer [] Reads Bible or Presybeterian materials [] There are Spiritual issues to be addressed Manager Product Design Interventions [x] Prayer [x] Active listening [x] Non-anxious presence [x] Spiritual/emotional support [] Crisis/trauma care [] Spiritual counseling [] Bereavement support [] Provided bereavement packet [] Provided Bible/devotional materials [] Provided toy/stuffed animal, coloring book to patient or family member [] Provided Communion [] Anointing/[place] [] Salvation [x] Completed spiritual assessment [] Other: Impact on Illness or Injury [] Angry [] Fearful [] Anxious [] Often cries [] Exhaustion [] Unable to work [] Unable to attend anabaptism [] Unable to walk/stand [] Unable to read [] Unable to drive [] Unable to eat/drink [] Unable to sleep [] Unable to be with family [] Patient intubated [] Other: Summary resting well Time spent with patient 10 min
--- NOTE | 2020-09-29 11:32 | PC.NURSE ---
Report called to med-surg floor. Will transfer shortly.
[2020-09-29] MEDS: potassium chloride ER 20 mEq Tablet 40 MEQ PO (13:27)
--- NOTE | 2020-09-29 14:58 | PC.NURSE ---
Patient transferred to [facility] in bed with RN. Patient tolerated transfer well.
[2020-09-29 16:37] LABS: Glucose Point of Care 82 mg/dL (70-110)
[2020-09-29 16:50] LABS: Glucose Point of Care 86 mg/dL (70-110)
[2020-09-29] MEDS: citalopram 20 mg Tablet PO (19:59)
[2020-09-29] MEDS: quetiapine 25 mg Tablet PO (19:59)
[2020-09-29 20:50] LABS: Glucose Point of Care 106 mg/dL (70-110)
[2020-09-30] MEDS: heparin 5,000 unit/mL INJ 1 mL 5000 UNIT SUBCUT ×3 (02:34→17:48)
[2020-09-30 04:17] VITALS: BP 142/82; PULSE 96; RESP 18; TEMP 36.7; O2SAT 96
[2020-09-30] MEDS: levothyroxine 175 mcg Tablet PO (06:37)
[2020-09-30 06:39] LABS: Glucose Point of Care 93 mg/dL (70-110)
[2020-09-30 07:19] VITALS: BP 130/78; PULSE 103; RESP 18; TEMP 36.5; O2SAT 94
[2020-09-30 07:21] LABS: Basophils # 0.1 10^3/uL (0.0-0.1); Basophils % 0.7 %; Eosinophils # 0.7 10^3/uL (0.0-0.8); Eosinophils % 10.4 %; Hematocrit 32.5 % (37.0-47.0); Hemoglobin 9.7 g/dL (11.5-15.3); Lymphocytes # 1.3 10^3/uL (0.8-4.8); Lymphocytes % 19.1 %; Mean Corpuscular HGB Conc 29.8 g/dL (30.0-36.0); Mean Corpuscular Hemoglobin 27.6 pg (28.0-34.0); Mean Corpuscular Volume 92.6 fL (81-99); Mean Platelet Volume 9.5 fL (7.4-10.4); Monocytes # 0.5 10^3/uL (0.2-0.9); Monocytes % 7.7 %; Neutrophils # 4.13 10^3/uL (1.8-7.7); Neutrophils % 61.7 %; Nucleated Red Blood Cells % 0 %; Platelet Count 306 10^3/cmm (130-400); Red Blood Count 3.51 10^6/uL (4.1-5.3); Red Cell Distribution Width 17.6 % (12.1-15.1); White Blood Count 6.7 10^3/uL (4.0-10.0)
[2020-09-30 07:43] LABS: Alanine Aminotransferase 16 U/L (0-33); Albumin Level 2.5 g/dL (3.5-5.2); Alkaline Phosphatase 87 IU/L (35-105); Anion Gap 14.1 (5-19); Aspartate Amino Transferase 30 U/L (0-32); Blood Urea Nitrogen 18 mg/dL (8-23); Calcium 7.9 mg/dL (8.5-10.5); Carbon Dioxide 20 mmol/L (22-29); Chloride 111 mmol/L (98-107); Globulin 3.7 g/dL (1.3-4.6); Glomerular Filtration Rate 72.4 mL/min (90-130); Glucose 82 mg/dL (65-115); Osmolality Calculated 293 mOsm/kg (285-295); Potassium 4.1 mmol/L (3.5-5.1); Sodium 141 mmol/L (136-145); Total Bilirubin 0.3 mg/dL (0.15-1.2); Total Protein 6.2 g/dL (6.6-8.7)
[2020-09-30 10:36] LABS: Glucose Point of Care 97 mg/dL (70-110)
[2020-09-30] MEDS: ascorbic acid 500 mg Tablet 1000 MG PO (11:03)
[2020-09-30] MEDS: cyclobenzaprine 10 mg Tablet PO (11:03)
[2020-09-30] MEDS: clopidogrel 75 mg Tablet PO (11:03)
[2020-09-30] MEDS: ARIPiprazole 2 mg Tablet PO (11:04)
[2020-09-30] MEDS: fluconazole 100 mg Tablet PO (11:04)
[2020-09-30] MEDS: pantoprazole DR 40 mg Tablet PO (11:04)
[2020-09-30 11:13] VITALS: BP 124/80; PULSE 61; RESP 18; TEMP 35.9; O2SAT 98
[2020-09-30] MEDS: artificial tears Op Soln 15 mL Btl 1 DROP EYE-BOTH (12:26)
[2020-09-30] MEDS: triamcinolone 0.1% cream 15 gm 1 APPLIC TOPICAL (12:26)
[2020-09-30] MEDS: ciprofloxacin 400 MG/200 ML PREMIX 200 MG IV (12:27)
--- NOTE | 2020-09-30 14:04 | PC.SOCIAL ---
*IMM UPDATE* Gave patient IMM update, provided her copy of pg 2 of IMM. Verbalized understanding. 09/30/20 @ 1024 Initialed, dated, timed and placed in chart.
--- NOTE | 2020-09-30 14:09 | PM.DCS ---
Discharge Providers Date of Admission: 09/25/20 16:09 Date of Discharge: September 30, 2020 Attending Provider at Admission: Yajaira Almaraz MD Attending Provider at Discharge: Tae Carroll Primary Care Provider: Russ Rosa Jr, MD Diagnoses at Discharge Discharge Diagnosis (1) Acute anemia: Status: Acute (2) Altered mental status: Status: Acute Qualifiers: Altered mental status type: somnolence Qualified Code(s): R40.0 - Somnolence (3) Sepsis: Status: Acute Qualifiers: Acute renal failure type: unspecified Sepsis acute organ dysfunction status: with acute organ dysfunction Sepsis type: sepsis due to unspecified organism Severe sepsis acute organ dysfunction type: acute renal failure Severe sepsis shock status: with septic shock Qualified Code(s): A41.9 - Sepsis, unspecified organism; R65.21 - Severe sepsis with septic shock; N17.9 - Acute kidney failure, unspecified (4) Hypotension: Status: Acute Qualifiers: Hypotension type: other hypotension type Qualified Code(s): I95.89 - Other hypotension (5) Pressure ulcer of right leg, stage 4: Status: Chronic (6) Pressure ulcer of left leg, stage 3: Status: Chronic (7) Dehydration: Status: Acute (8) Chronic antibiotic suppression: Status: Acute (9) Sacral decubitus ulcer: Status: Acute (10) Recurrent UTI: Status: Chronic (11) Hypothyroidism: Status: Chronic Reason for Visit Reason for Visit: possible uti Hospital Course Hospital Course Very pleasant 65-year-old lady with history of multiple conditions including MS, chronically bedbound, with stage IV buttock pressure ulcer including right gluteal deep tunneling wound with bone exposure, chronic pressure wounds with tendon exposure on bilateral calves, chronic indwelling urinary catheter, recurrent UTI, venous insufficiency, morbid obesity, sleep apnea, insulin-dependent diabetes, who was admitted with concern of recurrence of UTI, noted to be in sepsis, septic shock for which received treatment during hospitalization. Required pressor support. Was treated with IV antibiotics. Eventually growing Pseudomonas which was resistant to Primaxin with which she was initially treated. Transition to ciprofloxacin. Blood pressures improved, weaned off pressors. With noted altered mental status on presentation, and this overall has improved, she is consistently remains awake, alert, interactive, in good spirits, however, with quite significant memory deficits. Not oriented to place or year persistently. With memory deficits difficult to state whether there is a degree of aphasia. As discussed with her son, difficult to exclude whether may have had prior CVA. Her son reports that has noticed she has been having communication and memory difficulties probably over the last month or so on his phone conversations. Due to this we will refer her additionally for assessment by MRI and neurology in office. Depending on findings, please consider also depending on anemia whether addition of aspirin may be a possibility. For now we will hold off on this due to persistence of anemia and possibility that this is still related to slowly resolving delirium following severe sepsis/septic shock and concern for worsening anemia/bleeding risk. Please maintain aspiration precautions. Maintain dysphagia level 1 diet. Continue speech therapy follow-up. She otherwise continue to receive wound care for her severe pressure ulcers. Discussing with her wound care physician Dr. Montes, wound care to continue with packing with Dakin solution twice daily of deep right gluteal tunneling wound, as well as bilateral calf wounds. Due to significant wounds Flores catheter at this time is maintained, however, due to recurrent urinary tract infections, please make sure this is changed regularly. Consider follow-up with urology. She will complete antibiotic course with ciprofloxacin. She is resumed on methenamine, however, had transient very faint pale reddish rash during the hospitalization. Difficult to state whether this was related to some edema and stasis following resuscitation of the septic shock, as opposed to medication reaction. In addition to some improvement in volume status Primaxin had also been discontinued, and methenamine helps temporarily. On resumption of methenamine, please monitor for any recurrence of rash, and if so perhaps there may be an allergy to this medication. During hospitalization she was also monitored for acute anemia. Appears this was mostly dilutional, but does have history of iron deficiency anemia. Please resume follow-up of this, and work-up as appropriate once she recovers from acute illness. Due to noted episodes of hypoglycemia in the hospital with 10 units of detemir on board, this is at this time entirely discontinued. Please continue to follow blood glucose levels. Continue short acting insulin avoiding hypoglycemia. Due to acute kidney injury on admission, lisinopril, diuretics have been held. Please reassess renal function. If remains stable resume as appropriate. Hyperkalemia has resolved. Please follow-up level. Physical Exam Const: COMMON NORMALS: no acute distress and alert; negative for patient oriented x3 GENERAL APPEARANCE: cooperative and comfortable NUTRITIONAL APPEARANCE: obese ORIENTATION/CONSCIOUSNESS: Yes awake OTHER: She is awake, keenly responsive, pleasant, joking around/keeping lighthearted conversation (states there you are Mr. Lia herring ), however, with memory deficits, not oriented to place or year. Denies any discomfort. Denies any pain. HENMT: COMMON NORMALS: oropharynx normal Neck/C-Spine: COMMON NORMALS: no JVD Resp: COMMON NORMALS: normal respiratory effort and clear to auscultation bilaterally AUSCULTATION: clear to auscultation bilaterally Cardio: COMMON NORMALS: no JVD, regular rhythm, S1 normal heart sound present, S2 normal heart sound present and No murmurs present (Cardio) RHYTHM: regular rhythm HEART SOUNDS: S1 normal heart sound present and S2 normal heart sound present GI: COMMON NORMALS: Normal to inspection, nondistended, normoactive bowel sounds present, Soft to palpation and non-tender PALPATION: Yes Soft to palpation Extremity: COMMON NORMALS: no joint enlargement and no pedal edema Neuro: COMMON NORMALS: negative for patient oriented x3 SENSORIUM/ORIENTATION: Yes alert Skin: OTHER: Gluteal wound with deep tunneling to the bone R lower gluteus. Packing removed. No significant necrosis. No purulent discharge. To deep ulcerations on posterior calves, larger on the left side, 6 x 3 cm, about 1.5 cm deep, exposure some connective tissue and muscle, no purulence, no significant necrotic tissue. Smaller about 1.5 x 1.5 cm x 1.5 cm deep ulceration on posterior right calf, no purulence, did not appreciate tunneling Urinary Catheter Management^: Flores: Cath Placed During This Visit: yes Reason for Continuing Indwelling Catheter: Acute Urinary Retention or Obstruction Urinary Catheter Date of Insertion: 09/25/20 Urinary Catheter Time of Insertion: 02:32 Discharge Data Data Completed and Pending: Completed Studies During Hospitalization Category Date Time Status CT head wo con* 7 0450 Routine Cat Scan 09/28/20 09:[address] kidney stone [id number] Urgent Cat Scan 09/24/20 22:43 Completed XR chest 1V ugo ble [id number] Routine Exams 09/25/20 22:17 Completed XR chest 1V ugo ble [id number] Urgent Exams 09/24/20 20:16 Completed Pending at discharge Category Date Time Status Blood Culture Sta t Lab 09/25/20 17:00 Results Miscellaneous Kristen t Routine Lab 09/29/20 18:37 Received SARS Covid-2 Anti gen Routine Lab 09/30/20 12:30 Received Labs from last 24 hours 09/30/20 09/30/20 09/30/20 12:30 10:29 07:10 WBC RBC Hgb Hct MCV MCH MCHC RDW Plt Count MPV Neut % (Auto) Lymph % (Auto) [place] % (Auto) Eos % (Auto) Baso % (Auto) Neut # (Auto) Lymph # (Auto) [place] # (Auto) Eos # (Auto) Baso # (Auto) Nucleated RBC % (a uto) Nucleated RBCs # Sodium 141 Potassium 4.1 Chloride 111 H Carbon Dioxide 20 L Anion Gap 14.1 BUN 18 Creatinine 0.8 GFR Calculation 72.4 L Glucose 82 POC Glucose 97 Calculated Osmolal ity 293 Calcium 7.9 L Total Bilirubin 0.3 AST 30 ALT 16 Alkaline Phosphata se 87 Total Protein 6.2 L Albumin 2.5 L Globulin 3.7 SARS-CoV-2 Ag (Rap id) Pending Misc Test Referenc e 09/30/20 09/30/20 09/29/20 07:10 06:33 20:46 WBC 6.7 RBC 3.51 L Hgb 9.7 L Hct 32.5 L MCV 92.6 MCH 27.6 L MCHC 29.8 L RDW 17.6 H Plt Count 306 MPV 9.5 Neut % (Auto) 61.7 Lymph % (Auto) 19.1 [place] % (Auto) 7.7 Eos % (Auto) 10.4 Baso % (Auto) 0.7 Neut # (Auto) 4.13 Lymph # (Auto) 1.3 [place] # (Auto) 0.5 Eos # (Auto) 0.7 Baso # (Auto) 0.1 Nucleated RBC % (a uto) 0 Nucleated RBCs # 0.0 Sodium Potassium Chloride Carbon Dioxide Anion Gap BUN Creatinine GFR Calculation Glucose POC Glucose 93 106 Calculated Osmolal ity Calcium Total Bilirubin AST ALT Alkaline Phosphata se Total Protein Albumin Globulin SARS-CoV-2 Ag (Rap id) Misc Test Referenc e 09/29/20 09/29/20 09/29/20 18:37 16:41 07:58 WBC RBC Hgb Hct MCV MCH MCHC RDW Plt Count MPV Neut % (Auto) Lymph % (Auto) [place] % (Auto) Eos % (Auto) Baso % (Auto) Neut # (Auto) Lymph # (Auto) [place] # (Auto) Eos # (Auto) Baso # (Auto) Nucleated RBC % (a uto) Nucleated RBCs # Sodium Potassium Chloride Carbon Dioxide Anion Gap BUN Creatinine GFR Calculation Glucose POC Glucose 86 82 Calculated Osmolal ity Calcium Total Bilirubin AST ALT Alkaline Phosphata se Total Protein Albumin Globulin SARS-CoV-2 Ag (Rap id) Misc Test Referenc e Pending Vitals: Last Vital Signs Temp 96.6 F L 09/30/20 11:13 Pulse 61 09/30/20 11:13 Resp 18 09/30/20 11:13 BP 124/80 09/30/20 11:13 Pulse Ox 98 09/30/20 11:13 Discharge Plan Discharge Patient Disposition: Xfer SNF Condition: Stable Prescriptions: New ciprofloxacin HCl 500 mg tablet 500 mg PO BID Qty: 8 RF: 0 atorvastatin 40 mg tablet 40 mg PO QPM Qty: 30 RF: 0 Continued aripiprazole [Abilify] 2 mg tablet 2 mg PO DAILY@08 RF: 0 acetaminophen 325 mg capsule 650 mg PO Q4H PRN (Reason: Pain, Mild) RF: 0 levothyroxine 175 mcg capsule 175 mcg PO DAILY@06 RF: 0 cyclobenzaprine 10 mg tablet 10 mg PO BID@ RF: 0 loratadine [Claritin] 10 mg tablet 10 mg PO DAILY@799 RF: 0 lorazepam 0.5 mg tablet 0.25 mg PO BID@ RF: 0 ferrous gluconate 324 mg (37.5 mg iron) tablet 324 mg PO BID@ RF: 0 methenamine hippurate 1 mg PO BID@ RF: 0 quetiapine [Seroquel] 25 mg Tablet 25 mg PO DAILY@1999 RF: 0 citalopram [Celexa] 40 mg Tablet 40 mg PO DAILY@1999 RF: 0 ondansetron HCl [Zofran] 4 mg Tablet 4 mg PO Q6H PRN (Reason: NAUSEA/VOMITING) RF: 0 clopidogrel 75 mg Tablet 75 mg PO DAILY@0800 RF: 0 magnesium hydroxide [Milk of Magnesia] 400 mg/5 mL Suspension 400 mg PO DAILY PRN (Reason: Constipation) RF: 0 bisacodyl [Dulcolax (bisacodyl)] 10 mg Suppository 10 mg CO DAILY PRN (Reason: Constipation) RF: 0 pantoprazole [Protonix] 40 mg Tablet,Delayed Release (Dr/Ec) 40 mg PO DAILY@0800 RF: 0 docusate sodium [Colace] 100 mg Capsule 100 mg PO DAILY PRN (Reason: Constipation) RF: 0 polyethylene glycol 3350 [Miralax] 17 gram/dose Powder 17 g PO Q2D RF: 0 Pro-Stat Renal Care 15 gram- 100 kcal/30 mL Liquid In Packet 1 ea PO BID@ RF: 0 Vitamin C 1,000 mg Tablet 1,000 mg PO BID@ RF: 0 Novolog U-100 Insulin aspart 100 unit/mL Solution See Rx Instructions .ROUTE .COMPLEX RF: 0 Dry Eye Relief 1-0.2-0.2 % Drops 1 drp OPHTHALMIC (EYE) BID@799,1999 RF: 0 gabapentin 300 mg Capsule 300 mg PO TID@799,1199,1999 RF: 0 Biotene Moisturizing Mouth [place],Non-Aerosol 1 applic MUCOUS MEMBRANE PRN PRN (Reason: Dry Mouth) RF: 0 Changed lorazepam 0.5 mg tablet 0.25 mg PO BID@799,1999 PRN (Reason: Anxiety) Qty: 0 RF: 0 Held furosemide [Lasix] 40 mg tablet 40 mg PO DAILY@0800 RF: 0 Hold Instructions: Resume on 10/07/20. lisinopril 5 mg tablet 5 mg PO DAILY@0800 RF: 0 Hold Instructions: Resume on 10/14/20. Discontinued Levemir U-100 Insulin 100 unit/mL solution 10 unit SUBCUT BEDTIME@1999 RF: 0 cefadroxil 500 mg Capsule 500 mg PO BID@ RF: 0 simvastatin 5 mg Tablet 5 mg PO DAILY@1999 RF: 0 Discharge Orders: Discharge Order (Routine); Ordered 09/30/20 Ordered By: Tae Carroll Other Ambulatory Orders: MR head wo/w con [id number] (Routine) Timeframe: 3 Days Facility: [facility] - Location: [facility] Ordered By: Tae Carroll Referrals: Jagruti Hoyos MD [Physician] - 2 weeks (Memory deficits, aphasia [facility] will call you with an appintment.) Russ Rosa Jr, MD [Primary Care Provider] - 4-7 days Wound Care [Provider Group] - 1 week Discharge Diet: As Directed Discharge Activity: Increase activity as tolerated and As per PT/OT instructions Activity Restrictions/Additional Instructions: Please maintain dysphagia level 1 diet. Please recheck potassium level and kidney function after acute kidney injury in 3 days. Please follow-up hemoglobin level in 3 days for anemia. Please continue follow-up regarding iron deficiency anemia. Once out of acute illness episode consider additional work-up. Please follow-up MRI due to recently worsening functional decline, cognitive deficits, and possible aphasia, assess for possible prior CVA. Please continue frequent repositioning. Special bariatric bed if possible to assist in offloading pressure from sacrum, gluteal area. Continue wound care for right gluteal deep tunneling wound with bone exposure with packing with Dakin solution twice daily. Similarly pack wounds on calves bilaterally also twice daily with Dakin's. Please resume follow-up with wound care clinic. Please consider follow-up with urology due to recurrent UTI. Please change Flores catheter regularly. Please continue to monitor blood pressures and optimize control. Lisinopril, Lasix have been on hold due to kidney injury. This has been resolving, please resume if renal function remains stable. Please continue to follow blood glucose. Detemir at this time is discontinued entirely due to noted episodes of hypoglycemia. Discharge Attestations Time Spent in Discharge Care*: greater than 30 min Status at Discharge: Cognitive status at discharge: mildly impaired cognition, Behavioral status at discharge: cooperative, Quality Metrics Clinical Quality Measures During this hospital stay, did patient experience: None Coding Level of Care Code Acute Chg FW DC note Diagnoses Acute anemia D64.9 Altered mental status R40.0 Altered mental status type: somnolence Sepsis A41.9; R65.21; N17.9 Acute renal failure type: unspecified Sepsis acute organ dysfunction status: with acute organ dysfunction Sepsis type: sepsis due to unspecified organism Severe sepsis acute organ dysfunction type: acute renal failure Severe sepsis shock status: with septic shock Hypotension I95.89 Hypotension type: other hypotension type Pressure ulcer of right leg, stage 4 L89.894 Pressure ulcer of left leg, stage 3 L89.893 Dehydration E86.0 Chronic antibiotic suppression Z79.2 Sacral decubitus ulcer L89.159 Recurrent UTI N39.0 Hypothyroidism E03.9
[2020-09-30 14:16] VITALS: BP 124/80; PULSE 61; RESP 18; TEMP 35.9; O2SAT 98
[2020-09-30 14:39] LABS: SARS Covid-2 Antigen Negative (Negative)
[2020-09-30 15:22] VITALS: BP 126/83; PULSE 100; RESP 18; TEMP 36.2; O2SAT 96
== END 2020-09-30 18:10 | disposition skilled nursing facility (03) | DRG 871 ==
LOC: ER 20:22 → MEDSURG 23:24 → ICU 09-25 19:39 → MEDSURG 09-29 11:40
PROVIDERS: Hospitalist; Admitting Provider Internal Medicine; Emergency Provider Family Medicine; PCP Family Medicine; Visit Provider Internal Medicine
DX: A41.9 Sepsis, unspecified organism (principal); L89.314 Pressure ulcer of right buttock, stage 4; R65.21 Severe sepsis with septic shock; G82.20 Paraplegia, unspecified; L97.228 Non-pressure chronic ulcer of left calf with other specified severity; L97.218 Non-pressure chronic ulcer of right calf with other specified severity; Z68.41 Body mass index [BMI] 40.0-44.9, adult; N39.0 Urinary tract infection, site not specified; Z16.29 Resistance to other single specified antibiotic; N17.9 Acute kidney failure, unspecified; B37.49 Other urogenital candidiasis; G35 Multiple sclerosis; Z96.0 Presence of urogenital implants; E66.01 Morbid (severe) obesity due to excess calories; G47.33 Obstructive sleep apnea (adult) (pediatric); E11.51 Type 2 diabetes mellitus with diabetic peripheral angiopathy without gangrene; E11.649 Type 2 diabetes mellitus with hypoglycemia without coma; K59.09 Other constipation; E86.0 Dehydration; R41.82 Altered mental status, unspecified; I95.9 Hypotension, unspecified; B96.5 Pseudomonas (aeruginosa) (mallei) (pseudomallei) as the cause of diseases classified elsewhere; E87.5 Hyperkalemia; N31.9 Neuromuscular dysfunction of bladder, unspecified; N39.45 Continuous leakage; D50.9 Iron deficiency anemia, unspecified; M19.90 Unspecified osteoarthritis, unspecified site; G89.29 Other chronic pain; M54.9 Dorsalgia, unspecified; Z79.02 Long term (current) use of antithrombotics/antiplatelets; R21 Rash and other nonspecific skin eruption; E55.9 Vitamin D deficiency, unspecified; Z66 Do not resuscitate; Z79.2 Long term (current) use of antibiotics; Z87.440 Personal history of urinary (tract) infections; E03.9 Hypothyroidism, unspecified; I10 Essential (primary) hypertension; E78.5 Hyperlipidemia, unspecified; K21.9 Gastro-esophageal reflux disease without esophagitis; F32.9 Major depressive disorder, single episode, unspecified; Z96.89 Presence of other specified functional implants
CPT/HCPCS: 36415; 36416; 36592; 51702; 70450; 71045; 74176; 80048; 80053; 81001; 82533; 82962; 83605; 84145; 84311; 84443; 85025; 86140; 87040; 87070; 87077; 87086; 87186; 87426; 92507; 92523; 92526; 92610; 96361; 96365; 96372; 99285; C1751; G0378; J0610; J0692; J0743; J0744; J1644; J1720; J1815; J2060; J7030; J7040; P9047